=== PATIENT | male | born 1965 | race Caucasian/White ===

== ENCOUNTER 2016-05-06 00:28 | Emergency (ER) | payer MEDICARE, OTHER ==
[2016-05-06] MEDS ORDERED: KETOROLAC 60 MG/2 ML VIAL IVP STA (00:33)
[2016-05-06] MEDS ORDERED: LORazepam 2 MG/ML SYRINGE IV STA (00:34)
--- NOTE | 2016-05-06 00:37 | ED ---
Fever HPI - General Stated Complaint: anxiety Time Seen by Provider: 05/06/16 00:28 Source: RN notes reviewed - History of Present Illness Initial Comments: This is a 50-year-old male with a past medical history significant for chronic back pain and chronic anxiety. Patient states his been out of his pain medication as well as his anxiety medication. Patient states he has no ride to get to his primary medical care doctor's office so therefore he has not been getting his medications. Patient states she only takes 1 mg of Xanax 3 times a day. Patient states takes OxyContin for his back pain. Patient states he has no new symptoms today whatsoever he is just having his chronic symptoms of his back pain and his anxiety. Patient denies headache patient denies numbness weakness. Patient denies any chest pain palpitations difficulty breathing or shortness of breath. Patient denies abdominal pain patient denies nausea vomiting diarrhea. Patient denies any illegal drug use patient denies any alcohol use. Patient denies any recent injury or trauma. Patient states is chronic back pain that he has is in the lower back. Patient states sometimes it radiates down to the mid leg. - Related Data Home Medications Medication Instructions Recorded Confirmed Melatonin 3 mg PO HS 10/08/15 10/15/15 cloZAPine [Clozaril] 150 mg PO BID 10/08/15 10/15/15 Cefuroxime Axetil [Cefuroxime] 500 mg PO BID 10/15/15 10/15/15 Previous Rx's Medication Instructions Recorded Gabapentin [Neurontin] 400 mg PO TID #90 capsule 09/29/15 Mirtazapine [Remeron] 30 mg PO HS #30 tablet 09/29/15 OLANZapine [ZyPREXA] 20 mg PO HS #30 tablet 09/29/15 Omeprazole 20 mg PO DAILY #30 capsule. 09/29/15 Ranitidine HCl [Zantac] 150 mg PO BID #30 tablet 09/29/15 metroNIDAZOLE [Flagyl] 500 mg PO Q8HR #21 tab 10/12/15 ALPRAZolam [Xanax] 0.5 mg PO Q8HR #12 tab 05/06/16 Allergies Allergy/AdvReac Type Severity Reaction Status Date / Time levofloxacin [From Levaquin] Allergy Unknown Verified 09/28/15 21:12 linezolid [From Zyvox] Allergy Unknown Verified 09/28/15 21:12 nitrofurantoin Allergy Unknown Verified 09/28/15 21:12 [From Macrobid] nitrofurantoin Allergy Unknown Verified 09/28/15 21:12 macrocrystalline [From Macrobid] Penicillins Allergy Unknown Verified 09/28/15 21:12 sulfamethoxazole Allergy Unknown Verified 09/28/15 21:12 [From Bactrim] trimethoprim [From Bactrim] Allergy Unknown Verified 09/28/15 21:12 vancomycin Allergy Unknown Verified 09/28/15 21:12 Review of Systems ROS Statement: Those systems with pertinent positive or pertinent negative responses have been documented in the HPI. ROS Other: All systems not noted in ROS Statement are negative. Past Medical History Past Medical History: Liver Disease Additional Past Medical History / Comment(s): Pt stated that he has Hepatisis C History of Any Multi-Drug Resistant Organisms: None Reported Past Surgical History: No Surgical Hx Reported Additional Past Surgical History / Comment(s): pt denies Past Anesthesia/Blood Transfusion Reactions: No Reported Reaction Past Psychological History: Anxiety, Panic Disorder, Schizophrenia Smoking Status: Current every day smoker Past Alcohol Use History: Daily, Heavy Additional Past Alcohol Use History / Comment(s): 09/28/2015: pt states he is currently drinking a pint daily Past Drug Use History: None Reported General Exam - General Exam Comments Initial Comments: GENERAL: Patient is well-developed and well-nourished. Patient is nontoxic and well- hydrated and is in mild distress. ENT: Neck is soft and supple. No significant lymphadenopathy is noted. Oropharynx is clear. Moist mucous membranes. Neck has full range of motion without eliciting any pain. EYES: The sclera were anicteric and conjunctiva were pink and moist. Extraocular movements were intact and pupils were equal round and reactive to light. Eyelids were unremarkable. PULMONARY: Unlabored respirations. Good breath sounds bilaterally. No audible rales rhonchi or wheezing was noted. CARDIOVASCULAR: There is a regular rate and rhythm without any murmurs gallops or rubs. ABDOMEN: Soft and nontender with normal bowel sounds. No palpable organomegaly was noted. There is no palpable pulsatile mass. SKIN: Skin is clear with no lesions or rashes and otherwise unremarkable. NEUROLOGIC: Patient is alert and oriented x3. Cranial nerves II through XII are grossly intact. Motor and sensory are also intact. Normal speech, volume and content. Symmetrical smile. MUSCULOSKELETAL: Normal extremities with adequate strength and full range of motion. No lower extremity swelling or edema. No calf tenderness. LYMPHATICS: No significant lymphadenopathy is noted PSYCHIATRIC: Patient has moderate anxiety Course Vital Signs 05/06/16 00:36 Temperature 98.9 F Pulse Rate 85 Respiratory 16 Rate Blood Pressure 156/94 O2 Sat by Pulse 98 Oximetry Medical Decision Making - Medical Decision Making Back into the room to reevaluate the patient patient was sleeping when I woke him he stated he felt much better Disposition Clinical Impression: Chronic back pain, Anxiety Disposition: HOME SELF-CARE Condition: Good Instructions: Chronic Back Pain (ED), Anxiety (ED) Prescriptions: ALPRAZolam [Xanax] 0.5 mg PO Q8HR #12 tab Time of Disposition: 01:57
[2016-05-06 00:40] VITALS: RESP 16; TEMP 98.9
[2016-05-06 02:08] VITALS: BP 138/79; PULSE 74
== END 2016-05-06 02:07 | disposition home or self-care (01) ==
LOC: EC 00:28
DX: G89.29 Other chronic pain (principal); M54.5 Low back pain; F41.9 Anxiety disorder, unspecified; F17.200 Nicotine dependence, unspecified, uncomplicated; F20.9 Schizophrenia, unspecified; F41.0 Panic disorder [episodic paroxysmal anxiety]; Z79.899 Other long term (current) drug therapy; Z79.2 Long term (current) use of antibiotics; Z88.0 Allergy status to penicillin; Z88.1 Allergy status to other antibiotic agents; Z88.2 Allergy status to sulfonamides
CPT/HCPCS: 99283; 96374; 96375; J2060; J1885

== ENCOUNTER 2016-05-11 17:12 | Inpatient (IN) | payer MEDICARE, MEDICAID ==
--- NOTE | 2016-05-11 17:58 | ED ---
General Adult HPI - General Chief complaint: Back Pain/Injury Stated complaint: back pain Time Seen by Provider: 05/11/16 17:56 Source: patient, RN notes reviewed, old records reviewed Mode of arrival: EMS Limitations: no limitations - History of Present Illness Initial comments: This is a 50-year-old male here for suicidal evaluation. Patient has history of psychiatric disease drug dependent. Back pain back pain is chronic. No narcotics, patient also coming in with suicidal thoughts and his feet symmetrically. Denies IV or drug abuse - Related Data Home Medications Medication Instructions Recorded Confirmed cloZAPine [Clozaril] 225 mg PO BID 10/08/15 05/11/16 Aspirin [Adult Low Dose Aspirin EC] 81 mg PO DAILY 05/11/16 05/11/16 Cyanocobalamin (Vitamin B-12) 1,000 mcg SUBLINGUAL DAILY 05/11/16 05/11/16 [Vitamin B-12] Ergocalciferol [Vitamin D2] 50,000 unit PO Q7D 05/11/16 05/12/16 carBAMazepine [Carbatrol] 200 mg PO Q12H 05/11/16 05/11/16 Previous Rx's Medication Instructions Recorded Omeprazole 20 mg PO DAILY #30 capsule. 09/29/15 Allergies Allergy/AdvReac Type Severity Reaction Status Date / Time levofloxacin [From Levaquin] Allergy Unknown Verified 05/11/16 18:10 linezolid [From Zyvox] Allergy Unknown Verified 05/11/16 18:10 nitrofurantoin Allergy Unknown Verified 05/11/16 18:10 [From Macrobid] nitrofurantoin Allergy Unknown Verified 05/11/16 18:10 macrocrystalline [From Macrobid] Penicillins Allergy Unknown Verified 05/11/16 18:10 sulfamethoxazole Allergy Unknown Verified 05/11/16 18:10 [From Bactrim] trimethoprim [From Bactrim] Allergy Unknown Verified 05/11/16 18:10 vancomycin Allergy Unknown Verified 05/11/16 18:10 Review of Systems ROS Statement: Those systems with pertinent positive or pertinent negative responses have been documented in the HPI. ROS Other: All systems not noted in ROS Statement are negative. Past Medical History Past Medical History: Liver Disease Additional Past Medical History / Comment(s): Pt stated that he has Hepatitis C History of Any Multi-Drug Resistant Organisms: None Reported Past Surgical History: Appendectomy Additional Past Surgical History / Comment(s): pt denies Past Anesthesia/Blood Transfusion Reactions: No Reported Reaction Past Psychological History: Anxiety, Panic Disorder, Schizophrenia Smoking Status: Current every day smoker Past Alcohol Use History: Daily, Heavy Additional Past Alcohol Use History / Comment(s): 09/28/2015: pt states he is currently drinking a pint daily Past Drug Use History: None Reported General Exam Limitations: no limitations General appearance: alert, in no apparent distress Head exam: Present: atraumatic, normocephalic, normal inspection Eye exam: Present: normal appearance, PERRL, EOMI. Absent: scleral icterus, conjunctival injection, periorbital swelling ENT exam: Present: normal exam, mucous membranes moist Neck exam: Present: normal inspection. Absent: tenderness, meningismus, lymphadenopathy Respiratory exam: Present: normal lung sounds bilaterally. Absent: respiratory distress, wheezes, rales, rhonchi, stridor Cardiovascular Exam: Present: regular rate, normal rhythm, normal heart sounds. Absent: systolic murmur, diastolic murmur, rubs, gallop, clicks GI/Abdominal exam: Present: soft, normal bowel sounds. Absent: distended, tenderness, guarding, rebound, rigid Extremities exam: Present: normal inspection, full ROM, normal capillary refill. Absent: tenderness, pedal edema, joint swelling, calf tenderness Back exam: Present: normal inspection Neurological exam: Present: alert, oriented X3, CN II-XII intact Psychiatric exam: Present: normal affect, normal mood Skin exam: Present: warm, dry, intact, normal color. Absent: rash Course Vital Signs 05/11/16 05/11/16 17:38 21:57 Temperature 98.1 F Pulse Rate 87 87 Respiratory 18 18 Rate Blood Pressure 179/93 129/76 O2 Sat by Pulse 9 L 96 Oximetry - Reevaluation(s) Reevaluation #1: 05/11/16 17:58 Patient's medically clear for psychiatric evaluation Medical Decision Making - Medical Decision Making 50 male seen and evaluated by psychiatry, will be admitted for psychiatric evaluation and treatment - Lab Data Lab Results 05/11/16 Range/Units 18:00 Urine Color Colorless Urine Appearance Clear (Clear) Urine pH 7.0 (5.0-8.0) Ur Specific [place] 1.001 (1.001-1.035) Urine Protein Negative (Negative) Urine Glucose (UA) Negative (Negative) Urine Ketones 1+ H (Negative) Urine Blood Negative (Negative) Urine Nitrite Negative (Negative) Urine Bilirubin Negative (Negative) Urine Urobilinogen <2.0 (<2.0) mg/dL Ur Leukocyte Esterase Negative (Negative) Urine Opiates Screen Not Detected (NotDetected) Ur Oxycodone Screen Not Detected (NotDetected) Urine Methadone Screen Not Detected (NotDetected) Ur Propoxyphene Screen Not Detected (NotDetected) Ur Barbiturates Screen Not Detected (NotDetected) U Tricyclic Antidepress Not Detected (NotDetected) Ur Phencyclidine Scrn Not Detected (NotDetected) Ur Amphetamines Screen Not Detected (NotDetected) U Methamphetamines Scrn Not Detected (NotDetected) U Benzodiazepines Scrn Not Detected (NotDetected) Urine Cocaine Screen Not Detected (NotDetected) U Marijuana (THC) Screen Not Detected (NotDetected) Disposition Clinical Impression: Schizophrenia, Anxiety, Suicidal ideation Disposition: TRANSFER TO PSYCH HOSP/UNIT Condition: Good
[2016-05-11 18:24] LABS: Appearance,Urine Clear (Clear); Bilirubin,Urine Negative (Negative); Glucose,Urine (UA) Negative (Negative); Ketones,Urine 1+ (Negative); Leukocyte Esterase,Urine Negative (Negative); Nitrite,Urine Negative (Negative); Protein,Urine Negative (Negative); Specific Gravity,Urine 1.001 (1.001-1.035); UA Billing (MACRO vs. MICRO) CHEM; Urobilinogen,Urine <2.0 mg/dL (<2.0)
[2016-05-11] MEDS ORDERED: MAG HYDROX/AL HYDROX/SIMETH 30 ML CUP PO PRN (22:57)
[2016-05-11] MEDS ORDERED: MAGNESIUM HYDROXIDE 2,400 MG/10 ML CUP PO PRN (22:57)
[2016-05-11] MEDS ORDERED: ACETAMINOPHEN TAB 325 MG TAB PO PRN (22:57)
[2016-05-11] MEDS ORDERED: LORazepam 2 MG/ML SYRINGE IM PRN (23:01)
[2016-05-12] MEDS: cloZAPine 100 MG TAB PO SCH ×2 (08:09→21:30)
[2016-05-12] MEDS: CYANOCOBALAMIN 500 MCG TAB PO SCH (08:09)
[2016-05-12] MEDS: cloZAPine 25 MG TAB PO SCH ×2 (08:09→21:30)
[2016-05-12] MEDS: PANTOPRAZOLE 40 MG TABLET PO SCH (08:09)
[2016-05-12] MEDS: ASPIRIN 81 MG CHEW PO SCH (08:09)
[2016-05-12] MEDS ORDERED: NICOTINE 21MG/24HR PATCH TRANSDERM SCH (09:00)
[2016-05-12] MEDS: VENLAFAXINE HCL ER 37.5 MG CAP PO SCH (09:43)
[2016-05-12 09:56] LABS: Basophils % (A) 0 %; CH 32.9; CHCM 35.3; Eosinophils # (A) 0.1 k/uL (0-0.7); Eosinophils % (A) 1 %; HCT 52.7 % (39.0-53.0); HDW 2.58; HGB 17.8 gm/dL (13.0-17.5); Luc # (Auto) 0.08; Luc % (Auto) 1; Lymphocytes # (A) 0.8 k/uL (1.0-4.8); Lymphocytes % (A) 10 %; MCH 31.7 pg (25.0-35.0); MCHC 33.8 g/dL (31.0-37.0); MCV 93.8 fL (80.0-100.0); Mean Platelet Volume 7.9; Monocytes # (A) 0.4 k/uL (0-1.0); Monocytes % (A) 5 %; Neutrophils % (A) 84 %; RBC 5.62 m/uL (4.30-5.90); RDW 14.5 % (11.5-15.5); WBC 8.4 k/uL (3.8-10.6); WBC (Perox) 8.41
[2016-05-12 10:22] LABS: Anion Gap 11 mmol/L; Blood Urea Nitrogen 7 mg/dL (9-20); Calcium 9.3 mg/dL (8.4-10.2); Carbon Dioxide 26 mmol/L (22-30); Chloride 97 mmol/L (98-107); Glucose 135 mg/dL (74-99); Non-African American GFR(MDRD) >60 (>60 ml/min/1.73 sqM); Potassium 4.3 mmol/L (3.5-5.1); Sodium 134 mmol/L (137-145)
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
[2016-05-12] MEDS: ERGOCALCIFEROL 50,000 UNIT CAP PO SCH (16:52)
[2016-05-12] MEDS ORDERED: IBUPROFEN 200 MG TAB PO PRN (17:53)
[2016-05-12 19:04] LABS: ALT 39 U/L (21-72); AST 33 U/L (17-59); Alkaline Phosphatase 91 U/L (38-126); Anion Gap 13 mmol/L; Blood Urea Nitrogen 12 mg/dL (9-20); Calcium 9.3 mg/dL (8.4-10.2); Carbon Dioxide 26 mmol/L (22-30); Chloride 95 mmol/L (98-107); Glucose 113 mg/dL (74-99); Non-African American GFR(MDRD) >60 (>60 ml/min/1.73 sqM); Potassium 4.5 mmol/L (3.5-5.1); Sodium 134 mmol/L (137-145); Total Bilirubin 0.8 mg/dL (0.2-1.3); Total Protein 7.4 g/dL (6.3-8.2)
--- NOTE | 2016-05-12 20:55 | CONS ---
REASON FOR CONSULTATION: Alcohol and COPD and multiple other medical issues requested by Psychiatry. HISTORY OF PRESENT ILLNESS: This 50-year-old gentleman with a past medical history of liver disease, history of hepatitis C, apparently history of EtOH and nicotine dependence, anxiety and panic disorder, schizophrenia, being followed by Dr. Hernandez in the outpatient setting admitted for psychiatric evaluation. The patient complained of congestion and cough. Otherwise, there is no history of any fevers or rigors. No history of any headache, loss of consciousness, seizures. The patient also takes vitamin D daily. The patient also complaining of right lower leg pain and arterial Doppler is advised outpatient for evaluation of the vasculature. PAST MEDICAL HISTORY: History of anxiety, panic disorder, schizophrenia, liver disease. Medications prior to admission include home medications are: 1. Vitamin D2 50,000 units q. 7 days. 2. Cyanocobalamin vitamin B12 daily. 3. Aspirin 81 mg p.o. daily. 5. Carbatrol 200 mg p.o. q. 12 hours. 6. Clozaril 225 mg p.o. b.i.d. ALLERGIES: MULTIPLE. LEVAQUIN WELL NITROFURANTOIN, PENICILLIN, SULFA, TRIMETHOPRIM, VANCOMYCIN. FAMILY HISTORY: No history of heart disease or strokes in the family. SOCIAL HISTORY: Denies smoking or smoking and alcohol intake. REVIEW OF SYSTEMS: ENT: No diminishing hearing. No diminished vision. CARDIOVASCULAR: As mentioned earlier. RESPIRATORY: As mentioned earlier. GI: No nausea. : No dysuria. NERVOUS: No numbness or weakness. ALLERGY/IMMUNOLOGY: No asthma, hay fever. MUSCULOSKELETAL: As mentioned earlier. HEMATOLOGY/ONCOLOGY: No history of anemia. ENDOCRINE: No history of diabetes, hypothyroidism. CONSTITUTIONAL: As mentioned earlier. DERMATOLOGY: Negative. RHEUMATOLOGY: Negative. PSYCHIATRY: As mentioned earlier. PHYSICAL EXAM: Patient is alert and oriented x3. Pulse is 82, blood pressure 127/80, respirations 18, temperature 96.8, pulse ox 96% on room air. HEENT: Conjunctivae normal. Oral mucosa moist. NECK: No jugular venous distension. No carotid bruits. No lymph node enlargement. CARDIOVASCULAR SYSTEM: S1, S2 muffled. No S3. No S4. RESPIRATORY: Breath sounds diminished in the bases. A few scattered rhonchi and crackles. ABDOMEN: Soft, nontender. No mass palpable. LEGS: No edema. No swelling. NERVOUS SYSTEM: Higher functions as mentioned earlier. Moves all 4 limbs. No focal deficits. LYMPHATIC: No lymph nodes palpable in neck, axillae or groin. SKIN: No ulcer, rash, bleeding. Labs at this time show WBC 8.5, hemoglobin 17.2. Sodium 132, potassium 4.3, glucose 135. Marijuana is negative. ASSESSMENT: 1. Possible chronic obstructive pulmonary disease. 2. Hyponatremia. 3. chronic liver disease. 4. Increased random blood sugar. 5. Increased hemoglobin, possibly secondary from smoking. 6. History of nicotine dependence. 7. History of EtOH. 8. History of hepatitis C possibly. 9. Anxiety, panic disorder, schizophrenia. 10. FULL CODE. RECOMMENDATIONS AND DISCUSSION: In this 50-year-old gentleman who presented with multiple complex medical issues, I would recommend to continue the current medications, continue symptomatic treatment. Otherwise, I would recommend baseline LFTs and avoid hepatotoxic medications, including Tylenol if the LFTs are abnormal. Otherwise, I recommend bronchodilators and smoking cessation, EtOH cessation recommendation also given. Will follow the patient closely with you. The arterial Doppler which was ordered could be done as an outpatient and closely follow up with Dr. Hernandez. Symptomatic treatment will be provided at this time. Will follow the patient closely with you. See orders for further details. Guarded prognosis. Further recommendations to follow. MTDD
[2016-05-12] MEDS: OXcarbazepine 150 MG TAB PO SCH (21:30)
[2016-05-12] MEDS: ALBUTEROL INHALER 60 PUFF/8 GM INHALER INHALATION SCH (23:30)
[2016-05-13] MEDS: cloZAPine 25 MG TAB PO SCH ×2 (08:04→21:50)
[2016-05-13] MEDS: cloZAPine 100 MG TAB PO SCH ×2 (08:04→21:50)
[2016-05-13] MEDS: ASPIRIN 81 MG CHEW PO SCH (08:04)
[2016-05-13] MEDS: PANTOPRAZOLE 40 MG TABLET PO SCH (08:05)
[2016-05-13] MEDS: VENLAFAXINE HCL ER 37.5 MG CAP PO SCH (08:05)
[2016-05-13] MEDS: OXcarbazepine 150 MG TAB PO SCH ×2 (08:05→21:50)
[2016-05-13] MEDS: CYANOCOBALAMIN 500 MCG TAB PO SCH (08:05)
[2016-05-13] MEDS: ALBUTEROL INHALER 60 PUFF/8 GM INHALER INHALATION SCH ×3 (09:31→20:50)
[2016-05-13] MEDS: LORazepam 1 MG TAB PO PRN ×2 (13:02→21:54)
--- NOTE | 2016-05-13 14:18 | P.PN ---
Progress Note - Text Interval history: Patient is seen in cross coverage today for Dr. Armendariz. He reports that he was admitted with thoughts of suicide. He does relate having auditory hallucinations. He has been started on Effexor XR and Trileptal. He is maintained on Clozaril. He is cooperative with coming to the interview room. Mental status exam: He is alert and cooperative with the interview. His affect overall is restricted. His mood seems depressed. He reports that he was having significant suicidal ideations which prompted his admission, he reports that he feels safe here in the hospital. He reports that he has some ongoing auditory hallucinations saying "dangerous." He denies any thoughts of harm to others. He does not make any nahum delusional statements. He does not show any agitation. Plan: We'll maintain current psychotropic medications. We will monitor for any medication side effects and monitor his ongoing response. Continue to monitor his mood and monitor for any suicidal ideations. We will also continue to monitor in terms of psychosis symptoms. We'll continue to cover this patient for Dr. Armendariz through the weekend.
[2016-05-14] MEDS: cloZAPine 25 MG TAB PO SCH ×2 (08:27→20:17)
[2016-05-14] MEDS: cloZAPine 100 MG TAB PO SCH ×2 (08:27→20:17)
[2016-05-14] MEDS: OXcarbazepine 150 MG TAB PO SCH ×2 (08:28→20:16)
[2016-05-14] MEDS: CYANOCOBALAMIN 500 MCG TAB PO SCH (08:28)
[2016-05-14] MEDS: PANTOPRAZOLE 40 MG TABLET PO SCH (08:28)
[2016-05-14] MEDS: VENLAFAXINE HCL ER 37.5 MG CAP PO SCH (08:28)
[2016-05-14] MEDS: ASPIRIN 81 MG CHEW PO SCH (08:28)
[2016-05-14] MEDS: LORazepam 1 MG TAB PO PRN ×2 (08:30→16:57)
[2016-05-14] MEDS: ALBUTEROL INHALER 60 PUFF/8 GM INHALER INHALATION SCH ×4 (09:36→18:45)
--- NOTE | 2016-05-14 11:50 | P.PN ---
Progress Note - Text Interval history: Patient is seen in cross coverage today for Dr. Lucero. He is found in his room lying in bed. He does awaken with name-calling. He reports that he slept okay last night and he is eating okay. He does not seem to voice any adverse psychotropic medication side effects. Mental status exam: He is found in his room lying in bed. He does awaken with name-calling. His affect is restricted. His mood he describes as not too good. He admits to having some suicidal ideations but reports that he feels safe here in the hospital. He denies any thoughts of harm to others. He denies any current hallucinations. He does not show any agitation. Plan: We'll maintain current psychotropic medication regimen. We'll continue to monitor for any medication side effects. Continue to monitor regarding any suicidal ideations and for any psychosis symptoms. Dr. Lucero to resume care this patient starting tomorrow.
[2016-05-15] MEDS: LORazepam 1 MG TAB PO PRN ×3 (01:42→18:12)
[2016-05-15 06:47] LABS: Norclozapine 226 ng/mL (200-700)
[2016-05-15] MEDS: cloZAPine 25 MG TAB PO SCH ×2 (08:28→20:23)
[2016-05-15] MEDS: ASPIRIN 81 MG CHEW PO SCH (08:28)
[2016-05-15] MEDS: CYANOCOBALAMIN 500 MCG TAB PO SCH (08:28)
[2016-05-15] MEDS: cloZAPine 100 MG TAB PO SCH ×2 (08:28→20:23)
[2016-05-15] MEDS: PANTOPRAZOLE 40 MG TABLET PO SCH (08:29)
[2016-05-15] MEDS: OXcarbazepine 150 MG TAB PO SCH (08:29)
[2016-05-15] MEDS: VENLAFAXINE HCL ER 75 MG CAP PO SCH (09:09)
[2016-05-15] MEDS: ALBUTEROL INHALER 60 PUFF/8 GM INHALER INHALATION SCH ×3 (09:40→21:47)
--- NOTE | 2016-05-15 12:57 | P.PN ---
Progress Note - Text Interval history: The patient is found in the hallway he follows me to an interview room. Patient was dressed in hospital gown He reports he is less anxious with Ativan ,still having auditory hallucinations "Telling him to hurt himself" ,he rates his anxiety 9/10 "IF I DO NOT GET ATIVAN", reports feeling tired ,no energy ,isolating himself ,minimal participation in milieu Was seen by medical consult DR Miller :who recommended that arterial sonogram to be done as outpatient ,also as LF enzymes are high to avoid hepatotoxic meds including Tylenol and rec.sobriety and abstinence from alcohol I reviewed labs :Sodium is low ,LFT:high Mental status exam: The patient is alert he has a disheveled appearance eye contact is intermittent. He is dressed in hospital gown ,body odor He seated calmly. He continues to endorse auditory hallucinations telling him to hurt himself but able to contract for safety He is more reserved today and does not endorse any specific delusions. Focussing about getting Ativan Insight and judgment remains limited. He demonstrates no verbal or physical aggressiveness during our session. Affect remains constricted. He reports no suicidal ideation intent or plan or any homicidal ideation intent or plan. Plan: Discontinue Trileptal and will repeat Sodium level in couple of days, increase Effexor to 75 mg ,increase Clozaril to 550 mg instead of 450 mg ,check Clozapine level tomorrow ,set limit on his drug seeking for Ativan,encourage groups participation and ADLs
[2016-05-16] MEDS: cloZAPine 25 MG TAB PO SCH ×2 (08:04→21:13)
[2016-05-16] MEDS: cloZAPine 100 MG TAB PO SCH ×2 (08:04→21:13)
[2016-05-16] MEDS: VENLAFAXINE HCL ER 75 MG CAP PO SCH (08:04)
[2016-05-16] MEDS: PANTOPRAZOLE 40 MG TABLET PO SCH (08:04)
[2016-05-16] MEDS: ASPIRIN 81 MG CHEW PO SCH (08:04)
[2016-05-16] MEDS: CYANOCOBALAMIN 500 MCG TAB PO SCH (08:04)
[2016-05-16] MEDS: LORazepam 1 MG TAB PO PRN (08:05)
[2016-05-16] MEDS: hydrOXYzine PAMOATE 25 MG CAP PO PRN ×2 (09:49→15:29)
--- NOTE | 2016-05-16 10:00 | P.PN ---
Progress Note - Text Interval history: The patient was laying in his room but able to wake up he follows me to an interview room. Patient was dressed in hospital gown He reports feeling dizzy ,lightheaded and "I AM VERY ANXIOUS" ,still having auditory hallucinations "Telling him to hurt himself" ,he rates his anxiety 10/ 10 ,intensity of command hallucination 7/10 ,was 10/10 at admission,still endorsing depression and rates it 7/10 reports feeling tired ,no energy , isolating himself ,not taking care of his ADLs and no participation in milieu PER NURSING STAFF: patient is up for meal or medication then isolating himself, had PRN 1mg Ativan this morning On 05/12 :Clozapine level was 477 ,Norclozapine was 226 VITALS :Blood Pressure running low for last 2 days ,monitor closely Mental status exam: The patient is alert he has a disheveled appearance eye contact is intermittent. He is dressed in hospital gown ,body odor He seated calmly. He continues to endorse auditory hallucinations telling him to hurt himself but able to contract for safety He is more reserved today and does not endorse any specific delusions. Focussing about getting Ativan Insight and judgment remains limited. He demonstrates no verbal or physical aggressiveness during our session. Affect remains constricted. He reports no suicidal ideation intent or plan or any homicidal ideation intent or plan. Plan: Discontinue Ativan ,PRN Vistaril ,check clozaril level ,continue same dose for Effexor and Clozapine ,encourage groups participation and caring for his ADL
[2016-05-16] MEDS: ALBUTEROL INHALER 60 PUFF/8 GM INHALER INHALATION SCH ×2 (11:23→20:45)
[2016-05-17] MEDS: hydrOXYzine PAMOATE 25 MG CAP PO PRN (06:16)
[2016-05-17] MEDS: cloZAPine 25 MG TAB PO SCH (08:17)
[2016-05-17] MEDS: cloZAPine 100 MG TAB PO SCH ×2 (08:17→21:27)
[2016-05-17] MEDS: ASPIRIN 81 MG CHEW PO SCH (08:17)
[2016-05-17] MEDS: CYANOCOBALAMIN 500 MCG TAB PO SCH (08:18)
[2016-05-17] MEDS: VENLAFAXINE HCL ER 75 MG CAP PO SCH (08:18)
[2016-05-17] MEDS: PANTOPRAZOLE 40 MG TABLET PO SCH (08:18)
[2016-05-17 08:22] LABS: Norclozapine 233 ng/mL (200-700)
[2016-05-17 08:26] LABS: Basophils % (A) 0 %; CH 31.8; CHCM 33.6; Eosinophils # (A) 0.2 k/uL (0-0.7); Eosinophils % (A) 3 %; HCT 53.9 % (39.0-53.0); HDW 2.57; HGB 17.4 gm/dL (13.0-17.5); Luc # (Auto) 0.19; Luc % (Auto) 3; Lymphocytes # (A) 1.4 k/uL (1.0-4.8); Lymphocytes % (A) 20 %; MCH 30.8 pg (25.0-35.0); MCHC 32.3 g/dL (31.0-37.0); MCV 95.3 fL (80.0-100.0); Mean Platelet Volume 7.6; Monocytes # (A) 0.4 k/uL (0-1.0); Monocytes % (A) 5 %; Neutrophils # (A) 4.9 k/uL (1.3-7.7); Neutrophils % (A) 69 %; RBC 5.66 m/uL (4.30-5.90); RDW 14.4 % (11.5-15.5); WBC 7.1 k/uL (3.8-10.6); WBC (Perox) 7.23
[2016-05-17 12:01] LABS: Anion Gap 10 mmol/L; Blood Urea Nitrogen 18 mg/dL (9-20); Carbon Dioxide 27 mmol/L (22-30); Chloride 106 mmol/L (98-107); Non-African American GFR(MDRD) >60 (>60 ml/min/1.73 sqM); Potassium 4.6 mmol/L (3.5-5.1); Sodium 143 mmol/L (137-145)
[2016-05-17] MEDS: SODIUM CHLORIDE 0.9% 1,000 ML IV SCH ×2 (12:10→15:04)
--- NOTE | 2016-05-17 12:16 | P.PN ---
Progress Note - Text Interval history: Patient is seen in his room as he was dizzy with unsteady gait ,also discussed his case in treatment team ,[facility] liaison was present, patient endorses high anxiety and asked for "ATIVAN OR LIBRIUM",I told him that I am not RX any benzodiazepine with his extensive history of alcohol ,patient was receptive to try low dose of Buspar ,patient endorses lot of somatic complains. He does relate having auditory hallucinations "AT TIMES TELLING ME TO HURT MYSELF" VITALS :Pulse:97,BP:104/55 to 69/40 with change posture CLOZAPINE level:478 ,Norclozapine:233 ,slightly higher than 05/12 Mental status exam: He is alert and cooperative with the interview. Disheveled , unkept His affect overall is restricted. His mood "Very anxious" He reports that he was having significant suicidal ideation which prompted his admission, he reports that he feels safe here in the hospital. He reports that he has some ongoing auditory hallucinations saying "dangerous." He denies any thoughts of harm to others. He does not make any nahum delusional statements. He does not show any agitation. Plan: LABS :lytes ,BUN ,CREat ,reconsult DR Miller ,continue same dose of Clozaril for now ,add low dose of Buspar Continue to monitor his mood and monitor for any suicidal ideation
--- NOTE | 2016-05-17 12:52 | P.PN ---
Subjective Principal diagnosis: ADDENDUM TO MY PREVIOUS NOTE: Lytes ,BUN ,CREAT. :WNL Clozaril side-effects:Tachycardia and postural hypo tension ,drug interaction with Effexor PLAN: Decrease Effexor ,decrease Clozaril to 500 mg daily ,continue monitor vitals Objective - Vital Signs Vital signs: Vital Signs Temp 97.4 F L 05/17/16 08:19 Pulse 97 05/17/16 11:46 Resp 18 05/17/16 11:46 BP 104/55 05/17/16 11:46 Pulse Ox 96 05/17/16 06:29 - Labs CBC & Chem 7: 05/17/16 07:54 05/17/16 07:54 Labs: Abnormal Lab Results - Last 24 Hours (Table) 05/17/16 Range/Units 07:54 Hct 53.9 H (39.0-53.0) %
[2016-05-17] MEDS: ALBUTEROL INHALER 60 PUFF/8 GM INHALER INHALATION SCH ×2 (14:09)
[2016-05-17] MEDS ORDERED: cloZAPine 25 MG TAB PO SCH (21:00)
[2016-05-17] MEDS: busPIRone HCl 5 MG TAB PO SCH (21:28)
--- NOTE | 2016-05-18 07:34 | PN ---
DATE OF SERVICE: 05/17/2016 Mr. Chan is a 50-year-old male with current history of multiple medical problems including hepatitis C, alcoholic and nicotine addiction, panic disorder, schizophrenia, was admitted to the hospital for psychiatric evaluation. Patient today did complain of dizziness and patient was found to be hypotensive and orthostatic positive. Patient otherwise is getting IV fluids. Dizziness is improved at this time. No fever. No chills. No complaint of chest pain. No headache. Patient also having poor oral intake. REVIEW OF SYSTEMS: CONSTITUTIONAL: No fever. No chills. Patient does have weakness or malaise. RESPIRATORY: No cough or sputum production. CARDIOVASCULAR: No chest pain. Patient does have mild short of breath. No leg swelling. ABDOMEN: No nausea, vomiting, abdominal pain. GENITOURINARY: Negative. ENDOCRINE: Neg. PSYCHIATRIC: Flat affect. Cooperative. Current medications include Tylenol, Maalox, Ventolin, aspirin, BuSpar, clozapine, cyanocobalamin, vitamin D2, Vistaril, ibuprofen, milk of magnesia, Protonix, Effexor. PHYSICAL EXAMINATION: A 50-year-old male lying in the bed. Awake, alert, oriented x3. Appears to be in no acute distress and alert and oriented x2 to 3. VITALS: In the morning blood pressure was 103/71, pulse 81. Blood pressure while standing was 69/40 and pulse is 49. Saturating well on room air. HEENT: Atraumatic, normocephalic. Neck is supple. No JVD. CVS: S1, S2 heard. No murmurs, no gallop. LUNGS: Bilateral air entry is present, but diminished bilaterally. No wheezing. Nonlabored breathing. ABDOMEN: Soft, nontender. Bowel sounds present. MONUMENT SETTER: Awake, alert, oriented x2 to 3. No focal deficit. EXTREMITIES: No edema. Pulses are palpable bilaterally. No clubbing or cyanosis. PSYCHIATRIC: Cooperative. Denied any suicidal ideation. LABORATORY DATA: WBC 7.1, hemoglobin 17.4, platelets 228. Sodium 143, potassium 4.3, chloride 106, bicarb is 27, BUN 18, creatinine 0.87, clozapine level is 478 and ( ) is 233, which are in therapeutic range. IMPRESSION: 1. Dizziness secondary to orthostatic hypotension likely secondary hypotension and poor oral intake along with medication include Effexor and clozapine. Patient is to continue on IV fluids until symptomatic improvement and continue the orthostatic vitals q.6 hourly and will follow up closely. 2. Anxiety, depression and schizophrenia, panic disorder. 3. Hepatitis C. 4. Alcohol abuse. 5. Nicotine addiction. 6. Chronic obstructive pulmonary disease not in exacerbation. 7. FULL CODE. DISCUSSION AND PLAN: Patient will be continued on IV fluids and continue to monitor orthostatic vitals. Patient did improve symptomatically with IV hydration. Otherwise, we will continue the current management with additional dose of clozapine and Effexor and follow up closely. Further recommendations based on the clinical course.
[2016-05-18] MEDS: busPIRone HCl 5 MG TAB PO SCH (08:11)
[2016-05-18] MEDS: ASPIRIN 81 MG CHEW PO SCH (08:11)
[2016-05-18] MEDS: CYANOCOBALAMIN 500 MCG TAB PO SCH (08:11)
[2016-05-18] MEDS: cloZAPine 100 MG TAB PO SCH ×2 (08:12→20:42)
[2016-05-18] MEDS ORDERED: VENLAFAXINE HCL ER 37.5 MG CAP PO SCH (09:00)
[2016-05-18] MEDS: ALBUTEROL INHALER 60 PUFF/8 GM INHALER INHALATION SCH ×6 (09:05→20:52)
[2016-05-18] MEDS: PANTOPRAZOLE 40 MG TABLET PO SCH (09:12)
--- NOTE | 2016-05-18 09:47 | P.PN ---
Subjective Interval history: The patient was laying in his room but able to wake up and follows me to an interview room. Patient was dressed in his clothing He reports that he is feeling "SCARED TO BE DISCHARGED" ,still having auditory hallucinations telling him negative comments,he rates his anxiety 10/10 ,stated that he was less nervous on Ativan PRN ,reports paranoia and suspicious feeling , endorses feeling tired ,no energy ,isolating himself ,not taking care of his ADLs and no participation in milieu PER NURSING STAFF: patient is up for meal or medication then isolating himself, patient received IV hydration yesterday due to hypotension CONTINUE CLOSE MONITORING HIS VITAL Mental status exam: The patient is alert he has a disheveled appearance eye contact is intermittent.,body odor He seated calmly. He continues to endorse auditory hallucinations telling him to hurt himself but able to contract for safety He is more reserved today and does not endorse any specific delusions. Focussing about getting Ativan Insight and judgment remains limited. He demonstrates no verbal or physical aggressiveness during our session. Affect remains constricted. He reports no active suicidal ideation intent or plan or any homicidal ideation intent or plan. He reports high anxiety and lot of somatic complains Plan: Discontinue Effexor and Buspar to minimize risk of hypotension ,add low dose of Seroquel for anxiety and restart Tegretol on lower dose ,patient is still verbalizing command hallucination ,,continue inpatient hospitalization, encourage groups participation and caring for his ADL Objective - Vital Signs Vital signs: Vital Signs Temp 98.1 F 05/18/16 06:38 Pulse 75 05/18/16 06:38 Resp 18 05/18/16 06:38 BP 83/52 05/18/16 06:38 Pulse Ox 96 05/17/16 06:29 Intake & Output 05/17/16 05/18/16 05/18/16 18:59 06:59 18:59 Intake Total 1999 Balance 1999 Intake: IV 1999 Invasive Line 1 1999 - Labs CBC & Chem 7: 05/17/16 07:54 05/17/16 07:54
[2016-05-18] MEDS: QUEtiapine 25 MG TAB PO SCH ×2 (15:44→20:43)
--- NOTE | 2016-05-19 08:45 | P.PN ---
Progress Note - Text Interval history: Patient was in dining room ,was able to follow me to an interview room. Patient was dressed in his clothing He reports that he slept couple of hours last night ,discussed with him that he has to be out of his room during day instead of laying in bed all day ,patient was receptive ,still endorsing high anxiety,when asked about hallucination ,he replied "IT DOES COME AND GO " endorses feeling tired ,no energy ,isolating himself ,not taking care of his ADLs and no participation in milieu Patient stated that he does not want Tegretol as it is making him more sluggish "I DO NOT NEED MOOD STABILIZER ,I NEED ANXIETY PILLS" PER NURSING STAFF: patient is up for meal or medication then isolating himself Vitals :stable .Pulse:67 ,Blood Pressure:123/80 Mental status exam: The patient is alert he has a disheveled appearance eye contact is intermittent.,body odor He seated calmly. He reports that he has chronic hallucination but "SOMETIMES LOUD" ,is more reserved today and does not endorse any specific delusions. Focussing about anxiety and need for anti anxiety medication Insight and judgment remains limited. He demonstrates no verbal or physical aggressiveness during our session. Affect remains constricted. He reports no active suicidal ideation intent or plan or any homicidal ideation intent or plan. He reports high anxiety and lot of somatic complains Plan: Increase Clozaril and monitor Vitals ,Increase Seroquel for anxiety , discontinue Tegretol ,,continue inpatient hospitalization,encourage groups participation and caring for his ADL
[2016-05-19] MEDS: cloZAPine 100 MG TAB PO SCH (08:47)
[2016-05-19] MEDS: ASPIRIN 81 MG CHEW PO SCH (08:47)
[2016-05-19] MEDS: ALBUTEROL INHALER 60 PUFF/8 GM INHALER INHALATION SCH ×3 (08:48→21:37)
[2016-05-19] MEDS: CYANOCOBALAMIN 500 MCG TAB PO SCH (08:48)
[2016-05-19] MEDS: PANTOPRAZOLE 40 MG TABLET PO SCH (08:50)
[2016-05-19] MEDS: hydrOXYzine PAMOATE 25 MG CAP PO PRN ×2 (08:51→16:14)
[2016-05-19] MEDS: QUEtiapine 25 MG TAB PO SCH ×3 (08:51→20:33)
[2016-05-19] MEDS: ERGOCALCIFEROL 50,000 UNIT CAP PO SCH (12:52)
[2016-05-19] MEDS ORDERED: cloZAPine 100 MG TAB PO SCH (21:00)
--- NOTE | 2016-05-20 08:16 | P.PN ---
Progress Note - Text Interval history: Patient was in sitting in hallway,was able to follow me to an interview room. Patient was dressed in his clothing He reports that he slept couple of hours last night ,discussed with him that he has to be out of his room during day instead of laying in bed all day ,patient was receptive ,still endorsing high anxiety saying "SEROQUEL MAKING ME SHAKY ALL OVER AND RESTLESS", when asked about hallucination ,he said "MAN AND WOMAN TELLING ME TO HURT MYSELF ",patient denies any specific plan and able to contract for safety ,he rates his anxiety 9/10 ,depression 5/10 ,10 being the worse,not taking care of his ADLs and does not interact with other peers PER NURSING STAFF: patient is up for meal or medication then isolating himself , dis participate in 2 groups yesterday ,still not taking care of his ADL Vitals : .Pulse:75,Blood Pressure:90/55 Mental status exam: The patient is alert he has a disheveled appearance eye contact is intermittent.,body odor He seated calmly. Hands tremors and figiddy at times He reports that he has chronic hallucination i"But not command in nature "but stated that he has command hallucination since admission , does not endorse any specific delusions. Focussing about anxiety and need for anti anxiety medication Insight and judgment remains limited. He demonstrates no verbal or physical aggressiveness during our session. Affect remains constricted. He reports no active suicidal ideation intent or plan or any homicidal ideation intent or plan. He reports high anxiety and lot of somatic complains Plan: Increase Clozaril and monitor Vitals , discontinue Seroquel ,add low dose of Klonopin for anxiety ,low dose of Remeron for sleep,,continue inpatient hospitalization,encourage groups participation and caring for his ADL
[2016-05-20] MEDS: PANTOPRAZOLE 40 MG TABLET PO SCH (08:45)
[2016-05-20] MEDS: ASPIRIN 81 MG CHEW PO SCH (08:45)
[2016-05-20] MEDS: CYANOCOBALAMIN 500 MCG TAB PO SCH (08:45)
[2016-05-20] MEDS: cloZAPine 100 MG TAB PO SCH ×2 (08:45→20:22)
[2016-05-20] MEDS: clonazePAM 0.5 MG TAB PO SCH ×3 (08:47→20:24)
[2016-05-20] MEDS: ALBUTEROL INHALER 60 PUFF/8 GM INHALER INHALATION SCH ×3 (09:27→18:50)
[2016-05-20] MEDS: hydrOXYzine PAMOATE 25 MG CAP PO PRN (13:38)
[2016-05-20] MEDS ORDERED: MIRTAZAPINE 15 MG TAB PO SCH (21:00)
[2016-05-21] MEDS: CYANOCOBALAMIN 500 MCG TAB PO SCH (08:43)
[2016-05-21] MEDS: ASPIRIN 81 MG CHEW PO SCH (08:43)
[2016-05-21] MEDS: cloZAPine 100 MG TAB PO SCH ×2 (08:43→20:05)
[2016-05-21] MEDS: clonazePAM 0.5 MG TAB PO SCH ×3 (08:44→21:08)
[2016-05-21] MEDS: PANTOPRAZOLE 40 MG TABLET PO SCH (08:45)
[2016-05-21] MEDS: ALBUTEROL INHALER 60 PUFF/8 GM INHALER INHALATION SCH ×3 (11:19→21:39)
--- NOTE | 2016-05-21 12:33 | P.PN ---
Progress Note - Text Interval history: Patient was in sitting in hallway,was able to follow me to an interview room. Patient was dressed in his clothing ,poor grooming ,stated that his anxiety is less but asking to have higher dose of klonopin ,discussed with him cross addiction and he was receptive ,still having auditory hallucination but not command in nature He reports that he had initial insomnia due to racing thought PER NURSING STAFF: patient is up for meal or medication then isolating himself , more visible on unit ,attending couple of groups Mental status exam: The patient is alert he has a disheveled appearance eye contact is intermittent.,body odor He seated calmly. Hands tremors at times He reports that he has chronic hallucination i"But not command in nature ", does not endorse any specific delusions. Focussing about anxiety and need for anti anxiety medication Insight and judgment slowly improving He demonstrates no verbal or physical aggressiveness during our session. Affect remains constricted. He reports no active suicidal ideation intent or plan or any homicidal ideation intent or plan. He reports that his anxiety is 25% less Plan: Discontinue Remeron ,add trileptal HS ,continue Clozaril and Klonopin , same dose ,monitor Vitals,,continue inpatient hospitalization,encourage groups participation and caring for his ADL
[2016-05-21] MEDS ORDERED: OXcarbazepine 300 MG TAB PO SCH (21:00)
[2016-05-22 06:46] VITALS: BP 122/81; PULSE 78; RESP 18; TEMP 97.4
[2016-05-22] MEDS: CYANOCOBALAMIN 500 MCG TAB PO SCH (08:38)
[2016-05-22] MEDS: PANTOPRAZOLE 40 MG TABLET PO SCH (08:38)
[2016-05-22] MEDS: ASPIRIN 81 MG CHEW PO SCH (08:38)
[2016-05-22] MEDS: cloZAPine 100 MG TAB PO SCH (08:38)
[2016-05-22] MEDS ORDERED: clonazePAM 0.5 MG TAB PO PRN (08:44)
[2016-05-22] MEDS: ALBUTEROL INHALER 60 PUFF/8 GM INHALER INHALATION SCH (09:27)
--- NOTE | 2016-05-23 11:10 | DS ---
DATE OF ADMISSION: 05/11/2016 DATE OF DISCHARGE: 05/22/2016 CONSULT PHYSICIAN: Routine. CONSULTING PROVIDER: Dr. Miller CONSULT REASON: Medical management. Do you want consulting provider notified? Yes. DISCHARGE DIAGNOSES: 1. Schizophrenia, paranoid type, in partial remission. 2. Alcohol use disorder. 3. History of poor compliance with medication. BRIEF SUMMARY OF THE ADMISSION NOTES: Patient is 50, single male with extensive history of mental illness and alcohol abuse. Patient presented to the mental health unit on voluntary basis for suicidal ideation. At the time of the admission patient was complaining of feeling depressed, anxious, and he was going through withdrawal symptoms from alcohol. For full evaluation please refer to my history and present illness. SUMMARY OF HOSPITAL COURSE: Patient was admitted to the mental health unit on voluntary basis. He was started on CIWA protocol for alcohol withdrawal symptoms and I did restart him back on clozapine; however, I gradually titrate the dose up to 200 in the morning and 400 at bedtime as the patient was complaining of having auditory hallucination telling him to kill himself. Patient also was expressing paranoia, suspicious feeling. I did try to treat depression by adding Effexor; however, patient was started having severe hypotension to the point that he was high risk for falling, so I discontinued the Effexor and we reconsulted Dr. Miller, who did ask to give IV fluids to increase the blood pressure. Despite at that time the BUN and creatine were within normal limits. However, the blood pressure did drop to 80/40. After the IV hydration, patient's blood pressure was more stable and he was instructed to increase his fluid intake up to 5 glasses of water to prevent hypovolemia. At the time of the admission, patient had low sodium, so Tegretol was discontinued, and I did add Trileptal only at bedtime. During the first week, patient was not participating in any groups, did not care for his basic hygiene, just lying in bed, up for meal or for asking for something for anxiety, saying that he still is going through withdrawal symptoms of alcohol despite his CIWA was 0. I had discussion with him about when was his last drink and it seems that it was even a couple of days prior to his admission. I did try different medication to treat his anxiety including Vistaril, low dose of Seroquel, but patient reported that they were not effective and even it did make him more dizzy and tired, but his anxiety was still there. I did start him on low dose of Klonopin 0.25-3 times a day 3 to 4 days prior to his discharge, patient was able to tolerate this, and he was at least up and visible in the unit. He did attend 50% of the group. He still was not taking care of his basic hygiene and does need a lot of encouragement to do so, but he denied any active suicidal ideation or homicide ideation. He stated that he is still hearing voices, but it does not him to kill himself, it just, "It is negative thoughts and means that I will not get better". Patient stated that he has chronic hallucination and he does feel that this is his baseline. His last lab test on May 17 the sodium was 143, potassium and chloride normal, white blood cell 7.1. The clozapine level on May 16 was 478 and ( ) is 233. Vital signs at the time of the discharge, temperature 97.4, pulse 78, respiration 18. Blood pressure has been stable for the last 48 hours; it is running 122/86. Oxygen saturation on room air 97. MENTAL STATUS EXAMINATION: At the time of the discharge, patient is male who is dressed in the same clothes as the last couple of days. Poor hygiene and grooming, body odor. Speech is not spontaneous but coherent and goal directed. He denied any suicidal or homicide ideation. He stated that he is feeling better. He is still hearing voices but according to him, "I had been having voices or my life." He stated that the voices do not tell him to kill himself and they are not as frequent as before". He denied any current delusion. He is alert, oriented x4. His insight and judgment are fair. There is no verbal or physical aggression has been observed. PLAN: 1. Patient will be discharged from the mental health unit today and was referred back to ACT Team. 2. Patient was instructed to maintain his sobriety from alcohol. He is aware about the negative impact of alcohol on his physical and mental health. 3. Patient was given 4 weeks supply of Trileptal 300 mg at bedtime. 4. Clozaril 200 mg in the morning and 400 mg at bedtime. 5. Klonopin 0.25-3 times a day as needed for anxiety and I did give him 15 tablets. 6. Patient has to see his primary care physician, Dr. Hernandez, in one week. 7. The patient is able to be more visible on the unit. Still needs a lot of encouragement to take care of his basic hygiene. There is no eminent safety risk and he is appropriate for transition back to his outpatient care and he is instructed to return to the emergency room if any acute safety concern. Patient's condition at the time of the discharge is stable.
== END 2016-05-22 13:43 | disposition home or self-care (01) | DRG 885 ==
LOC: EC 17:12 → 3MHU 21:57
PROVIDERS: ADMIT Psychiatry & Neurology Psychiatry; ATTEND Psychiatry & Neurology Psychiatry
DX: F20.0 Paranoid schizophrenia (principal); R45.851 Suicidal ideations; E87.1 Hypo-osmolality and hyponatremia; F10.239 Alcohol dependence with withdrawal, unspecified; I95.1 Orthostatic hypotension; Z91.14 Patient's other noncompliance with medication regimen; J44.9 Chronic obstructive pulmonary disease, unspecified; B19.20 Unspecified viral hepatitis C without hepatic coma; F17.200 Nicotine dependence, unspecified, uncomplicated; F41.0 Panic disorder [episodic paroxysmal anxiety]; G89.29 Other chronic pain; M54.9 Dorsalgia, unspecified; F12.10 Cannabis abuse, uncomplicated; Z79.82 Long term (current) use of aspirin; Z79.899 Other long term (current) drug therapy
CPT/HCPCS: 80048; 80051; 80053; 80159; 80306; 81003; 82075; 82565; 84443; 84520; 85025; 94640; 99285

== ENCOUNTER 2016-05-29 18:56 | Inpatient (IN) | payer MEDICARE, MEDICAID ==
[2016-05-29] MEDS ORDERED: LORazepam 1 MG TAB PO STA (19:45)
--- NOTE | 2016-05-29 19:59 | ED ---
Psych HPI - General Chief Complaint: Psychiatric Symptoms Stated Complaint: SUICIDAL Time Seen by Provider: 05/29/16 19:26 Source: patient, EMS Mode of arrival: EMS - History of Present Illness Initial Comments: To 1 years old brought in by police, he admits to suicidal ideation he thought about jumping in front of a truck, he does have a history of positive HIV and history of hep C he has a neuropathy causing pains which are really unbearable according to him and a he is sick of being in pain he just wanted to finish he does have a history of psych disorders also has a history of for panic disorder centering he is in such a great deal of Fragmin that he wants to end his life, degree of system is negative otherwise - Related Data Home Medications Medication Instructions Recorded Confirmed Aspirin [Adult Low Dose Aspirin EC] 81 mg PO DAILY 05/11/16 05/12/16 Cyanocobalamin (Vitamin B-12) 1,000 mcg SUBLINGUAL DAILY 05/11/16 05/12/16 [Vitamin B-12] Ergocalciferol [Vitamin D2 50,000 unit PO Q7D 05/11/16 05/12/16 (JOE)] Previous Rx's Medication Instructions Recorded Omeprazole 20 mg PO DAILY #30 capsule. 09/29/15 Ibuprofen [Advil] 200 mg PO Q6HR PRN #0 tab 05/22/16 OXcarbazepine [Trileptal] 300 mg PO HS 30 Days 05/22/16 cloZAPine [Clozaril] 200 mg PO DAILY 30 Days 05/22/16 cloZAPine [Clozaril] 400 mg PO HS 30 Days 05/22/16 Allergies Allergy/AdvReac Type Severity Reaction Status Date / Time levofloxacin [From Levaquin] Allergy Unknown Verified 05/12/16 22:01 linezolid [From Zyvox] Allergy Unknown Verified 05/12/16 22:01 nitrofurantoin Allergy Unknown Verified 05/12/16 22:01 [From Macrobid] nitrofurantoin Allergy Unknown Verified 05/12/16 22:01 macrocrystalline [From Macrobid] Penicillins Allergy Unknown Verified 05/12/16 22:01 sulfamethoxazole Allergy Unknown Verified 05/12/16 22:01 [From Bactrim] trimethoprim [From Bactrim] Allergy Unknown Verified 03/17/17 22:01 vancomycin Allergy Unknown Verified 05/12/16 22:01 Review of Systems ROS Statement: Those systems with pertinent positive or pertinent negative responses have been documented in the HPI. ROS Other: All systems not noted in ROS Statement are negative. Past Medical History Past Medical History: Liver Disease Additional Past Medical History / Comment(s): Pt stated that he has Hepatitis C. Possible AIDs diagnosis History of Any Multi-Drug Resistant Organisms: None Reported Past Surgical History: Appendectomy Additional Past Surgical History / Comment(s): pt denies Past Anesthesia/Blood Transfusion Reactions: No Reported Reaction Past Psychological History: Anxiety, Panic Disorder, Schizophrenia Smoking Status: Current every day smoker Past Alcohol Use History: Daily, Heavy Additional Past Alcohol Use History / Comment(s): 09/28/2015: pt states he is currently drinking a pint daily Past Drug Use History: None Reported General Exam - General Exam Comments Initial Comments: General: The patient is awake and alert, in no distress, and does not appear acutely ill. Very anxious Skin: Skin is warm and dry and no rashes or lesions are noted. Eye: Pupils are equal, round and reactive to light, extra-ocular movements are intact; there is normal conjunctiva bilaterally. Ears, nose, mouth and throat: There are moist mucous membranes and no oral lesions. Neck: The neck is supple, there is no tenderness or JVD. Cardiovascular: There is a regular rate and rhythm. No murmur, rub or gallop is appreciated. Respiratory: To auscultation bilateral, no wheezing no rhonchi no distress respiratory ledesma noticed Gastrointestinal: Soft, non-distended, non-tender abdomen without masses or organomegaly noted. There is no rebound or guarding present. Bowel sounds are unremarkable. Back: There is no tenderness to palpation in the midline. There is no obvious deformity. Musculoskeletal: Normal ROM, no tenderness, There is no pedal edema. There is no calf tenderness or swelling. No cords were appreciated. Neurological: CN II-XII intact, Cranial nerves III through XII are intact. There are no obvious motor or sensory deficits. Coordination appears grossly intact. Speech is normal. Psychiatric: Cooperative, depressed positive suicidal ideation Limitations: altered mental status Course Vital Signs 05/29/16 19:00 Temperature 97.8 F Pulse Rate 112 H Respiratory 20 Rate Blood Pressure 116/63 O2 Sat by Pulse 98 Oximetry His alcohol level is 98, review be ready in 2 hours for the psych eval will consult department of psychiatry in the meantime we'll send urine for urine drug screen Medical Decision Making - Lab Data Lab Results 05/29/16 Range/Units 19:21 Urine Opiates Screen Not Detected (NotDetected) Ur Oxycodone Screen Not Detected (NotDetected) Urine Methadone Screen Not Detected (NotDetected) Ur Propoxyphene Screen Not Detected (NotDetected) Ur Barbiturates Screen Not Detected (NotDetected) U Tricyclic Antidepress Not Detected (NotDetected) Ur Phencyclidine Scrn Not Detected (NotDetected) Ur Amphetamines Screen Not Detected (NotDetected) U Methamphetamines Scrn Not Detected (NotDetected) U Benzodiazepines Scrn Not Detected (NotDetected) Urine Cocaine Screen Not Detected (NotDetected) U Marijuana (THC) Screen Not Detected (NotDetected) Disposition Clinical Impression: Suicidal ideation, Depression Disposition: ADMITTED IP TO THIS [facility] Referrals: None,Stated [Primary Care Provider] - 1-2 days
[2016-05-29] MEDS ORDERED: MAGNESIUM HYDROXIDE 2,400 MG/10 ML CUP PO PRN (23:10)
[2016-05-29] MEDS ORDERED: MAG HYDROX/AL HYDROX/SIMETH 30 ML CUP PO PRN (23:10)
[2016-05-29] MEDS ORDERED: ZIPRASIDONE 20 MG VIAL IM PRN ×2 (23:10→23:44)
[2016-05-29] MEDS ORDERED: IBUPROFEN 200 MG TAB PO PRN (23:12)
[2016-05-29] MEDS ORDERED: ERGOCALCIFEROL 50,000 UNIT CAP PO SCH (23:15)
[2016-05-29] MEDS ORDERED: LORazepam 1 MG TAB PO PRN (23:18)
[2016-05-30] MEDS ORDERED: cloZAPine 100 MG TAB PO SCH ×2 (09:00→21:00)
[2016-05-30] MEDS: NICOTINE 21MG/24HR PATCH TRANSDERM SCH (09:54)
[2016-05-30] MEDS: ASPIRIN 81 MG CHEW PO SCH (09:57)
[2016-05-30] MEDS: CYANOCOBALAMIN 500 MCG TAB PO SCH (09:57)
[2016-05-30] MEDS: PANTOPRAZOLE 40 MG TABLET PO SCH (09:57)
[2016-05-30 10:01] LABS: Basophils % (A) 0 %; CHCM 34.3; Eosinophils # (A) 0.1 k/uL (0-0.7); Eosinophils % (A) 2 %; HCT 47.7 % (39.0-53.0); HDW 2.48; HGB 15.7 gm/dL (13.0-17.5); Luc # (Auto) 0.07; Luc % (Auto) 1; Lymphocytes # (A) 1.2 k/uL (1.0-4.8); Lymphocytes % (A) 22 %; MCV 93.9 fL (80.0-100.0); Mean Platelet Volume 7.1; Monocytes # (A) 0.2 k/uL (0-1.0); Monocytes % (A) 4 %; Neutrophils # (A) 3.8 k/uL (1.3-7.7); Neutrophils % (A) 71 %; RBC 5.08 m/uL (4.30-5.90); RDW 14.1 % (11.5-15.5); WBC 5.4 k/uL (3.8-10.6); WBC (Perox) 5.74
[2016-05-30 10:50] LABS: ALT 108 U/L (21-72); AST 72 U/L (17-59); Alkaline Phosphatase 81 U/L (38-126); Anion Gap 13 mmol/L; Blood Urea Nitrogen 10 mg/dL (9-20); Calcium 9.2 mg/dL (8.4-10.2); Carbon Dioxide 29 mmol/L (22-30); Chloride 99 mmol/L (98-107); Glucose 191 mg/dL (74-99); Non-African American GFR(MDRD) >60 (>60 ml/min/1.73 sqM); Potassium 3.8 mmol/L (3.5-5.1); Sodium 141 mmol/L (137-145); Total Bilirubin 0.7 mg/dL (0.2-1.3); Total Protein 6.7 g/dL (6.3-8.2)
[2016-05-30] MEDS ORDERED: IBUPROFEN 800 MG TAB PO PRN (10:57)
[2016-05-30] MEDS ORDERED: LORazepam 0.5 MG TAB PO PRN (12:42)
--- NOTE | 2016-05-30 15:27 | XR ---
EXAMINATION TYPE: XR chest 2V DATE OF EXAM: 05/30/2016 2:59 PM COMPARISON: 07/15/2015 INDICATION: Pneumonia TECHNIQUE: Single frontal view of the chest is obtained. FINDINGS: The heart size is normal. The pulmonary vasculature is normal. There is streak opacity at the right costophrenic angle. Some atelectasis should be considered. Some minimal plate atelectasis may be at the left base. Lungs are otherwise clear. Suspicious focal consol idations are not identified. IMPRESSION: 1. Minimal basilar streak atelectasis
[2016-05-30] MEDS: GABAPENTIN 100 MG CAP PO SCH ×2 (15:52→20:48)
--- NOTE | 2016-05-30 16:11 | HP ---
DATE OF ADMISSION: 05/29/2016 IDENTIFYING DATA: Patient is 50-year-old single male who was recently discharged from mental health unit as he was under my care and he was referred to ACT team at [facility]. Patient was brought to the emergency room by the police for admission due to suicidal ideation. HISTORY OF PRESENT ILLNESS: Patient has extensive history of mental illness in addition to polysubstance addiction. He stated after he was released from the hospital last week, he started drinking at least every other day up to one fifth of alcohol. Patient stated that recently he saw neurology and diagnosed him with neuropathy, but he did not give him any medication. Patient stated "I am in severe pain and I am so overwhelmed with this and I need something for pain." Patient stated that he has been feeling hopeless, helpless, hearing voices telling him to hurt himself, having anxiety and he said, " I just need to take Ritalin in the morning and Xanax at bedtime." Patient minimizing his drinking and he stated that he has been staying in a motel. He does not like this, but he does not have any other option. Patient stated that he has a guardian, public guardian, and they do recommend placement to a half-way or more structured setting and patient was focusing about his anxiety and pain throughout the interview. His current psychotropic medications: Clozaril 200 in the morning and 300 at bedtime, Trileptal 100 at bedtime. PAST PSYCHIATRIC HISTORY: As I mentioned before, patient was recently here under my care from May 12 and he was discharged on May 22. During his stay, patient was focusing about going through withdrawal symptoms from alcohol and he was drug seeking for Ativan every couple of hours. Patient first psych hospitalization, it was in his early 20s. Since then he had at least 11 inpatient psych hospitalization. Patient was given diagnosis of schizophrenia, paranoid type; schizoaffective disorder, polysubstance abuse and dependence, including alcohol, Cannabis, benzodiazepine and cocaine. Patient tried in the past long acting antipsychotic Haldol deconoate, Prolixin decanoate, Invega Sustenna. He has been on Clozaril for almost one year. Substance abuse history: There is extensive history of substance abuse including alcohol and marijuana, benzodiazepine and IV heroin. There is history of at least 10 inpatient substance rehab in the past. FAMILY HISTORY OF PSYCHIATRIC ILLNESS: Patient is not aware of any mental illness in the family. There is no history of suicide in the family. MENTAL STATUS EXAMINATION: Patient is a male, disheveled, unkempt, very bad body odor, his speech is spontaneous, coherent, very somatic, preoccupied asking for pain medications, benzodiazepine and Ritalin. He does not look that he is responding to any internal cues. He was alert, oriented to person, place, and time. His affect is constricted. He stated that he has been having chronic auditory hallucination, but usually get worse when he does drink or going through withdrawal symptoms. He denied any active suicidal ideation or wish. He denied any homicidal ideation. He did express depressive symptoms related to his living situation and his addiction, feeling overwhelmed, helpless. His insight and judgment are very limited. DISCHARGE DIAGNOSES: 1. Schizophrenia, paranoid type, versus schizoaffective disorder. 2. Alcohol use disorder. 3. Opium, Cannabis and benzodiazepine use disorder. According to the patient information. PLAN: Continue inpatient psychiatric hospitalization for alcohol detox. I will continue him on the same dose of Clozaril 200 in the morning and 500 at bedtime. I would discontinue Trileptal and I will start him on Neurontin, it will help his alcohol withdrawal. Also it will help his anxiety. Will try to avoid Ativan or benzodiazepine in general. As his blood pressure is still high I started him on low dose of Catapres 0.1 twice a day. We will encourage the patient to take care of his basic hygiene and to participate in therapeutic group. Length of stay 2 to 3 days with the plan to discharge him to half-way, as he does need structure setting.
[2016-05-30] MEDS ORDERED: OXcarbazepine 300 MG TAB PO SCH (21:00)
--- NOTE | 2016-05-30 21:43 | CONS ---
REASON FOR CONSULTATION: Medical evaluation, admitted to the psych unit. HISTORY OF PRESENT ILLNESS: This is a 50-year-old gentleman with significant psychiatric history; however, medical history appears to be hypertension and peripheral neuropathy, was brought into the hospital by the police, as patient had suicidal ideation. Patient does have a history of polysubstance use, diagnosis of schizophrenia. Patient states that he has had increased auditory hallucinations telling him to kill himself. The patient thereafter was brought into the hospital for evaluation in the inpatient psych unit. At the time of my evaluation, the patient denies having any headaches, blurry vision, change in gait, chest pain, difficulty in breathing, cough, abdominal pain, nausea, vomiting, urinary urgency or frequency. Patient's main complaint appears to be pain in his back for which his only question was if he would receive opiates. Past medical history as described above. Remote diagnosis of hypertension, peripheral neuropathy as per the patient and schizophrenia, hepatitis C. PAST SURGICAL HISTORY: Chest tube placement in the past on the left side. Medications were reviewed on history and physical. ALLERGIES: LEVAQUIN, NITROFURANTOIN, PENICILLIN, SULFA, TRIMETHOPRIM, VANCOMYCIN. PAST FAMILY HISTORY: Not pertinent to the current admission. SOCIAL HISTORY: Smokes a pack of cigarettes daily, drinks alcohol and uses multiple substances, including marijuana, cocaine in the past. The patient also states that he used IV drugs in the past. REVIEW OF SYSTEMS: Fourteen-point review of system done. None pertinent other than what was mentioned above. PHYSICAL EXAM: VITALS: Temperature 98.2, heart rate is 107, respiratory rate is 20 and blood pressure is 82/60, saturating 94% on room air. GENERAL APPEARANCE: Appears to be slightly anxious; however, answers questions appropriately. Neck is supple. No JVD. LUNGS: Good air movement. Clear to auscultation. No rhonchi or wheezing or crackles appreciated. HEART: Slightly tachycardic. No murmurs appreciated. No other abnormal sounds detected. S1, S2 heard. ABDOMEN: Soft, nontender. No organomegaly. LOWER EXTREMITIES: No edema appreciated. NEURO: Cranial nerves 2-12 intact grossly intact. No focal motor or sensory deficits noted. Patient's gait was within normal limits. The patient was able to repeat 2 words after 10 minutes. PSYCHIATRIC: States to have auditory hallucinations. Affect appears to be anxious. Laboratory data include hemoglobin 15.7, hematocrit 47.7. White count 5.4, platelets are 201. Sodium 141, potassium 3.0, chloride 99, bicarb 29, BUN 10, creatinine 0.87, glucose is 191. TSH of 1.2. Drug screen was negative. ASSESSMENT AND PLAN: 1. Schizophrenia with auditory hallucinations. 2. Depressive disorder with suicidal ideation. 3. Polysubstance use. 4. Sinus tachycardia at this time. 5. Ongoing tobacco use. 6. History of hepatitis C. PLAN: Chest x-ray was reviewed. Some scarring was reported on x-ray; however, the patient is clinically and symptomatically stable. I did discuss deep breathing use of incentive spirometry with the patient. Treatment of pain will be deferred to Dr. Lucero. A hep panel and HIV were apparently sent. If patient continues to be hepatitis C positive, that needs to be referred for treatment on an outpatient basis. That would not be the underlying etiology for his current admission. Sinus tachycardia is currently being treated with clonidine 0.1 mg b.i.d. That does tend to have some central effects. If patient's blood pressure does drop, I would recommend to start the patient on metoprolol 12.5 b.i.d. and discontinue the clonidine thereafter. This could also be a sequelae of patient's use of multiple substances. There is some question of patient using Wellbutrin as well. That could manifest this way. Thank you for the consultation. Will follow the patient intermittently.
[2016-05-30] MEDS: cloNIDine HCL 0.1 MG TAB PO SCH (23:30)
[2016-05-31 03:59] VITALS: BP 92/61; PULSE 102; RESP 18; TEMP 97.5
[2016-05-31 08:17] LABS: HIV-1/HIV-2 Ab Screen NONREAC (NON REAC)
[2016-05-31] MEDS ORDERED: cloZAPine 100 MG TAB PO SCH (09:00)
[2016-05-31] MEDS ORDERED: PALIPERIDONE 3 MG TAB.ER.24 PO SCH (09:00)
[2016-05-31] MEDS: cloNIDine HCL 0.1 MG TAB PO SCH (09:41)
[2016-05-31] MEDS: ASPIRIN 81 MG CHEW PO SCH (09:41)
[2016-05-31] MEDS: PANTOPRAZOLE 40 MG TABLET PO SCH (09:41)
[2016-05-31] MEDS: NICOTINE 21MG/24HR PATCH TRANSDERM SCH (09:42)
[2016-05-31] MEDS: CYANOCOBALAMIN 500 MCG TAB PO SCH (09:42)
[2016-05-31] MEDS: hydrOXYzine PAMOATE 25 MG CAP PO PRN ×2 (09:43→18:05)
[2016-05-31] MEDS: GABAPENTIN 100 MG CAP PO SCH (10:49)
[2016-05-31 11:28] LABS: Norclozapine 282 ng/mL (200-700)
[2016-05-31] MEDS ORDERED: GABAPENTIN 300 MG CAP PO SCH (16:00)
--- NOTE | 2016-06-01 10:26 | DS ---
DATE OF ADMISSION: 05/29/2016 DATE OF DISCHARGE: 05/31/2016 CONSULT PHYSICIAN: Luther. CONSULTING PROVIDER: Dr. Quintana. CONSULT REASON: For medical management. Do you want consulting provider notified? Yes. DISCHARGE DIAGNOSES: 1. Alcohol use disorder, severe. 2. Anxiety disorder, unspecified. 3. Schizophrenia, paranoid type. BRIEF SUMMARY OF THE ADMISSION NOTES: Please refer to my history and physical examination. Patient was recently discharged from under my care and after discharge he was drinking on a daily basis, usually he was drinking up to 1/2 pint of vodka since he was discharged last week and his last drink was just a couple of shots of vodka before his arrival to the emergency room. His blood alcohol was 98 and he started complaining of hearing voices, telling him to hurt himself. SUMMARY OF THE HOSPITAL COURSE: The patient was admitted to the mental health unit on voluntary basis. I did restart him on his psychotropic medications including Clozaril 200 mg in the morning and 400 at bedtime. Patient was drug seeking for benzodiazepine, even he started asking me for pain medication. He stated that he had neuropathy and he has severe pain even the first day he said, "The right combination of medication if you give me ( ) in the morning and Valium at bedtime". I had a lengthy discussion with him about his extensive history of addiction and how alcohol is affecting his physical and mental health and he did verbalize understanding. We were able detox him from alcohol in 48 hours then I started him on Neurontin for neuropathy and gradually increased it since admission to 600 three times a day. Initially I did give the patient Catapres as his blood pressure was increased, but on May 31 his blood pressure was low so I discontinued Catapres. Since I saw the patient, he denied any command voices telling him to kill himself. He was very vague about what the voice was telling him. Patient had minimal participation in group therapy, but he was easily redirected during the stay than previous admission. I did discuss his condition with the [facility] and with our team and we decided that patient has to be in structured intermediate to assure his sobriety and abstinence from any alcohol or any illicit drug use. Patient did agree about this as he was staying in motels. Also, we did discuss this with the guardian who did agree. Patient was accepted to go [facility]. Vital signs at the time of the discharge: Temperature 97.5, pulse 102, respiration 18, blood pressure was 92/61. We did chest x-ray on May 30, it does show very minimal basilar atelectasis. There is no infiltrate. MENTAL STATUS EXAMINATION: Patient is alert. He is slightly anxious. Grooming and hygiene are poor. Speech is not spontaneous, but coherent. Thought process is linear. He is reporting no homicidal or suicidal ideation, intent or plan. He does not feel hopeless. There is no evidence of hypomania or carleen. He stated that he has been having auditory hallucination on and off, but it is not command in nature. His insight and judgment are fair. Cognitive ability grossly intact. There is no verbal or physical aggression has been observed. PLAN: 1. The patient will be discharged from the mental health unit today to go to [facility]. 2. Patient will follow up with ACT team at [facility]. 3. I will continue him on his Clozaril the same dose 200 in the morning and 400 at bedtime. I gave him Vistaril 25 mg every 8 hours p.r.n. for anxiety, I did give him10 day supply. 4. For his chronic pain, he will be on Motrin 800 every 4 hours p.r.n. and Neurontin 600 three times a day. 5. He was instructed to abstain completely from alcohol. 6. There is no eminent safety risk and he is appropriate for transition back to the outpatient care. Patient condition at the time of the discharge, stable.
[2016-06-02] MEDS ORDERED: ERGOCALCIFEROL 50,000 UNIT CAP PO SCH (09:00)
== END 2016-05-31 18:34 | disposition home or self-care (01) | DRG 885 ==
LOC: EC 18:56 → 3MHU 22:54
PROVIDERS: ADMIT Psychiatry & Neurology Psychiatry; ATTEND Psychiatry & Neurology Psychiatry
DX: F20.0 Paranoid schizophrenia (principal); R45.851 Suicidal ideations; F10.239 Alcohol dependence with withdrawal, unspecified; I10 Essential (primary) hypertension; G62.9 Polyneuropathy, unspecified; F32.9 Major depressive disorder, single episode, unspecified; F17.200 Nicotine dependence, unspecified, uncomplicated; F41.0 Panic disorder [episodic paroxysmal anxiety]; G89.29 Other chronic pain; B19.20 Unspecified viral hepatitis C without hepatic coma; F14.10 Cocaine abuse, uncomplicated; R00.0 Tachycardia, unspecified; F41.9 Anxiety disorder, unspecified; F11.10 Opioid abuse, uncomplicated; F12.10 Cannabis abuse, uncomplicated; Z79.82 Long term (current) use of aspirin; Z79.899 Other long term (current) drug therapy; Z88.1 Allergy status to other antibiotic agents; Z88.0 Allergy status to penicillin; Z88.2 Allergy status to sulfonamides
CPT/HCPCS: 71020; 80053; 80159; 80183; 80306; 82075; 84443; 85025; 87389; 99285

== ENCOUNTER 2016-06-29 21:45 | Emergency (ER) | payer MEDICARE, OTHER ==
[2016-06-29 22:15] VITALS: RESP 18
--- NOTE | 2016-06-29 23:01 | ED ---
Anxiety HPI - General Chief Complaint: Anxiety Stated Complaint: Psych Time Seen by Provider: 06/29/16 21:50 Source: EMS, RN notes reviewed, old records reviewed Mode of arrival: EMS - History of Present Illness Initial Comments: This is a 50-year-old male with chief complaint of anxiety and left hip pain. Patient reports that he fell on his hip yesterday. He states that he does have some suicidal thoughts but denies any plan. Patient reports that he wants something for anxiety. Legal guardian was contacted and stated they cannot have any opiates or benzos. Patient states he is full range of motion of the hip. Denies any other injuries. Patient is mainly concerned about his anxiety getting his anxiety meds. Denies any homicidal ideation.Patient denies any recent fever, chills, shortness of breath, chest pain, back pain, abdominal pain , nausea vomiting, numbness or tingling, dysuria or hematuria, constipation or diarrhea, headaches or visual changes, or any other current symptoms - Related Data Home Medications: Home Medications Medication Instructions Recorded Confirmed Aspirin [Adult Low Dose Aspirin EC] 81 mg PO DAILY 05/11/16 06/29/16 Cyanocobalamin (Vitamin B-12) 1,000 mcg SUBLINGUAL DAILY 05/11/16 06/29/16 [Vitamin B-12] Ergocalciferol [Vitamin D2 50,000 unit PO FR 05/11/16 06/29/16 (DRISDOL)] Cyanocobalamin [Vitamin B-12 1,000 mcg SQ Q7D 06/29/16 06/29/16 Injection] Naltrexone HCl [Revia] 50 mg PO DAILY 06/29/16 06/29/16 Previous Rx's Medication Instructions Recorded Gabapentin [Neurontin] 600 mg PO TID 30 Days 05/31/16 Ibuprofen [Motrin] 800 mg PO QID PRN 10 Days 05/31/16 Omeprazole 20 mg PO DAILY #30 capsule. 05/31/16 cloZAPine [Clozaril] 200 mg PO DAILY 30 Days 05/31/16 cloZAPine [Clozaril] 400 mg PO HS 30 Days 05/31/16 hydrOXYzine PAMOATE [Vistaril] 25 mg PO Q8HR PRN 10 Days 05/31/16 Ibuprofen [Motrin] 600 mg PO Q8HR PRN #20 tab 06/29/16 Allergies/Adverse Reactions: Allergies Allergy/AdvReac Type Severity Reaction Status Date / Time levofloxacin [From Levaquin] Allergy Unknown Verified 05/30/16 08:47 linezolid [From Zyvox] Allergy Unknown Verified 05/30/16 08:47 nitrofurantoin Allergy Unknown Verified 05/30/16 08:47 [From Macrobid] nitrofurantoin Allergy Unknown Verified 05/30/16 08:47 macrocrystalline [From Macrobid] Penicillins Allergy Unknown Verified 05/30/16 08:47 sulfamethoxazole Allergy Unknown Verified 05/30/16 08:47 [From Bactrim] trimethoprim [From Bactrim] Allergy Unknown Verified 05/30/16 08:47 vancomycin Allergy Unknown Verified 05/30/16 08:47 Review of Systems ROS Statement: Those systems with pertinent positive or pertinent negative responses have been documented in the HPI. ROS Other: All systems not noted in ROS Statement are negative. Past Medical History Past Medical History: Liver Disease Additional Past Medical History / Comment(s): Pt stated that he has Hepatitis C. Possible AIDs diagnosis History of Any Multi-Drug Resistant Organisms: None Reported Past Surgical History: Appendectomy Additional Past Surgical History / Comment(s): pt denies Past Anesthesia/Blood Transfusion Reactions: No Reported Reaction Past Psychological History: Anxiety, Panic Disorder, Schizophrenia Smoking Status: Current every day smoker Past Alcohol Use History: Daily, Heavy Additional Past Alcohol Use History / Comment(s): 09/28/2015: pt states he is currently drinking a pint daily Past Drug Use History: None Reported General Exam - General Exam Comments Initial Comments: 50-year-old male. Patient does not appear to be in any acute distress. Limitations: no limitations General appearance: alert, in no apparent distress Head exam: Present: atraumatic, normocephalic, normal inspection Eye exam: Present: normal appearance, PERRL, EOMI. Absent: scleral icterus, conjunctival injection, periorbital swelling ENT exam: Present: normal exam, mucous membranes moist Neck exam: Present: normal inspection. Absent: tenderness, meningismus, lymphadenopathy Respiratory exam: Present: normal lung sounds bilaterally. Absent: respiratory distress, wheezes, rales, rhonchi, stridor Cardiovascular Exam: Present: regular rate, normal rhythm, normal heart sounds. Absent: systolic murmur, diastolic murmur, rubs, gallop, clicks GI/Abdominal exam: Present: soft, normal bowel sounds. Absent: distended, tenderness, guarding, rebound, rigid Extremities exam: Present: normal inspection, full ROM, normal capillary refill. Absent: tenderness, pedal edema, joint swelling, calf tenderness Back exam: Present: normal inspection Neurological exam: Present: alert, oriented X3, CN II-XII intact Psychiatric exam: Present: normal affect, normal mood Skin exam: Present: warm, dry, intact, normal color. Absent: rash Course Vital Signs 06/29/16 22:09 Temperature 98.1 F Pulse Rate 100 Respiratory 18 Rate Blood Pressure 148/82 O2 Sat by Pulse 93 L Oximetry Medical Decision Making - Medical Decision Making his is a 50-year-old male with chief complaint of anxiety and left hip pain. Patient reports that he fell on his hip yesterday. He states that he does have some suicidal thoughts but denies any plan. Patient reports that he wants something for anxiety. Legal guardian was contacted and stated they cannot have any opiates or benzos. Patient states he is full range of motion of the hip. Denies any other injuries. Patient is mainly concerned about his anxiety getting his anxiety meds. She was medically cleared at this time for EPS evaluation. EPS states that he is only drug seeking, patient was transferred from [facility] for psychiatric evaluation. His pain medicine anxiety meds at that time.. Patient's legal guardian saline cannot receive any opiates or benzos. Patient's hip x-ray was negative for any acute process. Patient does not appear to be in any acute distress. Patient will be discharged at this time and instructed to follow-up with primary care provider. Return parameters were discussed. - Lab Data Lab Results 06/29/16 Range/Units 23:08 Urine Opiates Screen Not Detected (NotDetected) Ur Oxycodone Screen Not Detected (NotDetected) Urine Methadone Screen Not Detected (NotDetected) Ur Propoxyphene Screen Not Detected (NotDetected) Ur Barbiturates Screen Not Detected (NotDetected) U Tricyclic Antidepress Detected H (NotDetected) Ur Phencyclidine Scrn Not Detected (NotDetected) Ur Amphetamines Screen Not Detected (NotDetected) U Methamphetamines Scrn Not Detected (NotDetected) U Benzodiazepines Scrn Not Detected (NotDetected) Urine Cocaine Screen Not Detected (NotDetected) U Marijuana (THC) Screen Not Detected (NotDetected) - Radiology Data Radiology results: report reviewed Left hip x-ray is negative for any acute fracture. Disposition Clinical Impression: Anxiety, Hip pain Disposition: HOME SELF-CARE Instructions: Generalized Anxiety Disorder (ED) Additional Instructions: Patient advised to follow-up with her primary care provider. Return to the emergency department if any alarming signs or symptoms occur. Prescriptions: Ibuprofen [Motrin] 600 mg PO Q8HR PRN #20 tab PRN Reason: Pain Referrals: None,Stated [Primary Care Provider] - 1-2 days Rebeca Young MD [STAFF PHYSICIAN] - 1-2 days Time of Disposition: 23:53
--- NOTE | 2016-06-29 23:16 | XR ---
EXAM: XR Left Hip With Pelvis When Performed, 2 or 3 Views CLINICAL HISTORY: Reason: Pain TECHNIQUE: Two or three views of the left hip, with pelvis when performed. COMPARISON: CT abdomen and pelvis 10/10/15 FINDINGS: Bones/joints: Unremarkable. No acute fracture. No dislocation. Soft tissues: Moderate amount of retained stool in the cecum. IMPRESSION: No acute fracture or dislocation of the left hip.
[2016-06-30 00:21] VITALS: BP 134/64; PULSE 84; TEMP 98.7
== END 2016-06-30 00:21 | disposition home or self-care (01) ==
LOC: EC 21:45
DX: F41.9 Anxiety disorder, unspecified (principal); M25.552 Pain in left hip; F17.200 Nicotine dependence, unspecified, uncomplicated; Z88.1 Allergy status to other antibiotic agents; Z88.8 Allergy status to other drugs, medicaments and biological substances; Z88.0 Allergy status to penicillin; Z88.2 Allergy status to sulfonamides; Z79.82 Long term (current) use of aspirin; Z79.899 Other long term (current) drug therapy; W19.XXXA Unspecified fall, initial encounter
CPT/HCPCS: 73502; 80306; 82075; 99284

== ENCOUNTER 2016-07-04 21:24 | Emergency (ER) | payer MEDICARE, OTHER ==
[2016-07-04 21:37] VITALS: TEMP 98.2
[2016-07-04] MEDS ORDERED: HYDROcodone/APAP 5-325MG 1 EACH TAB PO STA (22:27)
[2016-07-04] MEDS ORDERED: LORazepam 1 MG TAB PO STA (22:27)
--- NOTE | 2016-07-04 22:29 | ED ---
General Adult HPI - General Chief complaint: Psychiatric Symptoms Stated complaint: ANXIETY,MENTAL HEALTH Time Seen by Provider: 07/04/16 21:28 Source: patient, EMS, RN notes reviewed, old records reviewed Mode of arrival: EMS Limitations: no limitations - History of Present Illness Initial comments: 50-year-old noted ER for evaluation. Patient is safe reevaluation chronic pain. Severe body pain, inability to sleep secondary to pain. Patient not taking anything currently for pain, denies any new injuries, denies any new symptoms - Related Data Home Medications Medication Instructions Recorded Confirmed Aspirin [Adult Low Dose Aspirin EC] 81 mg PO DAILY 05/11/16 07/04/16 Cyanocobalamin (Vitamin B-12) 1,000 mcg SUBLINGUAL DAILY 05/11/16 07/04/16 [Vitamin B-12] Ergocalciferol [Vitamin D2 50,000 unit PO FR 05/11/16 07/04/16 (DRISDOL)] Cyanocobalamin [Vitamin B-12 1,000 mcg SQ Q7D 06/29/16 07/04/16 Injection] Naltrexone HCl [Revia] 50 mg PO DAILY 06/29/16 07/04/16 Previous Rx's Medication Instructions Recorded Gabapentin [Neurontin] 600 mg PO TID 30 Days 05/31/16 Ibuprofen [Motrin] 800 mg PO QID PRN 10 Days 05/31/16 Omeprazole 20 mg PO DAILY #30 capsule. 05/31/16 cloZAPine [Clozaril] 200 mg PO DAILY 30 Days 05/31/16 cloZAPine [Clozaril] 400 mg PO HS 30 Days 05/31/16 hydrOXYzine PAMOATE [Vistaril] 25 mg PO Q8HR PRN 10 Days 05/31/16 Ibuprofen [Motrin] 600 mg PO Q8HR PRN #20 tab 06/29/16 Allergies Allergy/AdvReac Type Severity Reaction Status Date / Time levofloxacin [From Levaquin] Allergy Unknown Verified 07/04/16 21:49 linezolid [From Zyvox] Allergy Unknown Verified 07/04/16 21:49 nitrofurantoin Allergy Unknown Verified 07/04/16 21:49 [From Macrobid] nitrofurantoin Allergy Unknown Verified 07/04/16 21:49 macrocrystalline [From Macrobid] Penicillins Allergy Unknown Verified 07/04/16 21:49 sulfamethoxazole Allergy Unknown Verified 07/04/16 21:49 [From Bactrim] trimethoprim [From Bactrim] Allergy Unknown Verified 07/04/16 21:49 vancomycin Allergy Unknown Verified 07/04/16 21:49 Review of Systems ROS Statement: Those systems with pertinent positive or pertinent negative responses have been documented in the HPI. ROS Other: All systems not noted in ROS Statement are negative. Past Medical History Past Medical History: Liver Disease Additional Past Medical History / Comment(s): Pt stated that he has Hepatitis C. Possible AIDs diagnosis History of Any Multi-Drug Resistant Organisms: None Reported Past Surgical History: Appendectomy Additional Past Surgical History / Comment(s): pt denies Past Anesthesia/Blood Transfusion Reactions: No Reported Reaction Past Psychological History: Anxiety, Panic Disorder, Schizophrenia Smoking Status: Current every day smoker Past Alcohol Use History: Daily, Heavy Additional Past Alcohol Use History / Comment(s): 09/28/2015: pt states he is currently drinking a pint daily Past Drug Use History: None Reported General Exam Limitations: no limitations General appearance: alert, in no apparent distress Head exam: Present: atraumatic, normocephalic, normal inspection Eye exam: Present: normal appearance, PERRL, EOMI. Absent: scleral icterus, conjunctival injection, periorbital swelling ENT exam: Present: normal exam, mucous membranes moist Neck exam: Present: normal inspection. Absent: tenderness, meningismus, lymphadenopathy Respiratory exam: Present: normal lung sounds bilaterally. Absent: respiratory distress, wheezes, rales, rhonchi, stridor Cardiovascular Exam: Present: regular rate, normal rhythm, normal heart sounds. Absent: systolic murmur, diastolic murmur, rubs, gallop, clicks GI/Abdominal exam: Present: soft, normal bowel sounds. Absent: distended, tenderness, guarding, rebound, rigid Extremities exam: Present: normal inspection, full ROM, normal capillary refill. Absent: tenderness, pedal edema, joint swelling, calf tenderness Back exam: Present: normal inspection Neurological exam: Present: alert, oriented X3, CN II-XII intact Psychiatric exam: Present: normal affect, normal mood Skin exam: Present: warm, dry, intact, normal color. Absent: rash Course Vital Signs 07/04/16 21:26 Temperature 98.2 F Pulse Rate 89 Respiratory 18 Rate Blood Pressure 128/74 O2 Sat by Pulse 98 Oximetry - Reevaluation(s) Reevaluation #1: 07/04/16 22:28 ACT team is called and plan is put in place Medical Decision Making - Medical Decision Making 50-year-old ER for evaluation. He comes in today for evaluation of pain. Chronic pain. Pain is controlled prior to discharge and patient is able to be discharged home Disposition Clinical Impression: Schizophrenia, Anxiety, Chronic pain Disposition: HOME SELF-CARE Condition: Good Instructions: Chronic Pain (ED) Referrals: None,Stated [Primary Care Provider] - 1-2 days
[2016-07-04 22:39] VITALS: BP 163/75; PULSE 94; RESP 16
== END 2016-07-04 22:44 | disposition home or self-care (01) ==
LOC: EC 21:24 → EEVIPCON 21:24 → EC 22:44
DX: F20.9 Schizophrenia, unspecified (principal); F41.9 Anxiety disorder, unspecified; G89.29 Other chronic pain; F41.0 Panic disorder [episodic paroxysmal anxiety]; F17.200 Nicotine dependence, unspecified, uncomplicated; Z79.82 Long term (current) use of aspirin; Z79.899 Other long term (current) drug therapy; Z88.1 Allergy status to other antibiotic agents; Z88.0 Allergy status to penicillin; Z88.2 Allergy status to sulfonamides
CPT/HCPCS: 99284

== ENCOUNTER 2016-08-01 23:10 | Inpatient (IN) | payer MEDICARE, MEDICAID ==
[2016-08-02] MEDS ORDERED: LORazepam 1 MG TAB PO STA (00:15)
[2016-08-02 00:44] LABS: Basophils # (A) 0.1 k/uL (0-0.2); Basophils % (A) 1 %; CH 31.8; CHCM 33.9; Eosinophils # (A) 0.3 k/uL (0-0.7); Eosinophils % (A) 2 %; HCT 48.7 % (39.0-53.0); HGB 16.2 gm/dL (13.0-17.5); Luc # (Auto) 0.15; Luc % (Auto) 1; Lymphocytes # (A) 1.6 k/uL (1.0-4.8); Lymphocytes % (A) 13 %; MCH 31.4 pg (25.0-35.0); MCHC 33.3 g/dL (31.0-37.0); MCV 94.4 fL (80.0-100.0); Mean Platelet Volume 7.2; Monocytes # (A) 0.5 k/uL (0-1.0); Monocytes % (A) 4 %; Neutrophils # (A) 9.7 k/uL (1.3-7.7); Neutrophils % (A) 78 %; RBC 5.16 m/uL (4.30-5.90); RDW 14.2 % (11.5-15.5); WBC 12.4 k/uL (3.8-10.6); WBC (Perox) 11.84
[2016-08-02 00:52] LABS: INR 1.2 (<1.1); Partial Thromboplastin Time 27.6 sec (22.0-30.0); Prothrombin Time 11.6 sec (9.0-12.0)
[2016-08-02 00:53] LABS: ALT 70 U/L (21-72); AST 54 U/L (17-59); Alkaline Phosphatase 95 U/L (38-126); Anion Gap 11 mmol/L; Blood Urea Nitrogen 9 mg/dL (9-20); Calcium 8.9 mg/dL (8.4-10.2); Carbon Dioxide 25 mmol/L (22-30); Chloride 104 mmol/L (98-107); Glucose 71 mg/dL (74-99); Non-African American GFR(MDRD) >60 (>60 ml/min/1.73 sqM); Potassium 3.4 mmol/L (3.5-5.1); Sodium 140 mmol/L (137-145); Total Bilirubin 0.6 mg/dL (0.2-1.3); Total Protein 6.4 g/dL (6.3-8.2)
--- NOTE | 2016-08-02 00:55 | ED ---
Psych HPI - General Chief Complaint: Psychiatric Symptoms Stated Complaint: Mental Health Time Seen by Provider: 08/02/16 00:04 Source: patient, police Mode of arrival: ambulatory - History of Present Illness Initial Comments: 50 years old male stated as he has been now suicidal and homicidal, he has a history of for psych disorders he stated he lost his medication today and he is requesting some Xanax and she is very nervous. He stated he has ongoing issues with the suicidal ideation and there are times and he wants to kill somebody else he would answer specifically, he said anybody. And then he had it he had a chest pain for the last 2 days no shortness of breath no pleuritic chest pain no fever no chills no abdominal pain no frequency urgency dysuria - Related Data Home Medications Medication Instructions Recorded Confirmed Aspirin [Adult Low Dose Aspirin EC] 81 mg PO DAILY 05/11/16 07/04/16 Cyanocobalamin (Vitamin B-12) 1,000 mcg SUBLINGUAL DAILY 05/11/16 07/04/16 [Vitamin B-12] Ergocalciferol [Vitamin D2 50,000 unit PO FR 05/11/16 07/04/16 (DRISDOL)] Cyanocobalamin [Vitamin B-12 1,000 mcg SQ Q7D 06/29/16 07/04/16 Injection] Naltrexone HCl [Revia] 50 mg PO DAILY 06/29/16 07/04/16 Previous Rx's Medication Instructions Recorded Gabapentin [Neurontin] 600 mg PO TID 30 Days 05/31/16 Ibuprofen [Motrin] 800 mg PO QID PRN 10 Days 05/31/16 Omeprazole 20 mg PO DAILY #30 capsule. 05/31/16 cloZAPine [Clozaril] 200 mg PO DAILY 30 Days 05/31/16 cloZAPine [Clozaril] 400 mg PO HS 30 Days 05/31/16 hydrOXYzine PAMOATE [Vistaril] 25 mg PO Q8HR PRN 10 Days 05/31/16 Ibuprofen [Motrin] 600 mg PO Q8HR PRN #20 tab 06/29/16 Allergies Allergy/AdvReac Type Severity Reaction Status Date / Time levofloxacin [From Levaquin] Allergy Unknown Verified 08/01/16 23:47 linezolid [From Zyvox] Allergy Unknown Verified 08/01/16 23:47 nitrofurantoin Allergy Unknown Verified 08/01/16 23:47 [From Macrobid] nitrofurantoin Allergy Unknown Verified 08/01/16 23:47 macrocrystalline [From Macrobid] Penicillins Allergy Unknown Verified 08/01/16 23:47 sulfamethoxazole Allergy Unknown Verified 08/01/16 23:47 [From Bactrim] trimethoprim [From Bactrim] Allergy Unknown Verified 08/01/16 23:47 vancomycin Allergy Unknown Verified 08/01/16 23:47 Review of Systems ROS Statement: Those systems with pertinent positive or pertinent negative responses have been documented in the HPI. ROS Other: All systems not noted in ROS Statement are negative. Past Medical History Past Medical History: Liver Disease Additional Past Medical History / Comment(s): Pt stated that he has Hepatitis C. Possible AIDs diagnosis History of Any Multi-Drug Resistant Organisms: None Reported Past Surgical History: Appendectomy Additional Past Surgical History / Comment(s): pt denies Past Anesthesia/Blood Transfusion Reactions: No Reported Reaction Past Psychological History: Anxiety, Panic Disorder, Schizophrenia Smoking Status: Current every day smoker Past Alcohol Use History: Daily, Heavy Additional Past Alcohol Use History / Comment(s): 09/28/2015: pt states he is currently drinking a pint daily Past Drug Use History: None Reported General Exam - General Exam Comments Initial Comments: General: The patient is awake and alert, in no distress, he looks anxious Skin: Skin is warm and dry and no rashes or lesions are noted. Eye: Pupils are equal, round and reactive to light, extra-ocular movements are intact; there is normal conjunctiva bilaterally. Ears, nose, mouth and throat: There are moist mucous membranes and no oral lesions. Neck: The neck is supple, there is no tenderness or JVD. Cardiovascular: There is a regular rate and rhythm. No murmur, rub or gallop is appreciated. Respiratory: To auscultation bilateral, no wheezing no rhonchi no distress respiratory ledesma noticed Gastrointestinal: Soft, non-distended, non-tender abdomen without masses or organomegaly noted. There is no rebound or guarding present. Bowel sounds are unremarkable. Back: There is no tenderness to palpation in the midline. There is no obvious deformity. Musculoskeletal: Normal ROM, no tenderness, There is no pedal edema. There is no calf tenderness or swelling. No cords were appreciated. Neurological: CN II-XII intact, Cranial nerves III through XII are intact. There are no obvious motor or sensory deficits. Coordination appears grossly intact. Speech is normal. Psychiatric: Cooperative, stated he has ongoing suicidal ideation and some time ideas of harming others crosses his spine he was awake and he said he wanted to kill somebody Limitations: no limitations Course Vital Signs 08/01/16 08/02/16 08/02/16 23:44 02:09 07:12 Temperature 97.4 F L Pulse Rate 92 74 65 Respiratory 18 18 16 Rate Blood Pressure 130/67 121/70 113/63 O2 Sat by Pulse 96 98 97 Oximetry Severe fecal this EKG reveals normal sinus rhythm ventricular rate is 87 NV interval is 176 QRS duration is 108 QT/QTc is 398/478. This EKG does not reveal any ST elevation or ST depression - Reevaluation(s) Reevaluation #1: 08/02/16 00:54 And will consult department of psychiatry to evaluate his suicidal or homicidal ideation 08/02/16 07:16 He was evaluated by department of psychiatry, they wanted to admit him for further evaluation and management Medical Decision Making - Lab Data Result diagrams: 08/02/16 00:02 08/02/16 00:02 Lab Results 08/02/16 08/02/16 08/02/16 Range/Units 00:02 00:02 00:02 WBC 12.4 H (3.8-10.6) k/uL RBC 5.16 (4.30-5.90) m/uL Hgb 16.2 (13.0-17.5) gm/dL Hct 48.7 (39.0-53.0) % MCV 94.4 (80.0-100.0) fL MCH 31.4 (25.0-35.0) pg MCHC 33.3 (31.0-37.0) g/dL RDW 14.2 (11.5-15.5) % Plt Count 179 (150-450) k/uL Neutrophils % 78 % Lymphocytes % 13 % Monocytes % 4 % Eosinophils % 2 % Basophils % 1 % Neutrophils # 9.7 H (1.3-7.7) k/uL Lymphocytes # 1.6 (1.0-4.8) k/uL Monocytes # 0.5 (0-1.0) k/uL Eosinophils # 0.3 (0-0.7) k/uL Basophils # 0.1 (0-0.2) k/uL PT (9.0-12.0) sec INR (<1.1) APTT (22.0-30.0) sec Sodium (137-145) mmol/L Potassium (3.5-5.1) mmol/L Chloride (98-107) mmol/L Carbon Dioxide (22-30) mmol/L Anion Gap mmol/L BUN (9-20) mg/dL Creatinine (0.66-1.25) mg/dL Est GFR (MDRD) Af Amer (>60 ml/min/1.73 sqM) Est GFR (MDRD) Non-Af (>60 ml/min/1.73 sqM) Glucose (74-99) mg/dL Calcium (8.4-10.2) mg/dL Magnesium (1.6-2.3) mg/dL Total Bilirubin (0.2-1.3) mg/dL AST (17-59) U/L ALT (21-72) U/L Alkaline Phosphatase (38-126) U/L Total Creatine Kinase 71 (55-170) U/L CK-MB (CK-2) 1.7 (0.0-2.4) ng/mL CK-MB (CK-2) Rel Index 2.4 Troponin I <0.012 (0.000-0.034) ng/mL Total Protein (6.3-8.2) g/dL Albumin (3.5-5.0) g/dL Urine Opiates Screen Not Detected (NotDetected) Ur Oxycodone Screen Not Detected (NotDetected) Urine Methadone Screen Not Detected (NotDetected) Ur Propoxyphene Screen Not Detected (NotDetected) Ur Barbiturates Screen Not Detected (NotDetected) U Tricyclic Antidepress Not Detected (NotDetected) Ur Phencyclidine Scrn Not Detected (NotDetected) Ur Amphetamines Screen Not Detected (NotDetected) U Methamphetamines Scrn Not Detected (NotDetected) U Benzodiazepines Scrn Not Detected (NotDetected) Urine Cocaine Screen Not Detected (NotDetected) U Marijuana (THC) Screen Not Detected (NotDetected) 08/02/16 08/02/16 Range/Units 00:02 00:02 WBC (3.8-10.6) k/uL RBC (4.30-5.90) m/uL Hgb (13.0-17.5) gm/dL Hct (39.0-53.0) % MCV (80.0-100.0) fL MCH (25.0-35.0) pg MCHC (31.0-37.0) g/dL RDW (11.5-15.5) % Plt Count (150-450) k/uL Neutrophils % % Lymphocytes % % Monocytes % % Eosinophils % % Basophils % % Neutrophils # (1.3-7.7) k/uL Lymphocytes # (1.0-4.8) k/uL Monocytes # (0-1.0) k/uL Eosinophils # (0-0.7) k/uL Basophils # (0-0.2) k/uL PT 11.6 (9.0-12.0) sec INR 1.2 (<1.1) APTT 27.6 (22.0-30.0) sec Sodium 140 (137-145) mmol/L Potassium 3.4 L (3.5-5.1) mmol/L Chloride 104 (98-107) mmol/L Carbon Dioxide 25 (22-30) mmol/L Anion Gap 11 mmol/L BUN 9 (9-20) mg/dL Creatinine 0.80 (0.66-1.25) mg/dL Est GFR (MDRD) Af Amer >60 (>60 ml/min/1.73 sqM) Est GFR (MDRD) Non-Af >60 (>60 ml/min/1.73 sqM) Glucose 71 L (74-99) mg/dL Calcium 8.9 (8.4-10.2) mg/dL Magnesium 2.0 (1.6-2.3) mg/dL Total Bilirubin 0.6 (0.2-1.3) mg/dL AST 54 (17-59) U/L ALT 70 (21-72) U/L Alkaline Phosphatase 95 (38-126) U/L Total Creatine Kinase (55-170) U/L CK-MB (CK-2) (0.0-2.4) ng/mL CK-MB (CK-2) Rel Index Troponin I (0.000-0.034) ng/mL Total Protein 6.4 (6.3-8.2) g/dL Albumin 4.1 (3.5-5.0) g/dL Urine Opiates Screen (NotDetected) Ur Oxycodone Screen (NotDetected) Urine Methadone Screen (NotDetected) Ur Propoxyphene Screen (NotDetected) Ur Barbiturates Screen (NotDetected) U Tricyclic Antidepress (NotDetected) Ur Phencyclidine Scrn (NotDetected) Ur Amphetamines Screen (NotDetected) U Methamphetamines Scrn (NotDetected) U Benzodiazepines Scrn (NotDetected) Urine Cocaine Screen (NotDetected) U Marijuana (THC) Screen (NotDetected) Disposition Clinical Impression: Homicidal ideation, Suicidal ideation, Chest pain Disposition: ADMITTED IP TO THIS HOSP
[2016-08-02 01:10] LABS: Creatine Kinase 71 U/L (55-170)
--- NOTE | 2016-08-02 01:21 | XR ---
INDICATION: Chest pain COMPARISON: CXR 05/30/16 FINDINGS: PA and lateral views of the chest are obtained. The cardiomediastinal silhouette is within normal limits. Clear lungs, without pleural effusion or pneumothorax. Bony elements are within normal limits. IMPRESSION: No radiographic evidence of acute cardiopulmonary disease.
[2016-08-02 01:22] LABS: Creatine Kinase MB 1.7 ng/mL (0.0-2.4); Troponin I <0.012 ng/mL (0.000-0.034)
[2016-08-02] MEDS ORDERED: MAGNESIUM HYDROXIDE 2,400 MG/10 ML CUP PO PRN (07:19)
[2016-08-02] MEDS ORDERED: ACETAMINOPHEN TAB 325 MG TAB PO PRN (07:19)
[2016-08-02 08:20] VITALS: TEMP 97.9; BMI 21.8
[2016-08-02] MEDS ORDERED: cloZAPine 100 MG TAB PO SCH ×2 (09:00→21:00)
--- NOTE | 2016-08-02 09:29 | P.HP ---
Psychiatric H&P - . H&P Date: 08/02/16 History & Physical: DATE OF SERVICE: 08/02/2016 IDENTIFYING DATA: This patient is a -year-old single male who was admitted to the mental health unit through . HISTORY OF PRESENT ILLNESS: The patient presents with . Pateint reports he needs his right medicine, ativan, says he needs ativan treatment at ? says he is homicidal towards noone, says if he goes to half-way he could get all the drugs he needs, maybe says he'll the right drugs if he kills someon, says he really does not want kill. voices tell me to kill PAST PSYCHIATRIC HISTORY: about 10 admissions. Report he has taken 143 1mg xanax, says he laid on floor for eight day, then to [facility]. denies other suicide attempts. PAST MEDICAL HISTORY: Reports he has seizures and needs dilantin. ALLERGIES: No known drug allergies. CHEMICAL DEPENDENCY HISTORY: Reports he is drinking a half pint a day. Denies other drugs of abuse. FAMILY PSYCHIATRIC HISTORY: no. FAMILY CHEMICAL DEPENDENCY HISTORY:father had problems with etoh. LEGAL HISTORY: denies, half-way x1 for 5 months "i dont know why. SOCIAL HISTORY: Born in [place], raised by his parents, 2 sisters and one brother, he is the youngest of the four, no contact. Never , no children. Did not graduate. 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 Now on SSDI. Lives in a motel room. MENTAL STATUS EXAM: . Patient alert and oriented 3, good eye contact, poorly groomed, disheveled in hospital attire. Speech normal volume, monotone rate and production. Coherent, logical and on receiving Ativan or another benzodiazepine, circumstantial thought process. No ATA, no FOI. No TB/TW/TI Endorses auditory and command hallucinations. Denied paranoid ideation, delusions or IOR. Memory grossly intact Cognition below average Recalled 3/3 at 0 minutes, 0/3 at 5 minutes; spelled world forwards, unable to spell world backwards unable to do any calculations Mood blunted, affect flat, congruent with mood. +suicidal ideation, + homicidal ideation, in order to jailed, to get controlled substances. Insight none; Judgment impaired STRENGTHS: Verbal WEAKNESSES: . Chronic mental illness, lack of support system Addiction IMPRESSIONS: 50-year-old single male admitted through the emergency room brought by police with report of auditory and command hallucinations to kill others with intent to be jailed hoping to receive controlled substances such as Ativan. Patient does not have a particular person in mind to kill, and states he really doesn't want to kill anybody he just wants medications "the right medications" for his anxiety. Spent the whole evaluation asking for Ativan and when this was declined he immediately asked what was I going to give him for his anxiety. Poor historian, unreliable could not identify medications that he takes other than Ativan, which he does not, could not identify where he is receiving his treatment. Patient did not appear to be responding to internal stimuli there was no thought blocking, there was no evidence of paranoia or delusions. Appears that he came in under the police. Schizophrenia, undifferentiated Suicidal and homicidal Alcohol use, severe PLAN: . Continue inpatient psychiatric admission for safety purposes, reestablish treatment for psychosis. Suicide precautions 15 minute checks. Hospitalist to evaluate and treat medical conditions, patient Reporting that he has a seizure disorder but this appears to be with the intent to get a benzodiazepine. We'll ask hospitalist to review and if neurology consult is indicated to let me know Clozaril blood level. Trial of non-controlled substance for anxiety, such as gabapentin that may also help with alcohol abuse. Social work to gather treatment history, future treatment planning on discharge.
[2016-08-02] MEDS: PANTOPRAZOLE 40 MG TABLET PO SCH (09:37)
[2016-08-02] MEDS: NALTREXONE HCL 50 MG TAB PO SCH (09:38)
[2016-08-02] MEDS: ASPIRIN 81 MG CHEW PO SCH (09:38)
[2016-08-02] MEDS: GABAPENTIN 300 MG CAP PO SCH ×3 (09:41→21:31)
[2016-08-02] MEDS: NICOTINE 21MG/24HR PATCH TRANSDERM SCH (09:41)
[2016-08-02] MEDS: MAG HYDROX/AL HYDROX/SIMETH 30 ML CUP PO PRN ×2 (09:41→15:52)
[2016-08-02] MEDS: CYANOCOBALAMIN 500 MCG TAB PO SCH (11:48)
[2016-08-02] MEDS: hydrOXYzine PAMOATE 25 MG CAP PO PRN (11:48)
[2016-08-02] MEDS: IBUPROFEN 600 MG TAB PO PRN (11:48)
--- NOTE | 2016-08-02 19:46 | CONS ---
DATE OF CONSULTATION: Reason for consultation: Medical history and physical. HISTORY OF PRESENT ILLNESS: This is a 50-year-old gentleman was admitted to the hospital multiple times, comes the hospital with complaints of suicidal and homicidal ideation as his voices have been telling him to kill other people and kill himself at the same time. The patient states that he has had some upper abdominal pain, ongoing for quite a while. Denies having any headaches, blurry vision, diarrhea, urinary urgency or frequency or chest pain. Patient states that he has some neuropathy and is requesting medications for it. Home medications were reviewed. ALLERGIES: MULTIPLE INCLUDING LEVAQUIN, ZYVOX, NITROFURANTOIN, PENICILLIN, BACTRIM AND VANCOMYCIN. REVIEW OF SYSTEMS: Fourteen-point review of system was done; none pertinent other than what was mentioned above. Past medical history includes: Hepatitis C, question of previous HIV diagnosis. PAST SURGICAL HISTORY: Appendectomy. SOCIAL HISTORY: Daily smoker, heavy drinker. Denies any illicit drug use. FAMILY HISTORY: Not pertinent to current admission. PHYSICAL EXAM: VITALS: Temperature 97.4, heart rate is 92, respiratory rate 18, blood pressure 130/67, saturating 96% on room air. GENERALLY: Patient appears to be alert, oriented x3. HEENT: The pupils are equal and reactive to light and accommodation. HEART: S1, S2 present. No murmur appreciated. LUNGS: Good air entry. No wheezing or rhonchi noted. ABDOMINAL EXAM: Soft, nontender, no organomegaly appreciated. GENITOURINARY: No Mos[place] in place. EXTREMITIES: Pulses can be palpated distally. Denies any tenderness on gross palpation. SKIN: On a gross skin exam does not appear to have any purpura or any skin rashes that were noted. NEUROLOGICALLY: Cranial nerves II through XII grossly intact. No focal motor or sensory deficits noted. No dysdiadochokinesia noted. He is able to repeat 3 objects after 5 minutes. States he continues to keep hearing voices at this time and he appears to be anxious. Abdominal exam is within normal limits. No organomegaly. No organomegaly. No focal tenderness. Bowel sounds are intact. LABORATORY DATA: Hemoglobin 16.2, hematocrit 40.7 white count 12.4, platelets 179. Sodium 140, potassium is 3.1, chloride 104, bicarb 25, BUN 9, creatinine of 0.80. ASSESSMENT AND PLAN: 1. Schizophrenia with suicidal and homicidal ideation. 2. Abdominal pain could be gastritis. 3. Ongoing tobacco use. 4. Ongoing alcohol abuse. 5. Peripheral neuropathy. 6. Anxiety. 7. Depression. PLAN: Patient is already started on Protonix and Maalox p.r.n. No further her work up is necessary. Patient is neurologically stable with no additional recommendations for his abdominal pain at this time. Patient's symptoms also are hard to delineate as is slightly agitated and has multiple symptoms he delineates during the evaluation. Thank you for the consultation. If patient has any additional issues, please call with and concerns.
[2016-08-02] MEDS ORDERED: HALOPERIDOL 5 MG TAB PO SCH (21:00)
[2016-08-03 05:55] VITALS: BP 109/64; PULSE 80; RESP 16
[2016-08-03] MEDS: hydrOXYzine PAMOATE 25 MG CAP PO PRN (08:00)
[2016-08-03] MEDS: PANTOPRAZOLE 40 MG TABLET PO SCH (08:00)
[2016-08-03] MEDS: IBUPROFEN 600 MG TAB PO PRN (08:00)
[2016-08-03] MEDS: NALTREXONE HCL 50 MG TAB PO SCH (08:05)
[2016-08-03] MEDS: GABAPENTIN 300 MG CAP PO SCH (08:05)
[2016-08-03] MEDS: ASPIRIN 81 MG CHEW PO SCH (08:05)
[2016-08-03] MEDS: NICOTINE 21MG/24HR PATCH TRANSDERM SCH (08:05)
[2016-08-03] MEDS ORDERED: cloZAPine 100 MG TAB PO SCH (09:00)
[2016-08-03 09:24] LABS: Norclozapine 236 ng/mL (200-700)
[2016-08-03] MEDS: CYANOCOBALAMIN 500 MCG TAB PO SCH (12:31)
[2016-08-03] MEDS: MAG HYDROX/AL HYDROX/SIMETH 30 ML CUP PO PRN (12:32)
--- NOTE | 2016-08-03 13:59 | P.DS ---
Providers Date of admission: 08/02/16 07:14 Expected date of discharge: 08/03/16 Attending physician: Olga Christopher MD Consults: 08/02/16 07:19 Consult Physician Routine Consulting Provider: Kristopher Miller Consult Reason/Comments: h&p and medical follow up Do you want consulting provider notified?: Already Contacted Primary care physician: Stated None Hospital Course: HOSPITAL COURSE: Informed that patient has warrants out for him and that when he was picked up he then reported chest pain, was brought to the emergency room and then reported suicidal/homicidal ideation and auditory hallucinations. Patient was drug seeking on initial evaluation "I need the right medicines I need Ativan" the patient's thought process was organized and clearly his only intention in coming here was to either get benzodiazepines were to avoid his legal problems. He's been noted on the unit acting appropriately no evidence that he is responding to internal stimuli. Today on evaluation he was again demanding ativan or "something stronger for my anxiety" Asked about his legal status, says he has nothing pending, asked about warrants , "those are 2 years old, i told the police that". Patient asks me to call the [facility], says he wants to leave since we won' t give him the "right" medications He has a public guardian, they said he could be discharged. ACT team will be at his house later today. MENTAL STATUS EXAM: . Patient alert and oriented 3, good eye contact, poorly groomed, disheveled in hospital attire. Speech normal volume, monotone rate and production. Coherent, logical and perseverating on receiving Ativan or other benzodiazepine , circumstantial thought process. No ATA, no FOI. No TB/TW/TI Endorses auditory hallucinations. Denied paranoid ideation, delusions or IOR. Memory grossly intact Cognition below average Recalled 3/3 at 0 minutes, 0/3 at 5 minutes; spelled world forwards, unable to spell world martha unable to do any calculations Mood blunted, affect flat, congruent with mood. no suicidal ideation, no homicidal ideation, but denies intent Insight none; Judgment impaired IMPRESSIONS: 50-year-old single male admitted through the emergency room brought by police with report of auditory and command hallucinations to kill others, with intent to be jailed hoping to receive controlled substances such as Ativan. Patient does not have a particular person in mind to kill, and states he really doesn't want to kill anybody he just wants medications "the right medications" for his anxiety. Spent the whole evaluation asking for Ativan and when this was declined he immediately asked what was I going to give him for his anxiety. kelly Duggan could not identify medications that he takes other than Ativan, which he does not. Patient not responding to internal stimuli, no plan or intent to kill self or others, when informed no controlled substances, he said he wanted to leave today , asking me to call [facility]. Discussed in team and guardian not concerned of warrants, and said to discharge him, he has motel room. Patient did not appear to be responding to internal stimuli there was no thought blocking, there was no evidence of paranoia or delusions. Schizophrenia, undifferentiated Suicidal and homicidal Alcohol use, severe PLAN: . Patient at his baseline, discharge today Clozaril blood level WNL Social work to gather treatment history, future treatment planning on discharge. Laboratory Tests 08/02/16 08:31 Clozapine 564 Norclozapine 236 MENTAL STATUS EXAM: . Patient alert and oriented 3, good eye contact, poorly groomed, disheveled in hospital attire. Speech normal volume, monotone rate and production. Coherent, logical and perseverating on receiving Ativan or other benzodiazepine , circumstantial thought process. No ATA, no FOI. No TB/TW/TI Endorses auditory hallucinations. Denied paranoid ideation, delusions or IOR. Memory grossly intact Cognition below average Recalled 3/3 at 0 minutes, 0/3 at 5 minutes; spelled world forwards, unable to spell world martha unable to do any calculations Mood blunted, affect flat, congruent with mood. +suicidal ideation, + homicidal ideation, but denies intent Insight none; Judgment impaired IMPRESSIONS: 50-year-old single male admitted through the emergency room brought by police with report of auditory and command hallucinations to kill others, with intent to be jailed hoping to receive controlled substances such as Ativan. Patient does not have a particular person in mind to kill, and states he really doesn't want to kill anybody he just wants medications "the right medications" for his anxiety. Spent the whole evaluation asking for Ativan and when this was declined he immediately asked what was I going to give him for his anxiety. kelly Duggan could not identify medications that he takes other than Ativan, which he does not. Patient not responding to internal stimuli, no plan or intent to kill self or others, when informed no controlled substances, he said he wanted to leave today , asking me to call [facility]. Discussed in team and guardian not concerned of warrants, and said to discharge him, he has motel room. Patient did not appear to be responding to internal stimuli there was no thought blocking, there was no evidence of paranoia or delusions. Schizophrenia, undifferentiated Suicidal and homicidal Alcohol use, severe PLAN: . Patient at his baseline, discharge today Clozaril blood level. Trial of non-controlled substance for anxiety, such as gabapentin that may also help with alcohol abuse. Social work to gather treatment history, future treatment planning on discharge. Pertinent Studies: none Procedures: none Patient Condition at Discharge: Stable Plan - Discharge Summary New Discharge Prescriptions: Continue Omeprazole 20 mg PO DAILY #30 capsule. cloZAPine [Clozaril] 400 mg PO HS 30 Days Naltrexone HCl [Revia] 50 mg PO DAILY Cyanocobalamin [Vitamin B-12 Injection] 1,000 mcg SQ Q7D Cholecalciferol [Vitamin D3] 5,000 unit PO DAILY hydrOXYzine PAMOATE [Vistaril] 25 mg PO TID cloZAPine [Clozaril] 300 mg PO QAM Haloperidol [Haldol] 5 mg PO HS Discontinued Aspirin [Adult Low Dose Aspirin EC] 81 mg PO DAILY No Action Cyanocobalamin (Vitamin B-12) [Vitamin B-12] 1,000 mcg SUBLINGUAL DAILY Discharge Medication List Cyanocobalamin (Vitamin B-12) [Vitamin B-12] 1,000 mcg SUBLINGUAL DAILY [History] Omeprazole 20 mg PO DAILY #30 capsule. 05/31/16 [Rx] cloZAPine [Clozaril] 400 mg PO HS 30 Days 05/31/16 [Rx] Cyanocobalamin [Vitamin B-12 Injection] 1,000 mcg SQ Q7D 06/29/16 [History] Naltrexone HCl [Revia] 50 mg PO DAILY 06/29/16 [History] Cholecalciferol [Vitamin D3] 5,000 unit PO DAILY 08/02/16 [History] Haloperidol [Haldol] 5 mg PO HS 08/02/16 [History] cloZAPine [Clozaril] 300 mg PO QAM 08/02/16 [History] hydrOXYzine PAMOATE [Vistaril] 25 mg PO TID 08/02/16 [History] Follow up Appointment(s)/Referral(s): None,Stated [Primary Care Provider] - 1-2 days Discharge Disposition: HOME SELF-CARE
== END 2016-08-03 14:50 | disposition home or self-care (01) | DRG 885 ==
LOC: EC 23:10 → 3MHU 08-02 07:14
PROVIDERS: ADMIT Psychiatry & Neurology Addiction Medicine; ATTEND Psychiatry & Neurology Addiction Medicine
DX: F20.3 Undifferentiated schizophrenia (principal); R45.851 Suicidal ideations; G62.9 Polyneuropathy, unspecified; R45.850 Homicidal ideations; F10.10 Alcohol abuse, uncomplicated; F17.200 Nicotine dependence, unspecified, uncomplicated; F32.9 Major depressive disorder, single episode, unspecified; F41.0 Panic disorder [episodic paroxysmal anxiety]; K29.70 Gastritis, unspecified, without bleeding; Z79.82 Long term (current) use of aspirin; Z79.899 Other long term (current) drug therapy; Z88.1 Allergy status to other antibiotic agents; Z88.0 Allergy status to penicillin; Z88.2 Allergy status to sulfonamides
CPT/HCPCS: 36415; 71020; 80053; 80159; 80306; 82075; 82550; 82553; 83735; 84443; 84484; 85025; 85610; 85730; 93005

== ENCOUNTER 2016-08-06 08:55 | Inpatient (IN) | payer MEDICARE, MEDICAID ==
--- NOTE | 2016-08-06 11:23 | ED ---
General Adult HPI - General Chief complaint: Psychiatric Symptoms Stated complaint: med refill Time Seen by Provider: 08/06/16 09:22 Source: patient, EMS, RN notes reviewed, old records reviewed Mode of arrival: EMS Limitations: altered mental status - History of Present Illness Initial comments: Patient 50-year-old male who presents emergency room today by EMS, with a chief complaint of needing psychiatric eval. Patient does admit to feeling suicidal. Denies any specific plan. Does admit to visual and auditory hallucinations. He denies any homicidal thoughts or plans. Denies any other physical complaints. Patient denies any recent fever, chills, shortness of breath, chest pain, back pain, abdominal pain, nausea or vomiting, numbness or tingling, dysuria or hematuria, constipation or diarrhea, headaches or visual changes, or any other complaints. - Related Data Home Medications Medication Instructions Recorded Confirmed Cyanocobalamin (Vitamin B-12) 1,000 mcg SUBLINGUAL DAILY 05/11/16 08/06/16 [Vitamin B-12] Cyanocobalamin [Vitamin B-12 1,000 mcg SQ Q7D 06/29/16 08/06/16 Injection] Naltrexone HCl [Revia] 50 mg PO DAILY 06/29/16 08/06/16 Cholecalciferol [Vitamin D3] 5,000 unit PO DAILY 08/02/16 08/06/16 Haloperidol [Haldol] 5 mg PO HS 08/02/16 08/06/16 cloZAPine [Clozaril] 300 mg PO QAM 08/02/16 08/06/16 hydrOXYzine PAMOATE [Vistaril] 25 mg PO TID 08/02/16 08/06/16 Previous Rx's Medication Instructions Recorded Omeprazole 20 mg PO DAILY #30 capsule. 05/31/16 cloZAPine [Clozaril] 400 mg PO HS 30 Days 05/31/16 Allergies Allergy/AdvReac Type Severity Reaction Status Date / Time levofloxacin [From Levaquin] Allergy Unknown Verified 08/01/16 23:47 linezolid [From Zyvox] Allergy Unknown Verified 08/01/16 23:47 nitrofurantoin Allergy Unknown Verified 08/01/16 23:47 [From Macrobid] nitrofurantoin Allergy Unknown Verified 08/01/16 23:47 macrocrystalline [From Macrobid] Penicillins Allergy Unknown Verified 08/01/16 23:47 sulfamethoxazole Allergy Unknown Verified 08/01/16 23:47 [From Bactrim] trimethoprim [From Bactrim] Allergy Unknown Verified 08/01/16 23:47 vancomycin Allergy Unknown Verified 08/01/16 23:47 Review of Systems ROS Statement: Those systems with pertinent positive or pertinent negative responses have been documented in the HPI. ROS Other: All systems not noted in ROS Statement are negative. Past Medical History Past Medical History: Liver Disease Additional Past Medical History / Comment(s): Pt stated that he has Hepatitis C. Possible AIDs diagnosis History of Any Multi-Drug Resistant Organisms: None Reported Past Surgical History: Appendectomy Additional Past Surgical History / Comment(s): pt denies Past Anesthesia/Blood Transfusion Reactions: No Reported Reaction Past Psychological History: Anxiety, Panic Disorder, Schizophrenia Smoking Status: Current every day smoker Past Alcohol Use History: Daily Additional Past Alcohol Use History / Comment(s): Pt. reports drinking 1/2 pint daily Past Drug Use History: None Reported General Exam - General Exam Comments Initial Comments: General: The patient is awake and alert, in no distress, and does not appear acutely ill. Eye: Pupils are equal, round and reactive to light, extra-ocular movements are intact. No nystagmus. There is normal conjunctiva bilaterally. No signs of icterus. Ears, nose, mouth and throat: There are moist mucous membranes and no oral lesions. Neck: The neck is supple, there is no tenderness or JVD. Cardiovascular: There is a regular rate and rhythm. No murmur, rub or gallop is appreciated. Respiratory: Lungs are clear to auscultation, respirations are non-labored, breath sounds are equal. No wheezes, stridor, rales, or rhonchi. Musculoskeletal: Normal ROM, no tenderness. Strength 5/5. Sensation intact. Pulses equal bilaterally 2+. Neurological: A&O x 3. CN II-XII intact, There are no obvious motor or sensory deficits. Coordination appears grossly intact. Speech is normal. Skin: Skin is warm and dry and no rashes or lesions are noted. Psychiatric: Cooperative, appropriate mood & affect, normal judgment. Limitations: altered mental status Course Vital Signs 08/06/16 08/06/16 08:56 11:42 Temperature 97.4 F L 97.9 F Pulse Rate 90 91 Respiratory 18 18 Rate Blood Pressure 116/73 134/75 O2 Sat by Pulse 96 96 Oximetry Medical Decision Making - Medical Decision Making Patient seen here in the emergency room out of them they recommended admission to the hospital. - Lab Data Lab Results 08/06/16 Range/Units 09:05 Urine Opiates Screen Not Detected (NotDetected) Ur Oxycodone Screen Not Detected (NotDetected) Urine Methadone Screen Not Detected (NotDetected) Ur Propoxyphene Screen Not Detected (NotDetected) Ur Barbiturates Screen Not Detected (NotDetected) U Tricyclic Antidepress Not Detected (NotDetected) Ur Phencyclidine Scrn Not Detected (NotDetected) Ur Amphetamines Screen Not Detected (NotDetected) U Methamphetamines Scrn Not Detected (NotDetected) U Benzodiazepines Scrn Not Detected (NotDetected) Urine Cocaine Screen Not Detected (NotDetected) U Marijuana (THC) Screen Not Detected (NotDetected) Disposition Clinical Impression: Suicidal ideation Disposition: TRANSFER TO PSYCH HOSP/UNIT Condition: Stable
[2016-08-06] MEDS ORDERED: MAGNESIUM HYDROXIDE 2,400 MG/10 ML CUP PO PRN (12:28)
[2016-08-06] MEDS ORDERED: MAG HYDROX/AL HYDROX/SIMETH 30 ML CUP PO PRN (12:28)
[2016-08-06 12:50] VITALS: BMI 22.1
[2016-08-06] MEDS: NICOTINE 21MG/24HR PATCH TRANSDERM SCH ×2 (13:59→20:27)
--- NOTE | 2016-08-06 18:25 | P.HP ---
Psychiatric H&P - . H&P Date: 08/06/16 History & Physical: Allergies Allergy/AdvReac Type Severity Reaction Status Date / Time levofloxacin [From Levaquin] Allergy Unknown Verified 08/01/16 23:47 linezolid [From Zyvox] Allergy Unknown Verified 08/01/16 23:47 nitrofurantoin Allergy Unknown Verified 08/01/16 23:47 [From Macrobid] nitrofurantoin Allergy Unknown Verified 08/01/16 23:47 macrocrystalline [From Macrobid] Penicillins Allergy Unknown Verified 08/01/16 23:47 sulfamethoxazole Allergy Unknown Verified 08/01/16 23:47 [From Bactrim] trimethoprim [From Bactrim] Allergy Unknown Verified 08/01/16 23:47 vancomycin Allergy Unknown Verified 08/01/16 23:47 Vital Signs Temp 97.9 F 08/06/16 12:37 Pulse 92 08/06/16 12:37 Resp 18 08/06/16 12:37 BP 114/79 08/06/16 12:37 Pulse Ox 96 08/06/16 11:42 Intake & Output 08/05/16 08/06/16 08/06/16 18:59 06:59 18:59 Weight 76 kg Laboratory Last Values Urine Opiates Screen Not Detected (NotDetected) 08/06/16 09:05 Ur Oxycodone Screen Not Detected (NotDetected) 08/06/16 09:05 Urine Methadone Screen Not Detected (NotDetected) 08/06/16 09:05 Ur Propoxyphene Screen Not Detected (NotDetected) 08/06/16 09:05 Ur Barbiturates Screen Not Detected (NotDetected) 08/06/16 09:05 U Tricyclic Antidepress Not Detected (NotDetected) 08/06/16 09:05 Ur Phencyclidine Scrn Not Detected (NotDetected) 08/06/16 09:05 Ur Amphetamines Screen Not Detected (NotDetected) 08/06/16 09:05 U Methamphetamines Scrn Not Detected (NotDetected) 08/06/16 09:05 U Benzodiazepines Scrn Not Detected (NotDetected) 08/06/16 09:05 Urine Cocaine Screen Not Detected (NotDetected) 08/06/16 09:05 U Marijuana (THC) Screen Not Detected (NotDetected) 08/06/16 09:05 08/06/16 18:12 IDENTIFYING DATA: 50-year-old single male patient HPI: Patient admitted to the inpatient psychiatric unit at [facility] on a voluntary basis with concerns of suicidal ideations. Patient states that he has been seeing things that aren't there for up to a week now. He says he been seeing people and he knows that they are not real. He reports that they seem to talk to him and they say to 'kill myself and kill other people.' He states that he also has been having auditory hallucinations that are mean ones saying "you're going to ." He states that his mood lately has been kind of like "manic depressant." He admits to some irritability and agitation. He also admits to racing thoughts. PAST PSYCHIATRIC HISTORY: Patient per chart history has had about 10 inpatient psychiatric admissions. Per chart history he had 1 suicide attempt where he took an overdose of Xanax. Most recently has been on Clazuril for more grams at at bedtime, 300 mg in the a.m. Haldol 5 mg at at bedtime. He feels like the Clozaril doesn't work. He states that he has never tried a mood stabilizer. He currently is prescribed his medications through [place] [facility]. PMH: Reports history of hepatitis C. He says he would like to see if he has a. He said that he had unprotected sex and shared needle greater than 10 years ago and was never tested for HIV. Per chart history has reported that he has seizures ALLERGIES: Levaquin, Zyvox, Macrobid, penicillins, Bactrim, vancomycin MEDICATIONS: Maalox when necessary, milk of magnesia when necessary, Habitrol; home medications per chart history included Vistaril, Clozaril, omeprazole, Revia, Haldol, vitamin B12, vitamin D 3 CHEMICAL DEPENDENCY HISTORY: Patient reports he had a couple of drinks yesterday , says he has to quit. FAMILY PSYCHIATRIC HISTORY: Not known at this time FAMILY CHEMICAL DEPENDENCY HISTORY: Per chart history father had problems with alcohol. SOCIAL HISTORY: Per chart history never , no children. 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 Now on SSDI. MENTAL STATUS EXAM: He is alert and cooperative with the interview. He is dressed in a hospital attire. Affect overall is restricted. His mood is described as "depressed." He admits to thoughts of suicide but states he safe on the unit. He denies any current thoughts of harm to others. He states that he had thoughts of killing someone in general just to get to longterm to get his medications. He admits to recent auditory hallucinations telling him that he is going to . He also admits to recent visual hallucinations of seeing people that tell him to kill himself and kill other people. He does not show any current agitation. Cognitively appears very grossly intact. I do not note any significant memory disturbance or disorientation. Insight is adequate, judgment shows evidence of recent impairment. STRENGTHS/WEAKNESSES: Strengths-in outpatient treatment; weaknesses-coping skills, chronic mental illness INTELLECTUAL FUNCTIONING: Average IMPRESSIONS: Schizophrenia; rule out schizoaffective disorder; alcohol use disorder PLAN: Patient will be admitted to the inpatient psychiatric unit [facility] on a voluntary basis. He'll be placed on SP 15 minute precautions. Baseline laboratory workup will be done the patient medical consultation will be ordered. He'll participate in group and activity therapies. We'll maintain Clazuril as current 300 more into the a.m., 4 mg at at bedtime for psychosis symptoms as well as Haldol 5 [place] to at bedtime for psychosis symptoms. Consideration would be given to Abilify in place of Haldol as an option to help with symptoms of psychosis. Would continue to see how he responds to current regimen. Will initiate Lamictal 25 mg at bedtime for mood stabilization component. We will look into any support systems. Patient does request HIV testing for history of risk factors for HIV. He states that he has never been tested. We will look into consent being signed and then also a guardian's consent if he does have a legal guardian. Estimated length of stay is 3-5 days. Prognosis is guarded.
[2016-08-06] MEDS: lamoTRIgine 25 MG TAB PO SCH (20:25)
[2016-08-06] MEDS: HALOPERIDOL 5 MG TAB PO SCH (20:25)
[2016-08-06] MEDS: cloZAPine 100 MG TAB PO SCH (20:25)
[2016-08-07 07:48] LABS: Basophils % (A) 0 %; CH 31.9; CHCM 34.2; Eosinophils # (A) 0.6 k/uL (0-0.7); Eosinophils % (A) 5 %; HCT 50.2 % (39.0-53.0); HDW 2.82; Luc # (Auto) 0.18; Luc % (Auto) 2; Lymphocytes # (A) 2.2 k/uL (1.0-4.8); Lymphocytes % (A) 22 %; MCH 31.7 pg (25.0-35.0); MCHC 33.8 g/dL (31.0-37.0); MCV 93.8 fL (80.0-100.0); Mean Platelet Volume 7.3; Monocytes # (A) 0.5 k/uL (0-1.0); Monocytes % (A) 5 %; Neutrophils # (A) 6.7 k/uL (1.3-7.7); Neutrophils % (A) 66 %; RBC 5.35 m/uL (4.30-5.90); RDW 13.8 % (11.5-15.5); WBC 10.2 k/uL (3.8-10.6); WBC (Perox) 9.64
[2016-08-07] MEDS: NICOTINE 21MG/24HR PATCH TRANSDERM SCH (08:42)
[2016-08-07] MEDS: cloZAPine 100 MG TAB PO SCH ×2 (08:42→22:46)
[2016-08-07] MEDS ORDERED: HALOPERIDOL 2 MG TAB PO STA (10:00)
--- NOTE | 2016-08-07 10:11 | P.PN ---
Progress Note - Text INTERVERAL HISTORY: Patient discussed at treatment team meeting, review of record, met with patient. Patient states that he came back in because he needs an mood stabilizer, asking to have mood stabilizer that was started yesterday by Dr. Chauhan increased today. Informed patient that Lamictal which was started yesterday at 25 mg cannot be increased for 2 weeks. Patient reports that he came in because of anxiety and depression. Patient did not admit to having auditory or visual hallucinations until he was asked about it, states he has it all the time. Patient did not report suicidal ideation, although that's what he was admitted for. Patient states to Dr. Chauhan the Clozaril doesn't work, but may says that it does work but he just "needs a mood stabilizer. Patient was discharged last week and before he was seen by his psych provider, he came to the emergency room. Mobile crisis team was called with attempt to diaper this admission again. Patient states that he did drink while he was briefly out of the hospital. Patient with multiple complaints, changing depending upon the interviewer. Patient was discharged last week by ad copy writer, at that point he was not at risk for suicide or homicide even though he was reporting homicidal ideation with the intent of getting admitted to [facility] so that he could "get Ativan". Today patient is denying that he is asking for Ativan but appears he is still drug- seeking. MENTAL STATUS EXAM:Patient alert and oriented 3, good eye contact, fair groomed in street clothing. Speech normal volume, rate and production. Coherent, logical and perseverating on "mood stabilizer" "increase dose", circumstantial thought process. No ATA, no FOI. [No TB/TW/TI] Reports auditory and visual hallucinations. Reports Denied paranoid ideation, delusions or IOR. Memory [grossly intact] Cognition below average Mood blunted, affect flat, congruent with mood. Denies suicidal ideation, denies homicidal ideation. Insight none; Judgment grossly impaired by his chronic mental illness PLAN: Continue inpatient psychiatric admission for safety, and outpatient coordination of care. Suicide checks every 15 minutes Will add Haldol 5 mg every morning, one dose now, for patient's report of auditory and visual hallucinations. Normally it is preferable to only have one antipsychotic but since patient has been admitted more than 11 times recently he is going to need a second antipsychotic at a higher dose. Benzodiazepines need to be avoided. He is encouraged to avoid alcohol. Lamictal can help in bipolar depression, however in my assessment he does not appear to have schizoaffective disorder, bipolar type. I will defer this diagnostic question to his outpatient provider. licensing worker to contact act team, so that they can pick him up tomorrow, with appointment with his psychiatric provider this week, review his housing situation, and notify guardian. Milieu therapy
--- NOTE | 2016-08-07 19:58 | CONS ---
DATE OF CONSULTATION: 08/07/2016 REASON FOR CONSULTATION: Medical evaluation of a psychiatric patient. CHIEF COMPLAINT: Admitted to the psych unit on a voluntary basis with concerns about suicidal ideation. HISTORY OF PRESENT ILLNESS: Mr. Chan is a 50-year-old male with a past medical history of schizophrenia, hepatitis C, anxiety, panic disorder, who got himself admitted to the psychiatric unit at [facility] on a voluntary basis with concerns about suicidal ideation. Patient states that he has been feeling down and that he has pain in his lower back, his knees, and they he does not have any family members to share his concern. He thought about killing himself. Patient also states that he has been having some auditory hallucinations that are telling him that he is going to . Patient denies having any chronic medical conditions other than hepatitis C. He states that he has chronic low back pain and bilateral knee pain and takes some pain medications from a [employer]. Past medical history is significant for: 1. Schizophrenia. 2. Anxiety. 3. Depression. 4. Hepatitis C. ALLERGIES: 1. LEVAQUIN. 2. ZYVOX. 3. MACROBID. 4. PENICILLIN. 5. BACTRIM. 6. VANCOMYCIN. PATIENT'S HOME MEDICATIONS: 1. Vitamin B12 1000 mcg p.o. daily. 2. Omeprazole 20 mg p.o. daily. 3. Clozaril 400 mg p.o. at bedtime. 4. Naltrexone 50 mg p.o. daily. 5. Vitamin D3 ( ) units p.o. daily. 6. Hydoxyzine 25 mg p.o. 3 times a day. 7. Haloperidol 5 mg p.o. at bedtime. FAMILY HISTORY: Patient says that he does not know much of his family members and that he does not talk with his siblings. SOCIAL HISTORY: He does smoke. Occasional alcohol. No history of intravenous drug abuse. On examination, patient's vital signs are temperature 98.4, heart rate 80, respiratory rate 18, blood pressure 123/71. Saturating at 96% on room air. HEAD: Atraumatic, normocephalic. EYES: Pupils round and reactive to light. NECK: No JVD. No thyromegaly. CARDIOVASCULAR: S1, S2 heard. RESPIRATORY: Bilateral breath sounds are positive. ABDOMEN: Soft, nontender. Bowel sounds positive. EXTREMITIES: No edema. No cyanosis. SKIN: Patient has a big tattoo on the front of his chest. RESIDENCE MANAGER: No focal neurological deficits. PATIENT'S LABS: White count of 10.2, hemoglobin 17. Platelets of 214. UDS is negative for any illicit substances. ASSESSMENT AND PLAN: 1. Suicidal ideation. 2. History of schizophrenia. 3. Alcohol use disorder. 4. Hepatitis C history. 5. Gastroesophageal reflux disease. PLAN: Patient does not have any ongoing medical issues. To continue with his home medication regimen. Management of schizophrenia and suicidal ideation as per psychiatric recommendations. Will follow the patient on an as-needed basis. Thank you for the consult.
[2016-08-07] MEDS: lamoTRIgine 25 MG TAB PO SCH (22:47)
[2016-08-07] MEDS: HALOPERIDOL 5 MG TAB PO SCH (22:47)
[2016-08-08 06:19] LABS: Norclozapine 202 ng/mL (200-700)
[2016-08-08 07:00] VITALS: BP 128/76; PULSE 73; RESP 20; TEMP 97.6
[2016-08-08] MEDS: NICOTINE 21MG/24HR PATCH TRANSDERM SCH (08:00)
[2016-08-08] MEDS: cloZAPine 100 MG TAB PO SCH (08:00)
--- NOTE | 2016-08-08 08:57 | P.DS ---
Providers Date of admission: 08/06/16 11:37 Expected date of discharge: 08/08/16 Attending physician: Olga Christopher MD Consults: 08/06/16 12:28 Consult Physician Routine Consulting Provider: Kristopher Miller Consult Reason/Comments: history and physical Do you want consulting provider notified?: Yes Primary care physician: Stated None Hospital Course: Patient is a 50-year-old male, well known to the unit, with chronic schizophrenia, paranoid type. Patient had just been discharged from the unit, and presented back to the emergency room requesting to be admitted ostensibly to receive benzodiazepines. Patient was readmitted. There was no significant change since his previous stay and discharge. He continued to report thoughts of suicide homicide auditory and visual hallucinations all with the goal of being prescribed benzodiazepines. Patient had reported that he had no intention of killing anybody but he thought that if he could get into prison they might give him all of the controlled substances that he wanted. Patient was pleasant cooperative no evidence of patient responding to internal stimuli. On the weekend patient was prescribed Lamictal by covering psychiatrist, discussion with treatment team and patient's well-known behavior of overtaking medications it was not a good choice for him, due to the risk of Solorio Pierre syndrome. Instead a low dose of Haldol was prescribed for him in the morning. Patient has been requesting to have a medication that he can take 4 times a day and 4 pills each time. He is educated that there is no medication like that he is reminded that he will not be prescribed benzodiazepine class that is contraindicated in his alcohol use as well as his misuse of prescribed medicines. Schizophrenia, chronic Patient is stable and he can be discharged back team has agreed to pick him up at 1 PM Pertinent Studies: none Procedures: none Patient Condition at Discharge: Stable Plan - Discharge Summary New Discharge Prescriptions: No Action Cyanocobalamin (Vitamin B-12) [Vitamin B-12] 1,000 mcg SUBLINGUAL DAILY Omeprazole 20 mg PO DAILY #30 capsule. cloZAPine [Clozaril] 400 mg PO HS 30 Days Naltrexone HCl [Revia] 50 mg PO DAILY Cyanocobalamin [Vitamin B-12 Injection] 1,000 mcg SQ Q7D Cholecalciferol [Vitamin D3] 5,000 unit PO DAILY hydrOXYzine PAMOATE [Vistaril] 25 mg PO TID cloZAPine [Clozaril] 300 mg PO QAM Haloperidol [Haldol] 5 mg PO HS Discharge Medication List Cyanocobalamin (Vitamin B-12) [Vitamin B-12] 1,000 mcg SUBLINGUAL DAILY [History] Omeprazole 20 mg PO DAILY #30 capsule. 05/31/16 [Rx] cloZAPine [Clozaril] 400 mg PO HS 30 Days 05/31/16 [Rx] Cyanocobalamin [Vitamin B-12 Injection] 1,000 mcg SQ Q7D 06/29/16 [History] Naltrexone HCl [Revia] 50 mg PO DAILY 06/29/16 [History] Cholecalciferol [Vitamin D3] 5,000 unit PO DAILY 08/02/16 [History] Haloperidol [Haldol] 5 mg PO HS 08/02/16 [History] cloZAPine [Clozaril] 300 mg PO QAM 08/02/16 [History] hydrOXYzine PAMOATE [Vistaril] 25 mg PO TID 08/02/16 [History] Follow up Appointment(s)/Referral(s): [facility] [Outside] - 08/23/16 2:00 pm (Prabha Thomason) None,Stated [Primary Care Provider] - 1-2 days Discharge Disposition: HOME SELF-CARE
[2016-08-08] MEDS ORDERED: HALOPERIDOL 2 MG TAB PO SCH (09:00)
[2016-08-08] MEDS ORDERED: BENZTROPINE MESYLATE 1 MG TAB PO SCH (10:45)
== END 2016-08-08 12:45 | disposition home or self-care (01) | DRG 885 ==
LOC: EC 08:55 → 3MHU 11:37
PROVIDERS: ADMIT Psychiatry & Neurology Addiction Medicine; ATTEND Psychiatry & Neurology Addiction Medicine
DX: F20.0 Paranoid schizophrenia (principal); R45.851 Suicidal ideations; B19.20 Unspecified viral hepatitis C without hepatic coma; F17.200 Nicotine dependence, unspecified, uncomplicated; F41.0 Panic disorder [episodic paroxysmal anxiety]; G89.29 Other chronic pain; K21.9 Gastro-esophageal reflux disease without esophagitis; Z79.899 Other long term (current) drug therapy; Z88.1 Allergy status to other antibiotic agents; Z88.0 Allergy status to penicillin; Z88.2 Allergy status to sulfonamides; Z91.5 Personal history of self-harm
CPT/HCPCS: 80159; 80306; 82075; 85025; 99285

== ENCOUNTER 2016-08-14 16:58 | Emergency (ER) | payer MEDICARE, MEDICAID ==
[2016-08-14 17:10] VITALS: RESP 18
--- NOTE | 2016-08-14 17:23 | ED ---
Psych HPI - General Stated Complaint: Mental Health Time Seen by Provider: 08/14/16 17:00 Source: patient, EMS, RN notes reviewed Mode of arrival: EMS Limitations: no limitations - History of Present Illness Initial Comments: 50-year-old male presents emergency department via EMS for psychiatric evaluation. Patient states that he's been hearing voices states that he is suicidal at this time. Patient states it is a plan to hang himself. Patient states he has been taken his medications as directed. Patient denies any homicidal thoughts denies any alcohol use though he is positive breath alcohol Patient denies any drug abuse. Patient complains chronic back pain no changes in this. Denies abdominal pain no chest pain - Related Data Home Medications Medication Instructions Recorded Confirmed Cyanocobalamin (Vitamin B-12) 1,000 mcg PO DAILY 05/11/16 08/14/16 [Vitamin B-12] Cyanocobalamin [Vitamin B-12 1,000 mcg SQ Q7D 06/29/16 08/14/16 Injection] Naltrexone HCl [Revia] 50 mg PO DAILY 06/29/16 08/14/16 Cholecalciferol [Vitamin D3] 5,000 unit PO DAILY 08/02/16 08/14/16 Haloperidol [Haldol] 5 mg PO HS 08/02/16 08/14/16 cloZAPine [Clozaril] 300 mg PO QAM 08/02/16 08/14/16 hydrOXYzine PAMOATE [Vistaril] 25 mg PO TID 08/02/16 08/14/16 Previous Rx's Medication Instructions Recorded Omeprazole 20 mg PO DAILY #30 capsule. 05/31/16 cloZAPine [Clozaril] 400 mg PO HS 30 Days 05/31/16 Allergies Allergy/AdvReac Type Severity Reaction Status Date / Time levofloxacin [From Levaquin] Allergy Unknown Verified 08/01/16 23:47 linezolid [From Zyvox] Allergy Unknown Verified 08/01/16 23:47 nitrofurantoin Allergy Unknown Verified 08/01/16 23:47 [From Macrobid] nitrofurantoin Allergy Unknown Verified 08/01/16 23:47 macrocrystalline [From Macrobid] Penicillins Allergy Unknown Verified 08/01/16 23:47 sulfamethoxazole Allergy Unknown Verified 08/01/16 23:47 [From Bactrim] trimethoprim [From Bactrim] Allergy Unknown Verified 08/01/16 23:47 vancomycin Allergy Unknown Verified 08/01/16 23:47 Review of Systems ROS Statement: Those systems with pertinent positive or pertinent negative responses have been documented in the HPI. ROS Other: All systems not noted in ROS Statement are negative. Past Medical History Past Medical History: Liver Disease Additional Past Medical History / Comment(s): Pt stated that he has Hepatitis C. Possible AIDs diagnosis History of Any Multi-Drug Resistant Organisms: None Reported Past Surgical History: Appendectomy Additional Past Surgical History / Comment(s): pt denies Past Anesthesia/Blood Transfusion Reactions: No Reported Reaction Past Psychological History: Anxiety, Panic Disorder, Schizophrenia Smoking Status: Current every day smoker Past Alcohol Use History: Daily Past Drug Use History: None Reported General Exam Limitations: no limitations General appearance: alert, in no apparent distress Head exam: Present: atraumatic, normocephalic, normal inspection Eye exam: Present: normal appearance, PERRL, EOMI. Absent: scleral icterus, conjunctival injection, periorbital swelling ENT exam: Present: normal exam, mucous membranes moist Neck exam: Present: normal inspection, full ROM. Absent: tenderness, meningismus, lymphadenopathy Respiratory exam: Present: normal lung sounds bilaterally. Absent: respiratory distress, wheezes, rales, rhonchi, stridor Cardiovascular Exam: Present: regular rate, normal rhythm, normal heart sounds. Absent: systolic murmur, diastolic murmur, rubs, gallop, clicks GI/Abdominal exam: Present: soft, normal bowel sounds. Absent: distended, tenderness, guarding, rebound, rigid Neurological exam: Present: alert, oriented X3, CN II-XII intact, reflexes normal. Absent: motor sensory deficit Psychiatric exam: Present: flat affect Skin exam: Present: warm, dry, intact, normal color. Absent: rash Course Vital Signs 08/14/16 16:59 Temperature 96.8 F L Pulse Rate 64 Respiratory 18 Rate Blood Pressure 124/80 O2 Sat by Pulse 100 Oximetry Medical Decision Making - Medical Decision Making Patient was evaluated by EPS. Case was discussed with on-call psychiatrist and at team who all recommend the patient to be discharged that he's been admitted several times recently and that he has a safety plan. Patient is given his medications by [facility]. Patient be discharged as recommended - Lab Data Lab Results 08/14/16 Range/Units 18:50 Urine Opiates Screen Not Detected (NotDetected) Ur Oxycodone Screen Not Detected (NotDetected) Urine Methadone Screen Not Detected (NotDetected) Ur Propoxyphene Screen Not Detected (NotDetected) Ur Barbiturates Screen Not Detected (NotDetected) U Tricyclic Antidepress Not Detected (NotDetected) Ur Phencyclidine Scrn Not Detected (NotDetected) Ur Amphetamines Screen Not Detected (NotDetected) U Methamphetamines Scrn Not Detected (NotDetected) U Benzodiazepines Scrn Not Detected (NotDetected) Urine Cocaine Screen Not Detected (NotDetected) U Marijuana (THC) Screen Not Detected (NotDetected) Disposition Clinical Impression: Depression, Anxiety Disposition: HOME SELF-CARE Condition: Stable Instructions: Depression (ED) Additional Instructions: Please return to the Emergency Department if symptoms worsen or any other concerns. Referrals: Patricio Hernandez MD [Primary Care Provider] - 1-2 days Time of Disposition: 19:44
[2016-08-14 19:55] VITALS: BP 98/57; PULSE 101; TEMP 98.7
== END 2016-08-14 20:17 | disposition home or self-care (01) ==
LOC: EC 16:58
DX: F32.9 Major depressive disorder, single episode, unspecified (principal); F41.9 Anxiety disorder, unspecified; F20.9 Schizophrenia, unspecified; F17.200 Nicotine dependence, unspecified, uncomplicated; Z88.1 Allergy status to other antibiotic agents; Z88.0 Allergy status to penicillin; Z88.2 Allergy status to sulfonamides; Z88.8 Allergy status to other drugs, medicaments and biological substances; Z79.899 Other long term (current) drug therapy
CPT/HCPCS: 80306; 82075; 99284

== ENCOUNTER 2017-06-18 10:30 | Inpatient (IN) | payer MEDICARE, OTHER ==
[2017-06-18] MEDS ORDERED: SODIUM CHLORIDE 0.9% 1,000 ML IV STA (10:47)
--- NOTE | 2017-06-18 10:50 | ED ---
General Adult HPI - General Chief complaint: Recheck/Abnormal Lab/Rx Stated complaint: hypotension Time Seen by Provider: 06/18/17 10:41 Source: patient, RN notes reviewed Mode of arrival: ambulatory Limitations: no limitations - History of Present Illness Initial comments: Patient is a pleasant 51-year-old male presenting to the emergency department with concerns for low blood pressure. Patient states he had a routine appointment at [facility]. Patient states they sent him over here for low blood pressure. Patient states they do not see anything about his heart rate. Patient states he does feel somewhat lightheaded this morning and did have several near-syncopal episodes. No pain. No confusion. No weakness. No history of similar symptoms previously. Patient does not take any medication for blood pressure. - Related Data Home Medications Medication Instructions Recorded Confirmed Naltrexone HCl [Revia] 50 mg PO DAILY 06/29/16 06/18/17 Cholecalciferol [Vitamin D3] 5,000 unit PO DAILY 08/02/16 06/18/17 Aspirin EC [Ecotrin Low Dose] 81 mg PO DAILY 06/18/17 06/18/17 Benztropine Mesylate [Cogentin] 2 mg PO TID 06/18/17 06/18/17 Haloperidol [Haldol] 10 mg PO TID 06/18/17 06/18/17 Sertraline [Zoloft] 100 mg PO DAILY 06/18/17 06/18/17 cloNIDine HCL [Catapres] 0.2 mg PO HS 06/18/17 06/18/17 hydrOXYzine PAMOATE [Vistaril] 50 mg PO BID 06/18/17 06/18/17 traMADol HCL [Ultram] 50 mg PO HS 06/18/17 06/18/17 Previous Rx's Medication Instructions Recorded Omeprazole 20 mg PO DAILY #30 capsule. 05/31/16 Allergies Allergy/AdvReac Type Severity Reaction Status Date / Time levofloxacin [From Levaquin] Allergy Unknown Verified 06/18/17 11:22 linezolid [From Zyvox] Allergy Unknown Verified 06/18/17 11:22 nitrofurantoin Allergy Unknown Verified 06/18/17 11:22 [From Macrobid] nitrofurantoin Allergy Unknown Verified 06/18/17 11:22 macrocrystalline [From Macrobid] Penicillins Allergy Unknown Verified 06/18/17 11:22 sulfamethoxazole Allergy Unknown Verified 06/18/17 11:22 [From Bactrim] trimethoprim [From Bactrim] Allergy Unknown Verified 06/18/17 11:22 vancomycin Allergy Unknown Verified 06/18/17 11:22 Review of Systems ROS Statement: Those systems with pertinent positive or pertinent negative responses have been documented in the HPI. ROS Other: All systems not noted in ROS Statement are negative. Constitutional: Denies: fever Eyes: Denies: eye pain ENT: Denies: ear pain Respiratory: Denies: cough, dyspnea Cardiovascular: Denies: chest pain Endocrine: Denies: fatigue Gastrointestinal: Denies: abdominal pain Genitourinary: Denies: dysuria Musculoskeletal: Denies: back pain Skin: Denies: rash Neurological: Denies: headache, weakness, confusion Past Medical History Past Medical History: Liver Disease Additional Past Medical History / Comment(s): Pt stated that he has Hepatitis C. Possible AIDs diagnosis History of Any Multi-Drug Resistant Organisms: None Reported Past Surgical History: Appendectomy Additional Past Surgical History / Comment(s): pt denies Past Anesthesia/Blood Transfusion Reactions: No Reported Reaction Past Psychological History: Anxiety, Panic Disorder, Schizophrenia Smoking Status: Current every day smoker Past Alcohol Use History: Daily Past Drug Use History: None Reported General Exam Limitations: no limitations General appearance: alert, in no apparent distress Head exam: Present: atraumatic Eye exam: Present: normal appearance, PERRL, EOMI ENT exam: Present: normal oropharynx Neck exam: Present: normal inspection Respiratory exam: Present: normal lung sounds bilaterally Cardiovascular Exam: Present: bradycardia Expanded Peripheral pulses: 2+: Radial (R), Radial (L) GI/Abdominal exam: Present: soft. Absent: tenderness Extremities exam: Present: normal inspection. Absent: pedal edema, calf tenderness Neurological exam: Present: alert, CN II-XII intact. Absent: motor sensory deficit Expanded Speech: Present: fluid speech Cranial nerves: EOM's Intact: Normal Motor strength exam: RUE: 5, LUE: 5, RLE: 5, LLE: 5 Eye Response: (4) open spontaneously Motor Response: (6) obeys commands Verbal Response: (5) oriented Psychiatric exam: Present: normal affect, normal mood Skin exam: Present: normal color Course Vital Signs 06/18/17 06/18/1706/18/18 10:32 11:03 12:12 Temperature 96.7 F L Pulse Rate 54 L 53 L 50 L Respiratory 18 19 19 Rate Blood Pressure 82/52 88/62 97/63 O2 Sat by Pulse 97 98 Oximetry EKG Findings - EKG Comments: EKG Findings:: Size pericardial 45. NC 190. QRS 92. QT 476. QTc 411. Normal axis. Normal QRS. No acute ST change. Medical Decision Making - Medical Decision Making Patient reevaluated and updated. Heart rate has been in the low to mid 40s. Blood pressure has been upper 80s to 108. Case was discussed in detail with Dr. Miller, who will admit for Dr. Valdez. Patient was somewhat hesitant to stay however guardian was contacted by nursing staff and did agree patient should stay in the hospital. Cardiology will be consulted. - Lab Data Result diagrams: 06/18/17 10:51 06/18/17 10:51 Lab Results 06/18/17 06/18/17 06/18/17 Range/Units 10:51 10:51 10:51 WBC 8.8 (3.8-10.6) k/uL RBC 5.31 (4.30-5.90) m/uL Hgb 15.6 (13.0-17.5) gm/dL Hct 46.5 (39.0-53.0) % MCV 87.6 (80.0-100.0) fL MCH 29.4 (25.0-35.0) pg MCHC 33.6 (31.0-37.0) g/dL RDW 13.9 (11.5-15.5) % Plt Count 209 (150-450) k/uL Neutrophils % 63 % Lymphocytes % 26 % Monocytes % 5 % Eosinophils % 4 % Basophils % 0 % Neutrophils # 5.6 (1.3-7.7) k/uL Lymphocytes # 2.3 (1.0-4.8) k/uL Monocytes # 0.5 (0-1.0) k/uL Eosinophils # 0.4 (0-0.7) k/uL Basophils # 0.0 (0-0.2) k/uL PT (9.0-12.0) sec INR (<1.2) APTT (22.0-30.0) sec Sodium 139 (137-145) mmol/L Potassium 5.1 (3.5-5.1) mmol/L Chloride 102 (98-107) mmol/L Carbon Dioxide 25 (22-30) mmol/L Anion Gap 12 mmol/L BUN 8 L (9-20) mg/dL Creatinine 0.80 (0.66-1.25) mg/dL Est GFR (CKD-EPI)AfAm >90 (>60 ml/min/1.73 sqM) Est GFR (CKD-EPI)NonAf >90 (>60 ml/min/1.73 sqM) Glucose 92 (74-99) mg/dL Calcium 9.2 (8.4-10.2) mg/dL Magnesium 1.9 (1.6-2.3) mg/dL Total Bilirubin 0.5 (0.2-1.3) mg/dL AST 66 H (17-59) U/L ALT 95 H (21-72) U/L Alkaline Phosphatase 95 (38-126) U/L Total Creatine Kinase 86 (55-170) U/L CK-MB (CK-2) 0.5 (0.0-2.4) ng/mL CK-MB (CK-2) Rel Index 0.6 Troponin I <0.012 (0.000-0.034) ng/mL Total Protein 6.9 (6.3-8.2) g/dL Albumin 4.2 (3.5-5.0) g/dL TSH 2.630 (0.465-4.680) mIU/L Free T4 0.94 (0.78-2.19) ng/dL Free T3 pg/mL 3.6 (2.8-5.3) pg/ml 06/18/17 Range/Units 10:51 WBC (3.8-10.6) k/uL RBC (4.30-5.90) m/uL Hgb (13.0-17.5) gm/dL Hct (39.0-53.0) % MCV (80.0-100.0) fL MCH (25.0-35.0) pg MCHC (31.0-37.0) g/dL RDW (11.5-15.5) % Plt Count (150-450) k/uL Neutrophils % % Lymphocytes % % Monocytes % % Eosinophils % % Basophils % % Neutrophils # (1.3-7.7) k/uL Lymphocytes # (1.0-4.8) k/uL Monocytes # (0-1.0) k/uL Eosinophils # (0-0.7) k/uL Basophils # (0-0.2) k/uL PT 10.2 (9.0-12.0) sec INR 1.0 (<1.2) APTT 26.5 (22.0-30.0) sec Sodium (137-145) mmol/L Potassium (3.5-5.1) mmol/L Chloride (98-107) mmol/L Carbon Dioxide (22-30) mmol/L Anion Gap mmol/L BUN (9-20) mg/dL Creatinine (0.66-1.25) mg/dL Est GFR (CKD-EPI)AfAm (>60 ml/min/1.73 sqM) Est GFR (CKD-EPI)NonAf (>60 ml/min/1.73 sqM) Glucose (74-99) mg/dL Calcium (8.4-10.2) mg/dL Magnesium (1.6-2.3) mg/dL Total Bilirubin (0.2-1.3) mg/dL AST (17-59) U/L ALT (21-72) U/L Alkaline Phosphatase (38-126) U/L Total Creatine Kinase (55-170) U/L CK-MB (CK-2) (0.0-2.4) ng/mL CK-MB (CK-2) Rel Index Troponin I (0.000-0.034) ng/mL Total Protein (6.3-8.2) g/dL Albumin (3.5-5.0) g/dL TSH (0.465-4.680) mIU/L Free T4 (0.78-2.19) ng/dL Free T3 pg/mL (2.8-5.3) pg/ml - Radiology Data Radiology results: report reviewed (Computed tomography scan of the brain shows no acute process.), image reviewed (Chest x-ray shows no acute process.) Disposition Clinical Impression: Bradycardia Disposition: ADMITTED IP TO THIS HOSP Is patient prescribed a controlled substance at d/c from ED?: No Referrals: Patricio Hernandez MD [Primary Care Provider] - 1-2 days Decision Time: 12:59
[2017-06-18 11:31] LABS: Basophils % (A) 0 %; Eosinophils # (A) 0.4 k/uL (0-0.7); Eosinophils % (A) 4 %; HCT 46.5 % (39.0-53.0); HGB 15.6 gm/dL (13.0-17.5); Lymphocytes # (A) 2.3 k/uL (1.0-4.8); Lymphocytes % (A) 26 %; MCH 29.4 pg (25.0-35.0); MCHC 33.6 g/dL (31.0-37.0); MCV 87.6 fL (80.0-100.0); Mean Platelet Volume 7.5; Monocytes # (A) 0.5 k/uL (0-1.0); Monocytes % (A) 5 %; Neutrophils # (A) 5.6 k/uL (1.3-7.7); Neutrophils % (A) 63 %; Platelet Count 209 k/uL (150-450); RBC 5.31 m/uL (4.30-5.90); RDW 13.9 % (11.5-15.5); WBC 8.8 k/uL (3.8-10.6)
[2017-06-18 11:33] LABS: Partial Thromboplastin Time 26.5 sec (22.0-30.0); Prothrombin Time 10.2 sec (9.0-12.0)
--- NOTE | 2017-06-18 11:42 | CT ---
EXAMINATION TYPE: CT brain wo con DATE OF EXAM: 06/18/2017 COMPARISON: 07/25/2013 HISTORY: 51-year-old male syncope, Hypertension TECHNIQUE: Examination was done in axial plane without intravenous contrast. Coronal and sagittal r econstructions performed. CT DLP: 1064.30 mGycm Automated exposure control for dose reduction was used. FINDINGS: There is no evidence of acute intracranial hemorrhage, acute ischemic changes, mass, mass-effect, or extra-axial fluid collection. There is no effacement of cerebral sulci or basal subarachnoid cister ns. There is no hydrocephalus. There is no midline shift. Cummings-white matter distinction is preserv ed. Asymmetrically smaller right lateral ventricle is unchanged from 2014, most compatible with congenita l variation. Trace mucosal thickening ethmoid air cells. Left mastoid air cells are hypoplastic. Orbits and globes are intact. IMPRESSION: No acute intracranial abnormality seen.
--- NOTE | 2017-06-18 11:43 | XR ---
EXAMINATION TYPE: XR chest 2V DATE OF EXAM: 06/18/2017 COMPARISON: 08/02/2016 HISTORY: Shortness of breath TECHNIQUE: Frontal and lateral views of the chest are obtained. FINDINGS: There is no focal air space opacity, pleural effusion, or pneumothorax seen. Pulmonary hy perinflation relates underlying COPD. Plate like subsegmental atelectasis is seen at the left lung ba se. The cardiac silhouette size is within normal limits. The osseous structures are intact. IMPRESSION: 1. No focal consolidation to suggest pneumonia. 2. Left lower lung platelike subsegmental atelectasis. 3. Radiographic sequela of COPD.
[2017-06-18 11:47] LABS: Albumin 4.2 g/dL (3.5-5.0); Anion Gap 12 mmol/L; Calcium 9.2 mg/dL (8.4-10.2); Carbon Dioxide 25 mmol/L (22-30); Chloride 102 mmol/L (98-107); Glucose 92 mg/dL (74-99); Sodium 139 mmol/L (137-145); Total Bilirubin 0.5 mg/dL (0.2-1.3); Total Protein 6.9 g/dL (6.3-8.2)
[2017-06-18 12:00] LABS: Creatine Kinase 86 U/L (55-170)
[2017-06-18 12:02] LABS: T4, Free (Free Thyroxine) 0.94 ng/dL (0.78-2.19)
[2017-06-18 12:13] LABS: Creatine Kinase MB 0.5 ng/mL (0.0-2.4); Troponin I <0.012 ng/mL (0.000-0.034)
[2017-06-18 12:16] LABS: Potassium 5.1 mmol/L (3.5-5.1)
[2017-06-18 12:17] LABS: ALT 95 U/L (21-72); AST 66 U/L (17-59); Alkaline Phosphatase 95 U/L (38-126); Blood Urea Nitrogen 8 mg/dL (9-20); Magnesium 1.9 mg/dL (1.6-2.3)
[2017-06-18] MEDS ORDERED: NALOXONE 0.4 MG/ML 1 ML VIAL IV PRN (12:59)
[2017-06-18] MEDS: SODIUM CHLORIDE 0.9% 1,000 ML IV SCH (13:29)
[2017-06-18 14:31] LABS: Appearance,Urine Clear (Clear); Bilirubin,Urine Negative (Negative); Blood,Urine Negative (Negative); Color,Urine Light Yellow; Glucose,Urine (UA) Negative (Negative); Ketones,Urine Negative (Negative); Leukocyte Esterase,Urine Negative (Negative); Nitrite,Urine Negative (Negative); PH, Urine 7.5 (5.0-8.0); Protein,Urine Negative (Negative); Specific Gravity,Urine 1.004 (1.001-1.035); Urobilinogen,Urine <2.0 mg/dL (<2.0)
--- NOTE | 2017-06-18 17:20 | ECHOF ---
Referral Reason:Bradycardia MEASUREMENTS -------- HEIGHT: 180.3 cm WEIGHT: 77.1 kg BP: 97/63 IVSd: 0.8 cm (0.6 - 1.1) LVIDd: 4.3 cm (3.9 - 5.3) LVPWd: 0.8 cm (0.6 - 1.1) IVSs: 1.7 cm LVIDs: 2.4 cm LVPWs: 1.7 cm LAESV Index (A-L): 24.21 ml/m Ao Diam: 3.5 cm (2.0 - 3.7) AV Cusp: 2.0 cm (1.5 - 2.6) LA Diam: 3.2 cm (2.7 - 3.8) MV EXCURSION: 17.332 mm (> 18.000) MV EF SLOPE: 106 mm/s (70 - 150) EPSS: 2.0 cm MV E Thanh: 1.12 m/s MV DecT: 247 ms MV A Thanh: 0.48 m/s MV E/A Ratio: 2.32 RAP: 5.00 mmHg RVSP: 8.46 mmHg FINDINGS -------- Resting bradycardia (HR<60bpm). This was a technically good study. The left ventricular size is normal. Left ventricular wall thickness is normal. Overall left vent ricular systolic function is normal with, an EF between 55 - 60 %. The right ventricle is normal in size and function. The left atrium is normal in size. The right atrium is normal in size. The aortic valve is trileaflet, and appears structurally normal. No aortic stenosis or regurgitation. There is trace mitral regurgitation. Trace tricuspid regurgitation present. The right ventricular systolic pressure, as measured by Dopp ler, is 8.46mmHg. Pulmonic valve appears structurally normal. The pericardium is normal. CONCLUSIONS -------- 1. Resting bradycardia (HR<60bpm). 2. This was a technically good study. 3. The left ventricular size is normal. 4. Left ventricular wall thickness is normal. 5. Overall left ventricular systolic function is normal with, an EF between 55 - 60 %. 6. The right ventricle is normal in size and function. 7. The left atrium is normal in size. 8. The right atrium is normal in size. 9. The aortic valve is trileaflet, and appears structurally normal. No aortic stenosis or regurgitati on. 10. There is trace mitral regurgitation. 11. Trace tricuspid regurgitation present. 12. The right ventricular systolic pressure, as measured by Doppler, is 8.46mmHg. 13. Pulmonic valve appears structurally normal. 14. The pericardium is normal. MEDICAL OFFICE RECEPTIONIST ASSISTANT: Lena Jasmine RDCS
[2017-06-18] MEDS ORDERED: LORazepam 2 MG/ML INJ IV PRN ×2 (18:50)
--- NOTE | 2017-06-18 18:59 | HP ---
HISTORY AND PHYSICAL HISTORY OF PRESENT ILLNESS: This 51-year-old gentleman with a past medical history of COPD, history of chronic liver disease, history of nicotine dependence, history of hepatitis C, history of EtOH, history of anxiety and panic disorder has a long-standing psychiatric history. The patient was currently noted to have bradycardia and hypotension. Patient was feeling dizzy. Patient was sent to [facility] for further evaluation and treatment. There is no history of any fever, rigor or chills. No history of headache, loss of consciousness, seizures. The patient does have a legal guardian. PAST MEDICAL HISTORY: 1. History of hepatitis C. 2. Chronic liver disease. 3. History of ETOH. 4. History of anxiety, depression, panic disorder, schizophrenia. HOME MEDICATIONS: 1. Ultram 50 mg at bedtime. 2. Vistaril 50 mg p.o. b.i.d. 3. Catapres 0.2 at bedtime. 4. Zoloft 100 mg p.o. daily. 5. Omeprazole 20 mg daily. 6. Revia 50 mg p.o. daily. 7. Haldol 10 mg p.o. t.i.d. 8. Vitamin D3 5000 units daily. 9. Cogentin 2 mg p.o. t.i.d. 10.Ecotrin 81 mg daily. The patient is on clonidine 0.2 mg p.o. at bedtime. ALLERGIES: 1. LEVAQUIN. 2. ZYVOX. 3. MACROBID. 4. PENICILLIN. 5. BACTRIM. 6. VANCOMYCIN. FAMILY HISTORY: No history of heart disease or strokes in the family. SOCIAL HISTORY: History of smoking. No history of alcohol intake. REVIEW OF SYSTEMS: ENT: No diminished hearing. No diminished vision. CARDIOVASCULAR SYSTEM: No angina, palpitations. RESPIRATORY SYSTEM: As mentioned earlier. GI: No nausea, vomiting. : No dysuria or retention. NERVOUS SYSTEM: As mentioned earlier. ALLERGY/IMMUNOLOGY: No asthma, hayfever. MUSCULOSKELETAL: As mentioned earlier. HEMATOLOGY/ONCOLOGY: No history of anemia. ENDOCRINE: No history of diabetes, hypothyroidism. CONSTITUTIONAL: As mentioned earlier. DERMATOLOGY: Negative. RHEUMATOLOGY: Negative. PSYCHIATRY: As mentioned earlier. PHYSICAL EXAMINATION: Patient is alert, oriented x3. Pulse is 48, blood pressure 106/64, respiration 16, temperature 97.3, pulse ox 96% on room air. HEENT: Conjunctivae normal. NECK: No jugular venous distention. CARDIOVASCULAR SYSTEM: S1, S2 muffled. RESPIRATORY SYSTEM: Breath sounds diminished at the bases. A few scattered rhonchi. No crackles. ABDOMEN: Soft, nontender. No mass palpable. LEGS: No edema. No swelling. NERVOUS SYSTEM: Higher functions as mentioned earlier. Moves all 4 limbs. No focal motor or sensory deficit. LYMPHATICS: No lymph node palpable in neck, axillae or groin. SKIN: No ulcer, rash, bleeding. LABS: CBC within normal limits. BUN is 8. AST is 66 and ALT is 95. EKG shows sinus bradycardia. Two-D echo done by Cardiology today showed ejection fraction about 55% to 60% and only minimal valvular abnormalities. ASSESSMENT: 1. Hypotension with sinus bradycardia, improving. 2. History of chronic liver disease. 3. History of hepatitis C. 4. History of ethanol. 5. Anxiety, depression, panic disorder, schizophrenia. 6. History of chronic obstructive pulmonary disease. RECOMMENDATIONS AND DISCUSSION: I recommend to continue current medication, continue symptomatic treatment. Otherwise at this time I would recommend holding clonidine. IV fluids. Cardiology consultation. Resume the rest of the medications. Guarded prognosis because of the multiple complex medical issues. Further recommendations to follow. See orders for further details. MMODL / IJN: [id number] /
[2017-06-18] MEDS: LORazepam 2 MG/ML INJ IV PRN ×2 (19:01→21:07)
[2017-06-18] MEDS: traMADol 50 MG TAB PO SCH (20:08)
[2017-06-18] MEDS: THIAMINE 100 MG TAB PO SCH (20:08)
[2017-06-18] MEDS: hydrOXYzine PAMOATE 25 MG CAP PO SCH (20:11)
[2017-06-18] MEDS: BENZTROPINE MESYLATE 1 MG TAB PO SCH (21:00)
[2017-06-18] MEDS: HALOPERIDOL 5 MG TAB PO SCH (21:00)
[2017-06-19 06:04] LABS: Basophils % (A) 1 %; Eosinophils # (A) 0.5 k/uL (0-0.7); Eosinophils % (A) 5 %; HGB 15.3 gm/dL (13.0-17.5); Lymphocytes # (A) 2.6 k/uL (1.0-4.8); Lymphocytes % (A) 29 %; MCH 30.1 pg (25.0-35.0); MCV 88.5 fL (80.0-100.0); Mean Platelet Volume 7.3; Monocytes # (A) 0.6 k/uL (0-1.0); Monocytes % (A) 6 %; Neutrophils # (A) 5.1 k/uL (1.3-7.7); Neutrophils % (A) 57 %; Platelet Count 195 k/uL (150-450); RBC 5.09 m/uL (4.30-5.90); RDW 13.7 % (11.5-15.5)
[2017-06-19 06:14] LABS: Anion Gap 9 mmol/L; Blood Urea Nitrogen 12 mg/dL (9-20); Calcium 8.9 mg/dL (8.4-10.2); Carbon Dioxide 28 mmol/L (22-30); Chloride 105 mmol/L (98-107); Glucose 79 mg/dL (74-99); Potassium 4.5 mmol/L (3.5-5.1); Sodium 142 mmol/L (137-145)
[2017-06-19] MEDS: PANTOPRAZOLE 40 MG TABLET PO SCH (06:41)
[2017-06-19] MEDS: CHOLECALCIFEROL 1,000 UNIT TAB PO SCH (08:33)
[2017-06-19] MEDS: HALOPERIDOL 5 MG TAB PO SCH ×3 (08:33→22:19)
[2017-06-19] MEDS: ASPIRIN 81 MG PO SCH (08:33)
[2017-06-19] MEDS: NALTREXONE HCL 50 MG TAB PO SCH (08:34)
[2017-06-19] MEDS: THIAMINE 100 MG TAB PO SCH ×2 (08:34→17:26)
[2017-06-19] MEDS: BENZTROPINE MESYLATE 1 MG TAB PO SCH ×3 (08:34→22:19)
[2017-06-19] MEDS: SERTRALINE 100 MG TAB PO SCH (08:34)
[2017-06-19] MEDS: hydrOXYzine PAMOATE 25 MG CAP PO SCH ×2 (08:46→20:43)
--- NOTE | 2017-06-19 09:07 | P.CRDCN ---
History of Present Illness Consult date: 06/19/17 Requesting physician: Kristopher Miller Consult reason: hypotension Chief complaint: Mild dizziness History of present illness: This is a 51-year-old gentleman with history of schizophrenia, hepatitis C, anxiety, panic disorder, nicotine dependence, hypertension, prior excessive EtOH use, he states he has not drank alcohol for about 8 months. Apparently the patient had gone to the clinic because he is hoping to get some pain medication for chronic neuropathy pain that he states he has, while he was very was noted to be hypotensive and for this reason was advised to come to the hospital. He states that he does occasionally get dizzy, usually when he stands up, otherwise he does not complain of any symptoms at all. Patient denies having any chest discomfort, no breathing trouble, no syncope. EKG on arrival here showed a sinus bradycardia with nonspecific changes. CAT scan of the brain was performed which did not reveal any acute intracranial abnormality. Chest x-ray did not reveal any focal consolidation. An echocardiogram with Doppler study was performed on arrival here which showed an ejection fraction of 55-60%. Blood pressure on arrival here 82/52 with a heart rate of 50. CBC is normal. Sodium 142, potassium 4.5, BUN 12, creatinine 0.7. Magnesium 1.9. AST 66, ALT 95, troponin 0.012. TSH 2.6 and free T4 0.9. At the time of my examination this morning, patient is eating his breakfast, denies any dizziness or lightheadedness. Past Medical History Past Medical History: Liver Disease Additional Past Medical History / Comment(s): Pt stated that he has Hepatitis C. past etoh-pt stated none in 7 months-lives at [address] [place] [address]. History of Any Multi-Drug Resistant Organisms: None Reported Past Surgical History: Appendectomy Additional Past Surgical History / Comment(s): pt denies Past Anesthesia/Blood Transfusion Reactions: No Reported Reaction Smoking Status: Current every day smoker - Past Family History Father History Unknown: Yes Additional Family Medical History / Comment(s): pt stated unk Mother History Unknown: Yes Additional Family Medical History / Comment(s): pt stated unk Medications and Allergies Home Medications Medication Instructions Recorded Confirmed Type Omeprazole 20 mg PO DAILY #30 capsule. 05/31/16 06/18/17 Rx Naltrexone HCl [Revia] 50 mg PO DAILY 06/29/16 06/18/17 History Cholecalciferol [Vitamin D3] 5,000 unit PO DAILY 08/02/16 06/18/17 History Aspirin EC [Ecotrin Low Dose] 81 mg PO DAILY 06/18/17 06/18/17 History Benztropine Mesylate [Cogentin] 2 mg PO TID 06/18/17 06/18/17 History Haloperidol [Haldol] 10 mg PO TID 06/18/17 06/18/17 History Sertraline [Zoloft] 100 mg PO DAILY 06/18/17 06/18/17 History cloNIDine HCL [Catapres] 0.2 mg PO HS 06/18/17 06/18/17 History hydrOXYzine PAMOATE [Vistaril] 50 mg PO BID 06/18/17 06/18/17 History traMADol HCL [Ultram] 50 mg PO HS 06/18/17 06/18/17 History Allergies Allergy/AdvReac Type Severity Reaction Status Date / Time levofloxacin [From Levaquin] Allergy Unknown Verified 06/18/17 11:22 linezolid [From Zyvox] Allergy Unknown Verified 06/18/17 11:22 nitrofurantoin Allergy Unknown Verified 06/18/17 11:22 [From Macrobid] nitrofurantoin Allergy Unknown Verified 06/18/17 11:22 macrocrystalline [From Macrobid] Penicillins Allergy Unknown Verified 06/18/17 11:22 sulfamethoxazole Allergy Unknown Verified 06/18/17 11:22 [From Bactrim] trimethoprim [From Bactrim] Allergy Unknown Verified 06/18/17 11:22 vancomycin Allergy Unknown Verified 06/18/17 11:22 Physical Exam Vitals: Vital Signs Temp Pulse Pulse Pulse Resp BP BP 06/19/17 08:15 06/19/17 04:00 97.6 F 55 L 18 114/66 06/19/17 00:00 97.0 F L 51 L 18 116/56 06/18/17 20:00 97.5 F L 57 L 18 103/63 06/18/17 18:16 96.6 F L 48 L 48 L 112/69 06/18/17 17:20 97.8 F 52 L 16 105/70 06/18/17 16:42 48 L 16 106/64 06/18/17 15:30 54 L 16 108/78 06/18/17 14:30 45 L 16 115/62 06/18/17 13:34 45 L 16 102/65 06/18/17 13:02 45 L 19 99/57 06/18/17 12:30 97.2 F L 06/18/17 12:12 50 L 19 97/63 06/18/17 11:03 53 L 19 88/62 06/18/17 10:32 96.7 F L 54 L 18 82/52 Pulse Ox 06/19/17 08:15 96 06/19/17 04:00 96 06/19/17 00:00 97 06/18/17 20:00 98 06/18/17 18:16 97 06/18/17 17:20 96 06/18/17 16:42 96 06/18/17 15:30 96 06/18/17 14:30 98 06/18/17 13:34 97 06/18/17 13:02 97 06/18/17 12:30 06/18/17 12:12 06/18/17 11:03 98 06/18/17 10:32 97 Intake and Output 06/18/17 06/19/17 06/19/17 22:59 06:59 14:59 Intake Total 160 Balance 160 Intake: IV 160 0.9 160 Other: Voiding Method Urinal Urinal PHYSICAL EXAMINATION: HEENT: [Head is atraumatic, normocephalic. Pupils equal, round. Neck is supple. There is no elevated jugular venous pressure.] HEART EXAMINATION: [Heart S1, S2 normal. No murmur or gallop heard.] CHEST EXAMINATION:[ Lungs are clear to auscultation and precussion. No chest wall tenderness is noted on palpation or with deep breathing.] ABDOMEN: [ Soft, nontender. Bowel sounds are heard. No organomegaly noted]. EXTREMITIES:[ 2+ peripheral pulses with no evidence of peripheral edema and no calf tenderness noted]. NEUROLOGIC [patient is awake, alert and oriented -3.] . Results 06/19/17 05:44 06/19/17 05:44 Cardiac Enzymes 06/18/17 06/18/17 Range/Units 10:51 10:51 AST 66 H (17-59) U/L CK-MB (CK-2) 0.5 (0.0-2.4) ng/mL Troponin I <0.012 (0.000-0.034) ng/mL Coagulation 06/18/17 Range/Units 10:51 PT 10.2 (9.0-12.0) sec APTT 26.5 (22.0-30.0) sec CBC 06/18/17 06/19/17 Range/Units 10:51 05:44 WBC 8.8 9.0 (3.8-10.6) k/uL RBC 5.31 5.09 (4.30-5.90) m/uL Hgb 15.6 15.3 (13.0-17.5) gm/dL Hct 46.5 45.0 (39.0-53.0) % Plt Count 209 195 (150-450) k/uL Comprehensive Metabolic Panel 06/18/17 06/19/17 Range/Units 10:51 05:44 Sodium 139 142 (137-145) mmol/L Potassium 5.1 4.5 (3.5-5.1) mmol/L Chloride 102 105 (98-107) mmol/L Carbon Dioxide 25 28 (22-30) mmol/L BUN 8 L 12 (9-20) mg/dL Creatinine 0.80 0.77 (0.66-1.25) mg/dL Glucose 92 79 (74-99) mg/dL Calcium 9.2 8.9 (8.4-10.2) mg/dL AST 66 H (17-59) U/L ALT 95 H (21-72) U/L Alkaline Phosphatase 95 (38-126) U/L Total Protein 6.9 (6.3-8.2) g/dL Albumin 4.2 (3.5-5.0) g/dL Current Medications Generic Name Dose Route Start Last Admin Trade Name Freq PRN Reason Stop Dose Admin Aspirin 81 mg 06/19/17 09:00 06/19/17 08:33 Aspirin PO 81 mg DAILY TYLER Administration Benztropine Mesylate 2 mg 06/18/17 22:00 06/19/17 08:34 Cogentin PO 2 mg TID TYLER Administration Cholecalciferol 5,000 unit 06/19/17 12:00 06/19/17 08:33 Vitamin D3 PO 5,000 unit 1200 TYLER Administration Haloperidol 10 mg 06/18/17 22:00 06/19/17 08:33 Haldol PO 10 mg TID TYLER Administration Hydroxyzine Pamoate 50 mg 06/18/17 21:00 06/18/17 20:11 Vistaril PO 50 mg BID TYLER Administration Sodium Chloride 1,000 mls @ 20 mls/hr 06/18/17 13:00 06/18/17 13:29 Saline 0.9% IV 20 mls/hr .Q24H TYLER Administration Lorazepam 1 mg 06/18/17 18:50 06/18/17 21:07 Ativan IV 1 mg Q2HR PRN Administration CIWA 8 or 9 Lorazepam 1 mg 06/18/17 18:50 Ativan IV Q1HR PRN CIWA 10 to 15 Lorazepam 2 mg 06/18/17 18:50 Ativan IV 06/20/17 18:50 Q10M PRN CIWA 16 or higher Naloxone HCl 0.2 mg 06/18/17 12:59 Narcan IV Q2M PRN Opioid Reversal Naltrexone HCl 50 mg 06/19/17 09:00 06/19/17 08:34 Revia PO 50 mg DAILY TYLER Administration Pantoprazole Sodium 40 mg 06/19/17 07:30 06/19/17 06:41 Protonix PO 40 mg [id number] TYLER Administration Sertraline HCl 100 mg 06/19/17 09:00 06/19/17 08:34 Zoloft PO 100 mg DAILY TYLER Administration Thiamine HCl 100 mg 06/18/17 17:00 06/19/17 08:34 Vitamin B-1 PO 100 mg BID@1200,1700 TYLER Administration Tramadol HCl 50 mg 06/18/17 21:00 06/18/17 20:08 Ultram PO 50 mg HS TYLER Administration Intake and Output 06/18/17 06/19/17 06/19/17 22:59 06:59 14:59 Intake Total 160 Balance 160 Intake: IV 160 0.9 160 Other: Voiding Method Urinal Urinal 06/19/17 05:44 06/19/17 05:44 EKG Interpretations (text) EKG shows a sinus bradycardia with nonspecific ST-T wave changes Assessment and Plan Plan: Assessment and plan #1 hypotension, patient is on Catapres 0.2 mg at at bedtime. Echocardiogram with Doppler study revealed normal left ventricular systolic function. #2 bradycardia, could also be secondary to Catapres. TSH normal #3 schizophrenia #4 hypertension #5 nicotine dependence #6 hepatitis C #7 prior heavy EtOH use, patient states he has not drank alcohol for 8 months. #8 chronic back pain Plan Patient had been on Catapres 0.2 mg at at bedtime which was placed on hold on arrival here, we will put him on 0.1 mg instead of stopping the medication to quickly, to avoid a rebound effect. We will check orthostatic heart rate and blood pressure every shift. Continue to monitor for any significant tachycardia or bradycardia arrhythmias. Further recommendations to follow. DNP note has been reviewed, I agree with a documented findings and plan of care. Patient was seen and examined.
--- NOTE | 2017-06-19 11:28 | P.PN ---
Progress Note - Text this is an addendum to the dictated cardiology consultation. The patient was admitted bradycardia and hypotension. He has mild dizziness but no syncope. He denies any palpitations, chest discomfort or significant dyspnea. He is on clonidine but he is not quite sure why and he is not sure if he has a prior history of hypertension. He had an echocardiogram that showed a normal systolic function with no significant valvular disease. His physical examination showed clear lungs with no evidence of significant valvular disease. His hypotension and bradycardia could be related to the clonidine, the dose will be decreased to 0.1 mg daily and subsequently stop it. We will follow his blood pressure and depending on the trend further adjustment can be done as an outpatient thank you for this consult we will follow with you.
--- NOTE | 2017-06-19 16:28 | P.PN ---
Subjective Progress Note Date: 06/19/17 Progress note being dictated for Dr. Miller. Interval history: This is a 51-year-old gentleman admitted with hypotension, sinus bradycardia in a patient with history of EtOH abuse, hepatitis C, chronic liver disease and multiple other medical issues. Evaluated by cardiology, clonidine dose decreased with intentions up eventually tapering off. Maintained on CIWA scale. Consuming 75% of diet with no nausea vomiting or diarrhea. Denies chest pain, palpitations or increasing shortness of breath. Denies lightheadedness dizziness or focal deficits. Objective - Vital Signs Vital signs: Vital Signs Temp 97.6 F 06/19/17 04:00 Pulse 79 06/19/17 12:00 Resp 16 06/19/17 16:00 BP 125/73 06/19/17 12:00 Pulse Ox 97 06/19/17 12:00 Intake & Output 06/18/17 06/19/17 06/19/17 18:59 06:59 18:59 Intake Total 160 720 Output Total 300 Balance 160 420 Weight 77.111 kg Intake: IV 160 0.9 160 Oral 720 Output: Urine 300 Other: Voiding Method Urinal Urinal - Exam PHYSICAL EXAM: VITAL SIGNS: As above GENERAL: Sitting up in bed, no acute distress HEENT: Conjunctivae normal. eyes normal. NECK: No JVD. No thyroid enlargement. No LNs CARDIOVASCULAR: S1, S2 muffled. No murmur RESPIRATION: Breath sounds diminished in the bases. Occasional scattered rhonchi , nocrackles. ABDOMEN: Soft, nontender . No guarding. no masses palpable.Bowel sounds heard. LEGS: No edema. no swelling PSYCHIATRY: Alert and oriented -3, mood and affect normal. NERVOUS SYSTEM: Cranial N 2-12 grossly normal. Moves all 4 limbs. Diffuse weakness No focal deficits. Skin: no ulcer no rash - Labs CBC & Chem 7: 06/19/17 05:44 06/19/17 05:44 Assessment and Plan Assessment: 1. Hypotension with sinus bradycardia, improving 2. Chronic liver disease 3. History of hepatitis C 4. EtOH abuse. 5.Anxiety, depression, panic disorder, schizophrenia 6. COPD, history of Plan: Continue on current medication regime ,monitoring and symptomatic treatment. Maintain CIWA scale .Clonidine dose decreased, close monitoring of blood pressure. Discharge planning in progress for tomorrow. The impression and plan of care has been dictated as directed. DrBridgette: I performed a history and examination of this patient, discussed the same with the dictator. I agree with the dictator's note ,documented as a scribe. Any additional findings or plans will be noted.
[2017-06-19] MEDS: traMADol 50 MG TAB PO SCH (20:41)
[2017-06-19] MEDS: SODIUM CHLORIDE 0.9% 1,000 ML IV SCH (20:43)
[2017-06-19] MEDS ORDERED: cloNIDine HCL 0.1 MG TAB PO SCH (21:00)
[2017-06-20] MEDS: PANTOPRAZOLE 40 MG TABLET PO SCH (06:16)
[2017-06-20 07:00] LABS: Basophils # (A) 0.1 k/uL (0-0.2); Basophils % (A) 1 %; Eosinophils # (A) 0.4 k/uL (0-0.7); Eosinophils % (A) 6 %; HCT 42.8 % (39.0-53.0); HGB 14.6 gm/dL (13.0-17.5); Lymphocytes # (A) 2.2 k/uL (1.0-4.8); Lymphocytes % (A) 30 %; MCHC 34.1 g/dL (31.0-37.0); Mean Platelet Volume 7.1; Monocytes # (A) 0.5 k/uL (0-1.0); Monocytes % (A) 6 %; Neutrophils # (A) 4.2 k/uL (1.3-7.7); Neutrophils % (A) 56 %; Platelet Count 178 k/uL (150-450); RBC 4.87 m/uL (4.30-5.90); RDW 13.7 % (11.5-15.5); WBC 7.4 k/uL (3.8-10.6)
[2017-06-20 07:15] LABS: Anion Gap 9 mmol/L; Blood Urea Nitrogen 11 mg/dL (9-20); Calcium 8.8 mg/dL (8.4-10.2); Carbon Dioxide 28 mmol/L (22-30); Chloride 102 mmol/L (98-107); Glucose 78 mg/dL (74-99); Potassium 4.3 mmol/L (3.5-5.1); Sodium 139 mmol/L (137-145)
[2017-06-20] MEDS: NALTREXONE HCL 50 MG TAB PO SCH (08:39)
[2017-06-20] MEDS: HALOPERIDOL 5 MG TAB PO SCH ×2 (08:39→16:48)
[2017-06-20] MEDS: ASPIRIN 81 MG PO SCH (08:39)
[2017-06-20] MEDS: SERTRALINE 100 MG TAB PO SCH (08:40)
[2017-06-20] MEDS: BENZTROPINE MESYLATE 1 MG TAB PO SCH ×2 (08:40→16:47)
[2017-06-20] MEDS: hydrOXYzine PAMOATE 25 MG CAP PO SCH (08:45)
[2017-06-20 11:37] VITALS: BP 109/60; PULSE 58; RESP 16; TEMP 97.9
[2017-06-20] MEDS: THIAMINE 100 MG TAB PO SCH (12:33)
[2017-06-20] MEDS: CHOLECALCIFEROL 1,000 UNIT TAB PO SCH (12:33)
--- NOTE | 2017-06-20 15:27 | P.PN ---
Subjective Progress Note Date: 06/20/17 This is a 51-year-old gentleman with history of schizophrenia, hepatitis C, anxiety, panic disorder, nicotine dependence, hypertension, prior excessive EtOH use, he states he has not drank alcohol for about 8 months. Apparently the patient had gone to the clinic because he is hoping to get some pain medication for chronic neuropathy pain that he states he has, while he was very was noted to be hypotensive and for this reason was advised to come to the hospital. He states that he does occasionally get dizzy, usually when he stands up, otherwise he does not complain of any symptoms at all. Patient denies having any chest discomfort, no breathing trouble, no syncope. EKG on arrival here showed a sinus bradycardia with nonspecific changes. CAT scan of the brain was performed which did not reveal any acute intracranial abnormality. Chest x-ray did not reveal any focal consolidation. An echocardiogram with Doppler study was performed on arrival here which showed an ejection fraction of 55-60%. Blood pressure on arrival here 82/52 with a heart rate of 50. CBC is normal. Sodium 142, potassium 4.5, BUN 12, creatinine 0.7. Magnesium 1.9. AST 66, ALT 95, troponin 0.012. TSH 2.6 and free T4 0.9. At the time of my examination this morning, patient is eating his breakfast, denies any dizziness or lightheadedness. 06/20/2017 Patient was seen and examined this morning, hemodynamically stable, blood pressure 110/60 with a heart rate in the mid 50s to low 60s. Echocardiogram with Doppler study revealed a normal left ventricular systolic function. Objective - Vital Signs Vital signs: Vital Signs Temp 97.9 F 06/20/17 08:00 Pulse 58 L 06/20/17 11:37 Resp 16 06/20/17 14:35 BP 109/60 06/20/17 11:37 Pulse Ox 97 06/20/17 11:37 Intake & Output 06/19/17 06/20/17 06/20/17 18:59 06:59 18:59 Intake Total 1200 160 360 Output Total 300 200 Balance 900 160 160 Weight 77 kg Intake: IV 160 0.9 160 Oral 1200 360 Output: Urine 300 200 Stool 0 0 Other: Voiding Method Urinal Urinal Urinal # Voids 0 1 # Bowel Movements 0 0 - Exam PHYSICAL EXAMINATION: HEENT: [Head is atraumatic, normocephalic. Pupils equal, round. Neck is supple. There is no elevated jugular venous pressure.] HEART EXAMINATION: [Heart S1, S2 normal. No murmur or gallop heard.] CHEST EXAMINATION:[ Lungs are clear to auscultation and precussion. No chest wall tenderness is noted on palpation or with deep breathing.] ABDOMEN: [ Soft, nontender. Bowel sounds are heard. No organomegaly noted]. EXTREMITIES:[ 2+ peripheral pulses with no evidence of peripheral edema and no calf tenderness noted]. NEUROLOGIC [patient is awake, alert and oriented -3.] . - Labs CBC & Chem 7: 06/20/17 06:15 06/20/17 06:15 Labs: Abnormal Lab Results - Last 24 Hours (Table) 06/20/17 Range/Units 06:15 Creatinine 0.65 L (0.66-1.25) mg/dL Assessment and Plan Plan: Assessment and plan #1 hypotension, patient is on Catapres 0.2 mg at at bedtime. Echocardiogram with Doppler study revealed normal left ventricular systolic function. #2 bradycardia, could also be secondary to Catapres. TSH normal #3 schizophrenia #4 hypertension #5 nicotine dependence #6 hepatitis C #7 prior heavy EtOH use, patient states he has not drank alcohol for 8 months. #8 chronic back pain Plan Echocardiogram with Doppler study revealed a normal left ventricular systolic function. Blood pressure and heart rate remained stable. We'll discontinue the Catapres. From cardiology's perspective, he may be able to be discharged home today. We will make him a follow-up appointment to see Dr. Armendariz in the office post discharge. DNP note has been reviewed, I agree with a documented findings and plan of care. Patient was seen and examined.
--- NOTE | 2017-06-20 22:27 | DS ---
DISCHARGE SUMMARY FINAL DIAGNOSES: 1. Hypotension with sinus bradycardia, possibly medication induced. 2. Chronic liver disease, hepatitis C. 3. History EtOH abuse. 4. Anxiety, depression, panic disorder, schizophrenia. 5. History of chronic obstructive pulmonary disease. DISCHARGE DISPOSITION: The patient is being discharged in stable condition with guarded prognosis. HISTORY OF PRESENT ILLNESS: This 51-year-old gentleman being followed by Dr. Hernandez in the outpatient setting was admitted with hypotension and bradycardia. The patient was on Catapres, which was stopped. The patient improved significantly. Cardiology saw the patient. The patient is being discharged in stable condition with guarded prognosis at this time. On exam, vitals are stable. CARDIOVASCULAR SYSTEM: S1, S2 muffled. ABDOMEN: Soft. NERVOUS SYSTEM: No focal deficit. Follow up with Dr. Hernandez in 2-3 days. Follow up with Dr. Banks and MEDICATIONS: 1. Ecotrin 81 mg p.o. daily. 2. Cogentin 2 mg p.o. t.i.d. 3. Vitamin D3 5000 units. 4. Haldol 10 mg p.o. t.i.d. 6. Revia 50 mg p.o. daily. 7. Omeprazole 20 mg daily. 8. Zoloft 100 mg p.o. daily. 9. Thiamine 100 mg daily. 10.Ultram 50 mg p.o. at bedtime. MIL / BRIDGETN: [id number] / MTDD
== END 2017-06-20 17:14 | disposition home or self-care (01) | DRG 312 ==
LOC: EC 10:30 → 6SEL 13:00
PROVIDERS: ADMIT Hospitalist; ATTEND Hospitalist
DX: I95.2 Hypotension due to drugs (principal); F20.9 Schizophrenia, unspecified; G62.9 Polyneuropathy, unspecified; B18.2 Chronic viral hepatitis C; R00.1 Bradycardia, unspecified; J44.9 Chronic obstructive pulmonary disease, unspecified; I10 Essential (primary) hypertension; G89.29 Other chronic pain; M54.9 Dorsalgia, unspecified; F32.9 Major depressive disorder, single episode, unspecified; F10.11 Alcohol abuse, in remission; F41.0 Panic disorder [episodic paroxysmal anxiety]; F17.200 Nicotine dependence, unspecified, uncomplicated; Z71.6 Tobacco abuse counseling; T46.5X5A Adverse effect of other antihypertensive drugs, initial encounter; Z79.82 Long term (current) use of aspirin; Z79.891 Long term (current) use of opiate analgesic; Z79.899 Other long term (current) drug therapy; Z90.49 Acquired absence of other specified parts of digestive tract; Z88.1 Allergy status to other antibiotic agents; Z88.0 Allergy status to penicillin; Z88.2 Allergy status to sulfonamides; Z88.8 Allergy status to other drugs, medicaments and biological substances
CPT/HCPCS: 36415; 70450; 71046; 80048; 80053; 81003; 82550; 82553; 83735; 84439; 84443; 84481; 84484; 85025; 85610; 85730; 93005; 93306; 94760; 96360; 96361; 99285

== ENCOUNTER 2018-08-16 17:57 | Inpatient (IN) | payer MEDICARE, MEDICAID ==
--- NOTE | 2018-08-16 18:51 | ED ---
Psych HPI - General Chief Complaint: Psychiatric Symptoms Stated Complaint: EPS eval Time Seen by Provider: 08/16/18 18:15 Source: patient, police Mode of arrival: ambulatory - History of Present Illness Initial Comments: 52-year-old male patient with extensive psychiatric history presents to the emergency department today for evaluation of suicidal ideation and auditory hallucinations. Patient states he has been hearing voices for years however recently the voices have increased in intensity. States they are telling him to kill himself. Patient denies any current plan to take his life however states he does feel suicidal. States he does take Zoloft and Haldol and has been taking these appropriately but feels that he needs injection medication rather than pills. Patient is a member of the ACT team, lives in adult foster residential, they did attempt to get him in for treatment today however were unable to do sosent him here for further evaluation. Patient denies any current physical symptoms or concerns. States he feels well otherwise. Denies any alcohol or drug use. Patient denies any recent rash, fever, chills, shortness breath, chest pain, abdominal pain, nausea, vomiting, diarrhea, constipation, back pain, numbness, tingling, dizziness, weakness, hematuria, dysuria, urinary urgency, urinary frequency, headache, visual changes, or any other complaints. - Related Data Home Medications Medication Instructions Recorded Confirmed Cholecalciferol [Vitamin D3 (25 5,000 unit PO DAILY 08/02/16 08/16/18 Mcg = 1000 Iu)] Aspirin EC [Ecotrin Low Dose] 81 mg PO DAILY 06/18/17 08/16/18 Cyanocobalamin (Vitamin B-12) 1,000 mcg PO DAILY 08/16/18 08/16/18 [Vitamin B-12] Haloperidol [Haldol] 20 mg PO PC-SUPPER 08/16/18 08/16/18 Meclizine [Antivert] 25 mg PO BID PRN 08/16/18 08/16/18 Multivitamins, Thera [Multivitamin 1 tab PO DAILY 08/16/18 08/16/18 (formulary)] Rosuvastatin [Crestor] 10 mg PO DAILY 08/16/18 08/16/18 Sertraline [Zoloft] 200 mg PO PC-SUPPER 08/16/18 08/16/18 hydrOXYzine PAMOATE [Vistaril] 25 mg PO BID 08/16/18 08/16/18 Previous Rx's Medication Instructions Recorded Omeprazole 20 mg PO DAILY #30 capsule. 05/31/16 Allergies Allergy/AdvReac Type Severity Reaction Status Date / Time levofloxacin [From Levaquin] Allergy Unknown Verified 08/16/18 18:33 linezolid [From Zyvox] Allergy Unknown Verified 08/16/18 18:33 nitrofurantoin Allergy Unknown Verified 08/16/18 18:33 [From Macrobid] nitrofurantoin Allergy Unknown Verified 08/16/18 18:33 macrocrystalline [From Macrobid] Penicillins Allergy Unknown Verified 08/16/18 18:33 sulfamethoxazole Allergy Unknown Verified 08/16/18 18:33 [From Bactrim] trimethoprim [From Bactrim] Allergy Unknown Verified 08/16/18 18:33 vancomycin Allergy Unknown Verified 08/16/18 18:33 Review of Systems ROS Statement: Those systems with pertinent positive or pertinent negative responses have been documented in the HPI. ROS Other: All systems not noted in ROS Statement are negative. Past Medical History Past Medical History: Liver Disease Additional Past Medical History / Comment(s): Pt stated that he has Hepatitis C. past etoh-pt stated none in 7 months-lives at [address] [place] [address]. History of Any Multi-Drug Resistant Organisms: None Reported Past Surgical History: Appendectomy Additional Past Surgical History / Comment(s): pt denies Past Anesthesia/Blood Transfusion Reactions: No Reported Reaction Past Psychological History: Anxiety, Depression, Panic Disorder, Schizophrenia Smoking Status: Current every day smoker Past Alcohol Use History: None Reported Past Drug Use History: None Reported - Past Family History Father History Unknown: Yes Additional Family Medical History / Comment(s): pt stated unk Mother History Unknown: Yes Additional Family Medical History / Comment(s): pt stated unk General Exam Limitations: no limitations General appearance: alert, in no apparent distress, other (Physical well- developed, well-nourished adult male patient in no acute distress. Vital signs upon presentation are temperature 98.4F, pulse 63, respirations 20, blood pressure 108/71, pulse ox 99% on room air.) Eye exam: Present: normal appearance, PERRL, EOMI. Absent: scleral icterus, conjunctival injection, periorbital swelling ENT exam: Present: normal exam, normal oropharynx, mucous membranes moist Respiratory exam: Present: normal lung sounds bilaterally. Absent: respiratory distress, wheezes, rales, rhonchi, stridor Cardiovascular Exam: Present: regular rate, normal rhythm, normal heart sounds. Absent: systolic murmur, diastolic murmur, rubs, gallop, clicks GI/Abdominal exam: Present: soft, normal bowel sounds. Absent: distended, tenderness, guarding, rebound, rigid Neurological exam: Present: alert, oriented X3, CN II-XII intact Psychiatric exam: Present: flat affect, suicidal ideation. Absent: normal affect, normal mood, homicidal ideation Skin exam: Present: warm, dry, intact, normal color. Absent: rash Course Vital Signs 08/16/18 18:04 Temperature 98.4 F Pulse Rate 63 Respiratory 20 Rate Blood Pressure 108/71 O2 Sat by Pulse 99 Oximetry Medical Decision Making - Medical Decision Making 52-year-old male patient presented to the emergency department today for evaluation of increased auditory hallucinations and suicidal ideation. Patient was seen and evaluated by emergency psychiatric services. It is felt he would benefit from inpatient admission at this time will be transferred to the mental health unit. - Lab Data Lab Results 08/16/18 Range/Units 19:17 Urine Opiates Screen Not Detected (NotDetected) Ur Oxycodone Screen Not Detected (NotDetected) Urine Methadone Screen Not Detected (NotDetected) Ur Propoxyphene Screen Not Detected (NotDetected) Ur Barbiturates Screen Not Detected (NotDetected) U Tricyclic Antidepress Not Detected (NotDetected) Ur Phencyclidine Scrn Not Detected (NotDetected) Ur Amphetamines Screen Not Detected (NotDetected) U Methamphetamines Scrn Not Detected (NotDetected) U Benzodiazepines Scrn Not Detected (NotDetected) Urine Cocaine Screen Not Detected (NotDetected) U Marijuana (THC) Screen Not Detected (NotDetected) Disposition Clinical Impression: Auditory hallucinations, Suicidal ideation Disposition: TRANSFER TO PSYCH HOSP/UNIT Condition: Serious - Out of Hospital Transfer - Req. Specs Out of Hospital Transfer - Requested Specifics[facility]
[2018-08-16 19:34] LABS: Amphetamine Screen,Urine Not Detected (NotDetected); Barbiturate Screen,Urine Not Detected (NotDetected); Benzodiazepines Screen,Urine Not Detected (NotDetected); Cocaine Screen,Urine Not Detected (NotDetected); Methadone Screen, Urine Not Detected (NotDetected); Opiate Screen,Urine Not Detected (NotDetected); Oxycodone Screen, Urine Not Detected (NotDetected); Phencyclidine Screen,Urine Not Detected (NotDetected); Tricyclic Antidepressant,Urine Not Detected (NotDetected); Urn Cannabinoid Scrn Not Detected (NotDetected)
[2018-08-16] MEDS ORDERED: MAG HYDROX/AL HYDROX/SIMETH 30 ML CUP PO PRN (20:00)
[2018-08-16] MEDS ORDERED: MAGNESIUM HYDROXIDE 2,400 MG/10 ML CUP PO PRN (20:00)
[2018-08-16] MEDS ORDERED: ACETAMINOPHEN TAB 325 MG TAB PO PRN (20:00)
--- NOTE | 2018-08-16 21:43 | P.MDCNMH ---
History of Present Illness H&P Date: 08/16/18 Chief Complaint: medical evaluation 52-year-old male with history of hyperlipidemia and schizophrenia Patient presented to the hospital for mental health evaluation due to acute psychosis in hearing auditory hallucinations telling him to hurt himself no actual plan but patient does report overdosing in the past. He denies any homicidal ideation. He otherwise denies any medical concerns or problems. He denies any chest pain trouble breathing fevers chills coughing denies any diarrhea or bloody bowel movement denies any abdominal pain nausea or vomiting He adds that he's been compliant with his medications but he doesn't believe that they're helping him with symptoms auditory hallucinations are just worsening over time Review of Systems Pertinent positives as noted in HPI. All other systems were reviewed and are negative Past Medical History Past Medical History: Liver Disease Additional Past Medical History / Comment(s): Pt stated that he has Hepatitis C. past etoh-pt stated none in 7 months-lives at [address] [facility]. History of Any Multi-Drug Resistant Organisms: None Reported Past Surgical History: Appendectomy Additional Past Surgical History / Comment(s): pt denies Past Anesthesia/Blood Transfusion Reactions: No Reported Reaction Past Psychological History: Anxiety, Depression, Panic Disorder, Schizophrenia Smoking Status: Current every day smoker Past Alcohol Use History: None Reported Past Drug Use History: None Reported - Past Family History Father History Unknown: Yes Additional Family Medical History / Comment(s): pt stated unk Mother History Unknown: Yes Additional Family Medical History / Comment(s): Pancreatic cancer in his mother Medications and Allergies Home Medications Medication Instructions Recorded Confirmed Type Omeprazole 20 mg PO DAILY #30 capsule. 05/31/16 08/16/18 Rx Cholecalciferol [Vitamin D3 (25 5,000 unit PO DAILY 08/02/16 08/16/18 History Mcg = 1000 Iu)] Aspirin EC [Ecotrin Low Dose] 81 mg PO DAILY 06/18/17 08/16/18 History Cyanocobalamin (Vitamin B-12) 1,000 mcg PO DAILY 08/16/18 08/16/18 History [Vitamin B-12] Haloperidol [Haldol] 20 mg PO PC-SUPPER 08/16/18 08/16/18 History Meclizine [Antivert] 25 mg PO BID PRN 08/16/18 08/16/18 History Multivitamins, Thera [Multivitamin 1 tab PO DAILY 08/16/18 08/16/18 History (formulary)] Rosuvastatin [Crestor] 10 mg PO DAILY 08/16/18 08/16/18 History Sertraline [Zoloft] 200 mg PO PC-SUPPER 08/16/18 08/16/18 History hydrOXYzine PAMOATE [Vistaril] 25 mg PO BID 08/16/18 08/16/18 History Allergies Allergy/AdvReac Type Severity Reaction Status Date / Time levofloxacin [From Levaquin] Allergy Unknown Verified 08/16/18 18:33 linezolid [From Zyvox] Allergy Unknown Verified 08/16/18 18:33 nitrofurantoin Allergy Unknown Verified 08/16/18 18:33 [From Macrobid] nitrofurantoin Allergy Unknown Verified 08/16/18 18:33 macrocrystalline [From Macrobid] Penicillins Allergy Unknown Verified 08/16/18 18:33 sulfamethoxazole Allergy Unknown Verified 08/16/18 18:33 [From Bactrim] trimethoprim [From Bactrim] Allergy Unknown Verified 08/16/18 18:33 vancomycin Allergy Unknown Verified 08/16/18 18:33 Physical Exam Vitals: Vital Signs Temp Pulse Pulse Resp BP BP Pulse Ox 08/16/18 21:06 97.4 F L 62 18 130/74 96 08/16/18 18:04 98.4 F 63 20 108/71 99 Intake and Output 08/16/18 08/16/18 08/16/18 06:59 14:59 22:59 Other: Weight 79.379 kg Constitutional: No acute distress, conversant, pleasant Eyes: Anicteric sclerae, moist conjunctiva, no lid-lag Pupils equal round reactive to light ENMT: NC/AT Oropharynx clear, no erythema, exudates Neck: Supple, FROM, no masses, or JVD No carotid bruits No thyromegaly Lungs: Clear to auscultation Clear to percussion Normal respiratory effort, no accessory muscle use Cardiovascular: Heart regular in rate and rhythm, No murmurs, gallops, or rubs No peripheral edema Abdominal: Soft Nontender, no guarding, rebound or rigidity Abdomen moving with respiration Normoactive bowel sounds No hepatomegaly, No splenomegaly No palpable mass No abdominal wall hernia noted Skin: Normal temperature, tone, texture, turgor No induration No subcutaneous nodules No rash, lesions No ulcers Extremities: No digital cyanosis No clubbing Pedal pulses intact and symmetrical Radial pulses intact and symmetrical No calf tenderness Psychiatric: Alert and oriented to person, place and time Anxious fair judgment Neuro Muscles Strength 5/5 in all 4 extremities Sensation to light touch grossly present throughout Cranial nerves II-XII grossly intact No focal sensory deficits Lymphatics: no palpable cervical or supraclavicular , or inguinal lymph nodes Cranial Nerve Examination - Cranial Nerves Cranial Nerve II- Optic: Intact Cranial Nerve III- Oculomotor: Intact Cranial Nerve IV- Trochlear: Intact Cranial Nerve V- Trigeminal: Intact Cranial Nerve - Abducens: Intact Cranial Nerve VII- Facial: Intact Cranial Nerve VIII- Auditory: Intact Cranial Nerve IX- Glossopharyngeal: Intact Cranial Nerve X- Vagus: Intact Cranial Nerve XI- Accessory: Intact Cranial Nerve XII- Hypoglossal: Intact Assessment and Plan Assessment: 52-year-old male with history of schizophrenia admitted to mental health unit due to suicidal ideation and auditory hallucinations currently denies any medical complaints or concerns at this point Plan: Suicidal ideation Auditory hallucinations Schizophrenia Management per psych Suicide precautions History of hepatitis C Check liver enzymes Check AFP Smoking Counseled to quit smoking Nicotine replacement therapy offered DVT prophylaxis patient is ambulatory low risk Thank you for allowing us to participate in the care of this patient. We will follow peripherally. Do not hesitate to contact us with questions. Someone can be reached from the [facility] hospitalist group at all hours of the day at [phone].
[2018-08-16] MEDS: hydrOXYzine PAMOATE 25 MG CAP PO SCH (22:06)
[2018-08-17] MEDS: CHOLECALCIFEROL 1,000 UNIT TAB PO SCH (08:20)
[2018-08-17] MEDS: CYANOCOBALAMIN 500 MCG TAB PO SCH (08:20)
[2018-08-17] MEDS: ATORVASTATIN 20 MG TAB PO SCH (08:20)
[2018-08-17] MEDS: hydrOXYzine PAMOATE 25 MG CAP PO SCH ×2 (08:20→21:20)
[2018-08-17] MEDS: ASPIRIN 81 MG PO SCH (08:20)
[2018-08-17] MEDS: MULTIVITAMINS, THERA 1 EACH TAB PO SCH (08:20)
[2018-08-17] MEDS: PANTOPRAZOLE 40 MG TABLET PO SCH (08:20)
[2018-08-17] MEDS ORDERED: NICOTINE 21MG/24HR PATCH TRANSDERM SCH (09:00)
[2018-08-17 09:49] LABS: Basophils % (A) 0 %; Eosinophils # (A) 0.4 k/uL (0-0.7); Eosinophils % (A) 4 %; HCT 45.1 % (39.0-53.0); HGB 15.1 gm/dL (13.0-17.5); Lymphocytes # (A) 1.7 k/uL (1.0-4.8); Lymphocytes % (A) 19 %; MCH 29.5 pg (25.0-35.0); MCHC 33.6 g/dL (31.0-37.0); MCV 87.7 fL (80.0-100.0); Monocytes # (A) 0.4 k/uL (0-1.0); Monocytes % (A) 5 %; Neutrophils # (A) 6.3 k/uL (1.3-7.7); Neutrophils % (A) 71 %; Platelet Count 188 k/uL (150-450); RBC 5.14 m/uL (4.30-5.90); RDW 14.4 % (11.5-15.5); WBC 8.9 k/uL (3.8-10.6)
[2018-08-17 09:58] LABS: ALT 10 U/L (21-72); AST 17 U/L (17-59); African American GFR (CKD) >90 (>60 ml/min/1.73 sqM); Alkaline Phosphatase 80 U/L (38-126); Anion Gap 6 mmol/L; Blood Urea Nitrogen 9 mg/dL (9-20); Carbon Dioxide 29 mmol/L (22-30); Chloride 105 mmol/L (98-107); Cholesterol 141 mg/dL (<200); Glucose 152 mg/dL (74-99); HDL Cholesterol 27 mg/dL (40-60); LDL Cholesterol,Calculated 75 mg/dL (0-99); Potassium 4.2 mmol/L (3.5-5.1); Sodium 140 mmol/L (137-145); Total Bilirubin 0.4 mg/dL (0.2-1.3); Total Protein 6.5 g/dL (6.3-8.2); Triglycerides 193 mg/dL (<150)
--- NOTE | 2018-08-17 11:36 | P.HP ---
Psychiatric H&P - . History & Physical: Allergies Allergy/AdvReac Type Severity Reaction Status Date / Time levofloxacin [From Levaquin] Allergy Unknown Verified 08/16/18 18:33 linezolid [From Zyvox] Allergy Unknown Verified 08/16/18 18:33 nitrofurantoin Allergy Unknown Verified 08/16/18 18:33 [From Macrobid] nitrofurantoin Allergy Unknown Verified 08/16/18 18:33 macrocrystalline [From Macrobid] Penicillins Allergy Unknown Verified 08/16/18 18:33 sulfamethoxazole Allergy Unknown Verified 08/16/18 18:33 [From Bactrim] trimethoprim [From Bactrim] Allergy Unknown Verified 08/16/18 18:33 vancomycin Allergy Unknown Verified 08/16/18 18:33 Vital Signs Temp 97.4 F L 08/16/18 21:06 Pulse 62 08/16/18 21:06 Resp 18 08/16/18 21:06 BP 130/74 08/16/18 21:06 Pulse Ox 96 08/16/18 21:06 Intake & Output 08/16/18 08/17/18 08/17/18 18:59 06:59 18:59 Weight 79.379 kg Laboratory Last Values WBC 8.9 k/uL (3.8-10.6) 08/17/18 09:34 RBC 5.14 m/uL (4.30-5.90) 08/17/18 09:34 Hgb 15.1 gm/dL (13.0-17.5) 08/17/18 09:34 Hct 45.1 % (39.0-53.0) 08/17/18 09:34 MCV 87.7 fL (80.0-100.0) 08/17/18 09:34 MCH 29.5 pg (25.0-35.0) 08/17/18 09:34 MCHC 33.6 g/dL (31.0-37.0) 08/17/18 09:34 RDW 14.4 % (11.5-15.5) 08/17/18 09:34 Plt Count 188 k/uL (150-450) 08/17/18 09:34 Neutrophils % 71 % 08/17/18 09:34 Lymphocytes % 19 % 08/17/18 09:34 Monocytes % 5 % 08/17/18 09:34 Eosinophils % 4 % 08/17/18 09:34 Basophils % 0 % 08/17/18 09:34 Neutrophils # 6.3 k/uL (1.3-7.7) 08/17/18 09:34 Lymphocytes # 1.7 k/uL (1.0-4.8) 08/17/18 09:34 Monocytes # 0.4 k/uL (0-1.0) 08/17/18 09:34 Eosinophils # 0.4 k/uL (0-0.7) 08/17/18 09:34 Basophils # 0.0 k/uL (0-0.2) 08/17/18 09:34 Sodium 140 mmol/L (137-145) 08/17/18 09:34 Potassium 4.2 mmol/L (3.5-5.1) 08/17/18 09:34 Chloride 105 mmol/L (98-107) 08/17/18 09:34 Carbon Dioxide 29 mmol/L (22-30) 08/17/18 09:34 Anion Gap 6 mmol/L 08/17/18 09:34 BUN 9 mg/dL (9-20) 08/17/18 09:34 Creatinine 0.86 mg/dL (0.66-1.25) 08/17/18 09:34 Est GFR (CKD-EPI)AfAm >90 (>60 ml/min/1.73 sqM) 08/17/18 09:34 Est GFR (CKD-EPI)NonAf >90 (>60 ml/min/1.73 sqM) 08/17/18 09:34 Glucose 152 mg/dL (74-99) H 08/17/18 09:34 Calcium 9.0 mg/dL (8.4-10.2) 08/17/18 09:34 Total Bilirubin 0.4 mg/dL (0.2-1.3) 08/17/18 09:34 AST 17 U/L (17-59) 08/17/18 09:34 ALT 10 U/L (21-72) L 08/17/18 09:34 Alkaline Phosphatase 80 U/L (38-126) 08/17/18 09:34 Total Protein 6.5 g/dL (6.3-8.2) 08/17/18 09:34 Albumin 4.0 g/dL (3.5-5.0) 08/17/18 09:34 Triglycerides 193 mg/dL (<150) H 08/17/18 09:34 Cholesterol 141 mg/dL (<200) 08/17/18 09:34 LDL Cholesterol, Calc 75 mg/dL (0-99) 08/17/18 09:34 HDL Cholesterol 27 mg/dL (40-60) L 08/17/18 09:34 TSH 1.090 mIU/L (0.465-4.680) 08/17/18 09:34 Urine Opiates Screen Not Detected (NotDetected) 08/16/18 19:17 Ur Oxycodone Screen Not Detected (NotDetected) 08/16/18 19:17 Urine Methadone Screen Not Detected (NotDetected) 08/16/18 19:17 Ur Propoxyphene Screen Not Detected (NotDetected) 08/16/18 19:17 Ur Barbiturates Screen Not Detected (NotDetected) 08/16/18 19:17 U Tricyclic Antidepress Not Detected (NotDetected) 08/16/18 19:17 Ur Phencyclidine Scrn Not Detected (NotDetected) 08/16/18 19:17 Ur Amphetamines Screen Not Detected (NotDetected) 08/16/18 19:17 U Methamphetamines Scrn Not Detected (NotDetected) 08/16/18 19:17 U Benzodiazepines Scrn Not Detected (NotDetected) 08/16/18 19:17 Urine Cocaine Screen Not Detected (NotDetected) 08/16/18 19:17 U Marijuana (THC) Screen Not Detected (NotDetected) 08/16/18 19:17 08/17/18 11:27 IDENTIFYING DATA: This patient is a 52-year-old single male who was admitted to the mental health unit from his [facility] home for worsening symptoms of psychosis eliciting suicidal ideation. HPI: Patient is well known to the psychiatric inpatient service. He has a history of schizophrenia alcohol use disorder. He is managed by [facility]. He presents stating that the auditory hallucinations are unbearable. He states they're present throughout the day. He states that they can read his mind they tell him that they will kill him and in general he feels unsafe. Because of the symptoms he has had suicidal ideation. He finds himself more agitated. Energy is been low. Appetite and sleep have been stable. He is requesting the Haldol Decanoate injection. He states that he has not done as well ever since the injection has been stopped. He has been on oral medication for quite some time in reviewing the [facility] medication log. He is reporting no thoughts of harming others. He is endorsing no visual hallucinations. He is endorsing no significant anxiety symptoms. No clear history of hypomanic or manic episodes. PAST PSYCHIATRIC HISTORY: The patient has had numerous inpatient admissions this is his eighth admission since September 2013. His last admission was in July 2016 under the care of Dr. Christopher. He does work with Dr. Gomez on an outpatient basis. He is prescribed Haldol 20 mg daily Zoloft 200 mg daily Vistaril 25 mg twice daily. In the past he has been on Clozaril and found it to be ineffective he has been on Zyprexa. I believe he is been tried on numerous other antipsychotics. He has been tried on mood stabilizers including Tegretol Depakote and Remeron as an antidepressant. He does have a history of 1 suicide attempt numerous years ago via overdose. PMH: History of hepatitis C which she states was cured with medication therapy, hypercholesterolemia, GERD ALLERGIES: Levaquin, linezolid, nitrofurantoin MEDICATIONS: Refer to [facility] CHEMICAL DEPENDENCY HISTORY: He has a history of alcohol use disorder he states he has been sober now for 2 years FAMILY PSYCHIATRIC HISTORY: Unknown FAMILY CHEMICAL DEPENDENCY HISTORY: Father known to have issues with alcohol SOCIAL HISTORY: The patient is 52 years old she single never been he has no children he is unemployed and receives a disability income. He currently has a guardian. He has been residing in an adult foster [facility]. He has 1 brother 2 sisters. He has a 10th grade education no history of service. No recent legal history reported. No abuse history reported. MENTAL STATUS EXAM: The patient is a male appearing older than his stated age, he has a disheveled appearance his hair is not brushed he has a long unkempt palomares, he is dressed in hospital gowns. He describes his mood as depressed affect is flat. He has no spontaneous speech she provides brief answers to questions. He reports recent suicidal ideation but no homicidal ideation. He describes auditory hallucinations that are derogatory and overwhelming. He reports no visual hallucinations. He endorses feelings of being unsafe. He demonstrates no verbal or physical aggressiveness he demonstrates no involuntary repetitive movements. Insight and judgment are impaired. He is oriented to person place month and year. He is able to name the days of the week backwards. STRENGTHS/WEAKNESSES: Strengths: Housing, income, guardianship weaknesses: Ongoing psychiatric symptoms INTELLECTUAL FUNCTIONING: Average IMPRESSIONS: [] 1. Schizophrenia, alcohol use disorder in reported remission PLAN: The patient has been admitted to the mental health unit voluntarily. We reviewed his presenting symptoms and treatment options. He is asking for Haldol decanoate injections to resume which he has not been on for quite some time. We discussed titrating the oral Haldol dose further and he is agreeable. Conversely we discussed the option of adding a second generation antipsychotic to the Haldol. He will be seen by internal medicine for routine history and physical exam. We will monitor him for safety and encourage participation in the milieu. His guardian will be involved in treatment and discharge planning. Vital signs reviewed.
[2018-08-17] MEDS: HALOPERIDOL 5 MG TAB PO SCH ×2 (12:15→17:32)
[2018-08-17] MEDS: SERTRALINE 100 MG TAB PO SCH (17:32)
[2018-08-17 19:12] LABS: Hemoglobin A1C 5.3 % (4.0-6.0)
[2018-08-18] MEDS: PANTOPRAZOLE 40 MG TABLET PO SCH (08:37)
[2018-08-18] MEDS: CHOLECALCIFEROL 1,000 UNIT TAB PO SCH (08:37)
[2018-08-18] MEDS: MULTIVITAMINS, THERA 1 EACH TAB PO SCH (08:38)
[2018-08-18] MEDS: ATORVASTATIN 20 MG TAB PO SCH (08:38)
[2018-08-18] MEDS: CYANOCOBALAMIN 500 MCG TAB PO SCH (08:38)
[2018-08-18] MEDS: hydrOXYzine PAMOATE 25 MG CAP PO SCH ×2 (08:38→21:00)
[2018-08-18] MEDS: ASPIRIN 81 MG PO SCH (08:38)
[2018-08-18] MEDS: HALOPERIDOL 5 MG TAB PO SCH ×2 (08:38→17:29)
--- NOTE | 2018-08-18 11:19 | P.PN ---
Progress Note - Text Interval history: The patient is found in his room. He reports that things of the same. He continues to experience auditory hallucinations echoing what he is saying or thinking. He endorses no command auditory hallucinations. He has been isolating in his room. He indicates he got up and ate breakfast. There is been no report of any behavioral disturbance on his part. Mental status exam: The patient is alert eye contact is appropriate. He maintains a blunted to flat affect. He indicates ongoing auditory hallucinations that are disturbing. His mood is subsequently impacted and he reports having suicidal thoughts as a result. He reports no homicidal ideation intent or plan. He endorses no visual hallucinations. He reports feeling safe in the hospital. He demonstrates no verbal or physical aggressiveness. He demonstrates no involuntary repetitive movements. He initiates no conversation and provides brief answers to questions. Plan: The patient will continue on his current psychotropic medications. We have titrated the oral Haldol we may titrate this further. He keeps requesting a Haldol decanoate injection. We will give that consideration. Vital signs reviewed. He is encouraged to get up and ambulate throughout the day he is encouraged to participate in the milieu. He requires continued psychiatric hospitalization.
[2018-08-18] MEDS: SERTRALINE 100 MG TAB PO SCH (17:29)
[2018-08-18] MEDS: ZIPRASIDONE 20 MG VIAL IM PRN (21:29)
[2018-08-19] MEDS: PANTOPRAZOLE 40 MG TABLET PO SCH (09:09)
[2018-08-19] MEDS: hydrOXYzine PAMOATE 25 MG CAP PO SCH ×2 (09:09→19:46)
[2018-08-19] MEDS: CHOLECALCIFEROL 1,000 UNIT TAB PO SCH (09:09)
[2018-08-19] MEDS: ASPIRIN 81 MG PO SCH (09:09)
[2018-08-19] MEDS: HALOPERIDOL 5 MG TAB PO SCH ×2 (09:09→17:17)
[2018-08-19] MEDS: MULTIVITAMINS, THERA 1 EACH TAB PO SCH (09:09)
[2018-08-19] MEDS: ATORVASTATIN 20 MG TAB PO SCH (09:10)
[2018-08-19] MEDS: CYANOCOBALAMIN 500 MCG TAB PO SCH (09:10)
[2018-08-19 10:29] VITALS: BMI 23.1
--- NOTE | 2018-08-19 12:56 | P.PN ---
Progress Note - Text Progress Note Date: 08/19/18 Interval History: Patient is a 52-year-old male who was seen today and he reports that the auditory hallucinations continue they're derogatory in nature and at times command him to hurt himself. He states that he did better on long- acting injectable Haldol but asked to have it discontinued because of the sexual side effects. He states that he had been on it over 3 years ago. Patient states he was receiving on or 50 mg every month. He states that he continues to feel depressed and but is sleeping and eating but has not been attending groups or activities due to the auditory hallucinations. Mental Status:Appearance/Attitude: Patient is appropriately dressed, appears disheveled makes eye contact and is cooperative Behavior: Patient does not exhibit any psychomotor agitation or retardation. Speech/Language: Patient's speech is spontaneous of normal volume and rhythm and he is coherent Thought Process: Patient is goal-directed there is no evidence of loose association or flight of ideas Thought Content: Patient reports the auditory hallucinations continue and they are derogatory in nature and at times command him to hurt himself. He states that they are almost constant and have gotten worse with the decrease in his Haldol dose. He states that he is feeling depressed because of the voices. He states that he has been sleeping and eating but has not been attending groups or activities due to the auditory hallucinations. Patient denied any paranoid or delusional ideation. Suicidal/Homicidal Ideation: Patient states that he is not feeling suicidal but at times hears voices telling him to act to hurt himself but he tries to ignore them. Patient denies any current homicidal ideation Sensorium/Cognition: Patient is alert and oriented to person, place, and time Mood/Affect: Patient's mood is depressed and his affect is blunted Insight/Judgment: Patient's insight and judgment are fair Assessment: Patient requests returning to Haldol long-acting injectable as he states he has to have it discontinued in the past due to sexual side effects but states that since he has been on oral Haldol and most recently since the dose is been decreased the auditory hallucinations have returned and are constant and very bothersome. Patient states at times they are command to hurt himself otherwise they are derogatory in nature and make him feel increasingly depressed. Patient states that he is on Zoloft but doesn't think it's been helping his depression. Patient's records from [facility] were reviewed in his Haldol dose was decreased from 30 mg a day to 20 mg a day after his appointment on July 03. Patient had been living at a fpc and per the guardian's report he was doing fine on the 30 mg of Haldol daily. He is now requesting to return to long-acting injectable and states he was receiving 150 mg on a monthly basis in the past and did better on that but she complained of side effects of the sexual nature and requested to be returned to medication Plan: Patient will continue on 5 mg of Haldol in the morning and 20 mg at night, he is requested to restart Haldol long-acting injectable 150 mg on a monthly basis and will check with his guardian to see if this is approved or not. Patient will continue on Zoloft 200 mg daily and Vistaril 25 mg twice a day. Patient continues to require hospitalization to stabilize his psychotic symptoms and mood.
[2018-08-19] MEDS: SERTRALINE 100 MG TAB PO SCH (17:17)
[2018-08-19] MEDS: ZIPRASIDONE 20 MG VIAL IM PRN (19:46)
[2018-08-20] MEDS: ATORVASTATIN 20 MG TAB PO SCH (08:36)
[2018-08-20] MEDS: PANTOPRAZOLE 40 MG TABLET PO SCH (08:36)
[2018-08-20] MEDS: CHOLECALCIFEROL 1,000 UNIT TAB PO SCH (08:36)
[2018-08-20] MEDS: ASPIRIN 81 MG PO SCH (08:36)
[2018-08-20] MEDS: CYANOCOBALAMIN 500 MCG TAB PO SCH (08:37)
[2018-08-20] MEDS: HALOPERIDOL 5 MG TAB PO SCH ×2 (08:37→18:26)
[2018-08-20] MEDS: hydrOXYzine PAMOATE 25 MG CAP PO SCH ×2 (08:37→20:36)
[2018-08-20] MEDS: MULTIVITAMINS, THERA 1 EACH TAB PO SCH (08:38)
[2018-08-20] MEDS ORDERED: HALOPERIDOL DECANOATE 100 MG/ML 1 ML VIAL IM STA (10:08)
--- NOTE | 2018-08-20 12:03 | P.PN ---
Progress Note - Text Progress Note Date: 08/20/18 Interval History: Joseph is a 52-year-old male who was seen today and he reports he still hearing voices, they can read his mind and are making derogatory comments. Patient states that he still having some suicidal thoughts but they are slightly less. He reports that he is eating well and not attending groups. He states that he is feeling depressed and sad. He again reported that he didn't much better on long-acting injectable Haldol and wishes to return to that. Mental Status: Appearance/Attitude: Patient is casually dressed, slightly disheveled looking makes eye contact and is cooperative Behavior: Patient does not display any psychomotor agitation or retardation Speech/Language: Patient's speech is spontaneous of normal volume and rhythm and he is coherent Thought Process: Patient is goal-directed there is no evidence of loose association or flight of ideas Thought Content: Patient reports auditory hallucinations that can read his mind and making derogatory comments, he denies any visual hallucinations and denies any thought broadcasting or insertion. No delusions or paranoid ideation were elicited. Patient states that he is up not able to ignore the voices and that they are extremely intrusive and bothersome. He reports that his appetite is good. Suicidal/Homicidal Ideation: Patient states he continues to have suicidal thoughts but no plans or intent to act and no current homicidal ideation Sensorium/Cognition: Patient is alert and oriented to person, place, and time Mood/Affect: Patient's mood is depressed and sad and his affect is slightly blunted Insight/Judgment: Patient's insight and judgment are fair Assessment: Patient and I discussed restarting the long-acting Haldol and his guardian has okayed this as well. Patient feels that he did his best on the injectable long-acting Haldol and that the voices were tolerable and the only reason he stopped the medication was because of sexual side effects. Patient is not attending groups or activities. Plan: Patient will continue on Zoloft 200 mg a day, we'll continue on Haldol 5 in the morning 20 at night and will start Haldol decanoate 100 mg today. Patient was agreeable with this plan, continues to require hospitalization to further stabilize his psychotic symptoms and mood.
[2018-08-20] MEDS: SERTRALINE 100 MG TAB PO SCH (18:26)
[2018-08-20] MEDS: ZIPRASIDONE 20 MG VIAL IM PRN (22:11)
[2018-08-21 06:55] VITALS: RESP 16
[2018-08-21] MEDS: ASPIRIN 81 MG PO SCH (08:55)
[2018-08-21] MEDS: HALOPERIDOL 5 MG TAB PO SCH ×2 (08:55→18:30)
[2018-08-21] MEDS: CYANOCOBALAMIN 500 MCG TAB PO SCH (08:55)
[2018-08-21] MEDS: hydrOXYzine PAMOATE 25 MG CAP PO SCH ×2 (08:55→21:18)
[2018-08-21] MEDS: CHOLECALCIFEROL 1,000 UNIT TAB PO SCH (08:55)
[2018-08-21] MEDS: PANTOPRAZOLE 40 MG TABLET PO SCH (08:55)
[2018-08-21] MEDS: ATORVASTATIN 20 MG TAB PO SCH (08:57)
[2018-08-21] MEDS: MULTIVITAMINS, THERA 1 EACH TAB PO SCH (08:58)
--- NOTE | 2018-08-21 13:12 | P.PN ---
Progress Note - Text Progress Note Date: 08/21/18 Interval History: Patient is a 52-year-old male who was seen today and he reports that he is feeling a little better, states that the voices are quieter today and he is able to ignore them a little bit. Patient states that he still having some suicidal thoughts but those have decreased as well. He states the voices do tell him to hurt himself but he doesn't want to act on them. He states that he is sleeping and eating well and states that he has been attempting to attend some groups. Mental Status: Appearance/Attitude: Patient is neatly dressed, appears slightly disheveled makes eye contact and was cooperative Behavior: Patient does not display any psychomotor agitation or retardation. Speech/Language: Patient's speech was spontaneous of normal volume and rhythm and he is coherent Thought Process: Patient was goal-directed he did not exhibit any loose association or flight of ideas Thought Content: Patient reported that the voices are slightly quieter today they remain derogatory and at times tell him to hurt himself, he denies any visual hallucinations and denied any paranoid or delusional ideation. Patient states that the voices have quieted down he is able to ignore them a little bit today and states that he is going to attend groups and activities today. He states that he is sleeping and eating well. Suicidal/Homicidal Ideation: Patient denies any current homicidal ideation, states that the suicidal thoughts are a little bit decreased as the auditory hallucinations telling him to hurt himself have decreased and he denies any intent to act and states that he doesn't want to . Sensorium/Cognition: Patient is alert and oriented to person, place, and time an d his recent and remote memory are grossly intact Mood/Affect: Patient's mood is pleasant and his affect is slightly blunted Insight/Judgment: Patient's insight and judgment are fair Assessment: Patient reports some improvement after having received a long-acting Haldol injectable yesterday, stating that the voices are a little quieter and that the suicidal thoughts of decreased because the voices have. He states that he is not wanting to act on the voices telling him to hurt himself. He is sleeping and eating well. He reports no side effects from the medication. Patient states that he will try to attend groups and activities today. Plan: Patient continues on Haldol 5 mg in the morning and 20 mg at night as well as Zoloft 200 mg in received long-acting injectable Haldol 100 mg yesterday and feels that he has noticed some improvement. Patient and I discussed that he continued to improve considering discharge later in the week and he was agreeable with this plan. Patient was encouraged to attend groups and activities. Patient continues to require hospitalization to further stabilize his mood and psychotic symptoms.
[2018-08-21] MEDS: SERTRALINE 100 MG TAB PO SCH (18:30)
[2018-08-22] MEDS: ZIPRASIDONE 20 MG VIAL IM PRN
[2018-08-22 06:37] VITALS: BP 103/57; PULSE 53; TEMP 98.7
[2018-08-22] MEDS: PANTOPRAZOLE 40 MG TABLET PO SCH (07:57)
[2018-08-22] MEDS: CHOLECALCIFEROL 1,000 UNIT TAB PO SCH (08:43)
[2018-08-22] MEDS: HALOPERIDOL 5 MG TAB PO SCH (08:43)
[2018-08-22] MEDS: CYANOCOBALAMIN 500 MCG TAB PO SCH (08:43)
[2018-08-22] MEDS: ATORVASTATIN 20 MG TAB PO SCH (08:43)
[2018-08-22] MEDS: hydrOXYzine PAMOATE 25 MG CAP PO SCH (08:43)
[2018-08-22] MEDS: ASPIRIN 81 MG PO SCH (08:43)
[2018-08-22] MEDS: MULTIVITAMINS, THERA 1 EACH TAB PO SCH (08:47)
--- NOTE | 2018-08-22 11:43 | P.DS ---
Providers Date of admission: 08/16/18 19:55 Expected date of discharge: 08/22/18 Attending physician: Tasha Herndon MD Consults: 08/16/18 20:00 Consult Physician Routine Consulting Provider: Malina Melton Consult Reason/Comments: medical management Do you want consulting provider notified?: Yes Primary care physician: Adilene Gomez Hospital Course: Discharge Diagnosis: Schizophrenia, alcohol use disorder in remission Reason for Admission: This patient is a 52-year-old single male who was admitted to the mental health unit from his [facility] home for worsening symptoms of psychosis eliciting suicidal ideation. Patient is well known to the psychiatric inpatient service. He has a history of schizophrenia, alcohol use disorder. He is managed by [facility]. He presents stating that the auditory hallucinations are unbearable. He states they're present throughout the day. He states that they can read his mind they tell him that they will kill him and in general he feels unsafe. Because of the symptoms he has had suicidal ideation. He finds himself more agitated. Energy is been low. Appetite and sleep have been stable. He is requesting the Haldol Decanoate injection. He states that he has not done as well ever since the injection has been stopped. He has been on oral medication for quite some time in reviewing the [facility] medication log. He is reporting no thoughts of harming others. He is endorsing no visual hallucinations. He is endorsing no significant anxiety symptoms. No clear history of hypomanic or manic episodes. MENTAL STATUS EXAM ON ADMISSION: The patient is a male appearing older than his stated age, he has a disheveled appearance his hair is not brushed he has a long unkempt palomares, he is dressed in hospital gowns. He describes his mood as depressed affect is flat. He has no spontaneous speech she provides brief answers to questions. He reports recent suicidal ideation but no homicidal ideation. He describes auditory hallucinations that are derogatory and overwhelming. He reports no visual hallucinations. He endorses feelings of being unsafe. He demonstrates no verbal or physical aggressiveness he demonstrates no involuntary repetitive movements. Insight and judgment are impaired. He is oriented to person place month and year. He is able to name the days of the week backwards. Hospital Course: Patient was admitted on a voluntary basis, he does have a legal guardian who approved the voluntary admission as well. Patient was placed on routine observation, group and activity therapy were ordered as well as routine laboratory studies and a medical consultation was requested. Patient was continued on his medications for his medical problems and his Haldol dose was increased to 5 mg in the morning and 20 mg at bedtime and the patient was continued on Zoloft 200 mg at suppertime as well as Vistaril 25 mg twice a day. Patient continued to report auditory hallucinations and suicidal thoughts due to the auditory hallucinations reading his mind. Patient requested restarting long-acting Haldol injectable as he felt this had been beneficial in the past and he had asked that it be discontinued due to sexual side effects. His guardian approved the medication change and the patient was started on Haldol decanoate 100 mg IM on August 20. He was continued on his oral Haldol dose and the patient reported improvement. He stated that the voices were quieter that the suicidal thoughts were much less and that he was able to ignore the voices and no longer felt that he would act on the suicidal thoughts. Patient stated that he was not having any side effects from the medication and that he was sleeping and eating well. He had not attended groups while he was on the unit. Patient stated that he felt he was [facility] Allergies levofloxacin [From Levaquin] Allergy (Verified 08/16/18 18:33) Unknown linezolid [From Zyvox] Allergy (Verified 08/16/18 18:33) Unknown nitrofurantoin [From Macrobid] Allergy (Verified 08/16/18 18:33) Unknown nitrofurantoin macrocrystalline [From Macrobid] Allergy (Verified 08/16/18 18:33) Unknown Penicillins Allergy (Verified 08/16/18 18:33) Unknown sulfamethoxazole [From Bactrim] Allergy (Verified 08/16/18 18:33) Unknown trimethoprim [From Bactrim] Allergy (Verified 08/16/18 18:33) Unknown vancomycin Allergy (Verified 08/16/18 18:33) Unknown Laboratory Last Values WBC 8.9 k/uL (3.8-10.6) 08/17/18 09:34 RBC 5.14 m/uL (4.30-5.90) 08/17/18 09:34 Hgb 15.1 gm/dL (13.0-17.5) 08/17/18 09:34 Hct 45.1 % (39.0-53.0) 08/17/18 09:34 MCV 87.7 fL (80.0-100.0) 08/17/18 09:34 MCH 29.5 pg (25.0-35.0) 08/17/18 09:34 MCHC 33.6 g/dL (31.0-37.0) 08/17/18 09:34 RDW 14.4 % (11.5-15.5) 08/17/18 09:34 Plt Count 188 k/uL (150-450) 08/17/18 09:34 Neutrophils % 71 % 08/17/18 09:34 Lymphocytes % 19 % 08/17/18 09:34 Monocytes % 5 % 08/17/18 09:34 Eosinophils % 4 % 08/17/18 09:34 Basophils % 0 % 08/17/18 09:34 Neutrophils # 6.3 k/uL (1.3-7.7) 08/17/18 09:34 Lymphocytes # 1.7 k/uL (1.0-4.8) 08/17/18 09:34 Monocytes # 0.4 k/uL (0-1.0) 08/17/18 09:34 Eosinophils # 0.4 k/uL (0-0.7) 08/17/18 09:34 Basophils # 0.0 k/uL (0-0.2) 08/17/18 09:34 Sodium 140 mmol/L (137-145) 08/17/18 09:34 Potassium 4.2 mmol/L (3.5-5.1) 08/17/18 09:34 Chloride 105 mmol/L (98-107) 08/17/18 09:34 Carbon Dioxide 29 mmol/L (22-30) 08/17/18 09:34 Anion Gap 6 mmol/L 08/17/18 09:34 BUN 9 mg/dL (9-20) 08/17/18 09:34 Creatinine 0.86 mg/dL (0.66-1.25) 08/17/18 09:34 Est GFR (CKD-EPI)AfAm >90 (>60 ml/min/1.73 sqM) 08/17/18 09:34 Est GFR (CKD-EPI)NonAf >90 (>60 ml/min/1.73 sqM) 08/17/18 09:34 Glucose 152 mg/dL (74-99) H 08/17/18 09:[address] Glu mg/dL 105 08/17/18 09:34 Hemoglobin A1c 5.3 % (4.0-6.0) 08/17/18 09:34 Calcium 9.0 mg/dL (8.4-10.2) 08/17/18 09:34 Total Bilirubin 0.4 mg/dL (0.2-1.3) 08/17/18 09:34 AST 17 U/L (17-59) 08/17/18 09:34 ALT 10 U/L (21-72) L 08/17/18 09:34 Alkaline Phosphatase 80 U/L (38-126) 08/17/18 09:34 Total Protein 6.5 g/dL (6.3-8.2) 08/17/18 09:34 Albumin 4.0 g/dL (3.5-5.0) 08/17/18 09:34 Triglycerides 193 mg/dL (<150) H 08/17/18 09:34 Cholesterol 141 mg/dL (<200) 08/17/18 09:34 LDL Cholesterol, Calc 75 mg/dL (0-99) 08/17/18 09:34 HDL Cholesterol 27 mg/dL (40-60) L 08/17/18 09:34 Tumor Marker AFP <2.5 ng/mL (0.0-7.9) 08/17/18 09:34 TSH 1.090 mIU/L (0.465-4.680) 08/17/18 09:34 Urine Opiates Screen Not Detected (NotDetected) 08/16/18 19:17 Ur Oxycodone Screen Not Detected (NotDetected) 08/16/18 19:17 Urine Methadone Screen Not Detected (NotDetected) 08/16/18 19:17 Ur Propoxyphene Screen Not Detected (NotDetected) 08/16/18 19:17 Ur Barbiturates Screen Not Detected (NotDetected) 08/16/18 19:17 U Tricyclic Antidepress Not Detected (NotDetected) 08/16/18 19:17 Ur Phencyclidine Scrn Not Detected (NotDetected) 08/16/18 19:17 Ur Amphetamines Screen Not Detected (NotDetected) 08/16/18 19:17 U Methamphetamines Scrn Not Detected (NotDetected) 08/16/18 19:17 U Benzodiazepines Scrn Not Detected (NotDetected) 08/16/18 19:17 Urine Cocaine Screen Not Detected (NotDetected) 08/16/18 19:17 U Marijuana (THC) Screen Not Detected (NotDetected) 08/16/18 19:17 Discharge Mental Status: Appearance/Attitude: Patient is casually dressed, appears slightly disheveled makes eye contact and was cooperative Behavior: Patient does not exhibit any psychomotor agitation or retardation. Speech/Language: Patient's speech is slightly stilted, he speaks in a normal volume and rhythm and he is coherent Thought Process: Patient was goal-directed there is no evidence of loose association or flight of ideas Thought Content: Patient reports that the auditory hallucinations that he describes as being able to read his mind are much less intense and less frequent, he denies visual hallucinations and denied any paranoid ideation. He states that he is able to ignore the voices now and as they're less intense and less frequent he is no longer feeling suicidal. Patient states that he has been sleeping and eating well and states that [facility]. He reported no side effects from his medication and none were noted on exam Suicidal/Homicidal Ideation: Patient denied any current suicidal or homicidal ideation, stating that the voices have decreased and so he is no longer having suicidal thoughts. Sensorium/Cognition: Patient is alert and oriented to person, place, and time and his recent and remote memory are grossly intact Mood/Affect: Patient's mood is stable and his affect is blunted Insight/Judgment: Patient's insight and judgment are fair Risk Assessment: Patient's risk for readmission is low should he continue on his medications, avoid all alcohol and drugs Discharge Plan: [facility], he will continue to follow[facility]up at [facility], patient will continue on his home medications of vitamin D, vitamin B12, low dose aspirin, Crestor, omeprazole, multivitamin and the patient will continue on Haldol 5 in the morning and 20 mg at night until September 03 when he will receive his second injection of Haldol decanoate 100 mg IM. Patient should then have a maintenance dose of Haldol decanoate given in 4 weeks, dose to be decided by [facility]. Patient will receive prescriptions for the above medications and he was advised to be compliant with his medications as well as avoid all alcohol and drugs. Patient Condition at Discharge: Stable Plan - Discharge Summary Discharge Rx Participant: No New Discharge Prescriptions: New Haloperidol [Haldol] 5 mg PO DAILY #13 tab Omeprazole 20 mg PO DAILY #28 tablet. Haloperidol Decanoate [Haldol D] 100 mg IM ONCE #1 vial Continue Omeprazole 20 mg PO DAILY #30 capsule. Aspirin EC [Ecotrin Low Dose] 81 mg PO DAILY Meclizine [Antivert] 25 mg PO BID PRN PRN Reason: dizziness Rosuvastatin [Crestor] 10 mg PO DAILY #28 tablet Haloperidol [Haldol] 20 mg PO PC-SUPPER #26 tablet Multivitamins, Thera [Multivitamin (formulary)] 1 tab PO DAILY #28 tab hydrOXYzine PAMOATE [Vistaril] 25 mg PO BID #56 capsule Cyanocobalamin (Vitamin B-12) [Vitamin B-12] 1,000 mcg PO DAILY #28 tablet Cholecalciferol [Vitamin D3 (25 Mcg = 1000 Iu)] 5,000 unit PO DAILY #140 tab Sertraline [Zoloft] 200 mg PO PC-SUPPER #56 tab Discharge Medication List Omeprazole 20 mg PO DAILY #30 capsule. 05/31/16 [Rx] Aspirin EC [Ecotrin Low Dose] 81 mg PO DAILY 06/18/17 [History] Meclizine [Antivert] 25 mg PO BID PRN 08/16/18 [History] Cholecalciferol [Vitamin D3 (25 Mcg = 1000 Iu)] 5,000 unit PO DAILY #140 tab 08/22/18 [Rx] Cyanocobalamin (Vitamin B-12) [Vitamin B-12] 1,000 mcg PO DAILY #28 tablet 08/22/18 [Rx] Haloperidol Decanoate [Haldol D] 100 mg IM ONCE #1 vial 08/22/18 [Rx] Haloperidol [Haldol] 5 mg PO DAILY #13 tab 08/22/18 [Rx] Haloperidol [Haldol] 20 mg PO PC-SUPPER #26 tablet 08/22/18 [Rx] Multivitamins, Thera [Multivitamin (formulary)] 1 tab PO DAILY #28 tab 08/22/18 [Rx] Omeprazole 20 mg PO DAILY #28 tablet. 08/22/18 [Rx] Rosuvastatin [Crestor] 10 mg PO DAILY #28 tablet 08/22/18 [Rx] Sertraline [Zoloft] 200 mg PO PC-SUPPER #56 tab 08/22/18 [Rx] hydrOXYzine PAMOATE [Vistaril] 25 mg PO BID #56 capsule 08/22/18 [Rx] Follow up Appointment(s)/Referral(s): [facility] [Outside] - 08/28/18 9:00 am (08-28-18 @ 9:00 with Marta France 09-09-18 @ 11:[address] Gomez) Adilene Gomez MD [Primary Care Provider] - 1-2 days Patient Instructions/Handouts: How to Stop Smoking (ED), Depression (DC), Schizophrenia (DC), Anxiety (GEN), Suicide Prevention (DC) Activity/Diet/Wound Care/Special Instructions: Activity and diet as tolerated. No guns or weapons in the home. No drugs or alcohol not prescribed by your primary care physician, or your out patient psychiatric provider. Attend follow up appointments, and take medications as prescribed. If in need of medication refills, please go to primary care physician, or your out patient psychiatric provider. If in crisis, please call , or go the nearest ER, for an evaluation. Discharge Disposition: OTHER INSTITUTION NOT DEFINED
== END 2018-08-22 15:40 | disposition home or self-care (01) | DRG 880 ==
LOC: EC 17:57 → 3MHU 19:55
PROVIDERS: ADMIT Psychiatry & Neurology Psychiatry; ATTEND Psychiatry & Neurology Psychiatry
DX: R45.851 Suicidal ideations (principal); F20.9 Schizophrenia, unspecified; E78.00 Pure hypercholesterolemia, unspecified; F32.9 Major depressive disorder, single episode, unspecified; F17.200 Nicotine dependence, unspecified, uncomplicated; F41.0 Panic disorder [episodic paroxysmal anxiety]; K21.9 Gastro-esophageal reflux disease without esophagitis; Z71.6 Tobacco abuse counseling; Z79.82 Long term (current) use of aspirin; Z79.899 Other long term (current) drug therapy; Z91.5 Personal history of self-harm; Z86.19 Personal history of other infectious and parasitic diseases; Z88.1 Allergy status to other antibiotic agents; Z88.8 Allergy status to other drugs, medicaments and biological substances
CPT/HCPCS: 80053; 80061; 80306; 82075; 82105; 83036; 84443; 85025; 99285

== ENCOUNTER 2019-10-13 15:45 | Inpatient (IN) | payer MEDICARE, MEDICAID ==
--- NOTE | 2019-10-13 16:18 | ED ---
General Adult HPI - General Chief complaint: Psychiatric Symptoms Stated complaint: property and supply officer order Time Seen by Provider: 10/13/19 15:51 Source: patient, police, RN notes reviewed, old records reviewed Mode of arrival: ambulatory Limitations: no limitations - History of Present Illness Initial comments: 53-year-old male brought in on "ordered pickup for psychiatric evaluation. Patient has no complaints. Apparently he has been off his medication. He denies suicidal or homicidal ideation. History of psychiatric illness. He is uncertain what medications he is prescribed but states he is not taking them. No physical complaints. - Related Data Home Medications Medication Instructions Recorded Confirmed Aspirin EC [Ecotrin Low Dose] 81 mg PO DAILY 06/18/17 02/25/19 Previous Rx's Medication Instructions Recorded Omeprazole 20 mg PO DAILY #30 capsule. 05/31/16 Cholecalciferol [Vitamin D3 (25 5,000 unit PO DAILY #140 tab 08/22/18 Mcg = 1000 Iu)] Multivitamins, Thera [Multivitamin 1 tab PO DAILY #28 tab 08/22/18 (formulary)] Albuterol Inhaler (Mhu) [Ventolin 2 puff INHALATION RT-TID PRN puff 03/10/19 Hfa Inhaler (Mhu)] Atorvastatin [Lipitor] 40 mg PO HS tab 03/10/19 [place] Carbonate 300 mg PO DAILY #30 cap 03/10/19 [place] Carbonate 600 mg PO HS #60 cap 03/10/19 Melatonin 10 mg PO HS #60 tablet 03/10/19 Nicotine 14Mg/24Hr Patch [Habitrol] 1 patch TRANSDERM DAILY #14 patch 03/10/19 QUEtiapine [SEROquel] 150 mg PO HS #90 tab 03/10/19 Sertraline [Zoloft] 200 mg PO 1900 #60 tab 03/10/19 fluPHENAZine [Prolixin] 3 mg PO BID #21 tab 03/10/19 fluPHENAZine [Prolixin] 3 mg PO BID #21 tablet 03/10/19 fluPHENAZine decanoate [Prolixin 50 mg IM [id number] #1 vial 03/10/19 Decanoate] hydrOXYzine pamoate [Vistaril] 25 mg PO BID #60 capsule 03/10/19 Allergies Allergy/AdvReac Type Severity Reaction Status Date / Time levofloxacin [From Levaquin] Allergy Unknown Verified 02/25/19 18:26 linezolid [From Zyvox] Allergy Unknown Verified 02/25/19 18:26 nitrofurantoin Allergy Unknown Verified 02/25/19 18:26 [From Macrobid] nitrofurantoin Allergy Unknown Verified 02/25/19 18:26 macrocrystalline [From Macrobid] Penicillins Allergy Unknown Verified 02/25/19 18:26 sulfamethoxazole Allergy Unknown Verified 02/25/19 18:26 [From Bactrim] trimethoprim [From Bactrim] Allergy Unknown Verified 02/25/19 18:26 vancomycin Allergy Unknown Verified 02/25/19 18:26 Review of Systems ROS Statement: Those systems with pertinent positive or pertinent negative responses have been documented in the HPI. ROS Other: All systems not noted in ROS Statement are negative. Past Medical History Past Medical History: Liver Disease Additional Past Medical History / Comment(s): Pt stated that he has Hepatitis C. History of Any Multi-Drug Resistant Organisms: None Reported Past Surgical History: Appendectomy Additional Past Surgical History / Comment(s): pt denies Past Anesthesia/Blood Transfusion Reactions: No Reported Reaction Past Psychological History: Anxiety, Depression, Panic Disorder, Schizophrenia Past Alcohol Use History: None Reported Past Drug Use History: None Reported - Past Family History Father History Unknown: Yes Additional Family Medical History / Comment(s): pt stated unk Mother History Unknown: Yes Additional Family Medical History / Comment(s): Pancreatic cancer in his mother General Exam Limitations: no limitations General appearance: alert, in no apparent distress Head exam: Present: atraumatic, normocephalic Eye exam: Present: normal appearance, PERRL ENT exam: Present: normal exam Neck exam: Present: normal inspection. Absent: tenderness, meningismus Respiratory exam: Present: normal lung sounds bilaterally. Absent: respiratory distress Cardiovascular Exam: Present: regular rate, normal rhythm GI/Abdominal exam: Present: soft. Absent: distended, tenderness, guarding Extremities exam: Present: normal inspection, normal capillary refill. Absent: pedal edema Neurological exam: Present: alert, oriented X3, CN II-XII intact. Absent: motor sensory deficit Psychiatric exam: Present: normal affect, normal mood Skin exam: Present: warm, dry, intact. Absent: cyanosis, diaphoretic Course Vital Signs 10/13/19 10/13/19 15:45 16:36 Temperature 98.2 F Pulse Rate 85 Respiratory 18 16 Rate Blood Pressure 129/86 O2 Sat by Pulse 98 Oximetry - Reevaluation(s) Reevaluation #1: 10/13/19 16:18 Patient medically cleared for psychiatric evaluation. Medical Decision Making - Medical Decision Making Patient will require inpatient psychiatric evaluation treatment. I did complete a clinical certification on this patient. He will be admitted to this institution. Disposition Clinical Impression: Acute psychosis, Schizophrenia Disposition: ADMITTED IP TO THIS HOSP Condition: Stable Is patient prescribed a controlled substance at d/c from ED?: No Referrals: None,Stated [Primary Care Provider] - 1-2 days Decision to Admit Reason: Admit from EC Decision Date: 10/13/19 Decision Time: 16:57
[2019-10-13] MEDS ORDERED: ZIPRASIDONE 20 MG VIAL IM PRN (17:46)
[2019-10-13] MEDS ORDERED: MAG HYDROX/AL HYDROX/SIMETH 30 ML CUP PO PRN (17:46)
[2019-10-13] MEDS ORDERED: MAGNESIUM HYDROXIDE 2,400 MG/10 ML CUP PO PRN (17:46)
[2019-10-13] MEDS ORDERED: LORazepam 2 MG/ML INJ IM PRN (17:50)
[2019-10-13] MEDS: NICOTINE 14MG/24HR PATCH TRANSDERM SCH (20:37)
--- NOTE | 2019-10-14 03:12 | P.CONS ---
History of Present Illness - Reason for Consult Consult date: 10/14/19 - History of Present Illness Patient is a 53-year-old male with a PMH of schizophrenia who was brought into the emergency room after a [facility] pickup order. The patient had reportedly been off his medications. He had reported that he is not sure what he is prescribed and he isn't taking anything. The patient was admitted to the mental health unit where he was seen and evaluated earlier today. He denied any active compla ints. Denied chest pain, shortness of fever, chills, cough, nausea, vomiting, or abdominal pain. Reported having the room and board which she appreciates. Review of Systems Pertinent positives and negatives as discussed in HPI, a complete review of systems was performed and all other systems are negative. Past Medical History Past Medical History: Liver Disease Additional Past Medical History / Comment(s): Pt stated that he has Hepatitis C. History of Any Multi-Drug Resistant Organisms: None Reported Past Surgical History: Appendectomy Additional Past Surgical History / Comment(s): pt denies. Pt is denying any medical issues at time of admission. Past Anesthesia/Blood Transfusion Reactions: No Reported Reaction Past Psychological History: Anxiety, Depression, Panic Disorder, Schizophrenia Smoking Status: Current every day smoker Past Alcohol Use History: None Reported Additional Past Alcohol Use History / Comment(s): pt stated quit drinking 7 monhts ago approx oct or nov 2016 Past Drug Use History: None Reported - Past Family History Father History Unknown: Yes Additional Family Medical History / Comment(s): pt stated unk Mother History Unknown: Yes Additional Family Medical History / Comment(s): Pancreatic cancer in his mother Medications and Allergies Home Medications Medication Instructions Recorded Confirmed Type Omeprazole 20 mg PO DAILY #30 capsule. 05/31/16 10/13/19 Rx Aspirin EC [Ecotrin Low Dose] 81 mg PO DAILY 06/18/17 10/13/19 History Atorvastatin [Lipitor] 40 mg PO HS tab 03/10/19 10/13/19 Rx Sertraline [Zoloft] 200 mg PO 1900 #60 tab 03/10/19 10/13/19 Rx [place] Carbonate 900 mg PO DAILY 10/13/19 10/13/19 History Multivitamins, Thera [Multivitamin 1 tab PO DAILY 10/13/19 10/13/19 History (formulary)] QUEtiapine [SEROquel] 200 mg PO HS 10/13/19 10/13/19 History fluPHENAZine [Prolixin] 5 mg PO DAILY 10/13/19 10/13/19 History Allergies Allergy/AdvReac Type Severity Reaction Status Date / Time levofloxacin [From Levaquin] Allergy Unknown Verified 10/13/19 18:30 linezolid [From Zyvox] Allergy Unknown Verified 10/13/19 18:30 nitrofurantoin Allergy Unknown Verified 10/13/19 18:30 [From Macrobid] nitrofurantoin Allergy Unknown Verified 10/13/19 18:30 macrocrystalline [From Macrobid] Penicillins Allergy Unknown Verified 10/13/19 18:30 sulfamethoxazole Allergy Unknown Verified 10/13/19 18:30 [From Bactrim] trimethoprim [From Bactrim] Allergy Unknown Verified 10/13/19 18:30 vancomycin Allergy Unknown Verified 10/13/19 18:30 Physical Exam Vitals: Vital Signs Temp Pulse Pulse Resp BP BP Pulse Ox 10/13/19 18:13 98.0 F 67 16 138/85 10/13/19 16:36 16 10/13/19 15:45 98.2 F 85 18 129/86 98 Intake and Output 10/13/19 10/13/19 10/14/19 14:59 22:59 06:59 Other: Weight 72.575 kg General: Disheveled male, non toxic, no distress, appears at stated age, normal weight Derm: no unusual rashes/lesions no unusual ecchymoses, warm, dry Head: atraumatic, normocephalic, symmetric Eyes: EOMI, no lid lag, anicteric sclera, pupils equal round reactive to light ENT: Nose and ears atraumatic, no thrush, no pharyngeal erythema Neck: No thyromegaly, no cervical lymphadenopathy, trachea midline, supple Mouth: no lip lesion, mucus membranes moist Cardiovascular: S1S2 reg, no murmur, positive posterior tibial pulse bilateral, no edema, capillary refill less than 2 seconds Lungs: CTA bilateral, no rhonchi, no rales , no accessory muscle use Abdominal: soft, nontender to palpation, no guarding, no appreciable organomegaly, normal bowel sounds Ext: no gross muscle atrophy, muscle strength 5 out of 5 in all 4 extremities grossly, no contractures, Neuro: CN II-XI grossly intact, light touch intact all 4 extremities, finger to nose within normal limits, Psych: Alert, oriented, guarded affect Assessment and Plan Plan: Schizophrenia, poor medication compliance -As per psychiatry Chronic hepatitis C -Patient will need outpatient evaluation with GI Thank you for allowing us to participate in the care of this patient. We will follow peripherally. Do not hesitate to contact us with questions. Someone can be reached from the [facility] hospitalist group at all hours of the day at [phone].
[2019-10-14 08:47] LABS: Basophils % (A) 0 %; Eosinophils # (A) 0.3 k/uL (0-0.7); Eosinophils % (A) 4 %; HCT 51.7 % (39.0-53.0); HGB 16.7 gm/dL (13.0-17.5); Lymphocytes # (A) 2.3 k/uL (1.0-4.8); Lymphocytes % (A) 31 %; MCH 29.8 pg (25.0-35.0); MCHC 32.3 g/dL (31.0-37.0); MCV 92.2 fL (80.0-100.0); Mean Platelet Volume 7.5; Monocytes # (A) 0.6 k/uL (0-1.0); Monocytes % (A) 8 %; Neutrophils % (A) 54 %; Platelet Count 243 k/uL (150-450); RDW 13.2 % (11.5-15.5); WBC 7.3 k/uL (3.8-10.6)
[2019-10-14 08:59] LABS: ALT 15 U/L (4-49); AST 26 U/L (17-59); African American GFR (CKD) >90 (>60 ml/min/1.73 sqM); Albumin 4.6 g/dL (3.5-5.0); Alkaline Phosphatase 95 U/L (38-126); Anion Gap 10 mmol/L; Blood Urea Nitrogen 6 mg/dL (9-20); Calcium 9.5 mg/dL (8.4-10.2); Carbon Dioxide 26 mmol/L (22-30); Chloride 104 mmol/L (98-107); Cholesterol 198 mg/dL (<200); Glucose 120 mg/dL (74-99); HDL Cholesterol 37 mg/dL (40-60); LDL Cholesterol,Calculated 135 mg/dL (0-99); Non-African American GFR(CKD) >90 (>60 ml/min/1.73 sqM); Potassium 4.4 mmol/L (3.5-5.1); Sodium 140 mmol/L (137-145); Total Bilirubin 0.6 mg/dL (0.2-1.3); Total Protein 7.2 g/dL (6.3-8.2); Triglycerides 131 mg/dL (<150)
[2019-10-14] MEDS: NICOTINE 14MG/24HR PATCH TRANSDERM SCH (09:56)
--- NOTE | 2019-10-14 12:22 | HP ---
DATE OF SERVICE: 10/14/2019 HISTORY AND PHYSICAL IDENTIFICATION: The patient is a 53-year-old male, he resides in a boarding house and has his own room. He came to the emergency department for evaluation. CHIEF COMPLAINT: The patient came on petition for agitation. He stopped his injectable medications. He was petitioned for involuntary hospitalization. HISTORY OF PRESENTING ILLNESS: The only information available is what is documented in medical record, which is very limited. The patient provided no information and abruptly left the interview early in the course of the interview. The patient was petitioned for involuntary hospitalization. He has been followed by [facility]. He apparently has been on Haldol Decanoate, though he stopped his monthly injections around April. According to the petition, "El has stated that he no longer wants any mental health treatment and he is not willing to see any psychiatrist or take any medication. He is becoming more agitated since stopping his injection in April. He thinks he owns [employer]. When last seen by [facility], he stated "I relay this message, Do not come to see me, I will kenneth you. This was said to [facility] staff at an attempted home visit on 10/07/2019." When he presented to the ED, the only information that was documented is that he denied suicidal or homicidal ideation. The patient has a long-term history of psychiatric issues. He has been diagnosed with schizophrenia. His last admission to this facility was 02/25/2019. I refer the reader to Dr. Covarrubias's admission note of 02/26/2019 for details. At that time he was admitted for auditory hallucinations where he stated "they are overwhelming and directing me to kill myself." He is followed by Dr. Gomez at [facility]. He denied use of drug use. He was receiving Haldol Decanoate injections every 2 weeks. He had not been caring for himself. The patient has had a number of previous psychiatric admissions to this facility as well. His Haldol dose as of February was Haldol Decanoate 200 mg every 2 weeks along with Zoloft 100 mg daily, Vistaril 25 mg twice a day and lithium carbonate 600 mg at bedtime. He was discharged March 10, 2019. Discharge medications included lithium carbonate 300 mg in the morning, 600 mg at bedtime, Seroquel 150 mg at bedtime. Zoloft 200 mg daily, Prolixin Decanoate 25 mg IM Q 14 days oral Prolixin 3 mg twice a day and Vistaril 25 mg twice a day. When I interviewed the patient, he said he did not need to be in the hospital and believed he was arrested by police. When I read the petition stating that he had agitation, I asked him what was meant by that and he stood up and said he was not giving any more information and walked out of the interview. SUBSTANCE USE HISTORY: Uncertain. PAST MEDICAL HISTORY: The only information available is that he takes Lipitor in addition to psychotropic medications, his current home psychotropic medications are listed as Seroquel 200 mg at bedtime, Prolixin 5 mg daily, Zoloft 200 mg daily, lithium carbonate 900 mg daily in addition to Lipitor. FAMILY AND SOCIAL HISTORY: No information available. Please refer to previous admission notes. MENTAL STATUS EXAM: Patient was quite disheveled. He gave fair eye contact. He was restless. He responded to 2 or 3 questions with vague answers. He then abruptly stood up and walked out stating he was not going to provide any more information. He walked with a fairly steady gait. It was difficult to assess for any question of movement disorder. His affect was intense. His mood dysphoric. He was significantly distressed. He presumably has thought disorder symptoms that are persistent. When I asked him about hallucinations, he did not make any response to that. I was not able to assess for risk of harm to self or others. I was not able to assess for cognition. PHYSICAL EXAM: As per medical consultation of Dr. Pierce assessment: ASSESSMENT: This 53-year-old male is diagnosed with schizophrenia. The circumstances of his admission are uncertain, though he came on petition for presumably agitation along with refusing to take medications. There was no other information available. DIAGNOSES: 1. Schizophrenia with acute exacerbation. 2. Medication noncompliance. 3. Hyperlipidemia. RECOMMENDATIONS: Patient will be admitted for comprehensive medical psychiatric and psychosocial evaluation. We will engage the patient in individual and group therapeutic activities. At this point, no psychotropic medications will be started, though he does have availability of p.r.n. medications if he runs into difficulties. He has on petition. I will complete a 2nd certification. We will coordinate with [facility] for treatment and followup planning. MMODL / IJN: [id number] / MTDEla
[2019-10-14 17:19] LABS: Hemoglobin A1C 5.3 % (4.0-6.0)
[2019-10-14] MEDS: ACETAMINOPHEN TAB 325 MG TAB PO PRN (21:21)
[2019-10-14] MEDS: LORazepam 1 MG TAB PO PRN (22:28)
[2019-10-15] MEDS: ACETAMINOPHEN TAB 325 MG TAB PO PRN ×2 (03:10→21:08)
[2019-10-15] MEDS: LORazepam 1 MG TAB PO PRN ×2 (10:38→17:40)
[2019-10-15] MEDS: NICOTINE 14MG/24HR PATCH TRANSDERM SCH (10:38)
--- NOTE | 2019-10-15 14:02 | P.PN ---
Progress Note - Text Progress Note Date: 10/15/19 Interval History: Patient was seen laying down in his bed today after lunch and was initially re sistant to speak with writer producer. Patient refused to leave his bed today to speak with writer producer in the office and states that "lets his speech here". He appears to have poor hygiene and grooming and disheveled hair/appearance. He was concrete and had a poor insight into his condition and states that "all I know is a not a schizophrenic". He claims that he'll be refusing medications and states that he wants to take his treatment court. He states that "I don't know why they picked me up and brought me here I don't need to be here". He claims to have slept well and denies any paranoia today. He admitted to fair appetite. At this time patient denies any suicidal or homical ideations, intent or plan. Patient denies any auditory, visual hallucinations. Mental Status Exam: General Appearance: Patient appears to be older than stated age is alert, difficult to redirect and uncooperative. Disheveled appearance poor hygiene. Behavior: Patient is calmly seated without any agitated behavior. Uncooperative. Speech: Patient's speech is fluent and nonpressured. Mood/Affect: Mood is "okay", affect is congruent and constricted. Suicidality/Homicidality: Patient denies having any suicidal or homicidal ideation intent or plan. Perceptions: Patient denies any visual hallucinations and denies any auditory hallucinations Though content/process: [place], poverty of content. Poor insight. Memory and concentration: AOX3, grossly intact for the purposes of this session Judgment and insight: Poor Assessment Schizophrenia History of alcohol use disorder Nicotine dependence Plan: -Patient continues to meet criteria for inpatient psychiatric admission for symptom stabilization and safety. Patient refused to sign for his medications. Patient has a deferral date set for 10/16/[address] hearing on 10/29/2019. -Medications: Will start patient on Prolixin 3 mg twice a day for psychosis, lithium 300 mg daily for mood stabilization, Zoloft 50 mg daily for mood/anxiety. Melatonin 10 mg daily at bedtime for insomnia. The plan will be to transition patient on to Prolixin-D DICKENS prior to discharge to ensure compliance. Patient was previously on 50 mg Prolixin D every 2 weeks over has not received this medication in months.. -When necessary Atanish and [place] for agitation/aggression. -NRT - nicotine patch -SW on board for discharge planning. Encouraged the patient to participate in milieu. We'll await deferral and court hearing date.
[2019-10-15] MEDS: SERTRALINE 50 MG TAB PO SCH (14:36)
[2019-10-15] MEDS: LITHIUM CARBONATE 300 MG CAP PO SCH (14:36)
[2019-10-15 16:33] LABS: Appearance,Urine Clear (Clear); Bilirubin,Urine Negative (Negative); Blood,Urine Negative (Negative); Color,Urine Light Yellow; Glucose,Urine (UA) Negative (Negative); Ketones,Urine Negative (Negative); Leukocyte Esterase,Urine Negative (Negative); Nitrite,Urine Negative (Negative); Protein,Urine Negative (Negative); Specific Gravity,Urine 1.003 (1.001-1.035); Urobilinogen,Urine <2.0 mg/dL (<2.0)
[2019-10-15] MEDS: MELATONIN 5 MG TABLET PO SCH (21:08)
[2019-10-16 01:44] LABS: Urine Alcohol Negative (Negative); Urine Barbiturate Negative (Negative); Urine Cocaine Negative (Negative); Urine Methadone Negative (Negative); Urine Opiates Negative (Negative); Urine Phencyclidine Negative (Negative)
[2019-10-16] MEDS: LORazepam 1 MG TAB PO PRN ×3 (03:08→21:14)
[2019-10-16] MEDS: LITHIUM CARBONATE 300 MG CAP PO SCH (09:12)
[2019-10-16] MEDS: NICOTINE 14MG/24HR PATCH TRANSDERM SCH (09:12)
[2019-10-16] MEDS: SERTRALINE 50 MG TAB PO SCH (09:12)
[2019-10-16] MEDS: ACETAMINOPHEN TAB 325 MG TAB PO PRN ×2 (09:13→21:14)
--- NOTE | 2019-10-16 09:22 | P.PN ---
Progress Note - Text Progress Note Date: 10/16/19 Interval History: Patient was seen wandering the hallways after taking his medications this morn ing and was directable and agreeable to speak to automotive service writer in the office today. Patient continues to appear to have poor hygiene/grooming and disheveled appearance. Patient continues to be concrete and a poverty of content. He offered no overnight complaints however when asked more but his night he states that he did not sleep well and states that "I'm just getting on my meds now". He states that he feels his mind is "clearer" today and states that he will try to go to more groups this afternoon. His insight and judgment have been improving mildly. He claims to have slept well and denies any paranoia today. He admitted to fair appetite. At this time patient denies any suicidal or homical ideations, intent or plan. Patient denies any auditory, visual hallucinations. Mental Status Exam: General Appearance: Patient appears to be older than stated age is alert, more directable today and more cooperative. Disheveled appearance poor hygiene. Behavior: Patient is calmly seated without any agitated behavior. More cooperative today Speech: Patient's speech is fluent and nonpressured. Mood/Affect: Mood is "ok" mildly improving, affect is congruent and constricted. Suicidality/Homicidality: Patient denies having any suicidal or homicidal ideation intent or plan. Perceptions: Patient denies any visual hallucinations and denies any auditory hallucinations Though content/process: [place], poverty of content. Poor insight, improving mildly Memory and concentration: AOX3, grossly intact for the purposes of this session Judgment and insight: Poor, improving mildly Assessment Schizophrenia History of alcohol use disorder Nicotine dependence Plan: -Patient continues to meet criteria for inpatient psychiatric admission for symptom stabilization and safety. Patient has a deferral date set for 10/16/[address] hearing on 10/29/2019. -Medications: Will continue with Prolixin 3 mg twice a day for psychosis, lithium 300 mg daily for mood stabilization, Zoloft 50 mg daily for mood/anxiety. Melatonin 10 mg daily at bedtime for insomnia. The plan will be to transition patient on to Prolixin-D DICKENS prior to discharge to ensure compliance. Patient was previously on 50 mg Prolixin D every 2 weeks over has not received this medication in months. -When necessary Ativan and Geodon for agitation/aggression. -NRT - nicotine patch -SW on board for discharge planning. Encouraged the patient to participate in milieu. We'll await deferral and court hearing date. Patient will likely be discharged back to detention once he is transition onto long-acting injection.
[2019-10-16] MEDS: MELATONIN 5 MG TABLET PO SCH (21:14)
[2019-10-17] MEDS: LORazepam 1 MG TAB PO PRN ×2 (05:05→21:29)
[2019-10-17] MEDS: LITHIUM CARBONATE 300 MG CAP PO SCH (09:04)
[2019-10-17] MEDS: SERTRALINE 50 MG TAB PO SCH (09:04)
[2019-10-17] MEDS: NICOTINE 14MG/24HR PATCH TRANSDERM SCH (09:04)
--- NOTE | 2019-10-17 10:42 | P.PN ---
Progress Note - Text Progress Note Date: 10/17/19 Interval History: Patient was seen laying down in his bed this morning and was directable and ag reeable to speak to senior grant writer in his room and refused to leave the bed today. Patient continues to appear to have poor hygiene/grooming and disheveled appearance and had a foul body odor. Patient stated that he has not showered in the past few days however states that he would be willing to shower later on today. Patient continues to be concrete and a poverty of content and did not report any overnight complaints. He states that he was able to sleep fairly well last night. He claims that he has been interacting with others on the unit and has been going to some groups. He claimed that he has been taking his medications however continues to claim that he wants to go to court. His insight and judgment have been improving mildly. He claims to have slept well and denies any paranoia today. He admitted to fair appetite. At this time patient denies any suicidal or homical ideations, intent or plan. Patient denies any auditory, visual hallucinations. Mental Status Exam: General Appearance: Patient appears to be older than stated age is alert, more directable today and more cooperative. Disheveled appearance poor hygiene. Behavior: Patient is calmly seated without any agitated behavior. cooperative today Speech: Patient's speech is fluent and nonpressured. Mood/Affect: Mood is "fine" mildly improving, affect is congruent and constricted. Suicidality/Homicidality: Patient denies having any suicidal or homicidal ideation intent or plan. Perceptions: Patient denies any visual hallucinations and denies any auditory hallucinations Though content/process: [place], poverty of content. Poor insight, improving mildly Memory and concentration: AOX3, grossly intact for the purposes of this session Judgment and insight: Chronically Poor, improving mildly Assessment Schizophrenia History of alcohol use disorder Nicotine dependence Plan: -Patient continues to meet criteria for inpatient psychiatric admission for symptom stabilization and safety. Patient has a deferral date set for 10/16/[address] hearing on 10/29/2019. -Medications: Will increase Prolixin 4 mg twice a day for psychosis, lithium 300 mg daily for mood stabilization, increased Zoloft 100 mg daily for mood/anxiety. Melatonin 10 mg daily at bedtime for insomnia. The plan will be to transition patient on to Prolixin-D DICKENS prior to discharge to ensure compliance. Patient was previously on 50 mg Prolixin D every 2 weeks over has not received this medication in months. -When necessary aDriusz and Kamran for agitation/aggression. -NRT - nicotine patch -JEFRY on board for discharge planning. Encouraged the patient to participate in milieu. We'll await court hearing date for treatment order. Patient will likely be discharged back to [facility] once he is transition onto long-acting injection.
[2019-10-17] MEDS: MELATONIN 5 MG TABLET PO SCH (21:27)
[2019-10-18] MEDS: LORazepam 1 MG TAB PO PRN ×2 (06:40→16:41)
[2019-10-18] MEDS: SERTRALINE 100 MG TAB PO SCH (09:02)
[2019-10-18] MEDS: LITHIUM CARBONATE 300 MG CAP PO SCH (09:02)
[2019-10-18] MEDS: NICOTINE 14MG/24HR PATCH TRANSDERM SCH (09:02)
--- NOTE | 2019-10-18 09:08 | P.PN ---
Subjective Progress Note Date: 10/18/19 Principal diagnosis: Schizophrenia History of alcohol use disorder Nicotine dependence Subjective I'm fine I don't need any medicines may be some Ritalin. They gamy Ritalin when as a boy and it helped me calm down. I was just sitting in my room smoking a cigarette and walk down stairs and everybody blew up and ship me over here I wasn't doing anything. Objective: Vital signs temperature unknown heart rate 77 respirations 16 blood pressure 110/68 Labs: None recent Groups the patient went to a teen group yesterday and left early he seemed to focus okay namely left her minimal interaction with peers. Reasonable attention Did not go to any other groups Staff assessment: Patient is oriented 4 disheveled poor hygiene has to be encouraged take care of ADLs no insight into his problems is alert denies any suicidal or homicidal ideas denies any hallucinations or delusions and only talks to staff when approached Mental status exam: Gen. appearance patient as striking hairdo sticking out in all directions and full somewhat unkempt palomares Behavior he is calm and cooperative Speech is response times are normal and what he says fits with the questions Mood he denies any depression affect is normal Suicidality and homicidality are denied Perception denies any hallucinations no delusions evidenced Thought processes: He is fairly logical but doesn't use enough words to communicate and I have to check to see what he means and then he gets a little defensive Assessment the patient is relatively calm but as a no insight he says, "I will just wait until court but I will not take any shots or medication." No change in medication at this time Objective - Vital Signs Vital signs: Vital Signs Temp 98.0 F 10/17/19 05:04 Pulse 77 10/18/19 06:59 Resp 16 10/18/19 01:41 BP 110/68 10/18/19 06:59 Pulse Ox 98 10/17/19 05:04 - Labs CBC & Chem 7: 10/14/19 08:18 10/14/19 08:18
[2019-10-18] MEDS: MELATONIN 5 MG TABLET PO SCH (22:26)
[2019-10-19] MEDS: ACETAMINOPHEN TAB 325 MG TAB PO PRN ×3 (08:32→21:24)
[2019-10-19] MEDS: SERTRALINE 100 MG TAB PO SCH (08:32)
[2019-10-19] MEDS: NICOTINE 14MG/24HR PATCH TRANSDERM SCH (08:32)
[2019-10-19] MEDS: LITHIUM CARBONATE 300 MG CAP PO SCH (08:32)
[2019-10-19] MEDS: LORazepam 1 MG TAB PO PRN ×2 (08:32→16:40)
--- NOTE | 2019-10-19 17:20 | P.PN ---
Subjective Progress Note Date: 10/19/19 Principal diagnosis: Schizophrenia History of alcohol use disorder Nicotine dependence Subjective: I'm fine I just don't feel like going to groups and not helpful nothing needs to change Objective: Groups: Patient has not been attending he did show up for a couple minutes left and did not participate Vital signs were not run today Labs nothing new Staff assessment patient is calm withdrawn with a blunted affect disheveled soft spoken compliant but guarded and vague seems to be oriented to person place time and circumstances and denies everything including hallucinations delusions or suicidal homicidal thoughts tends to isolate so far to assess how he is actually doing Mental status exam flat affect he came readily gait and station are normal he is wearing hospital gown rather than his street clothes and I think is part of his personality to have a wild hair but it's clean seem to be taking care of ADLs no evidence of responding to voices eye contact is adequate actually no insight desire to change or get any help Assessment patient is stable although dysfunction Plan no change Objective - Vital Signs Vital signs: Vital Signs Temp 98.0 F 10/17/19 05:04 Pulse 77 10/18/19 06:59 Resp 16 10/18/19 01:41 BP 110/68 10/18/19 06:59 Pulse Ox 98 10/17/19 05:04 Intake & Output 10/18/19 10/19/19 10/19/19 18:59 06:59 18:59 Weight 78.2 kg - Labs CBC & Chem 7: 10/14/19 08:18 10/14/19 08:18
[2019-10-19] MEDS: MELATONIN 5 MG TABLET PO SCH (21:22)
[2019-10-20] MEDS: LORazepam 1 MG TAB PO PRN ×3 (01:03→17:12)
[2019-10-20] MEDS: NICOTINE 14MG/24HR PATCH TRANSDERM SCH (09:20)
[2019-10-20] MEDS: LITHIUM CARBONATE 300 MG CAP PO SCH (09:20)
[2019-10-20] MEDS: SERTRALINE 100 MG TAB PO SCH (09:21)
--- NOTE | 2019-10-20 11:45 | P.PN ---
Progress Note - Text Progress Note Date: 10/20/19 Interval History: Patient was seen laying down in his bed this morning and was directable and ag reeable to speak to senior underwriter in the office today. Patient continues to appear to have poor hygiene/grooming and disheveled appearancehowever did state that he showered over the weekend. he states that he has "popped into groups" now and again over the weekend however does not like to stay too long. He continues to state that he is waiting to go to court which will be held next week. He states that he has been taking his medications regularly and denies any problems. He denied any overnight complaints and states that he slept well. Patient continues to be concrete and a poverty of content and did not report any complaints. His insight and judgment have been improving mildly. He claims to have slept well and denies any paranoia today. He admitted to fair appetite. At this time patient denies any suicidal or homical ideations, intent or plan. Patient denies any auditory, visual hallucinations. Mental Status Exam: General Appearance: Patient appears to be older than stated age is alert, more directable today and more cooperative. Disheveled appearance poor hygiene. Behavior: Patient is calmly seated without any agitated behavior. more cooperative today Speech: Patient's speech is fluent and nonpressured. Mood/Affect: Mood is "ok" mildly improving, affect is congruent and constricted. Suicidality/Homicidality: Patient denies having any suicidal or homicidal ideation intent or plan. Perceptions: Patient denies any visual hallucinations and denies any auditory hallucinations Though content/process: [place], poverty of content. Poor insight, improving mildly Memory and concentration: AOX3, grossly intact for the purposes of this session Judgment and insight: Chronically Poor, improving mildly Assessment Schizophrenia History of alcohol use disorder Nicotine dependence Plan: -Patient continues to meet criteria for inpatient psychiatric admission for symptom stabilization and safety. Patient has a deferral date set for 10/16/[address] hearing on 10/29/2019. -Medications: Will increase Prolixin 5 mg twice a day for psychosis, lithium 300 mg daily for mood stabilization, continue with Zoloft 100 mg daily for mood/anxiety. Melatonin 10 mg daily at bedtime for insomnia. The plan will be to transition patient on to Prolixin-D DICKENS prior to discharge to ensure compliance. Patient was previously on 50 mg Prolixin D every 2 weeks over has not received this medication in months. -When necessary Dariusz and Kamran for agitation/aggression. -NRT - nicotine patch -SW on board for discharge planning. Encouraged the patient to participate in milieu. We'll await court hearing date for treatment order. Patient will likely be discharged back to retirement once he is transition onto long-acting injection.
[2019-10-20] MEDS: MELATONIN 5 MG TABLET PO SCH (20:15)
[2019-10-21] MEDS: LORazepam 1 MG TAB PO PRN ×3 (00:51→17:14)
--- NOTE | 2019-10-21 09:26 | P.PN ---
Progress Note - Text Progress Note Date: 10/21/19 Interval History: Patient was seen laying down in his bed this morning and was directable and ag reeable to speak to chief writer however did not want to leave his room. He states that he has been waiting for his medications this morning "for the line to go down". He states that he has been taking his medications and denies any side effects or any issues with them. Patient continues to appear to have poor hygiene/grooming and disheveled appearance. He continues to have a foul odor. He denied any overnight complaints and states that he slept well. Patient is concrete with poverty of content/speech.. He continues to state that he is waiting to go to court which will be held next week. His insight and judgment have been improving mildly. Patient did not endorse any delusions or any paranoia today. He admitted to fair appetite. At this time patient denies any suicidal or homical ideations, intent or plan. Patient denies any auditory, visual hallucinations. Mental Status Exam: General Appearance: Patient appears to be older than stated age is alert, more directable today and more cooperative. Disheveled appearance poor hygiene. Behavior: Patient is calmly seated without any agitated behavior. more cooperative today Speech: Patient's speech is fluent and nonpressured. Mood/Affect: Mood is "fine" mildly improving, affect is congruent and constricted. Suicidality/Homicidality: Patient denies having any suicidal or homicidal ideation intent or plan. Perceptions: Patient denies any visual hallucinations and denies any auditory hallucinations Though content/process: [place], poverty of content. Poor insight, improving mildly Memory and concentration: AOX3, grossly intact for the purposes of this session Judgment and insight: Chronically Poor, improving mildly Assessment Schizophrenia History of alcohol use disorder Nicotine dependence Plan: -Patient continues to meet criteria for inpatient psychiatric admission for symptom stabilization and safety. Patient has a deferral date set for 10/16/[address] hearing on 10/29/2019. -Medications: Will continue with Prolixin 5 mg twice a day for psychosis, lithium 300 mg daily for mood stabilization, continue with Zoloft 100 mg daily for mood/anxiety. Melatonin 10 mg daily at bedtime for insomnia. The plan will be to transition patient on to Prolixin-D DICKENS prior to discharge to ensure compliance. Patient was previously on 50 mg Prolixin D every 2 weeks over has not received this medication in months. -When necessary Atanish and Kamran for agitation/aggression. -NRT - nicotine patch -SW on board for discharge planning. Encouraged the patient to participate in milieu. We'll await court hearing date for treatment order. [facility] once he is transition onto long-acting injection.
[2019-10-21] MEDS: NICOTINE 14MG/24HR PATCH TRANSDERM SCH (10:23)
[2019-10-21] MEDS: LITHIUM CARBONATE 300 MG CAP PO SCH (10:23)
[2019-10-21] MEDS: SERTRALINE 100 MG TAB PO SCH (10:23)
[2019-10-21] MEDS: MELATONIN 5 MG TABLET PO SCH (23:00)
[2019-10-21] MEDS: ACETAMINOPHEN TAB 325 MG TAB PO PRN (23:00)
[2019-10-22] MEDS: NICOTINE 14MG/24HR PATCH TRANSDERM SCH (08:28)
[2019-10-22] MEDS: LITHIUM CARBONATE 300 MG CAP PO SCH (08:28)
[2019-10-22] MEDS: SERTRALINE 100 MG TAB PO SCH (08:28)
[2019-10-22] MEDS: LORazepam 1 MG TAB PO PRN ×2 (08:28→20:35)
--- NOTE | 2019-10-22 11:26 | P.PN ---
Progress Note - Text Progress Note Date: 10/22/19 Interval History: Patient was seen in his room this morning and was directable and agreeable to speak to development writer in the office today. Patient appeared to be appropriate however continues to have poor hygiene and grooming. He continues to be concrete. He did not offer any overnight complaints and states that he has been sleeping well. He states that he has been going to some groups however was not able to elaborate much on what he is learning from the groups. He continues to state that he is looking forward to court. He has been taking his medications every day. Patient is concrete with poverty of content/speech. His insight and judgment have been improving mildly. Patient did not endorse any delusions or any paranoia today. He admitted to fair appetite. At this time patient denies any suicidal or homical ideations, intent or plan. Patient denies any auditory, visual hallucinations. Mental Status Exam: General Appearance: Patient appears to be older than stated age is alert, more directable today and more cooperative. Disheveled appearance poor hygiene. Behavior: Patient is calmly seated without any agitated behavior. more cooperative today Speech: Patient's speech is fluent and nonpressured. Mood/Affect: Mood is "ok" mildly improving, affect is congruent and constricted. Suicidality/Homicidality: Patient denies having any suicidal or homicidal ideation intent or plan. Perceptions: Patient denies any visual hallucinations and denies any auditory hallucinations Though content/process: [place], poverty of content. Poor insight, improving mildly Memory and concentration: AOX3, grossly intact for the purposes of this session Judgment and insight: Chronically Poor, improving mildly Assessment Schizophrenia History of alcohol use disorder Nicotine dependence Plan: -Patient continues to meet criteria for inpatient psychiatric admission for symptom stabilization and safety. Patient has a deferral date set for 10/16/[address] hearing on 10/29/2019. -Medications: Will continue with Prolixin 5 mg twice a day for psychosis, lithium 300 mg daily for mood stabilization, continue with Zoloft 100 mg daily for mood/anxiety. Melatonin 10 mg daily at bedtime for insomnia. The plan will be to transition patient on to Prolixin-D DICKENS prior to discharge to ensure compliance. Patient was previously on 50 mg Prolixin D every 2 weeks over has not received this medication in months. -When necessary Ativan and Geodon for agitation/aggression. -NRT - nicotine patch -SW on board for discharge planning. Encouraged the patient to participate in milieu. We'll await court hearing date for treatment order. Patient will likely be discharged back to long term once he is transition onto long-acting injection.
[2019-10-22] MEDS: ACETAMINOPHEN TAB 325 MG TAB PO PRN (14:47)
[2019-10-22] MEDS: MELATONIN 5 MG TABLET PO SCH (20:35)
[2019-10-23] MEDS: ACETAMINOPHEN TAB 325 MG TAB PO PRN ×2 (02:08→09:21)
--- NOTE | 2019-10-23 09:20 | P.PN ---
Progress Note - Text Progress Note Date: 10/23/19 Interval History: Patient was seen waiting in line waiting for his medications morning and was d irectable and agreeable to speak to medical underwriter in the office today. Patient appeared to be appropriate however continues to have poor hygiene and grooming. He continues to be concrete with his speech and denied any overnight complaints. He states that he was "tossing and turning" last night and did not explain why he did not get good sleep. He states that he has went to one group yesterday. He continues to state that he is looking forward to court and spoke briefly about his medications. He continues to take his medications every day. Patient is concrete with poverty of content/speech. His insight and judgment have been improving mildly. Patient did not endorse any delusions or any paranoia today. He admitted to fair appetite. At this time patient denies any suicidal or homical ideations, intent or plan. Patient denies any auditory, visual hallucinations. Mental Status Exam: General Appearance: Patient appears to be older than stated age is alert, more directable today and more cooperative. Disheveled appearance poor hygiene. Behavior: Patient is calmly seated without any agitated behavior. more cooperative today Speech: Patient's speech is fluent and nonpressured. Mood/Affect: Mood is "ok" mildly improving, affect is congruent and constricted. Suicidality/Homicidality: Patient denies having any suicidal or homicidal ideation intent or plan. Perceptions: Patient denies any visual hallucinations and denies any auditory hallucinations Though content/process: [place], poverty of content. Poor insight, improving mildly Memory and concentration: AOX3, grossly intact for the purposes of this session Judgment and insight: Chronically Poor, improving mildly Assessment Schizophrenia History of alcohol use disorder Nicotine dependence Plan: -Patient continues to meet criteria for inpatient psychiatric admission for symptom stabilization and safety. Patient has a deferral date set for 10/16/[address] hearing on 10/29/2019. -Medications: Will continue with Prolixin 5 mg twice a day for psychosis, lithium 300 mg daily for mood stabilization, continue with Zoloft 100 mg daily for mood/anxiety. Melatonin 10 mg daily at bedtime for insomnia. The plan will be to transition patient on to Prolixin-D DICKENS prior to discharge to ensure compliance. Patient was previously on 50 mg Prolixin D every 2 weeks over has not received this medication in months. -When necessary [place] and [place] for agitation/aggression. -NRT - nicotine patch -SW on board for discharge planning. Encouraged the patient to participate in milieu. We'll await court hearing date for treatment order. Patient will likely be discharged back to [facility] once he is transition onto long-acting injection.
[2019-10-23] MEDS: LITHIUM CARBONATE 300 MG CAP PO SCH (09:21)
[2019-10-23] MEDS: NICOTINE 14MG/24HR PATCH TRANSDERM SCH (09:21)
[2019-10-23] MEDS: SERTRALINE 100 MG TAB PO SCH (09:21)
[2019-10-23] MEDS: LORazepam 1 MG TAB PO PRN ×2 (09:22→18:15)
[2019-10-23] MEDS: MELATONIN 5 MG TABLET PO SCH (20:18)
[2019-10-24] MEDS: LORazepam 1 MG TAB PO PRN ×2 (09:54→16:49)
[2019-10-24] MEDS: NICOTINE 14MG/24HR PATCH TRANSDERM SCH (09:54)
[2019-10-24] MEDS: SERTRALINE 100 MG TAB PO SCH (09:54)
[2019-10-24] MEDS: ACETAMINOPHEN TAB 325 MG TAB PO PRN (09:55)
[2019-10-24] MEDS: LITHIUM CARBONATE 300 MG CAP PO SCH (09:55)
--- NOTE | 2019-10-24 11:12 | P.PN ---
Progress Note - Text Progress Note Date: 10/24/19 Interval History: Patient was seen coming out of group this morning and was directable and agree able to speak to designer writer in the office today. Patient has claimed that he feels happy today as it is birthday. He claims that he is feeling better with regards to his mood and denies any overnight complaints. He appears to have mild improvement in his hygiene and grooming and states that he was able to shower yesterday. He continues to be concrete with his speech and denied any overnight complaints. He claims that he was able to sleep well last night. He states that he has been doing laps in the unit and has been going to some groups however was not able to elaborate on what they are doing. He continues to state that he is looking forward to court and spoke briefly about his medications. Patient is concrete with poverty of content/speech. His insight and judgment have been improving mildly. Patient did not endorse any delusions or any paranoia today. He admitted to fair appetite. At this time patient denies any suicidal or homical ideations, intent or plan. Patient denies any auditory, visual hallucinations. Mental Status Exam: General Appearance: Patient appears to be older than stated age is alert, more directable today and more cooperative. Disheveled appearance, mildly improving hygiene. Behavior: Patient is calmly seated without any agitated behavior. more cooperative today Speech: Patient's speech is fluent and nonpressured. Mood/Affect: Mood is "good" mildly improving, affect is congruent and constricted, improving mildly. Suicidality/Homicidality: Patient denies having any suicidal or homicidal ideation intent or plan. Perceptions: Patient denies any visual hallucinations and denies any auditory hallucinations Though content/process: [place], poverty of content. Poor insight, improving mildly Memory and concentration: AOX3, grossly intact for the purposes of this session Judgment and insight: Chronically Poor, improving mildly Assessment Schizophrenia History of alcohol use disorder Nicotine dependence Plan: -Patient continues to meet criteria for inpatient psychiatric admission for symptom stabilization and safety. Patient has a deferral date set for 10/16/[address] hearing on 10/29/2019. -Medications: Will continue with Prolixin 5 mg twice a day for psychosis, lithium 300 mg daily for mood stabilization, continue with Zoloft 100 mg daily for mood/anxiety. Melatonin 10 mg daily at bedtime for insomnia. The plan will be to transition patient on to Prolixin-D DICKENS prior to discharge to ensure compliance. Patient was previously on 50 mg Prolixin D every 2 weeks over has not received this medication in months. -When necessary Ativan and Kamran for agitation/aggression. -NRT - nicotine patch -SW on board for discharge planning. Encouraged the patient to participate in milieu. We'll await court hearing date for treatment order. Patient will likely be discharged back to [facility] once he is transition onto long-acting injection.
[2019-10-24] MEDS: MELATONIN 5 MG TABLET PO SCH (21:32)
[2019-10-25] MEDS: LITHIUM CARBONATE 300 MG CAP PO SCH (08:31)
[2019-10-25] MEDS: NICOTINE 14MG/24HR PATCH TRANSDERM SCH (08:31)
[2019-10-25] MEDS: LORazepam 1 MG TAB PO PRN ×2 (08:32→20:31)
[2019-10-25] MEDS: SERTRALINE 100 MG TAB PO SCH (08:32)
[2019-10-25] MEDS: ACETAMINOPHEN TAB 325 MG TAB PO PRN (20:32)
[2019-10-25] MEDS: BENZTROPINE MESYLATE 0.5 MG TAB PO SCH (20:32)
[2019-10-25] MEDS: MELATONIN 5 MG TABLET PO SCH (20:32)
--- NOTE | 2019-10-25 23:45 | P.PN ---
Progress Note - Text Progress Note Date: 10/25/19 Subjective: Patient was seen today as a cross coverage for Dr. Arita. The patient was evaluated, chart reviewed, case discussed with the treatment team. Patient reports good sleep last night, and appetite was reported as "better". Patient has not been going to groups and other unit activities. The patient is compliant with his medications and denies any adverse reactions. Pt was isolating himself in his room, but he came out for meals and has minimal interaction with others. He denies feeling depressed, hopeless, or suicidal. Denies any hallucinations but seems internally preoccupied. Denies any manic or severe mood swings and no PI reported. Reports shakiness all the time and agreed to try Cogentin for that. Denies physical symptoms Objective: Vitals has been reviewed. Mental status examination; Appearance: The patient appears stated age, disheveled, no specific features. Gait/posture: Normal gait, Normal arm swinging: No abnormal movements. Attitude and behavior: not fully engaged, partially cooperative, intermittent eye contact. Motor activity: Normal psychomotor activity Speech: Normal rate, tone. Mood: Anxious Affect: Constricted Thought form: Restricted, but goal-directed, coherent. Thought content: Internally preoccupied, denies delusions. Denies suicidal thoughts, denies homicidal thoughts, denies intentions or plans. Perception: Denies any auditory or visual hallucinations Attention: No impairment. Orientation: Patient patient was fully oriented to time place person and situation. Insight: Patient has fair insight about fair psychiatric disorder. Judgment: Patient has fair judgment about fair psychiatric treatment. Assessment: Schizophrenia Rule out schizoaffective disorder, depressive type. History of alcohol use disorder Nicotine dependence Plan: Continue inpatient level of care due to need for further stabilization Precautions: Continue 15 minutes check for safety. Consider medical consultation if any acute medical issues arise. Provide the patient individual, group therapy, substance use disorder counseling to give better insight and learn coping skills. Medications: Prolixin for psychotic symptoms [place] for mood stabilization Zoloft for depression and anxiety Start Cogenin 0.5 mg BID for EPS Continue PRN psych medications Continue non-psychiatric medications for management of co-morbid medical problems. Discharge patient to OUTPATIENT services upon a stabilization
[2019-10-26] MEDS: LORazepam 1 MG TAB PO PRN ×2 (09:34→20:32)
[2019-10-26] MEDS: SERTRALINE 100 MG TAB PO SCH (09:34)
[2019-10-26] MEDS: BENZTROPINE MESYLATE 0.5 MG TAB PO SCH ×2 (09:34→20:33)
[2019-10-26] MEDS: LITHIUM CARBONATE 300 MG CAP PO SCH (09:34)
[2019-10-26] MEDS: NICOTINE 14MG/24HR PATCH TRANSDERM SCH (09:34)
[2019-10-26] MEDS: ACETAMINOPHEN TAB 325 MG TAB PO PRN ×2 (09:35→20:33)
--- NOTE | 2019-10-26 13:41 | P.PN ---
Progress Note - Text Progress Note Date: 10/26/19 Subjective: Patient was seen today as a cross coverage for Dr. Arita. The patient was evaluated, chart reviewed, case discussed with the treatment team. Patient continued to present to the same that he isolates himself for most of the time in his room and he reports he likes to stay alone. He denies feeling depressed, hopeless, or suicidal. Denies any mood swings, manic or psychotic symptoms. He denies any hallucinations, suicidal or homicidal ideation, or paranoia. Reports continued to have tremors in his legs and he is hoping Cogentin would help with that which he started yesterday. Patient takes his psychiatric medications and no other side effects reported besides tremors. He reports fair sleep and appetite. He is not attending groups or other unit activities Objective: Vitals has been reviewed. Mental status examination; Appearance: The patient appears stated age, disheveled, no specific features. Gait/posture: Normal gait, Normal arm swinging: No abnormal movements. Attitude and behavior: not fully engaged, partially cooperative, intermittent eye contact. Motor activity: Normal psychomotor activity Speech: Normal rate, tone. Mood: Anxious Affect: Constricted Thought form: Restricted, but goal-directed, coherent. Thought content: Internally preoccupied, denies delusions. Denies suicidal thoughts, denies homicidal thoughts, denies intentions or plans. Perception: Denies any auditory or visual hallucinations Attention: No impairment. Orientation: Patient patient was fully oriented to time place person and situation. Insight: Patient has fair insight about fair psychiatric disorder. Judgment: Patient has fair judgment about fair psychiatric treatment. Assessment: Schizophrenia Rule out schizoaffective disorder, depressive type. History of alcohol use disorder Nicotine dependence Plan: Continue inpatient level of care due to need for further stabilization Precautions: Continue 15 minutes check for safety. Consider medical consultation if any acute medical issues arise. Provide the patient individual, group therapy, substance use disorder counseling to give better insight and learn coping skills. Medications: Prolixin for psychotic symptoms [place] for mood stabilization Zoloft for depression and anxiety Continue Cogenin 0.5 mg BID for EPS Continue PRN psych medications Continue non-psychiatric medications for management of co-morbid medical problems. Discharge patient to OUTPATIENT services upon a stabilization
[2019-10-26] MEDS: MELATONIN 5 MG TABLET PO SCH (20:33)
[2019-10-27] MEDS: BENZTROPINE MESYLATE 0.5 MG TAB PO SCH ×2 (07:59→20:30)
[2019-10-27] MEDS: ACETAMINOPHEN TAB 325 MG TAB PO PRN (07:59)
[2019-10-27] MEDS: LORazepam 1 MG TAB PO PRN ×2 (07:59→16:45)
[2019-10-27] MEDS: LITHIUM CARBONATE 300 MG CAP PO SCH (07:59)
[2019-10-27] MEDS: SERTRALINE 100 MG TAB PO SCH (07:59)
[2019-10-27] MEDS: NICOTINE 14MG/24HR PATCH TRANSDERM SCH (07:59)
--- NOTE | 2019-10-27 10:07 | P.PN ---
Progress Note - Text Progress Note Date: 10/27/19 Interval History: Patient was seen lying in his bed this morning and was directable and agreeable to speak to telegraphic typewriter operator chief in the office today. Patient appeared to be in no acute distress however did complain of feeling tired today. He states that he did not want to leave his bed and go to group because of his lack of energy. He states that over the weekend his medications were changed. He claims that he is feeling better with regards to his mood and denies any overnight complaints. He claims that he was able to shower over the weekend. He continues to be concrete with his speech. He claims that he was able to sleep well last night and stated that he slept "too many hours". He continues to acknowledge that he has court on Sunday for his treatment order. Patient is concrete with poverty of content/speech. His insight and judgment have been improving mildly. Patient did not endorse any delusions or any paranoia today. He admitted to fair appetite. At this time patient denies any suicidal or homical ideations, intent or plan. Patient denies any auditory, visual hallucinations. Mental Status Exam: General Appearance: Patient appears to be older than stated age is alert, more directable today and more cooperative. Disheveled appearance, mildly improving hygiene. Behavior: Patient is calmly seated without any agitated behavior. Attempts to cooperate. Speech: Patient's speech is fluent and nonpressured. Mood/Affect: Mood is "ok" mildly improving, affect is congruent and constricted, improving mildly. Suicidality/Homicidality: Patient denies having any suicidal or homicidal ideation intent or plan. Perceptions: Patient denies any visual hallucinations and denies any auditory hallucinations Though content/process: [place], poverty of content. Poor insight, improving mildly. Complained of tiredness. Memory and concentration: AOX3, grossly intact for the purposes of this session Judgment and insight: Chronically Poor, improving mildly Assessment Schizophrenia History of alcohol use disorder Nicotine dependence Plan: -Patient continues to meet criteria for inpatient psychiatric admission for symptom stabilization and safety. Patient has a deferral date set for 10/16/[address] hearing on 10/29/2019. -Medications: Will continue with Prolixin 5 mg twice a day for psychosis, lithium 300 mg daily for mood stabilization, continue with Zoloft 100 mg daily for mood/anxiety. Melatonin 10 mg daily at bedtime for insomnia. Decrease Cogentin to 0.5 mg daily at bedtime for EPS symptoms. The plan will be to transition patient on to Prolixin-D DICKENS prior to discharge to ensure compliance. Patient was previously on 50 mg Prolixin D every 2 weeks over has not received this medication in months. -When necessary Ativan and Geodon for agitation/aggression. -NRT - nicotine patch -SW on board for discharge planning. Encouraged the patient to participate in milieu. We'll await court hearing date for treatment order. Patient will likely be discharged back to [facility]ial once he is transition onto long-acting injection.
[2019-10-27] MEDS: MELATONIN 5 MG TABLET PO SCH (20:30)
[2019-10-28] MEDS: LITHIUM CARBONATE 300 MG CAP PO SCH (08:15)
[2019-10-28] MEDS: NICOTINE 14MG/24HR PATCH TRANSDERM SCH (08:15)
[2019-10-28] MEDS: SERTRALINE 100 MG TAB PO SCH (08:16)
[2019-10-28] MEDS: LORazepam 1 MG TAB PO PRN ×2 (08:16→20:21)
[2019-10-28] MEDS: ACETAMINOPHEN TAB 325 MG TAB PO PRN ×2 (08:16→20:21)
--- NOTE | 2019-10-28 08:42 | P.PN ---
Progress Note - Text Progress Note Date: 10/28/19 (\\) Interval History: Patient was seen sitting at the side of his bed this morning and was directable and agreeable to speak to business writer today. Patient appeared to be in no acute distress and appeared to be more cooperative and appropriate with business writer. He states that he is feeling more awake today and less tired. He thanked business writer for changing his medications for him. He states that he is able to sleep better last night and denies any overnight complaints. He claims that he is feeling better with regards to his mood and anxiety. He spoke about looking forward to court and asked why he is going to court and business writer discussed the treatment planning and court order with him. Patient is concrete with poverty of content/speech. His insight and judgment have been improving mildly. Patient did not endorse any delusions or any paranoia today. He admitted to fair appetite. At this time patient denies any suicidal or homical ideations, intent or plan. Patient denies any auditory, visual hallucinations. Mental Status Exam: General Appearance: Patient appears to be older than stated age is alert, more directable today and more cooperative. Disheveled appearance, mildly improving hygiene. Behavior: Patient is calmly seated without any agitated behavior. Attempts to cooperate. Speech: Patient's speech is fluent and nonpressured. Mood/Affect: Mood is "fine" mildly improving, affect is congruent and constricted, improving mildly. Suicidality/Homicidality: Patient denies having any suicidal or homicidal ideation intent or plan. Perceptions: Patient denies any visual hallucinations and denies any auditory hallucinations Though content/process: [place], poverty of content. Poor insight, improving mildly. Memory and concentration: AOX3, grossly intact for the purposes of this session Judgment and insight: Chronically Poor, improving mildly Assessment Schizophrenia History of alcohol use disorder Nicotine dependence Plan: -Patient continues to meet criteria for inpatient psychiatric admission for symptom stabilization and safety. Patient has a deferral date set for 10/16/[address] hearing on 10/29/2019. -Medications: Will continue with Prolixin 5 mg twice a day for psychosis, lithium 300 mg daily for mood stabilization, continue with Zoloft 100 mg daily for mood/anxiety. Melatonin 10 mg daily at bedtime for insomnia. Continue with Cogentin to 0.5 mg daily at bedtime for EPS symptoms. The plan will be to transition patient on to Prolixin-D DICKENS prior to discharge to ensure compliance. Patient was previously on 50 mg Prolixin D every 2 weeks over has not received this medication in months. -When necessary [place] and Kamran for agitation/aggression. -NRT - nicotine patch -SW on board for discharge planning. Encouraged the patient to participate in milieu. We'll await court hearing date for treatment order. [facility] once he is transition onto long-acting injection.
[2019-10-28] MEDS: MELATONIN 5 MG TABLET PO SCH (20:20)
[2019-10-28] MEDS: BENZTROPINE MESYLATE 0.5 MG TAB PO SCH (20:20)
[2019-10-29] MEDS: NICOTINE 14MG/24HR PATCH TRANSDERM SCH (09:58)
[2019-10-29] MEDS: SERTRALINE 100 MG TAB PO SCH (09:59)
[2019-10-29] MEDS: LITHIUM CARBONATE 300 MG CAP PO SCH (09:59)
[2019-10-29] MEDS: LORazepam 1 MG TAB PO PRN ×2 (09:59→18:23)
[2019-10-29] MEDS: ACETAMINOPHEN TAB 325 MG TAB PO PRN (09:59)
--- NOTE | 2019-10-29 10:43 | P.PN ---
Progress Note - Text Progress Note Date: 10/29/19 Interval History: Patient was seen laying in his bed this morning and was directable and agreeable to speak to health underwriter today in his room. Patient had just finished his court hearing and claims that he spoke with the sheeter machine operator. When asked to describe what happened he states that "the sheeter machine operator wants me on medication". She continues to state that he does not need his medication and wants to be discharged back home. Patient appeared to be in no acute distress and appeared to be superficially cooperative and continues to have poverty of content and speech. He states that he is feeling more awake today and less tired. He states that he is able to sleep better last night and denies any overnight complaints. He claims that he is feeling better with regards to his mood and anxiety and denied any other complaints. Front Edger spoke with patient about transitioning him back onto long- acting injection and patient made no comment about it. Patient did not endorse any delusions or any paranoia today. He admitted to fair appetite. At this time patient denies any suicidal or homical ideations, intent or plan. Patient denies any auditory, visual hallucinations. Mental Status Exam: General Appearance: Patient appears to be older than stated age is alert, more directable today and more cooperative. Disheveled appearance, mildly improving hygiene. Behavior: Patient is calmly seated without any agitated behavior. Speech: Patient's speech is fluent and nonpressured. Mood/Affect: Mood is "ok" mildly improving, affect is congruent and constricted Suicidality/Homicidality: Patient denies having any suicidal or homicidal ideation intent or plan. Perceptions: Patient denies any visual hallucinations and denies any auditory hallucinations Though content/process: [place], poverty of content. Chronically Poor insight, improving mildly. Spoke about his medications today. Memory and concentration: AOX3, grossly intact for the purposes of this session Judgment and insight: Chronically Poor, improving mildly Assessment Schizophrenia History of alcohol use disorder Nicotine dependence Plan: -Patient continues to meet criteria for inpatient psychiatric admission for symptom stabilization and safety. Patient has received court order for treatment on 10/29/2019. -Medications: Will decrease Prolixin 4 mg twice a day for psychosis, lithium 300 mg daily for mood stabilization, continue with Zoloft 100 mg daily for mood/anxiety. Melatonin 10 mg daily at bedtime for insomnia. Continue with Cogentin to 0.5 mg daily at bedtime for EPS symptoms. Will give Prolixin D 50 mg IM dose today and will attempt to decrease patient's by mouth Prolixin gradually prior to discharge. -When necessary Ativan and Geodon for agitation/aggression. -NRT - nicotine patch -SW on board for discharge planning. Encouraged the patient to participate in milieu. Patient is currently on court ordered treatment. Patient will likely be discharged back to intermediate once he is transition onto long-acting injection.
[2019-10-29] MEDS ORDERED: fluPHENAZine DECANOATE 25 MG/ML 5ML MDV IM ONE ×2 (11:00→16:00)
[2019-10-29] MEDS: MELATONIN 5 MG TABLET PO SCH (21:24)
[2019-10-29] MEDS: BENZTROPINE MESYLATE 0.5 MG TAB PO SCH (21:24)
[2019-10-30] MEDS: LORazepam 1 MG TAB PO PRN ×2 (09:42→17:02)
[2019-10-30] MEDS: NICOTINE 14MG/24HR PATCH TRANSDERM SCH (09:42)
[2019-10-30] MEDS: SERTRALINE 100 MG TAB PO SCH (09:42)
[2019-10-30] MEDS: LITHIUM CARBONATE 300 MG CAP PO SCH (09:42)
[2019-10-30] MEDS: ACETAMINOPHEN TAB 325 MG TAB PO PRN (09:43)
--- NOTE | 2019-10-30 10:04 | P.PN ---
Progress Note - Text Progress Note Date: 10/30/19 Interval History: Patient was seen laying in his bed this morning and was directable and agreeable to speak to jingle writer today in the office. Patient claims that he is doing well today however states that he is feeling tired as he was not able to sleep last night. Patient claims that for the past 2 nights he has not had good rest and when asked if he wanted to take Benadryl patient agreed. He claims that his mood has been gradually improving and denied any issues. Patient was asking about possible discharge and where he will be going next. He states that he took the long-acting injection yesterday and tolerated it well. Patient appeared to be in no acute distress and appeared to be superficially cooperative and continues to have poverty of content and speech. He claims that he has a fair appetite. Patient did not endorse any delusions or any paranoia today. At this time patient denies any suicidal or homical ideations, intent or plan. Patient denies any auditory, visual hallucinations. Mental Status Exam: General Appearance: Patient appears to be older than stated age is alert, more directable today and more cooperative. Disheveled appearance, mildly improving hygiene. Behavior: Patient is calmly seated without any agitated behavior. Speech: Patient's speech is fluent and nonpressured. Mood/Affect: Mood is "fine" mildly improving, affect is congruent and constricted Suicidality/Homicidality: Patient denies having any suicidal or homicidal ideation intent or plan. Perceptions: Patient denies any visual hallucinations and denies any auditory hallucinations Though content/process: [place], poverty of content. Chronically Poor insight, improving mildly. Memory and concentration: AOX3, grossly intact for the purposes of this session Judgment and insight: Chronically Poor, improving mildly Assessment Schizophrenia History of alcohol use disorder Nicotine dependence Plan: -Patient continues to meet criteria for inpatient psychiatric admission for symptom stabilization and safety. Patient has received court order for treatment on 10/29/2019. -Medications: Will decrease Prolixin 3 mg twice a day for psychosis with plan to titrate off. Patient was given Prolixin D 50 mg IM injection on 10/29/2019 and will be due for his next dose on 11/12/2019. [place] 300 mg daily for mood stabilization, continue with Zoloft 100 mg daily for mood/anxiety. Melatonin 10 mg daily at bedtime for insomnia. Discontinued Cogentin and replaced with Benadryl 50 mg daily at bedtime for EPS prophylaxis/insomnia. -When necessary Ativan and Geodon for agitation/aggression. -NRT - nicotine patch -SW on board for discharge planning. Encouraged the patient to participate in milieu. Patient is currently on court ordered treatment. Currently awaiting for placement at assisted.
[2019-10-30] MEDS: diphenhydrAMINE 50 MG CAP PO SCH (20:55)
[2019-10-30] MEDS: MELATONIN 5 MG TABLET PO SCH (20:55)
[2019-10-31] MEDS: SERTRALINE 100 MG TAB PO SCH (08:34)
[2019-10-31] MEDS: LITHIUM CARBONATE 300 MG CAP PO SCH (08:34)
[2019-10-31] MEDS: NICOTINE 14MG/24HR PATCH TRANSDERM SCH (08:34)
[2019-10-31] MEDS: LORazepam 1 MG TAB PO PRN ×2 (10:20→20:43)
--- NOTE | 2019-10-31 10:27 | P.PN ---
Progress Note - Text Progress Note Date: 10/31/19 Interval History: Patient was seen up at the desk this morning after receiving his medications and was directable and agreeable to speak to typewriter assembly and parts inspector today in the office. Patient claims that he is doing "a bit better today" as compared to yesterday. He appears to be more engaged with typewriter assembly and parts inspector during conversation. He states that he was able to sleep better last night on the Benadryl and wants to remain on the same dose. He offered no overnight complaints. He states that he is concerned about where he will be going when he is discharged and asked if "I can smoke there?". He claims that his mood has been gradually improving and denied any issues. Patient appeared to be in no acute distress and appeared to be superficially cooperative and continues to have poverty of content and speech. He claims that he has a fair appetite. Patient did not endorse any delusions or any paranoia today. At this time patient denies any suicidal or homical ideations, intent or plan. Patient denies any auditory, visual hallucinations. Mental Status Exam: General Appearance: Patient appears to be older than stated age is alert, more directable today and more cooperative. Disheveled appearance, mildly improving hygiene. Behavior: Patient is calmly seated without any agitated behavior. Speech: Patient's speech is fluent and nonpressured. Mood/Affect: Mood is "a bit better" mildly improving, affect is congruent and constricted Suicidality/Homicidality: Patient denies having any suicidal or homicidal ideation intent or plan. Perceptions: Patient denies any visual hallucinations and denies any auditory hallucinations Though content/process: [place], poverty of content. Chronically Poor insight, improving mildly. Memory and concentration: AOX3, grossly intact for the purposes of this session Judgment and insight: Chronically Poor, improving mildly Assessment Schizophrenia History of alcohol use disorder Nicotine dependence Plan: -Patient continues to meet criteria for inpatient psychiatric admission for symptom stabilization and safety. Patient has received court order for treatment on 10/29/2019. -Medications: Will decrease Prolixin 2.5 mg twice a day for psychosis with plan to titrate off. Patient was given Prolixin D 50 mg IM injection on 10/29/2019 and will be due for his next dose on 11/12/2019. [place] 300 mg daily for mood stabilization, continue with Zoloft 100 mg daily for mood/anxiety. Melatonin 10 mg daily at bedtime for insomnia. Continue with Benadryl 50 mg daily at bedtime for EPS prophylaxis/insomnia. -When necessary Ativan and Geodon for agitation/aggression. -NRT - nicotine patch -SW on board for discharge planning. Encouraged the patient to participate in milieu. Patient is currently on court ordered treatment. Currently awaiting for placement at residential.
[2019-10-31] MEDS: diphenhydrAMINE 50 MG CAP PO SCH (20:43)
[2019-10-31] MEDS: ACETAMINOPHEN TAB 325 MG TAB PO PRN (20:43)
[2019-10-31] MEDS: MELATONIN 5 MG TABLET PO SCH (20:43)
[2019-11-01] MEDS: SERTRALINE 100 MG TAB PO SCH (08:15)
[2019-11-01] MEDS: LORazepam 1 MG TAB PO PRN ×3 (08:15→20:38)
[2019-11-01] MEDS: LITHIUM CARBONATE 300 MG CAP PO SCH (08:15)
[2019-11-01] MEDS: NICOTINE 14MG/24HR PATCH TRANSDERM SCH (08:15)
--- NOTE | 2019-11-01 10:21 | P.PN ---
Progress Note - Text Progress Note Date: 11/01/19 Interval History: Patient was seen in his room and was agreeable to speak to va underwriter. Patient cla ims that he is doing "ok" today and denied any complaints. He states that she did not sleep well last night after taking the Benadryl however did not give a reason why and states that he is feeling somewhat tired today. He claims that he wants to remain in bed for a few more hours. He was asking about discharge and when he can be "go from the hospital. Patient appeared to be in no acute distress and appeared to be superficially cooperative and continues to have poverty of content and speech. He claims that he has a fair appetite. He states that he did shower yesterday. Patient did not endorse any delusions or any paranoia today. At this time patient denies any suicidal or homical ideations, intent or plan. Patient denies any auditory, visual hallucinations. Mental Status Exam: General Appearance: Patient appears to be older than stated age is alert, more directable today and more cooperative. Disheveled appearance, mildly improving hygiene. Behavior: Patient is calmly seated without any agitated behavior. Speech: Patient's speech is fluent and nonpressured. Mood/Affect: Mood is "ok" mildly improving, affect is congruent and constricted Suicidality/Homicidality: Patient denies having any suicidal or homicidal ideation intent or plan. Perceptions: Patient denies any visual hallucinations and denies any auditory hallucinations Though content/process: [place], poverty of content. Chronically Poor insight, improving mildly. Memory and concentration: AOX3, grossly intact for the purposes of this session Judgment and insight: Chronically Poor, improving mildly Assessment Schizophrenia History of alcohol use disorder Nicotine dependence Plan: -Patient continues to meet criteria for inpatient psychiatric admission for symptom stabilization and safety. Patient has received court order for treatment on 10/29/2019. -Medications: Will continue with Prolixin 2.5 mg twice a day for psychosis with plan to titrate off. Patient was given Prolixin D 50 mg IM injection on 10/29/2019 and will be due for his next dose on 11/12/2019. [place] 300 mg daily for mood stabilization, continue with Zoloft 100 mg daily for mood/anxiety. Melatonin 10 mg daily at bedtime for insomnia. Continue with Benadryl 50 mg daily at bedtime for EPS prophylaxis/insomnia. -When necessary Ativan and Geodon for agitation/aggression. -NRT - nicotine patch -SW on board for discharge planning. Encouraged the patient to participate in milieu. Patient is currently on court ordered treatment. Currently awaiting for placement at prison.
[2019-11-01] MEDS: MELATONIN 5 MG TABLET PO SCH (20:38)
[2019-11-01] MEDS: diphenhydrAMINE 50 MG CAP PO SCH (20:38)
[2019-11-01] MEDS: ACETAMINOPHEN TAB 325 MG TAB PO PRN (20:39)
[2019-11-02] MEDS: NICOTINE 14MG/24HR PATCH TRANSDERM SCH (09:34)
[2019-11-02] MEDS: LITHIUM CARBONATE 300 MG CAP PO SCH (09:34)
[2019-11-02] MEDS: SERTRALINE 100 MG TAB PO SCH (09:34)
[2019-11-02] MEDS: LORazepam 1 MG TAB PO PRN ×2 (09:35→16:48)
--- NOTE | 2019-11-02 10:31 | P.PN ---
Progress Note - Text Progress Note Date: 11/02/19 Interval History: Patient was seen in his room and was agreeable to speak to scientific technical writer today. Patient claims that he is doing well and states that he is feeling somewhat tired today. He states that he was able to sleep fairly throughout the night with the Benadryl. He claims that he'll be leaving his room and a little bit to go to groups. He was asking about discharge and when he can be "go from the hospital and scientific technical writer explained the process of discharge and that he will need placement, patient agreed. Patient appeared to be in no acute distress and appeared to be superficially cooperative and continues to have poverty of content and speech. He claims that he has a fair appetite. Patient did not endorse any delusions or any paranoia today. At this time patient denies any suicidal or homical ideations, intent or plan. Patient denies any auditory, visual hallucinations. Mental Status Exam: General Appearance: Patient appears to be older than stated age is alert, more directable today and more cooperative. Disheveled appearance, mildly improving hygiene. Behavior: Patient is calmly seated without any agitated behavior. Speech: Patient's speech is fluent and nonpressured. Mood/Affect: Mood is "good" mildly improving, affect is congruent and constricted Suicidality/Homicidality: Patient denies having any suicidal or homicidal ideation intent or plan. Perceptions: Patient denies any visual hallucinations and denies any auditory hallucinations Though content/process: [place], poverty of content. Chronically Poor insight, improving mildly. Memory and concentration: AOX3, grossly intact for the purposes of this session Judgment and insight: Chronically Poor, improving mildly Assessment Schizophrenia History of alcohol use disorder Nicotine dependence Plan: -Patient continues to meet criteria for inpatient psychiatric admission for symptom stabilization and safety. Patient has received court order for treatment on 10/29/2019. -Medications: Will decrease Prolixin 2 mg twice a day for psychosis with plan to titrate off. Patient was given Prolixin D 50 mg IM injection on 10/29/2019 and will be due for his next dose on 11/12/2019. [place] 300 mg daily for mood stabilization, continue with Zoloft 100 mg daily for mood/anxiety. Melatonin 10 mg daily at bedtime for insomnia. Decreased Benadryl 25 mg daily at bedtime for EPS prophylaxis/insomnia. I added trazodone 50 mg daily at bedtime for insomnia. -When necessary Ativan and Geodon for agitation/aggression. -NRT - nicotine patch -SW on board for discharge planning. Encouraged the patient to participate in milieu. Patient is currently on court ordered treatment. Currently awaiting for placement at long-term.
[2019-11-02] MEDS ORDERED: diphenhydrAMINE 25 MG CAP PO SCH (21:00)
[2019-11-02] MEDS: traZODone HCL 50 MG TAB PO SCH (21:55)
[2019-11-02] MEDS: MELATONIN 5 MG TABLET PO SCH (21:55)
--- NOTE | 2019-11-03 10:11 | P.PN ---
Progress Note - Text Progress Note Date: 11/03/19 Interval History: Patient was seen in his room and was agreeable to speak to senior copywriter today in the office. Patient states that she was able to eat breakfast this morning well however claims that he feels somewhat tired today. He claims that he did not sleep well last night and request of his medication increased. Patient denied any other complaints today and states that he is feeling well. He continues to ask about discharge. He claims that he'll be leaving his room and a little bit to go to groups. Patient appeared to be in no acute distress and appeared to be cooperative, concrete and continues to have poverty of content and speech. He claims that he has a fair appetite. Patient did not endorse any delusions or any paranoia today. At this time patient denies any suicidal or homical ideations, intent or plan. Patient denies any auditory, visual hallucinations. Mental Status Exam: General Appearance: Patient appears to be older than stated age is alert, more directable today and more cooperative. Disheveled appearance, mildly improving hygiene. Behavior: Patient is calmly seated without any agitated behavior. Speech: Patient's speech is fluent and nonpressured. Mood/Affect: Mood is "fine" mildly improving, affect is congruent and constricted Suicidality/Homicidality: Patient denies having any suicidal or homicidal ideation intent or plan. Perceptions: Patient denies any visual hallucinations and denies any auditory hallucinations Though content/process: [place], poverty of content. Chronically Poor insight, improving mildly. Memory and concentration: AOX3, grossly intact for the purposes of this session Judgment and insight: Chronically Poor, improving mildly Assessment Schizophrenia History of alcohol use disorder Nicotine dependence Plan: -Patient continues to meet criteria for inpatient psychiatric admission for symptom stabilization and safety. Patient has received court order for treatment on 10/29/2019. -Medications: Will decrease Prolixin 1 mg twice a day for psychosis with plan to titrate off. Patient was given Prolixin D 50 mg IM injection on 10/29/2019 and will be due for his next dose on 11/12/2019. [place] 300 mg daily for mood stabilization, continue with Zoloft 100 mg daily for mood/anxiety. Melatonin 10 mg daily at bedtime for insomnia. Increased Benadryl 50 mg daily at bedtime for EPS prophylaxis/insomnia. Continue with trazodone 50 mg daily at bedtime for insomnia. -When necessary Ativan and Geodon for agitation/aggression. -NRT - nicotine patch -SW on board for discharge planning. Encouraged the patient to participate in milieu. Patient is currently on court ordered treatment. Currently awaiting for placement at intermediate.
[2019-11-03] MEDS: LITHIUM CARBONATE 300 MG CAP PO SCH (10:14)
[2019-11-03] MEDS: NICOTINE 14MG/24HR PATCH TRANSDERM SCH (10:14)
[2019-11-03] MEDS: SERTRALINE 100 MG TAB PO SCH (10:15)
[2019-11-03] MEDS: ACETAMINOPHEN TAB 325 MG TAB PO PRN (10:15)
[2019-11-03] MEDS: LORazepam 1 MG TAB PO PRN ×2 (10:15→17:56)
[2019-11-03] MEDS: MELATONIN 5 MG TABLET PO SCH (20:30)
[2019-11-03] MEDS: traZODone HCL 50 MG TAB PO SCH (20:31)
[2019-11-03] MEDS: diphenhydrAMINE 50 MG CAP PO SCH (20:31)
[2019-11-04] MEDS: LITHIUM CARBONATE 300 MG CAP PO SCH (10:20)
[2019-11-04] MEDS: LORazepam 1 MG TAB PO PRN ×2 (10:20→18:12)
[2019-11-04] MEDS: FLUoxetine HCL 20 MG CAP PO SCH (10:20)
[2019-11-04] MEDS: NICOTINE 14MG/24HR PATCH TRANSDERM SCH (10:20)
--- NOTE | 2019-11-04 10:41 | P.PN ---
Progress Note - Text Progress Note Date: 11/04/19 Interval History: Patient was seen in his room and was agreeable to speak to ticket writer today in the office. Patient states that he is feeling better today and offers no overnight complaints. He states that he has been taking his medications and remains optimistic about possible discharge. He continues to ask when he will be released and if he is found a prison yet. Patient was appropriate with ticket writer today and continues to be constricted and concrete. He thanked ticket writer for increasing his medications for last night and claims that he was able to sleep better. Patient denied any other complaints today and states that he is feeling well. He claims that he'll be leaving his room and a little bit to go to groups. Patient appeared to be in no acute distress. He claims that he has a fair appetite. Patient did not endorse any delusions or any paranoia today. At this time patient denies any suicidal or homical ideations, intent or plan. Patient denies any auditory, visual hallucinations. Mental Status Exam: General Appearance: Patient appears to be older than stated age is alert, more directable today and more cooperative. Disheveled appearance, mildly improving hygiene. Behavior: Patient is calmly seated without any agitated behavior. Speech: Patient's speech is fluent and nonpressured. Mood/Affect: Mood is "ok" mildly improving, affect is congruent and constricted Suicidality/Homicidality: Patient denies having any suicidal or homicidal ideation intent or plan. Perceptions: Patient denies any visual hallucinations and denies any auditory hallucinations Though content/process: [place], poverty of content. Chronically Poor insight, improving mildly. Memory and concentration: AOX3, grossly intact for the purposes of this session Judgment and insight: Chronically Poor, improving mildly Assessment Schizophrenia History of alcohol use disorder Nicotine dependence Plan: -Patient continues to meet criteria for inpatient psychiatric admission for symptom stabilization and safety. Patient has received court order for treatment on 10/29/2019. -Medications: Will discontinue Prolixin by mouth. Patient was given Prolixin D 50 mg IM injection on 10/29/2019 and will be due for his next dose of 50 mg IM on 11/12/2019. [place] 300 mg daily for mood stabilization, continue with Zoloft 100 mg daily for mood/anxiety. Melatonin 10 mg daily at bedtime for insomnia. Continue with Benadryl 50 mg daily at bedtime for EPS prophylaxis/insomnia. Continue with trazodone 50 mg daily at bedtime for insomnia. -When necessary Ativan and Geodon for agitation/aggression. -NRT - nicotine patch -SW on board for discharge planning. Encouraged the patient to participate in milieu. Patient is currently on court ordered treatment. Currently awaiting for placement at prison. Patient can be discharged when he is found a place to go.
[2019-11-04] MEDS: diphenhydrAMINE 50 MG CAP PO SCH (20:49)
[2019-11-04] MEDS: traZODone HCL 50 MG TAB PO SCH (20:49)
[2019-11-04] MEDS: MELATONIN 5 MG TABLET PO SCH (20:49)
[2019-11-05] MEDS: LITHIUM CARBONATE 300 MG CAP PO SCH (08:25)
[2019-11-05] MEDS: FLUoxetine HCL 20 MG CAP PO SCH (08:25)
[2019-11-05] MEDS: LORazepam 1 MG TAB PO PRN ×2 (08:25→16:38)
[2019-11-05] MEDS: ACETAMINOPHEN TAB 325 MG TAB PO PRN ×2 (08:26→22:42)
[2019-11-05] MEDS: NICOTINE 14MG/24HR PATCH TRANSDERM SCH (08:26)
--- NOTE | 2019-11-05 11:17 | PN ---
PROGRESS NOTE SUBJECTIVE: Patient was seen at the bedside and was lying down in his bed with a sheet covering his whole body. The patient was agreeable to speak with the service writer today and appeared to be calm and directable. Patient continues to have marginal hygiene and grooming, appears to be disheveled. He denied any overnight complaints and states that he is doing okay today. He continues to have poverty of content and speech. He continues to be preoccupied with discharge and where he will be going. Class 1 Owner Operator spoke with patient about being on the wait list for a custodial. The patient agreed. He claims that he was able to sleep well throughout the night. He wants to remain on the same medications. The patient was agreeable to continue with current plan. He did not endorse any paranoia or delusions today. He denied any auditory or visual hallucinations. He denied any suicide or homicide ideations, intent, or plan. MENTAL STATUS EXAM: The patient appears to be disheveled in appearance, has ungroomed hair and palomares. He was wearing hospital gown, lying in his bed. Patient appeared to be in no acute distress. He appears to have concrete and poverty of content in his speech. His speech was fluent. He claims that his mood is "okay" and his affect was congruent and constricted. He did not endorse any auditory or visual hallucinations. He was logical, concrete and had poverty of content in his thought process. He was alert and oriented x3. Patient has chronically poor/limited insight and judgment. ASSESSMENT AND PLAN: Continue with current assessment. Patient continues to meet inpatient criteria on the psychiatric inpatient unit. He is currently on the wait list for a custodial. Will continue with the same medications as prescribed. The patient's next Prolixin D 50 mg IM injection will be due on 11/12/2019, and q. 2 weeks afterwards. Continue with the titration off Prolixin p.o. Will continue the same medications at nighttime for sleep. The patient was continued to be encouraged to shower and groom himself and also participate in groups, patient verbally understood and agreed. stock worker will continue to look for placement in custodial, and patient can be discharged once this is found. MMODL / IJN: [id number] /
[2019-11-05] MEDS: diphenhydrAMINE 50 MG CAP PO SCH (20:45)
[2019-11-05] MEDS: traZODone HCL 50 MG TAB PO SCH (20:45)
[2019-11-05] MEDS: MELATONIN 5 MG TABLET PO SCH (20:45)
[2019-11-06] MEDS: NICOTINE 14MG/24HR PATCH TRANSDERM SCH (08:18)
[2019-11-06] MEDS: FLUoxetine HCL 20 MG CAP PO SCH (08:18)
[2019-11-06] MEDS: LITHIUM CARBONATE 300 MG CAP PO SCH (08:18)
[2019-11-06] MEDS: LORazepam 1 MG TAB PO PRN ×2 (08:19→19:26)
[2019-11-06] MEDS: ACETAMINOPHEN TAB 325 MG TAB PO PRN (08:19)
--- NOTE | 2019-11-06 09:48 | P.PN ---
Progress Note - Text Progress Note Date: 11/06/19 Interval History: Patient was seen in his room and was agreeable to speak to program writer today in the office. Patient states that he is feeling much better today than in previous days. He offered no overnight complaints however states that he is still not sleeping "not much". He requested to have an increase in his trazodone today and would be willing to take 100 mg daily at bedtime. He states that he does have significant pain at times due to a neck injury and requested to have Tylenol and Motrin when necessary for the pain. He states that he has been taking his medications and remains optimistic about possible discharge and continues to ask when he will be released and if he is found a longterm yet. Patient was appropriate with program writer today and continues to be constricted and concrete. He claims that he'll be leaving his room and a little bit to go to groups at times. Patient appeared to be in no acute distress. He claims that he has a fair appetite. Patient did not endorse any delusions or any paranoia today. At this time patient denies any suicidal or homical ideations, intent or plan. Patient denies any auditory, visual hallucinations. Mental Status Exam: General Appearance: Patient appears to be older than stated age is alert, more directable today and more cooperative. Disheveled appearance, mildly improving hygiene. Behavior: Patient is calmly seated without any agitated behavior. Speech: Patient's speech is fluent and nonpressured. More talkative today. Mood/Affect: Mood is "much better" mildly improving, affect is congruent and constricted Suicidality/Homicidality: Patient denies having any suicidal or homicidal ideation intent or plan. Perceptions: Patient denies any visual hallucinations and denies any auditory hallucinations Though content/process: [place], poverty of content. Chronically Poor insight, improving mildly. Memory and concentration: AOX3, grossly intact for the purposes of this session Judgment and insight: Chronically Poor, improving mildly Assessment Schizophrenia History of alcohol use disorder Nicotine dependence Plan: -Patient continues to meet criteria for inpatient psychiatric admission for symptom stabilization and safety. Patient has received court order for treatment on 10/29/2019. -Medications: Will discontinue Prolixin by mouth. Patient was given Prolixin D 50 mg IM injection on 10/29/2019 and will be due for his next dose of 50 mg IM on 11/12/2019. [place] 300 mg daily for mood stabilization, continue with Prozac 40 mg daily for mood/anxiety. Melatonin 10 mg daily at bedtime for insomnia. Continue with Benadryl 50 mg daily at bedtime for EPS prophylaxis/insomnia. Increased trazodone 100 mg daily at bedtime for insomnia. -Tylenol and ibuprofen when necessary for pain. -When necessary Ativan and Geodon for agitation/aggression. -NRT - nicotine patch -SW on board for discharge planning. Encouraged the patient to participate in milieu. Patient is currently on court ordered treatment. Currently awaiting for placement at longterm. Patient can be discharged when he is found a place to go.
[2019-11-06] MEDS: IBUPROFEN 600 MG TAB PO PRN ×2 (11:09→21:38)
[2019-11-06] MEDS: MELATONIN 5 MG TABLET PO SCH (21:38)
[2019-11-06] MEDS: diphenhydrAMINE 50 MG CAP PO SCH (21:38)
[2019-11-06] MEDS: traZODone HCL 100 MG TAB PO SCH (21:38)
[2019-11-07] MEDS: IBUPROFEN 600 MG TAB PO PRN ×2 (08:32→22:26)
[2019-11-07] MEDS: FLUoxetine HCL 20 MG CAP PO SCH (08:32)
[2019-11-07] MEDS: LITHIUM CARBONATE 300 MG CAP PO SCH (08:32)
[2019-11-07] MEDS: NICOTINE 14MG/24HR PATCH TRANSDERM SCH (08:32)
[2019-11-07] MEDS: LORazepam 1 MG TAB PO PRN ×2 (08:32→17:08)
[2019-11-07] MEDS: diphenhydrAMINE 50 MG CAP PO SCH (21:59)
[2019-11-07] MEDS: traZODone HCL 100 MG TAB PO SCH (21:59)
[2019-11-07] MEDS: MELATONIN 5 MG TABLET PO SCH (21:59)
--- NOTE | 2019-11-07 22:17 | PN ---
PROGRESS NOTE DATE OF SERVICE: 11/07/2019 CHIEF COMPLAINT: The patient came on a petition for agitation. He stopped his injectable medications. He was petitioned for involuntary hospitalization. INTERVAL HISTORY: Patient has been doing fairly well. He had a quiet evening yesterday. Mostly he keeps to himself. He spent quite a bit of time in his room. He does not attend groups. He will come out occasionally. He does not really interact much with others. He is cooperative with care. His main focus has been aiming towards a correction and wondering when a home will be available. He slept well last night. Today he has been up. He continues to keep mostly to himself. He has not attended groups today. He is appropriate in interactions with staff, though he does not really initiate much for interaction. He tolerates his psychotropic medication. MENTAL STATUS: Patient was in his room. He came down to the office. He walks slowly. He gave fairly good eye contact. He does not show much extraneous movement or gestures. He answered questions with one- or two-word responses. He did not say much, though responded appropriately to questions. His affect was flat, his mood reserved. He did not appear to be significantly distressed. He did smile just a little a few different times during the interview. There was no outward evidence of thought disorder. He denied any thoughts of harm toward self or others. Cognition was clear. ASSESSMENT: I will continue the current diagnosis and treatment plan. I will continue psychotropic medications the same. I strongly urged the patient to attend groups. We discussed that he will be going into a correction, which is his preference. He will need to be able to interact appropriately with others and he could use the group for making some adjustment towards what the situation may be like once he is in a group setting. We will continue to focus on stabilization and discharge planning. I anticipate his discharge as soon as a correction is available. MMODL / IJN: [id number] /
[2019-11-08] MEDS: LORazepam 1 MG TAB PO PRN ×3 (01:54→21:54)
[2019-11-08] MEDS: NICOTINE 14MG/24HR PATCH TRANSDERM SCH (08:19)
[2019-11-08] MEDS: IBUPROFEN 600 MG TAB PO PRN ×2 (08:19→21:55)
[2019-11-08] MEDS: FLUoxetine HCL 20 MG CAP PO SCH (08:19)
[2019-11-08] MEDS: LITHIUM CARBONATE 300 MG CAP PO SCH (08:19)
--- NOTE | 2019-11-08 13:25 | PN ---
PROGRESS NOTE DATE OF SERVICE: 11/08/2019 CHIEF COMPLAINT: The patient came on a petition for agitation. He stopped his injectable medications. He was petition for involuntary hospitalization. INTERVAL HISTORY: The patient has been doing fair. Overall he seems to be making some progress. He had a quiet day yesterday. Mostly he keeps to himself. I had encouraged the patient to attend groups, though he did not attend any groups yesterday. He spends most of the time in his room. He slept well last night. Today he has been up. I saw him in the morning and encouraged him to go to group. He walked to the group with me and seemed to be reasonably motivated to engage in the group. He reports that his mood is improved. He has a better outlook. He continues to focus on anticipating discharge and moving into a [facility]. He has been cooperative with care. He takes his medications appropriately. He tolerates his psychotropic medications. MENTAL STATUS: Patient gave fair eye contact. Psychomotor activity was a little slowed. The patient answered questions appropriately. It was noteworthy that he had a bit more of a conversational tone than he did yesterday. He smiled some. He actually seemed to have a little energy in his voice. His affect was a little constricted though overall he had a broader affect than yesterday. His mood was quiet, though not down or depressed. He did not appear to be distressed. There was no indication of thought disorder. He voiced no thoughts of harm. Cognition was clear. ASSESSMENT: I will continue the current diagnosis and treatment plan. The patient seems to be making progress. I continue to encourage him to attend groups and in fact he actually attended groups with some apparent motivation. We discussed the importance of his coming to groups to help adjust to a group setting that will presumably be his home situation soon. I will get a lithium level for Sunday. We will focus on stabilization and discharge planning. MMODL / IJN: [id number] /
[2019-11-08] MEDS: diphenhydrAMINE 50 MG CAP PO SCH (21:54)
[2019-11-08] MEDS: MELATONIN 5 MG TABLET PO SCH (21:54)
[2019-11-08] MEDS: traZODone HCL 100 MG TAB PO SCH (21:55)
[2019-11-09] MEDS: LITHIUM CARBONATE 300 MG CAP PO SCH (08:24)
[2019-11-09] MEDS: FLUoxetine HCL 20 MG CAP PO SCH (08:24)
[2019-11-09] MEDS: NICOTINE 14MG/24HR PATCH TRANSDERM SCH (08:24)
[2019-11-09] MEDS: IBUPROFEN 600 MG TAB PO PRN ×2 (10:55→21:31)
[2019-11-09] MEDS: LORazepam 1 MG TAB PO PRN ×2 (10:55→21:31)
[2019-11-09] MEDS: MELATONIN 5 MG TABLET PO SCH (21:31)
[2019-11-09] MEDS: traZODone HCL 100 MG TAB PO SCH (21:32)
[2019-11-09] MEDS: diphenhydrAMINE 50 MG CAP PO SCH (21:32)
[2019-11-10] MEDS: LORazepam 1 MG TAB PO PRN ×2 (08:39→21:32)
[2019-11-10] MEDS: NICOTINE 14MG/24HR PATCH TRANSDERM SCH (08:39)
[2019-11-10] MEDS: FLUoxetine HCL 20 MG CAP PO SCH (08:39)
[2019-11-10] MEDS: IBUPROFEN 600 MG TAB PO PRN ×2 (08:39→21:32)
[2019-11-10] MEDS: LITHIUM CARBONATE 300 MG CAP PO SCH (09:48)
--- NOTE | 2019-11-10 10:26 | PN ---
PROGRESS NOTE DATE OF SERVICE: 11/09/2019 CHIEF COMPLAINT: The patient came on petition for agitation. He stopped his injectable medications. He was petitioned for involuntary hospitalization. INTERVAL HISTORY: Patient has been doing fair. overall he continues the same. He had a quiet day yesterday. Mostly he stayed in his room. He does not interact too much with others. He attended one group yesterday. He will interact appropriately with staff, though he maintains a fairly reserved manner. He slept fairly well last night, today he has been mostly in his room. He said he might think about attending a group after lunch. He has a good appetite. When I talked to him, he had no complaints or concerns. He accepts that the overall plan is waiting on his court hearing on 11/19/2019. He smiled a little and had a calm manner when we talked. He did not seem to be concerned about any particular issues on the unit. He tolerates his psychotropic medications. MENTAL STATUS: Patient sat without restlessness. Psychomotor activity was slowed. Speech was monotone. He answered questions with brief responses. He did not say much. His affect was blunted. His mood quiet. He did not appear to be distressed. He did not show outward evidence of thought disorder. He voiced no thoughts of harm to self or others. Cognition was clear. ASSESSMENT: I will continue the current diagnosis and treatment plan. I will continue psychotropic medications the same. I briefly reviewed medication issues with the patient, though it is not clear he paid much attention to the conversation. We will focus on stabilization and discharge planning. MMHOSEA / BRIDGETN: [id number] /
--- NOTE | 2019-11-10 11:00 | P.PN ---
Progress Note - Text Progress Note Date: 11/10/19 Interval History: Patient was seen in his room and was agreeable to speak to technical writer and editor today in his room. Patient was laying down and claimed that his neck was hurting however token ibuprofen recently and states that that has been helping him. Patient states that he is feeling much better today. He offered no overnight complaints. He states that his sleep was interrupted at times due to the pain. Patient is agreeable to continue on the same medications at this time. Patient was appropriate with technical writer and editor today and continues to be constricted and concrete. He claims that he'll be leaving his room and a little bit to go to groups at times. Patient appeared to be in no acute distress. He claims that he has a fair appetite. Patient did not endorse any delusions or any paranoia today. At this time patient denies any suicidal or homical ideations, intent or plan. Patient denies any auditory, visual hallucinations. Mental Status Exam: General Appearance: Patient appears to be older than stated age is alert, more directable today and more cooperative. Disheveled appearance, mildly improving hygiene. Behavior: Patient is calmly seated without any agitated behavior. Polite and cooperative. Speech: Patient's speech is fluent and nonpressured. Mood/Affect: Mood is "good" mildly improving, affect is congruent and constricted Suicidality/Homicidality: Patient denies having any suicidal or homicidal ideation intent or plan. Perceptions: Patient denies any visual hallucinations and denies any auditory hallucinations Though content/process: [place], poverty of content. Chronically Poor insight, improving mildly. Memory and concentration: AOX3, grossly intact for the purposes of this session Judgment and insight: Chronically Poor, improving mildly Assessment Schizophrenia History of alcohol use disorder Nicotine dependence Plan: -Patient continues to meet criteria for inpatient psychiatric admission for symptom stabilization and safety. Patient has received court order for treatment on 10/29/2019. -Medications: Patient was given Prolixin D 50 mg IM injection on 10/29/2019 and will be due for his next dose of 50 mg IM on 11/12/2019. [place] 300 mg daily for mood stabilization, continue with Prozac 40 mg daily for mood/anxiety. Melatonin 10 mg daily at bedtime for insomnia. Continue with Benadryl 50 mg daily at bedtime for EPS prophylaxis/insomnia. Continue with trazodone 100 mg daily at bedtime for insomnia. -Tylenol and ibuprofen when necessary for pain. -When necessary Ativan and Geodon for agitation/aggression. -NRT - nicotine patch -SW on board for discharge planning. Encouraged the patient to participate in milieu. Patient is currently on court ordered treatment. [facility] at [facility]. Patient can be discharged when he is found a place to go.
[2019-11-10] MEDS: traZODone HCL 100 MG TAB PO SCH (21:30)
[2019-11-10] MEDS: MELATONIN 5 MG TABLET PO SCH (21:30)
[2019-11-10] MEDS: diphenhydrAMINE 50 MG CAP PO SCH (21:30)
[2019-11-11] MEDS: ACETAMINOPHEN TAB 325 MG TAB PO PRN (01:12)
[2019-11-11] MEDS: IBUPROFEN 600 MG TAB PO PRN ×2 (08:33→20:33)
[2019-11-11] MEDS: LORazepam 1 MG TAB PO PRN ×2 (08:33→20:33)
[2019-11-11] MEDS: FLUoxetine HCL 20 MG CAP PO SCH (08:33)
[2019-11-11] MEDS: NICOTINE 14MG/24HR PATCH TRANSDERM SCH (08:33)
[2019-11-11] MEDS: LITHIUM CARBONATE 300 MG CAP PO SCH (08:33)
--- NOTE | 2019-11-11 09:20 | P.PN ---
Progress Note - Text Progress Note Date: 11/11/19 Interval History: Patient was seen in his room and was agreeable to speak to auto service writer today in his room. Patient was laying down this morning looking at the ceiling. He states that he just took his medications and token ibuprofen for his neck. He states that he feels his medications or been helping him and claims that he feels better today. Patient was asking if he could have his Prozac increased to help with his mood. He offered no overnight complaints and claims that he was able to sleep throughout the night. Patient was appropriate with auto service writer today and continues to be constricted and concrete. He claims that he'll be leaving his room and a little bit to go to groups at times. Patient appeared to be in no acute distress. He claims that he has a fair appetite. Patient did not endorse any delusions or any paranoia today. At this time patient denies any suicidal or homical ideations, intent or plan. Patient denies any auditory, visual hallucinations. Mental Status Exam: General Appearance: Patient appears to be older than stated age is alert, more directable today and more cooperative. Disheveled appearance, mildly improving hygiene. Behavior: Patient is calmly seated without any agitated behavior. Polite and cooperative. Speech: Patient's speech is fluent and nonpressured. Mood/Affect: Mood is "ok" mildly improving, affect is congruent and constricted Suicidality/Homicidality: Patient denies having any suicidal or homicidal ideation intent or plan. Perceptions: Patient denies any visual hallucinations and denies any auditory hallucinations Though content/process: [place], poverty of content. Chronically Poor insight, improving mildly. Memory and concentration: AOX3, grossly intact for the purposes of this session Judgment and insight: Chronically Poor, improving mildly Assessment Schizophrenia History of alcohol use disorder Nicotine dependence Plan: -Patient continues to meet criteria for inpatient psychiatric admission for symptom stabilization and safety. Patient has received court order for treatment on 10/29/2019. -Medications: Patient was given Prolixin D 50 mg IM injection on 10/29/2019 and will be due for his next dose of 50 mg IM on 11/12/2019. [place] 300 mg daily for mood stabilization, increased Prozac 60 mg daily for mood/anxiety. Melatonin 10 mg daily at bedtime for insomnia. Continue with Benadryl 50 mg daily at bedtime for EPS prophylaxis/insomnia. Continue with trazodone 100 mg daily at bedtime for insomnia. -Tylenol and ibuprofen when necessary for pain. -When necessary Ativan and Geodon for agitation/aggression. -NRT - nicotine patch -SW on board for discharge planning. Encouraged the patient to participate in milieu. Patient is currently on court ordered treatment. [facility]. Patient can be discharged when he is found a place to go.
[2019-11-11] MEDS: diphenhydrAMINE 50 MG CAP PO SCH (20:33)
[2019-11-11] MEDS: MELATONIN 5 MG TABLET PO SCH (20:33)
[2019-11-11] MEDS: traZODone HCL 100 MG TAB PO SCH (20:34)
[2019-11-12] MEDS: IBUPROFEN 600 MG TAB PO PRN ×2 (06:56→21:38)
[2019-11-12] MEDS: LORazepam 1 MG TAB PO PRN ×2 (06:57→21:37)
[2019-11-12] MEDS: NICOTINE 14MG/24HR PATCH TRANSDERM SCH (09:39)
--- NOTE | 2019-11-12 09:39 | P.PN ---
Progress Note - Text Progress Note Date: 11/12/19 Interval History: Patient was seen in his room and was agreeable to speak to sba underwriter today in the office. Patient continues to have a disheveled appearance. Patient was cooperative with sba underwriter and was for the most part appropriate. He continues to claim that he has pain in his neck and was encouraged to take both of his ibuprofen and Tylenol and patient agreed. He denied any disturbances in his mood denies any depression today. He denied anxiety. Patient was asking if he could have his Prozac increased to help with his mood and his Prozac was increased to 60 mg today.. He claims that he was having a difficult time sleeping last night and slept approximately 3-4 hours. He was agreeable out of his trazodone increased today. Patient was appropriate with sba underwriter today and continues to be constricted and concrete. He claims that he'll be leaving his room and a little bit to go to groups at times. Patient appeared to be in no acute distress. He claims that he has a fair appetite. Patient did not endorse any delusions or any paranoia today. At this time patient denies any suicidal or homical ideations, intent or plan. Patient denies any auditory, visual hallucinations. Mental Status Exam: General Appearance: Patient appears to be older than stated age is alert, more directable today and more cooperative. Disheveled appearance, mildly improving hygiene. Behavior: Patient is calmly seated without any agitated behavior. Polite and cooperative. Speech: Patient's speech is fluent and nonpressured. Mood/Affect: Mood is "fine" mildly improving, affect is congruent and constricted Suicidality/Homicidality: Patient denies having any suicidal or homicidal ideation intent or plan. Perceptions: Patient denies any visual hallucinations and denies any auditory hallucinations Though content/process: [place], poverty of content. Chronically Poor insight, improving mildly. Memory and concentration: AOX3, grossly intact for the purposes of this session Judgment and insight: Chronically Poor, improving mildly Assessment Schizophrenia History of alcohol use disorder Nicotine dependence Plan: -Patient continues to meet criteria for inpatient psychiatric admission for symptom stabilization and safety. Patient has received court order for treatment on 10/29/2019. -Medications: Patient was given Prolixin D 50 mg IM injection on 10/29/2019 and will be due for his next dose of 50 mg IM on 11/12/2019. [place] 300 mg daily for mood stabilization, continue with Prozac 60 mg daily for mood/anxiety. Melatonin 10 mg daily at bedtime for insomnia. Continue with Benadryl 50 mg daily at bedtime for EPS prophylaxis/insomnia. Increased trazodone 150 mg daily at bedtime for insomnia. -Tylenol and ibuprofen when necessary for pain. -When necessary Ativan and Geodon for agitation/aggression. -NRT - nicotine patch -SW on board for discharge planning. Encouraged the patient to participate in milieu. Patient is currently on court ordered treatment. Currently awaiting for placement at nursing home. Patient can be discharged when he is found a place to go.
[2019-11-12] MEDS: ACETAMINOPHEN TAB 325 MG TAB PO PRN (09:40)
[2019-11-12] MEDS: FLUoxetine HCL 20 MG CAP PO SCH (09:40)
[2019-11-12] MEDS: LITHIUM CARBONATE 300 MG CAP PO SCH (09:40)
[2019-11-12] MEDS: fluPHENAZine DECANOATE 25 MG/ML 5ML MDV IM SCH ×2 (11:43→12:01)
[2019-11-12] MEDS: MELATONIN 5 MG TABLET PO SCH (21:37)
[2019-11-12] MEDS: diphenhydrAMINE 50 MG CAP PO SCH (21:38)
[2019-11-12] MEDS: traZODone HCL 50 MG TAB PO SCH (21:38)
[2019-11-13] MEDS: ACETAMINOPHEN TAB 325 MG TAB PO PRN ×2 (00:33→08:14)
[2019-11-13] MEDS: FLUoxetine HCL 20 MG CAP PO SCH (08:13)
[2019-11-13] MEDS: LITHIUM CARBONATE 300 MG CAP PO SCH (08:13)
[2019-11-13] MEDS: NICOTINE 14MG/24HR PATCH TRANSDERM SCH (08:13)
[2019-11-13] MEDS: LORazepam 1 MG TAB PO PRN (08:14)
--- NOTE | 2019-11-13 11:06 | P.PN ---
Progress Note - Text Progress Note Date: 11/13/19 Interval History: Patient was seen in his room and was agreeable to speak to jingle writer today in the office. Patient continues to have a disheveled appearance. Patient was cooperative with jingle writer and was for the most part appropriate during the interview. He continues to claim that he has pain in his neck. He mentioned that he has been dealing with this chronic pain for years and claims that he has a "slipped disc". He denied any disturbances in his mood denies any depression today. He denied anxiety. He states that he was able to sleep better last night on the increase in the trazodone. Patient continues to have a poverty of content and was concrete. Patient appeared to be in no acute distress. He claims that he has a fair appetite. Patient did not endorse any delusions or any paranoia today. At this time patient denies any suicidal or homical ideations, intent or plan. Patient denies any auditory, visual hallucinations. Mental Status Exam: General Appearance: Patient appears to be older than stated age is alert, more directable today and more cooperative. Disheveled appearance, mildly improving hygiene. Behavior: Patient is calmly seated without any agitated behavior. Polite and cooperative. Speech: Patient's speech is fluent and nonpressured. Mood/Affect: Mood is "good" mildly improving, affect is congruent and constricted Suicidality/Homicidality: Patient denies having any suicidal or homicidal ideation intent or plan. Perceptions: Patient denies any visual hallucinations and denies any auditory hallucinations Though content/process: [place], poverty of content. Chronically Poor insight, improving mildly. Memory and concentration: AOX3, grossly intact for the purposes of this session Judgment and insight: Chronically Poor, improving mildly Assessment Schizophrenia History of alcohol use disorder Nicotine dependence Plan: -Patient continues to meet criteria for inpatient psychiatric admission for symptom stabilization and safety. Patient has received court order for treatment on 10/29/2019. -Medications: Patient was given Prolixin D 50 mg IM injection on 10/29/2019, and received his second dose of Prolixin 50 mg IM on 11/12/2019. [place] 300 mg daily for mood stabilization, continue with Prozac 60 mg daily for mood/anxiety. Melatonin 10 mg daily at bedtime for insomnia. Continue with Benadryl 50 mg daily at bedtime for EPS prophylaxis/insomnia. Continue with trazodone 150 mg daily at bedtime for insomnia. -Tylenol and ibuprofen when necessary for pain. -When necessary Ativan and Geodon for agitation/aggression. -NRT - nicotine patch -SW on board for discharge planning. Encouraged the patient to participate in milieu. Patient is currently on court ordered treatment. [facility]. Patient can be discharged when he is found a place to go.
[2019-11-13] MEDS: diphenhydrAMINE 50 MG CAP PO SCH (20:35)
[2019-11-13] MEDS: MELATONIN 5 MG TABLET PO SCH (20:35)
[2019-11-13] MEDS: traZODone HCL 50 MG TAB PO SCH (20:35)
[2019-11-14] MEDS: NICOTINE 14MG/24HR PATCH TRANSDERM SCH (08:17)
[2019-11-14] MEDS: FLUoxetine HCL 20 MG CAP PO SCH (08:18)
[2019-11-14] MEDS: LORazepam 1 MG TAB PO PRN ×2 (08:18→20:17)
[2019-11-14] MEDS: IBUPROFEN 600 MG TAB PO PRN ×2 (08:18→20:17)
[2019-11-14] MEDS: LITHIUM CARBONATE 300 MG CAP PO SCH (08:18)
--- NOTE | 2019-11-14 11:47 | P.PN ---
Progress Note - Text Progress Note Date: 11/14/19 Interval History: Patient was seen in his room and was agreeable to speak to insurance underwriter today at the bedside. Patient continues to have a disheveled appearance however was more pleasant with insurance underwriter today. He continues to speak about the pain in his neck however did state that he has been taking ibuprofen as needed for it and has been helping. He claims that he was able to sleep much better last night. He continues to ask about increasing his Prozac to help with his mood. He denied any significant depression today her anxiety. Patient was cooperative with insurance underwriter and was for the most part appropriate during the interview. Patient continues to have a poverty of content and was concrete. Patient appeared to be in no acute distress. He claims that he has a fair appetite. Patient did not endorse any delusions or any paranoia today. At this time patient denies any suicidal or homical ideations, intent or plan. Patient denies any auditory, visual hallucinations. Mental Status Exam: General Appearance: Patient appears to be older than stated age is alert, more directable today and more cooperative. Disheveled appearance, mildly improving hygiene. Behavior: Patient is calmly seated without any agitated behavior. Polite and cooperative. Speech: Patient's speech is fluent and nonpressured. Mood/Affect: Mood is "ok" mildly improving, affect is congruent and constricted Suicidality/Homicidality: Patient denies having any suicidal or homicidal ideation intent or plan. Perceptions: Patient denies any visual hallucinations and denies any auditory hallucinations Though content/process: [place], poverty of content. Chronically Poor insight, improving mildly. Memory and concentration: AOX3, grossly intact for the purposes of this session Judgment and insight: Chronically Poor, improving mildly Assessment Schizophrenia History of alcohol use disorder Nicotine dependence Plan: -Patient continues to meet criteria for inpatient psychiatric admission for symptom stabilization and safety. Patient has received court order for treatment on 10/29/2019. -Medications: Patient was given Prolixin D 50 mg IM injection on 10/29/2019, and received his second dose of Prolixin 50 mg IM on 11/12/2019. [place] 300 mg daily for mood stabilization, we'll increase Prozac 80 mg daily for mood/anxiety. Melatonin 10 mg daily at bedtime for insomnia. Continue with Benadryl 50 mg daily at bedtime for EPS prophylaxis/insomnia. Continue with trazodone 150 mg daily at bedtime for insomnia. -Tylenol and ibuprofen when necessary for pain. -When necessary Ativan and Geodon for agitation/aggression. -NRT - nicotine patch -SW on board for discharge planning. Encouraged the patient to participate in milieu. Patient is currently on court ordered treatment. Currently awaiting for placement at care home. Patient can be discharged when he is found a place to go. Due to the current wait list for group homes, social services assistant will be touching base with patient's guardian to see if it is a appropriate if patient can go to a room and board. Patient will need ACT team follow up upon d/c.
[2019-11-14] MEDS: diphenhydrAMINE 50 MG CAP PO SCH (20:16)
[2019-11-14] MEDS: MELATONIN 5 MG TABLET PO SCH (20:16)
[2019-11-14] MEDS: traZODone HCL 50 MG TAB PO SCH (20:16)
[2019-11-15] MEDS: LORazepam 1 MG TAB PO PRN ×2 (09:39→20:20)
[2019-11-15] MEDS: NICOTINE 14MG/24HR PATCH TRANSDERM SCH (09:39)
[2019-11-15] MEDS: LITHIUM CARBONATE 300 MG CAP PO SCH (09:40)
[2019-11-15] MEDS: IBUPROFEN 600 MG TAB PO PRN ×2 (09:40→20:20)
[2019-11-15] MEDS: FLUoxetine HCL 20 MG CAP PO SCH (09:40)
--- NOTE | 2019-11-15 17:41 | P.PN ---
Progress Note - Text Progress Note Date: 11/15/19 Subjective: Patient was seen today as a cross coverage for Dr. Arita. The patient was evaluated, chart reviewed, case discussed with the treatment team. Patient continues to isolate himself for most of the time in his room. He denies depression, anxiety, feeling hopeless, or suicidal. Denies any mood swings, manic or psychotic symptoms. He denies any hallucinations, irritability, paranoid thoughts, or homicidal ideation. Denies any tremors and continues to take his psychiatric medications with no SEs reported. He reports fair sleep and appetite. He is not attending groups or other unit activities. Pt reports he is waiting placement for discharge. Objective: Vitals has been reviewed. Mental status examination; Appearance: The patient appears stated age, disheveled, no specific features. Gait/posture: Normal gait, Normal arm swinging: No abnormal movements. Attitude and behavior: not fully engaged, partially cooperative, intermittent eye contact. Motor activity: Normal psychomotor activity Speech: Normal rate, tone. Mood: Anxious Affect: Constricted Thought form: Restricted, but goal-directed, coherent. Thought content: Internally preoccupied, denies delusions. Denies suicidal thoughts, denies homicidal thoughts, denies intentions or plans. Perception: Denies any auditory or visual hallucinations Attention: No impairment. Orientation: Patient patient was fully oriented to time place person and situation. Insight: Patient has fair insight about fair psychiatric disorder. Judgment: Patient has fair judgment about fair psychiatric treatment. Assessment: Schizophrenia Rule out schizoaffective disorder, depressive type. History of alcohol use disorder Nicotine dependence Plan: Continue inpatient level of care due to need for further stabilization Precautions: Continue 15 minutes check for safety. Consider medical consultation if any acute medical issues arise. Provide the patient individual, group therapy, substance use disorder counseling to give better insight and learn coping skills. Medications: Prolixin for psychotic symptoms- received IM decanoate 50mg on 11/11. [place] for mood stabilization Prozac for depression and anxiety Benadryl for EPS Melatonin for insomnia. Trazodone for insomnia and depression. Continue PRN psych medications Continue non-psychiatric medications for management of co-morbid medical problems. Discharge patient to OUTPATIENT services upon a stabilization
[2019-11-15] MEDS: traZODone HCL 50 MG TAB PO SCH (20:21)
[2019-11-15] MEDS: MELATONIN 5 MG TABLET PO SCH (20:21)
[2019-11-15] MEDS: diphenhydrAMINE 50 MG CAP PO SCH (20:21)
[2019-11-16] MEDS: IBUPROFEN 600 MG TAB PO PRN ×2 (08:48→20:29)
[2019-11-16] MEDS: FLUoxetine HCL 20 MG CAP PO SCH (08:48)
[2019-11-16] MEDS: LITHIUM CARBONATE 300 MG CAP PO SCH (08:48)
[2019-11-16] MEDS: NICOTINE 14MG/24HR PATCH TRANSDERM SCH (08:48)
[2019-11-16] MEDS: LORazepam 1 MG TAB PO PRN ×2 (08:48→20:29)
--- NOTE | 2019-11-16 14:40 | P.PN ---
Progress Note - Text Progress Note Date: 11/16/19 Subjective: Patient was seen today as a cross coverage for Dr. Arita. The patient was evaluated, chart reviewed, case discussed with the treatment team. Patient continues to present to the same as yesterday isolating himself in his room with minimal interaction with others, but patient comes outside his room for meals as per nursing report. He continues to take his psychiatric medications and denies any side effects, and reports fair sleep and appetite. Patient does not attend groups. He denies any depression, anxiety, or mood swings. Denies any suicidal or homicidal ideation. No report of manic or psychotic symptoms including hallucinations, paranoid ideation, or delusions. Patient is awaiting placement as per his report. Objective: Vitals has been reviewed. Mental status examination; Appearance: The patient appears stated age, disheveled, no specific features. Gait/posture: Normal gait, Normal arm swinging: No abnormal movements. Attitude and behavior: Some degree guarded, cooperative, intermittent eye contact. Motor activity: Normal psychomotor activity Speech: Normal rate, tone. Mood: Anxious Affect: Constricted Thought form: Restricted, but goal-directed, coherent. Thought content: denies delusions. Denies suicidal thoughts, denies homicidal thoughts, denies intentions or plans. Perception: Denies any auditory or visual hallucinations Attention: No impairment. Orientation: Patient was fully oriented to time place person and situation. Insight: Patient has fair insight about fair psychiatric disorder. Judgment: Patient has fair judgment about fair psychiatric treatment. Assessment: Schizophrenia Rule out schizoaffective disorder, depressive type. History of alcohol use disorder Nicotine dependence Plan: Continue inpatient level of care due to need for further stabilization Precautions: Continue 15 minutes check for safety. Consider medical consultation if any acute medical issues arise. Provide the patient individual, group therapy, substance use disorder counseling to give better insight and learn coping skills. Medications: Prolixin for psychotic symptoms- received IM decanoate 50mg on 11/11. [place] for mood stabilization Prozac for depression and anxiety Benadryl for EPS Melatonin for insomnia. Trazodone for insomnia and depression. Continue PRN psych medications Continue non-psychiatric medications for management of co-morbid medical problems. Discharge patient to OUTPATIENT services upon a stabilization
[2019-11-16] MEDS: diphenhydrAMINE 50 MG CAP PO SCH (20:29)
[2019-11-16] MEDS: traZODone HCL 50 MG TAB PO SCH (20:29)
[2019-11-16] MEDS: MELATONIN 5 MG TABLET PO SCH (20:29)
[2019-11-17] MEDS: FLUoxetine HCL 20 MG CAP PO SCH (09:38)
[2019-11-17] MEDS: NICOTINE 14MG/24HR PATCH TRANSDERM SCH (09:38)
[2019-11-17] MEDS: LITHIUM CARBONATE 300 MG CAP PO SCH (09:38)
[2019-11-17] MEDS: LORazepam 1 MG TAB PO PRN ×2 (09:39→20:19)
[2019-11-17] MEDS: IBUPROFEN 600 MG TAB PO PRN ×2 (09:39→20:19)
--- NOTE | 2019-11-17 10:03 | P.PN ---
Progress Note - Text Progress Note Date: 11/17/19 Interval History: Patient was seen in his room and was agreeable to speak to copywriter today at the bedside. Patient was sitting up in his bed today and when asked how he was feeling, patient states that he is continuing to have some back pain from laying down in his bed however has been taking ibuprofen for it which has been helping. Patient continues to have a disheveled appearance. He claims that he has been showering regularly and states that his last shower yesterday and has marginally improved hygiene. He claims that he was able to sleep fairly last night. He continues to ask about increasing his Prozac to help with his mood to 80 mg a day. He denied any significant depression today her anxiety. Patient was cooperative with copywriter and was for the most part appropriate during the interview. Patient continues to have a poverty of content and was concrete. Patient appeared to be in no acute distress. He claims that he has a fair appetite. Patient did not endorse any delusions or any paranoia today. At this time patient denies any suicidal or homical ideations, intent or plan. Patient denies any auditory, visual hallucinations. Mental Status Exam: General Appearance: Patient appears to be older than stated age is alert, more directable today and more cooperative. Disheveled appearance, improving hygiene. Behavior: Patient is calmly seated without any agitated behavior. Polite and cooperative. Speech: Patient's speech is fluent and nonpressured. Mood/Affect: Mood is "good" mildly improving, affect is congruent and constricted Suicidality/Homicidality: Patient denies having any suicidal or homicidal ideation intent or plan. Perceptions: Patient denies any visual hallucinations and denies any auditory hallucinations Though content/process: [place], poverty of content. Chronically Poor insight, improving mildly. Memory and concentration: AOX3, grossly intact for the purposes of this session Judgment and insight: Chronically Poor, improving mildly Assessment Schizophrenia History of alcohol use disorder Nicotine dependence Plan: -Patient continues to meet criteria for inpatient psychiatric admission for symptom stabilization and safety. Patient has received court order for treatment on 10/29/2019. -Medications: Patient was given Prolixin D 50 mg IM injection on 10/29/2019, and received his second dose of Prolixin 50 mg IM on 11/12/2019. [place] 300 mg daily for mood stabilization, increased Prozac 80 mg daily for mood/anxiety. Melatonin 10 mg daily at bedtime for insomnia. Continue with Benadryl 50 mg daily at bedtime for EPS prophylaxis/insomnia. Continue with trazodone 150 mg daily at bedtime for insomnia. -Tylenol and ibuprofen when necessary for pain. -When necessary Ativan and Geodon for agitation/aggression. -NRT - nicotine patch -SW on board for discharge planning. Encouraged the patient to participate in milieu. Patient is currently on court ordered treatment. Patient can be discharged when he is found a place to go. Due to the current wait list for group homes, health and social care teacher will be working with patient's guardian to see if it is a appropriate if patient can go to a room and board. Patient will need ACT team follow up upon d/c.
[2019-11-17 15:38] VITALS: BMI 22.8
[2019-11-17] MEDS: diphenhydrAMINE 50 MG CAP PO SCH (20:19)
[2019-11-17] MEDS: MELATONIN 5 MG TABLET PO SCH (20:19)
[2019-11-17] MEDS: traZODone HCL 50 MG TAB PO SCH (20:19)
[2019-11-18] MEDS: LORazepam 1 MG TAB PO PRN ×2 (08:14→20:20)
[2019-11-18] MEDS: IBUPROFEN 600 MG TAB PO PRN ×2 (08:14→20:20)
[2019-11-18] MEDS: FLUoxetine HCL 20 MG CAP PO SCH (08:14)
[2019-11-18] MEDS: LITHIUM CARBONATE 300 MG CAP PO SCH (08:14)
[2019-11-18] MEDS: NICOTINE 14MG/24HR PATCH TRANSDERM SCH (08:14)
--- NOTE | 2019-11-18 11:59 | P.PN ---
Progress Note - Text Progress Note Date: 11/18/19 Interval History: Patient was seen in his room and was agreeable to speak to software writer today at the bedside. Patient was laying down today and states that he is feeling "okay today". He continues to have a constricted affect and poverty of content. Patient was polite and appropriate with software writer. He states that he was having some neck pain earlier however now he is doing better. He states that he feels his mood has been improving since the increase in his Prozac. He claims that he is able to sleep better last night. He claims that he has been showering regularly and states that his last shower yesterday and has marginally improved hygiene. He denied any significant depression today her anxiety. Patient appeared to be in no acute distress. He claims that he has a fair appetite. Patient did not endorse any delusions or any paranoia today. At this time patient denies any suicidal or homical ideations, intent or plan. Patient denies any auditory, visual hallucinations. Mental Status Exam: General Appearance: Patient appears to be older than stated age is alert, more directable today and more cooperative. Disheveled appearance, improving hygiene. Behavior: Patient is calmly seated without any agitated behavior. Polite and cooperative. Speech: Patient's speech is fluent and nonpressured. Mood/Affect: Mood is "ok" mildly improving, affect is congruent and constricted Suicidality/Homicidality: Patient denies having any suicidal or homicidal ideation intent or plan. Perceptions: Patient denies any visual hallucinations and denies any auditory hallucinations Though content/process: [place], poverty of content. Chronically Poor insight, improving mildly. Memory and concentration: AOX3, grossly intact for the purposes of this session Judgment and insight: Chronically Poor, improving mildly Assessment Schizophrenia History of alcohol use disorder Nicotine dependence Plan: -Patient continues to meet criteria for inpatient psychiatric admission for symptom stabilization and safety. Patient has received court order for treatment on 10/29/2019. -Medications: Patient was given Prolixin D 50 mg IM injection on 10/29/2019, and received his second dose of Prolixin 50 mg IM on 11/12/2019. [place] 300 mg daily for mood stabilization, continue with Prozac 80 mg daily for mood/anxiety. Melatonin 10 mg daily at bedtime for insomnia. Continue with Benadryl 50 mg daily at bedtime for EPS prophylaxis/insomnia. Continue with trazodone 150 mg daily at bedtime for insomnia. -Tylenol and ibuprofen when necessary for pain. -When necessary Ativan and Geodon for agitation/aggression. -NRT - nicotine patch -SW on board for discharge planning. Encouraged the patient to participate in milieu. Patient is currently on court ordered treatment. Patient can be discharged when he is found a place to go. Due to the current wait list for group homes, social worker health services will be working with patient's guardian to see if it is a appropriate if patient can go to a room and board. Patient will need ACT team follow up upon d/c.
[2019-11-18] MEDS: MELATONIN 5 MG TABLET PO SCH (20:20)
[2019-11-18] MEDS: diphenhydrAMINE 50 MG CAP PO SCH (20:20)
[2019-11-18] MEDS: traZODone HCL 50 MG TAB PO SCH (20:21)
[2019-11-19] MEDS: FLUoxetine HCL 20 MG CAP PO SCH (08:23)
[2019-11-19] MEDS: IBUPROFEN 600 MG TAB PO PRN ×2 (08:23→20:26)
[2019-11-19] MEDS: LITHIUM CARBONATE 300 MG CAP PO SCH (08:23)
[2019-11-19] MEDS: NICOTINE 14MG/24HR PATCH TRANSDERM SCH (08:23)
[2019-11-19] MEDS: LORazepam 1 MG TAB PO PRN ×2 (08:23→20:27)
--- NOTE | 2019-11-19 11:07 | P.PN ---
Progress Note - Text Progress Note Date: 11/19/19 Interval History: Patient was seen in his room this morning and was agreeable to speak to functional tester typewriters today at the bedside. Patient was laying down today. Patient offered no overnight complaints and states that he slept well. He continues to have a constricted affect and poverty of content. Patient was polite and appropriate with functional tester typewriters. He was asking about potential discharge and where he'll be going. He states that he was having some neck pain earlier however now he is doing better with the ibuprofen and Tylenol. He states that he feels his mood has been improving. He claims that he has been showering regularly and has a fair appetite. He denied any significant depression today her anxiety. Patient appeared to be in no acute distress. Patient did not endorse any delusions or any paranoia today. At this time patient denies any suicidal or homical ideations, intent or plan. Patient denies any auditory, visual hallucinations. Mental Status Exam: General Appearance: Patient appears to be older than stated age is alert, more directable today and more cooperative. Disheveled appearance, improving hygiene. Behavior: Patient is calmly seated without any agitated behavior. Polite and cooperative. Speech: Patient's speech is fluent and nonpressured. Mood/Affect: Mood is "good" mildly improving, affect is congruent and constricted Suicidality/Homicidality: Patient denies having any suicidal or homicidal ideation intent or plan. Perceptions: Patient denies any visual hallucinations and denies any auditory hallucinations Though content/process: [place], poverty of content. Chronically Poor insight, improving mildly. Memory and concentration: AOX3, grossly intact for the purposes of this session Judgment and insight: Chronically Poor, improving mildly Assessment Schizophrenia History of alcohol use disorder Nicotine dependence Plan: -Patient continues to meet criteria for inpatient psychiatric admission for symptom stabilization and safety. Patient has received court order for treatment on 10/29/2019. -Medications: Patient was given Prolixin D 50 mg IM injection on 10/29/2019, and received his second dose of Prolixin 50 mg IM on 11/12/2019, will be due for his next dose on 11/26/2019. [place] 300 mg daily for mood stabilization, continue with Prozac 80 mg daily for mood/anxiety. Melatonin 10 mg daily at bedtime for insomnia. Continue with Benadryl 50 mg daily at bedtime for EPS prophylaxis/insomnia. Continue with trazodone 150 mg daily at bedtime for in somnia. -Tylenol and ibuprofen when necessary for pain. -When necessary Ativan and Geodon for agitation/aggression. -NRT - nicotine patch -SW on board for discharge planning. Encouraged the patient to participate in milieu. Patient is currently on court ordered treatment. Patient can be discharged when he is found a place to go. Due to the current wait list for group homes, child protective services social worker will be working with patient's guardian to see if it is a appropriate if patient can go to a room and board. Patient will need ACT team follow up upon d/c.
[2019-11-19] MEDS: diphenhydrAMINE 50 MG CAP PO SCH (20:24)
[2019-11-19] MEDS: MELATONIN 5 MG TABLET PO SCH (20:24)
[2019-11-19] MEDS: traZODone HCL 50 MG TAB PO SCH (20:24)
[2019-11-20] MEDS: NICOTINE 14MG/24HR PATCH TRANSDERM SCH (08:13)
[2019-11-20] MEDS: IBUPROFEN 600 MG TAB PO PRN ×2 (08:13→20:35)
[2019-11-20] MEDS: FLUoxetine HCL 20 MG CAP PO SCH (08:13)
[2019-11-20] MEDS: LITHIUM CARBONATE 300 MG CAP PO SCH (08:13)
[2019-11-20] MEDS: LORazepam 1 MG TAB PO PRN ×2 (08:13→20:35)
--- NOTE | 2019-11-20 09:24 | P.PN ---
Progress Note - Text Progress Note Date: 11/20/19 Interval History: Patient was seen in his room this morning and was agreeable to speak to literary writer today at the bedside. Patient was laying down today and denied any current complaints. He continues to have a constricted affect and poverty of content. Patient continues to ask about discharge and where he'll be going. Patient was polite and appropriate with literary writer. He continues to endorse mild neck pain. He states that he feels his mood has been improving mildly. He claims that he has been showering regularly and has a fair appetite. He denied any significant depression today her anxiety. Patient appeared to be in no acute distress. Patient did not endorse any delusions or any paranoia today. At this time patient denies any suicidal or homical ideations, intent or plan. Patient denies any auditory, visual hallucinations. Mental Status Exam: General Appearance: Patient appears to be older than stated age is alert, more directable today and more cooperative. Disheveled appearance, improving hygiene. Behavior: Patient is calmly seated without any agitated behavior. Polite and c ooperative. Speech: Patient's speech is fluent and nonpressured. Mood/Affect: Mood is "ok" mildly improving, affect is congruent and constricted Suicidality/Homicidality: Patient denies having any suicidal or homicidal ideation intent or plan. Perceptions: Patient denies any visual hallucinations and denies any auditory hallucinations Though content/process: [place], poverty of content. Chronically Poor insight, improving mildly. Memory and concentration: AOX3, grossly intact for the purposes of this session Judgment and insight: Chronically Poor, improving mildly Assessment Schizophrenia History of alcohol use disorder Nicotine dependence Plan: -Patient continues to meet criteria for inpatient psychiatric admission for symptom stabilization and safety. Patient has received court order for treatment on 10/29/2019. -Medications: Patient was given Prolixin D 50 mg IM injection on 10/29/2019, and received his second dose of Prolixin 50 mg IM on 11/12/2019, will be due for his next dose on 11/26/2019. [place] 300 mg daily for mood stabilization, continue with Prozac 80 mg daily for mood/anxiety. Melatonin 10 mg daily at bedtime for insomnia. Continue with Benadryl 50 mg daily at bedtime for EPS prophylaxis/insomnia. Continue with trazodone 150 mg daily at bedtime for insomnia. -Tylenol and ibuprofen when necessary for pain. -When necessary Ativan and Geodon for agitation/aggression. -NRT - nicotine patch -SW on board for discharge planning. Encouraged the patient to participate in milieu. Patient is currently on court ordered treatment. Patient can be discharged when he is found a place to go. Due to the current wait list for group homes, social media marketing manager will be working with patient's guardian to see if it is a appropriate if patient can go to a room and board. Patient will need ACT team follow up upon d/c.
[2019-11-20] MEDS: traZODone HCL 50 MG TAB PO SCH (20:36)
[2019-11-20] MEDS: MELATONIN 5 MG TABLET PO SCH (20:36)
[2019-11-20] MEDS: diphenhydrAMINE 50 MG CAP PO SCH (20:36)
[2019-11-21 07:03] VITALS: TEMP 97.8
[2019-11-21] MEDS: NICOTINE 14MG/24HR PATCH TRANSDERM SCH (08:23)
[2019-11-21] MEDS: FLUoxetine HCL 20 MG CAP PO SCH (08:23)
[2019-11-21] MEDS: LORazepam 1 MG TAB PO PRN (08:24)
[2019-11-21] MEDS: IBUPROFEN 600 MG TAB PO PRN (08:24)
[2019-11-21] MEDS: LITHIUM CARBONATE 300 MG CAP PO SCH (08:24)
--- NOTE | 2019-11-21 09:42 | P.PN ---
Progress Note - Text Progress Note Date: 11/21/19 Interval History: Patient was seen in his room this morning, was laying down in his bed and was agreeable to speak to report writer today at the bedside. Patient denied any overnight or current complaints. He continues to speak about his neck pain. He continues to have a constricted affect and poverty of content. Patient asked about his Prozac if he can have a small nighttime dose. Patient continues to ask about discharge and where he'll be going, report writer informed him of the wait list and involvement of [facility] [address]. Patient was polite and appropriate with report writer. He states that he feels his mood has been improving mildly. He claims that he has been showering regularly and has a fair appetite. He denied any significant depression today her anxiety. Patient appeared to be in no acute distress. Patient did not endorse any delusions or any paranoia today. At this time patient denies any suicidal or homical ideations, intent or plan. Patient denies any auditory, visual hallucinations. Mental Status Exam: General Appearance: Patient appears to be older than stated age is alert, more directable today and more cooperative. Disheveled appearance, improving hygiene. Behavior: Patient is calmly seated without any agitated behavior. Polite and cooperative. Speech: Patient's speech is fluent and nonpressured. Mood/Affect: Mood is "good" mildly improving, affect is congruent and constricted Suicidality/Homicidality: Patient denies having any suicidal or homicidal ideation intent or plan. Perceptions: Patient denies any visual hallucinations and denies any auditory hallucinations Though content/process: [place], poverty of content. Chronically Poor insight, improving mildly. Memory and concentration: AOX3, grossly intact for the purposes of this session Judgment and insight: Chronically Poor, improving mildly Assessment Schizophrenia History of alcohol use disorder Nicotine dependence Plan: -Patient continues to meet criteria for inpatient psychiatric admission for symptom stabilization and safety. Patient has received court order for treatment on 10/29/2019. -Medications: Patient was given Prolixin D 50 mg IM injection on 10/29/2019, and received his second dose of Prolixin 50 mg IM on 11/12/2019, will be due for his next dose on 11/26/2019. [place] 300 mg daily for mood stabilization, changed Prozac 60 mg daily + 20mg qhs for mood/anxiety. Melatonin 10 mg daily at bedtime for insomnia. Continue with Benadryl 50 mg daily at bedtime for EPS prophylaxis/insomnia. Continue with trazodone 150 mg daily at bedtime for insomnia. -Tylenol and ibuprofen when necessary for pain. -When necessary Ativan and Geodon for agitation/aggression. -NRT - nicotine patch -SW on board for discharge planning. Encouraged the patient to participate in milieu. Patient is currently on court ordered treatment. Patient can be discharged when he is found a place to go. Due to the current wait list for group homes, social insurance administrator will be working with patient's guardian to see if it is a appropriate if patient can go to a room and board. Patient will need ACT team follow up upon d/c.
[2019-11-21 10:50] VITALS: BP 101/67; PULSE 75; RESP 20
--- NOTE | 2019-11-21 11:43 | P.DS ---
Providers Date of admission: 10/13/19 17:31 Expected date of discharge: 11/21/19 Attending physician: Mike Arita MD Consults: 10/13/19 17:46 Consult Physician Routine Consulting Provider: Malina Physician Consult Reason/Comments: H&P and medical and history of HTN and hasn't been taking medications Do you want consulting provider notified?: Yes Primary care physician: Stated None - Discharge Diagnosis(es) (1) Schizophrenia Current Visit: Yes Status: Acute Priority: High (2) History of alcohol use Current Visit: Yes Status: Acute Priority: Medium (3) Nicotine dependence Current Visit: Yes Status: Acute Priority: Low Hospital Course: Admission HPI: Admission was completed by Dr. Doyle "the patient is a 53-year-old male, he resides in a boarding house and has his own room. He came to the emergency department for evaluation. The patient came on petition for agitation. He stopped his injectable medications. He was petitioned for involuntary hospitalization. The only information available is what is documented in the medical record, which is very limited. The patient provided no information abruptly left the interview early in the course of the interview. The patient was petitioned for involuntary hospitalization. He has been followed by [facility]. He apparently has been on Haldol Decanoate though he stopped his monthly injections are on April. According to the petition, "El has s tated that he no longer wants any mental health treatment and he is not willing to see any psychiatrists or take any medication. He is becoming more agitated since stopping his medication in April. He thinks he owns [employer]. When last seen by [facility], he stated "I relayed this message, do not come to see me, I will kenneth you. This was said to [facility] staff at an attempted home visit on 10/07/2019." When he presented to the ED, the only information that was documented is that he denied suicidal or homicidal ideations. 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 He has been diagnosed as schizophrenia. His last admission was this facility on 02/25/2019. I refer the reader to Dr. Covarrubias's admission note of 02/26/2019 for details. It that time he was admitted for auditory hallucinations where he stated "they're overwhelming and directing me to kill myself." He is followed by Dr. Gomez at [facility]. He denied use of drug use. He is receiving Haldol Decanoate injection every 2 weeks. He had not been caring for himself. Patient has had a number of previous psychiatric admissions to the facility as well. His Haldol dose as of February was 200 mg every 2 weeks along with Zoloft 100 mg daily, Vistaril 25 mg twice a day and lithium carbonate 600 mg at bedtime. He was discharged 03/10/2019. Discharge medication included lithium carbonate 20 mg in the morning, 600 mg at night, Seroquel 150 mg at bedtime. Zoloft 200 mg daily, Prolixin Decanoate 25 mg IM every 14 days oral Prolixin 3 mg twice a day and Vistaril 25 mg twice a day. When I interviewed the patient he said he didn't not need to be in the hospital and believed he was arrested by police. When I read the petition stating that he had agitation, I asked what was meant by that and he stood up and said he was not giving any information and walked out of the room." Hospital course: Upon admission to the unit patient was initially bizarre, agitated and psychotic. Patient was petitioned and a second certificate was filed with the courts, patient's court hearing was held on 10/29/2019 and patient received a treatment order on that day. PAtient became more compliant with medications and gradually progress during his hospitalization. Patient got along well with other patients on the unit and followed unit protocol. Patient was compliant with the medications and denied any side effects throughout hospital course. Patient was started on Prolixin by mouth and then transitioned onto Prolixin D IM 50 mg, first dose was given on 10/29/2019, received a second dose on 11/12/2019 and will be due for his next dose of 50 mg IM on and every 2 weeks thereafter. Patient was also restarted on lithium and titrated up to dose of 300 mg daily for mood stabilization, Prozac was also started titrated up to dose of 80 mg daily for mood/anxiety, melatonin 10 mg nightly for insomnia, Benadryl 50 mg daily at bedtime for EPS/insomnia, trazodone titrated to a dose of 150 mg nightly for insomnia. Patient spoke of his stressors and engaged in therapy both group and individual at times however mainly isolated in his room. Patient was also seen by medical team for history and physical exam. PAtient does have chronic neck pain and was on Tylenol and ibuprofen prn for pain. Throughout the course of the hospitalization patient gradually improved with regards to mood, psychosis, agitation, sleep and became future oriented with improved insight and judgment. On the day of discharge patient denied any suicidal or homicidal ideations intent or plan denied any auditory or visual hallucinations. Patient endorsed wanting to live for his future and his health. The patient denied any access to guns or weapons. Patient denied any paranoia and did not endorse any delusions. Patient does not have a significant history of substance abuse however was counseled on abstaining from all substances including alcohol and marijuana. Patient was also counseled on the medications and need for regular compliance and was encouraged to follow-up with their outpatient appointment for mental health and also for primary care. Mental status exam: See mental status exam on progress note for this day. Impression: Schizophrenia History of alcohol use disorder Nicotine dependence Plan: -Continue with discharge today as patient has improved and stabilized psychiatrically and is not currently an imminent threat to himself and/or others. -Continue medications: Patient was transitioned onto Prolixin D IM 50 mg, first dose was given on 10/29/2019, received a second dose on 11/12/2019 and will be due for his next dose of 50 mg IM on and every 2 weeks thereafter. Continue with trazodone 150 mg daily at bedtime for insomnia/mood, Prozac 80 mg daily for anxiety/mood, Benadryl 50 mg daily at bedtime for EPS p rophylaxis/insomnia, melatonin 10 mg nightly for insomnia, lithium 300 mg daily for mood stabilization. -Patient was counseled on the need for medication compliance and appropriate follow-up at mental health and also primary care for medical issues. Patient verbalized understanding and agreed. -squadron worker, [facility] liaison and guardian coordinated to get patient placed at [facility]. Patient will be also followed by [facility] team. Social work also to arrange for patients follow up appointments with [facility] for psychiatric care along with follow up with primary care provider. Patient is c urrently on an active treatment order. -Patient counseled on abstaining from recreational drugs and marijuana and alcohol. Was informed/educated on the adverse effects on their physical and mental health. Patient verbally agreed and understood. -Patient was instructed to return to the hospital or seek immediate medical care if their psychiatric or medical symptoms do worsen or reoccur. Allergies Allergy/AdvReac Type Severity Reaction Status Date / Time levofloxacin [From Levaquin] Allergy Unknown Verified 10/13/19 18:30 linezolid [From Zyvox] Allergy Unknown Verified 10/13/19 18:30 nitrofurantoin Allergy Unknown Verified 10/13/19 18:30 [From Macrobid] nitrofurantoin Allergy Unknown Verified 10/13/19 18:30 macrocrystalline [From Macrobid] Penicillins Allergy Unknown Verified 10/13/19 18:30 sulfamethoxazole Allergy Unknown Verified 10/13/19 18:30 [From Bactrim] trimethoprim [From Bactrim] Allergy Unknown Verified 10/13/19 18:30 vancomycin Allergy Unknown Verified 10/13/19 18:30 Laboratory Results WBC 7.3 k/uL (3.8-10.6) 10/14/19 08:18 RBC 5.60 m/uL (4.30-5.90) 10/14/19 08:18 Hgb 16.7 gm/dL (13.0-17.5) 10/14/19 08:18 Hct 51.7 % (39.0-53.0) 10/14/19 08:18 MCV 92.2 fL (80.0-100.0) 10/14/19 08:18 MCH 29.8 pg (25.0-35.0) 10/14/19 08:18 MCHC 32.3 g/dL (31.0-37.0) 10/14/19 08:18 RDW 13.2 % (11.5-15.5) 10/14/19 08:18 Plt Count 243 k/uL (150-450) 10/14/19 08:18 Neutrophils % 54 % 10/14/19 08:18 Lymphocytes % 31 % 10/14/19 08:18 Monocytes % 8 % 10/14/19 08:18 Eosinophils % 4 % 10/14/19 08:18 Basophils % 0 % 10/14/19 08:18 Neutrophils # 4.0 k/uL (1.3-7.7) 10/14/19 08:18 Lymphocytes # 2.3 k/uL (1.0-4.8) 10/14/19 08:18 Monocytes # 0.6 k/uL (0-1.0) 10/14/19 08:18 Eosinophils # 0.3 k/uL (0-0.7) 10/14/19 08:18 Basophils # 0.0 k/uL (0-0.2) 10/14/19 08:18 Sodium 140 mmol/L (137-145) 10/14/19 08:18 Potassium 4.4 mmol/L (3.5-5.1) 10/14/19 08:18 Chloride 104 mmol/L (98-107) 10/14/19 08:18 Carbon Dioxide 26 mmol/L (22-30) 10/14/19 08:18 Anion Gap 10 mmol/L 10/14/19 08:18 BUN 6 mg/dL (9-20) L 10/14/19 08:18 Creatinine 0.71 mg/dL (0.66-1.25) 10/14/19 08:18 Est GFR (CKD-EPI)AfAm >90 (>60 ml/min/1.73 sqM) 10/14/19 08:18 Est GFR (CKD-EPI)NonAf >90 (>60 ml/min/1.73 sqM) 10/14/19 08:18 Glucose 120 mg/dL (74-99) H 10/14/19 08:[address] Glu mg/dL 105 10/14/19 08:18 Hemoglobin A1c 5.3 % (4.0-6.0) 10/14/19 08:18 Calcium 9.5 mg/dL (8.4-10.2) 10/14/19 08:18 Total Bilirubin 0.6 mg/dL (0.2-1.3) 10/14/19 08:18 AST 26 U/L (17-59) 10/14/19 08:18 ALT 15 U/L (4-49) 10/14/19 08:18 Alkaline Phosphatase 95 U/L (38-126) 10/14/19 08:18 Total Protein 7.2 g/dL (6.3-8.2) 10/14/19 08:18 Albumin 4.6 g/dL (3.5-5.0) 10/14/19 08:18 Triglycerides 131 mg/dL (<150) 10/14/19 08:18 Cholesterol 198 mg/dL (<200) 10/14/19 08:18 LDL Cholesterol, Calc 135 mg/dL (0-99) H 10/14/19 08:18 HDL Cholesterol 37 mg/dL (40-60) L 10/14/19 08:18 TSH 1.760 mIU/L (0.465-4.680) 10/14/19 08:18 Urine Color Light Yellow 10/15/19 16:21 Urine Appearance Clear (Clear) 10/15/19 16:21 Urine pH 7.0 (5.0-8.0) 10/15/19 16:21 Ur Specific [place] 1.003 (1.001-1.035) 10/15/19 16:21 Urine Protein Negative (Negative) 10/15/19 16:21 Urine Glucose (UA) Negative (Negative) 10/15/19 16:21 Urine Ketones Negative (Negative) 10/15/19 16:21 Urine Blood Negative (Negative) 10/15/19 16:21 Urine Nitrite Negative (Negative) 10/15/19 16:21 Urine Bilirubin Negative (Negative) 10/15/19 16:21 Urine Urobilinogen <2.0 mg/dL (<2.0) 10/15/19 16:21 Ur Leukocyte Esterase Negative (Negative) 10/15/19 16:21 Urine Opiates Screen Negative ng/mL (Negative) 10/15/19 16:21 Urine Methadone Screen Negative ng/mL (Negative) 10/15/19 16:21 Ur Propoxyphene Screen Negative ng/mL (Negative) 10/15/19 16:21 Urine Barbiturates Negative ng/mL (Negative) 10/15/19 16:21 Ur Phencyclidine Scrn Negative ng/mL (Negative) 10/15/19 16:21 Ur Amphetamine Screen Negative ng/mL (Negative) 10/15/19 16:21 U Benzodiazepines Scrn Negative ng/mL (Negative) 10/15/19 16:21 [place] <0.2 mmol/L 11/10/19 08:45 Urine Cocaine Screen Negative ng/mL (Negative) 10/15/19 16:21 U Cannabinoids Screen Negative ng/mL (Negative) 10/15/19 16:21 Urine Alcohol Negative mg/dL (Negative) 10/15/19 16:21 Vital Signs Temp 97.8 F 11/21/19 07:03 Pulse 75 11/21/19 08:25 Resp 20 11/21/19 08:25 BP 101/67 11/21/19 08:25 Pulse Ox 97 11/21/19 07:03 Patient Condition at Discharge: Stable Plan - Discharge Summary Discharge Rx Participant: No New Discharge Prescriptions: New diphenhydrAMINE [Benadryl] 50 mg PO HS 30 Days cap traZODone HCL [Desyrel] 150 mg PO HS 30 Days tab Nicotine 14Mg/24Hr Patch [Habitrol] 1 patch TRANSDERM DAILY #14 patch [place] Carbonate 300 mg PO DAILY 30 Days cap Melatonin 10 mg PO HS 30 Days tablet Ibuprofen [Motrin] 600 mg PO Q8H PRN 30 Days tab PRN Reason: Moderate To Severe Pain fluPHENAZine decanoate [Prolixin Decanoate] 50 mg IM [id number] #1 ml FLUoxetine HCL [PROzac] 80 mg PO DAILY 30 Days cap Acetaminophen Tab [Tylenol] 650 mg PO Q4HR PRN 30 Days tab PRN Reason: Pain/Discomfort Continue Omeprazole 20 mg PO DAILY #30 capsule. Aspirin EC [Ecotrin Low Dose] 81 mg PO DAILY 30 Days tab Atorvastatin [Lipitor] 40 mg PO HS 30 Days tab Multivitamins, Thera [Multivitamin (formulary)] 1 tab PO DAILY 30 Days tab Discontinued Sertraline [Zoloft] 200 mg PO 1900 #60 tab [place] Carbonate 900 mg PO DAILY fluPHENAZine [Prolixin] 5 mg PO DAILY QUEtiapine [SEROquel] 200 mg PO HS Discharge Medication List Omeprazole 20 mg PO DAILY #30 capsule. 05/31/16 [Rx] Acetaminophen Tab [Tylenol] 650 mg PO Q4HR PRN 30 Days tab 11/21/19 [Rx] Aspirin EC [Ecotrin Low Dose] 81 mg PO DAILY 30 Days tab 11/21/19 [Rx] Atorvastatin [Lipitor] 40 mg PO HS 30 Days tab 11/21/19 [Rx] FLUoxetine HCL [PROzac] 80 mg PO DAILY 30 Days cap 11/21/19 [Rx] Ibuprofen [Motrin] 600 mg PO Q8H PRN 30 Days tab 09/25/20 [Rx] [place] Carbonate 300 mg PO DAILY 30 Days cap 11/21/19 [Rx] Melatonin 10 mg PO HS 30 Days tablet 11/21/19 [Rx] Multivitamins, Thera [Multivitamin (formulary)] 1 tab PO DAILY 30 Days tab 11/21/19 [Rx] Nicotine 14Mg/24Hr Patch [Habitrol] 1 patch TRANSDERM DAILY #14 patch 11/21/19 [Rx] diphenhydrAMINE [Benadryl] 50 mg PO HS 30 Days cap 11/21/19 [Rx] fluPHENAZine decanoate [Prolixin Decanoate] 50 mg IM [id number] #1 ml 11/21/19 [Rx] traZODone HCL [Desyrel] 150 mg PO HS 30 Days tab 11/21/19 [Rx] Follow up Appointment(s)/Referral(s): None,Stated [Primary Care Provider] - 1-2 days Activity/Diet/Wound Care/Special Instructions: Activity and diet as tolerated. Avoid the use of street drugs and alcohol. Take all medications as prescribed. When you are in need of refills on your medications please contact your medical provider and/or outpatient psychiatrist to have this done. Please go to scheduled outpatient appointment for aftercare treatment. If symptoms return or become worse, call the crisis line at and/or go to the nearest emergency room for evaluation. Discharge Disposition: OTHER INSTITUTION NOT DEFINED
== END 2019-11-21 13:24 | disposition home or self-care (01) | DRG 885 ==
LOC: EC 15:45 → 3MHU 17:31
PROVIDERS: ADMIT Psychiatry & Neurology Psychiatry; ATTEND Psychiatry & Neurology Psychiatry
DX: F20.9 Schizophrenia, unspecified (principal); E78.5 Hyperlipidemia, unspecified; F17.210 Nicotine dependence, cigarettes, uncomplicated; F41.0 Panic disorder [episodic paroxysmal anxiety]; G47.00 Insomnia, unspecified; G89.29 Other chronic pain; I10 Essential (primary) hypertension; B19.20 Unspecified viral hepatitis C without hepatic coma; F32.9 Major depressive disorder, single episode, unspecified; M54.2 Cervicalgia; M54.9 Dorsalgia, unspecified; R25.1 Tremor, unspecified; T50.905A Adverse effect of unspecified drugs, medicaments and biological substances, initial encounter; T50.906A Underdosing of unspecified drugs, medicaments and biological substances, initial encounter; Z91.128 Patient's intentional underdosing of medication regimen for other reason; Z79.82 Long term (current) use of aspirin; Z79.899 Other long term (current) drug therapy; Z88.1 Allergy status to other antibiotic agents; Z88.2 Allergy status to sulfonamides; Z90.49 Acquired absence of other specified parts of digestive tract; Z87.19 Personal history of other diseases of the digestive system; Z80.0 Family history of malignant neoplasm of digestive organs
CPT/HCPCS: 80053; 80061; 80178; 80306; 81003; 82075; 83036; 84443; 85025; 99285

== ENCOUNTER 2021-04-04 19:28 | Inpatient (IN) | payer MEDICARE, MEDICAID ==
--- NOTE | 2021-04-04 22:47 | ED ---
General Adult HPI - General Chief complaint: Psychiatric Symptoms Stated complaint: Mental Health Time Seen by Provider: 04/04/21 19:35 Source: patient, RN notes reviewed, old records reviewed Mode of arrival: ambulatory Limitations: no limitations - History of Present Illness Initial comments: This is a 55-year-old male who presents emergency Department who is brought in by police because of a pickup order. Patient has been petitioned by his geriatric case manager. Patient is brought in because he is not taking care of himself he doesn't wash himself and he states he hasn't taken his heart since August. Patient has been refusing any medical treatment and does not want to follow-up with his geriatric case manager and patient is not taking his mental health medications. Patient does admit that he is a schizophrenic he states he is taking whatever medicine she supposed be taking but does not know what those are. Patient has no physical complaints today. Patient does not want to be here. Patient is cooperative. - Related Data Home Medications Medication Instructions Recorded Confirmed Aspirin EC [Ecotrin Low Dose] 81 mg PO DAILY@00 04/04/21 04/04/21 FLUoxetine HCL [PROzac] 80 mg PO DAILY@79904/04/21 04/04/21 Ibuprofen [Motrin] 600 mg PO BID PRN 04/04/21 04/04/21 [place] Carbonate 900 mg PO DAILY@79904/04/21 04/04/21 Multivitamins, Thera [Multivitamin 1 tab PO DAILY@0800 04/04/21 04/04/21 (formulary)] Omeprazole 20 mg PO DAILY@00 04/04/21 04/04/21 fluPHENAZine decanoate [Prolixin 50 mg IM Q7D 04/04/21 04/04/21 Decanoate] Previous Rx's Medication Instructions Recorded Acetaminophen Tab [Tylenol] 650 mg PO Q4HR PRN 30 Days tab 11/21/19 Atorvastatin [Lipitor] 40 mg PO HS 30 Days tab 11/21/19 traZODone HCL [Desyrel] 150 mg PO HS 30 Days tab 11/21/19 Allergies Allergy/AdvReac Type Severity Reaction Status Date / Time levofloxacin [From Levaquin] Allergy Unknown Verified 04/04/21 21:52 linezolid [From Zyvox] Allergy Unknown Verified 04/04/21 21:52 nitrofurantoin Allergy Unknown Verified 04/04/21 21:52 [From Macrobid] nitrofurantoin Allergy Unknown Verified 04/04/21 21:52 macrocrystalline [From Macrobid] Penicillins Allergy Unknown Verified 04/04/21 21:52 sulfamethoxazole Allergy Unknown Verified 04/04/21 21:52 [From Bactrim] tetracycline Allergy Unknown Verified 04/04/21 21:52 trimethoprim [From Bactrim] Allergy Unknown Verified 04/04/21 21:52 vancomycin Allergy Unknown Verified 04/04/21 21:52 hydroxyzine [From Vistaril] AdvReac Chest Pain Verified 04/04/21 21:52 Review of Systems ROS Statement: Those systems with pertinent positive or pertinent negative responses have been documented in the HPI. ROS Other: All systems not noted in ROS Statement are negative. Past Medical History Past Medical History: Liver Disease Additional Past Medical History / Comment(s): Pt stated that he has Hepatitis C. History of Any Multi-Drug Resistant Organisms: None Reported Past Surgical History: Appendectomy Additional Past Surgical History / Comment(s): pt denies. Pt is denying any medical issues at time of admission. Past Anesthesia/Blood Transfusion Reactions: No Reported Reaction Past Psychological History: Anxiety, Depression, Panic Disorder, Schizophrenia Smoking Status: Current every day smoker Past Alcohol Use History: None Reported Past Drug Use History: None Reported - Past Family History Father History Unknown: Yes Additional Family Medical History / Comment(s): pt stated unk Mother History Unknown: Yes Additional Family Medical History / Comment(s): Pancreatic cancer in his mother General Exam - General Exam Comments Initial Comments: GENERAL: Patient is well-developed and well-nourished. Patient is uncooperative And does not look like he has cleaned himself in quite a while. ENT: Neck is soft and supple. No significant lymphadenopathy is noted. Oropharynx is clear. Moist mucous membranes. Neck has full range of motion without eliciting any pain. EYES: The sclera were anicteric and conjunctiva were pink and moist. Extraocular movements were intact and pupils were equal round and reactive to light. Eyelids were unremarkable. PULMONARY: Unlabored respirations. Good breath sounds bilaterally. No audible rales rhonchi or wheezing was noted. CARDIOVASCULAR: There is a regular rate and rhythm without any murmurs gallops or rubs. ABDOMEN: Soft and nontender with normal bowel sounds. SKIN: Skin is clear with no lesions or rashes and otherwise unremarkable. NEUROLOGIC: Patient is alert and oriented x3. Cranial nerves II through XII are grossly intact. Motor and sensory are also intact. Normal speech, volume and content. Symmetrical smile. MUSCULOSKELETAL: Normal extremities with adequate strength and full range of motion. LYMPHATICS: No significant lymphadenopathy is noted PSYCHIATRIC: Patient denies any has not taken his medications yet he doesn't know when he takes or what he takes. Patient states he doesn't know why he doesn't shower. Limitations: no limitations Course Vital Signs 04/04/21 19:33 Temperature 98.0 F Pulse Rate 69 Respiratory 18 Rate Blood Pressure 124/81 O2 Sat by Pulse 97 Oximetry Disposition Clinical Impression: Schizophrenia Disposition: ADMITTED IP TO THIS HOSP Referrals: None,Stated [Primary Care Provider] - 1-2 days Time of Disposition: 22:47
[2021-04-05] MEDS ORDERED: MAG HYDROX/AL HYDROX/SIMETH 30 ML CUP PO PRN (03:54)
[2021-04-05] MEDS ORDERED: HALOPERIDOL LACTATE 5 MG/ML 1 ML VIAL IM PRN (03:54)
[2021-04-05] MEDS ORDERED: ACETAMINOPHEN TAB 325 MG TAB PO PRN (03:54)
[2021-04-05] MEDS ORDERED: MAGNESIUM HYDROXIDE 2,400 MG/10 ML CUP PO PRN (03:54)
[2021-04-05] MEDS ORDERED: QUEtiapine 100 MG TAB PO PRN (03:59)
[2021-04-05] MEDS: NICOTINE 14MG/24HR PATCH TRANSDERM SCH (08:47)
[2021-04-05 12:28] LABS: Basophils % (A) 0 %; Eosinophils # (A) 0.2 k/uL (0-0.7); Eosinophils % (A) 3 %; HCT 47.8 % (39.0-53.0); HGB 15.4 gm/dL (13.0-17.5); Lymphocytes # (A) 1.4 k/uL (1.0-4.8); Lymphocytes % (A) 16 %; MCH 30.9 pg (25.0-35.0); MCHC 32.2 g/dL (31.0-37.0); MCV 95.9 fL (80.0-100.0); Mean Platelet Volume 7.9; Monocytes # (A) 0.4 k/uL (0-1.0); Monocytes % (A) 4 %; Neutrophils # (A) 6.3 k/uL (1.3-7.7); Neutrophils % (A) 75 %; Platelet Count 208 k/uL (150-450); RBC 4.98 m/uL (4.30-5.90); RDW 13.2 % (11.5-15.5); WBC 8.5 k/uL (3.8-10.6)
[2021-04-05 12:49] LABS: ALT 22 U/L (4-49); AST 26 U/L (17-59); African American GFR (CKD) >90 (>60 ml/min/1.73 sqM); Albumin 4.1 g/dL (3.5-5.0); Alkaline Phosphatase 56 U/L (38-126); Anion Gap 7 mmol/L; Blood Urea Nitrogen 15 mg/dL (9-20); Calcium 9.1 mg/dL (8.4-10.2); Carbon Dioxide 27 mmol/L (22-30); Chloride 104 mmol/L (98-107); Glucose 105 mg/dL (74-99); Non-African American GFR(CKD) >90 (>60 ml/min/1.73 sqM); Potassium 4.7 mmol/L (3.5-5.1); Sodium 138 mmol/L (137-145); Total Bilirubin 0.6 mg/dL (0.2-1.3); Total Protein 6.8 g/dL (6.3-8.2)
--- NOTE | 2021-04-05 14:04 | P.HP ---
Psychiatric H&P - . H&P Date: 04/05/21 History & Physical: Allergies Allergy/AdvReac Type Severity Reaction Status Date / Time levofloxacin [From Levaquin] Allergy Unknown Verified 04/04/21 21:52 linezolid [From Zyvox] Allergy Unknown Verified 04/04/21 21:52 nitrofurantoin Allergy Unknown Verified 04/04/21 21:52 [From Macrobid] nitrofurantoin Allergy Unknown Verified 04/04/21 21:52 macrocrystalline [From Macrobid] Penicillins Allergy Unknown Verified 04/04/21 21:52 sulfamethoxazole Allergy Unknown Verified 04/04/21 21:52 [From Bactrim] tetracycline Allergy Unknown Verified 04/04/21 21:52 trimethoprim [From Bactrim] Allergy Unknown Verified 04/04/21 21:52 vancomycin Allergy Unknown Verified 04/04/21 21:52 hydroxyzine [From Vistaril] AdvReac Chest Pain Verified 04/04/21 21:52 Vital Signs Temp 98.0 F 04/05/21 05:08 Pulse 84 04/05/21 05:08 Resp 18 04/05/21 05:08 BP 130/71 04/05/21 05:08 Pulse Ox 95 04/05/21 05:08 Intake & Output 04/04/21 04/05/21 04/05/21 18:59 06:59 18:59 Weight 94.2 kg Laboratory Last Values WBC 8.5 k/uL (3.8-10.6) 04/05/21 12:06 RBC 4.98 m/uL (4.30-5.90) 04/05/21 12:06 Hgb 15.4 gm/dL (13.0-17.5) 04/05/21 12:06 Hct 47.8 % (39.0-53.0) 04/05/21 12:06 MCV 95.9 fL (80.0-100.0) 04/05/21 12:06 MCH 30.9 pg (25.0-35.0) 04/05/21 12:06 MCHC 32.2 g/dL (31.0-37.0) 04/05/21 12:06 RDW 13.2 % (11.5-15.5) 04/05/21 12:06 Plt Count 208 k/uL (150-450) 04/05/21 12:06 MPV 7.9 04/05/21 12:06 Neutrophils % 75 % 04/05/21 12:06 Lymphocytes % 16 % 04/05/21 12:06 Monocytes % 4 % 04/05/21 12:06 Eosinophils % 3 % 04/05/21 12:06 Basophils % 0 % 04/05/21 12:06 Neutrophils # 6.3 k/uL (1.3-7.7) 04/05/21 12:06 Lymphocytes # 1.4 k/uL (1.0-4.8) 04/05/21 12:06 Monocytes # 0.4 k/uL (0-1.0) 04/05/21 12:06 Eosinophils # 0.2 k/uL (0-0.7) 04/05/21 12:06 Basophils # 0.0 k/uL (0-0.2) 04/05/21 12:06 Sodium 138 mmol/L (137-145) 04/05/21 12:06 Potassium 4.7 mmol/L (3.5-5.1) 04/05/21 12:06 Chloride 104 mmol/L (98-107) 04/05/21 12:06 Carbon Dioxide 27 mmol/L (22-30) 04/05/21 12:06 Anion Gap 7 mmol/L 04/05/21 12:06 BUN 15 mg/dL (9-20) 04/05/21 12:06 Creatinine 0.94 mg/dL (0.66-1.25) 04/05/21 12:06 Est GFR (CKD-EPI)AfAm >90 (>60 ml/min/1.73 sqM) 04/05/21 12:06 Est GFR (CKD-EPI)NonAf >90 (>60 ml/min/1.73 sqM) 04/05/21 12:06 Glucose 105 mg/dL (74-99) H 04/05/21 12:06 Calcium 9.1 mg/dL (8.4-10.2) 04/05/21 12:06 Total Bilirubin 0.6 mg/dL (0.2-1.3) 04/05/21 12:06 AST 26 U/L (17-59) 04/05/21 12:06 ALT 22 U/L (4-49) 04/05/21 12:06 Alkaline Phosphatase 56 U/L (38-126) 04/05/21 12:06 Total Protein 6.8 g/dL (6.3-8.2) 04/05/21 12:06 Albumin 4.1 g/dL (3.5-5.0) 04/05/21 12:06 TSH 1.350 mIU/L (0.465-4.680) 04/05/21 12:06 [place] 0.3 mmol/L 04/05/21 12:02 Coronavirus (PCR) Not Detected (Not Detectd) 04/05/21 02:12 04/05/21 14:04 IDENTIFYING DATA: Patient is a single, unemployed, 55 year old male with significant history of schizophrenia who presented to the emergency department under pickup order due to nonadherence. HPI: Patient presented to the hospital on 04/04/2021, brought in by police on a pickup order due to nonadherence to treatment. As per EPS report, the patient is unsure why he was brought to the emergency department and was denying any suicidal ideation, homicidal ideation, or acute psychotic symptoms. The patient has reportedly been refusing medications that are prescribed by his [facility] psychiatrist and has also had him marked deterioration and mental health as per his guardian as well as his [facility] home. The patient has been noted to not be showering or taking care of his hygiene for months. The patient has also been refusing any medical attention. Upon evaluation on the psychiatric unit, the patient maintains that he is uncertain as to why he was brought into the hospital. He is not reporting any significant issues at this time. He denies any suicidal or homicidal ideation, intention, and/or plan. He denies any auditory or visual hallucinations. He denies any paranoia or other delusions at this time. The patient was informed that he was brought to the hospital because he has been showing inability to care for himself made evident by his poor hygiene and grooming and the state of his room at the [facility] home. The patient maintains that none of this is a major concern for him. He currently believes that he does not need any medications and does not require any psychiatric treatment. The patient refuses to answer any further questioning. PAST PSYCHIATRIC HISTORY: The patient has had numerous psychiatric admissions with the last admission being in September 2019. He currently is open with [facility] and receives the Prolixin Decanoate 50 mg IM injection once a month. He is also on a regimen of lithium 900 mg daily, Prozac 40 mg daily, and trazodone 150 mg at bedtime. Patient is reportedly not taking any of these medications. The patient has also had previous trials of Tegretol, Depakote, Remeron, Zyprexa, and Risperdal. PMH: Past Medical History: Liver Disease Additional Past Medical History / Comment(s): Pt stated that he has Hepatitis C. History of Any Multi-Drug Resistant Organisms: None Reported Past Surgical History: Appendectomy Additional Past Surgical History / Comment(s): pt denies. Pt is denying any medical issues at time of admission. Past Anesthesia/Blood Transfusion Reactions: No Reported Reaction Past Psychological History: Anxiety, Depression, Panic Disorder, Schizophrenia Smoking Status: Current every day smoker Past Alcohol Use History: None Reported Past Drug Use History: None Reported ALLERGIES: Levofloxacin, penicillin, nitrofurantoin, Bactrim, tetracycline, vancomycin, Vistaril CHEMICAL DEPENDENCY HISTORY: Patient reports that he smokes approximately 1 pack per day. He denies any marijuana, alcohol, or illicit drug use. FAMILY PSYCHIATRIC/SUBSTANCE USE HISTORY: Unable to assess. SOCIAL HISTORY: Patient currently is a resident at [facility] in [place]. He is single and unemployed. MENTAL STATUS EXAM: General Appearance: Patient appears to be stated age is alert, directable, and is intermittently cooperative. Patient appears to have very poor hygiene and grooming. Behavior: Patient is seated without any agitated behavior. Eye contact is intermittent. Speech: Patient's speech is fluent and nonpressured. Nonspontaneous and monotone. Minimal. Mood/Affect: Patient reports their mood "fine I will want to leave." affect is irritable. Suicidality/Homicidality: Patient denies having any homicidal ideation intent or plan. Denies any suicidal ideations intent or plan Perceptions: Patient denies any visual hallucinations and denies any auditory hallucinations Though content/process: There is no evidence of any delusional thought content and thought process is linear and goal-directed. Memory and concentration: AOX3, grossly intact for the purposes of this session. Can spell "WORLD" backwards Judgment and insight: poor STRENGTHS/WEAKNESSES: Strength is that the patient appears to be in relatively decent health. Weaknesses the patient has severe mental illness and is monitored treatment. INTELLECT: average IMPRESSIONS: Schizophrenia Nicotine dependence PLAN: -Patient is admitted under involuntary status to MHU for stabilization of psychiatric symptoms and safety. A second certification was completed and along with petition will be filed for court. -Medications : Prolixin 5 mg by mouth at bedtime with plans to transition the patient back to Prolixin Decanoate due to his history of nonadherence to treatment. Trazodone 150 mg by mouth at bedtime for depression/insomnia [place] 450 mg by mouth at bedtime for mood stabilization. -Haldol PRN for agitation/aggression -Patient was counselled on substance abuse but reported no desire desired to cut back on use -Patient was informed of the risks, benefits and side effects of the medication and patient verbally consented to taking the medications. Patient signed med consent form and was placed in chart. -Internal Medicine consult to perform medical evaluation and physical. -NRT - nicotine patch -SW on board for discharge planning. Encourage patient to participate in groups to work on coping skills. 04/05/21 14:04
--- NOTE | 2021-04-05 14:30 | P.HPMEDMHU ---
<Santos Saul - Last Filed: 04/05/21 14:22> History of Present Illness H&P Date: 04/05/21 History of Presenting Illness: Patient is a 55-year-old male with a past medical history of hepatitis C, hyperl ipidemia, and nicotine dependence. He is currently admitted to inpatient mental health unit under psychiatric team secondary to court petitioned for medication noncompliance. Patient reportedly resides in [facility] and has long- standing history of schizophrenia and currently petitioned due to medication noncompliance. Patient was seen and fully evaluated at the bedside with RN. Patient with a disheveled and unkempt appearance. He was cooperative throughout assessment. He reports that he has been taking his medications as ordered, but declines knowing what medications he currently takes on a daily basis. Patient denies having any headache, lightheadedness, dizziness, chest pain, p alpitations, shortness of breath, dyspnea with exertion, nausea, vomiting, tremors, or experiencing any numbness/tingling/weakness in his extremities. Patient denies having any suicidal or homicidal ideations and denies having any visual/tactile/auditory hallucinations. Review of systems: Pertinent positives and negatives as discussed in HPI, a complete review of systems was performed and all other systems are negative. Physical exam: Vital signs reviewed and stable. General: Nontoxic, no distress and appears stated age. Patient with a disheveled and unkempt appearance Derm: Skin warm and dry, normal coloration for ethnicity. Head: Atraumatic, normocephalic and symmetric. Eyes: EOMs intact, no lid lag, and anicteric sclera Mouth: no lip lesions, mucus membranes moist Cardiovascular: regular rate and rhythm with normal S1S2, no murmur, positive posterior tibial pulses bilaterally, and cap refill < 2 seconds. Lungs: Respirations even, regular, and unlabored on room air. Lungs CTA bilaterally, no rhonchi, no rales, no wheezing, and no accessory muscle usage. Abdominal: soft, nontender to palpation, no guarding, no appreciable organomegaly Ext: ROM intact. No gross muscle atrophy, no edema, no contractures clubbed fingernails with nicotine stained. Neuro: Speech clear, face symmetrical and CN II-XII grossly intact with no noted focal neuro deficits Psych: Alert and oriented to person, place, time, and situation. Appropriate and pleasant affect. Assessment and Plan of Care: Schizophrenia with reports of psychosis and medication noncompliance Management per primary admitting psychiatric team. Provide safe and supportive treatment. Hyperlipidemia Continue daily medication regimen with atorvastatin. GERD Continue daily medication regimen with omeprazole 20 mg each morning. Nicotine dependence Encourage and educate patient on the importance of smoking cessation and the risks of continued use. Nicotine patch. Thank you for allowing us to participate in the care of this pleasant patient. Do not hesitate to contact us with questions. Someone can be reached from the [facility] hospitalist group all hours of the day at [phone] or via [employer] Past Medical History Past Medical History: Liver Disease Additional Past Medical History / Comment(s): Pt stated that he has Hepatitis C. History of Any Multi-Drug Resistant Organisms: None Reported Past Surgical History: Appendectomy Additional Past Surgical History / Comment(s): pt denies. Pt is denying any medical issues at time of admission. Past Anesthesia/Blood Transfusion Reactions: No Reported Reaction Past Psychological History: Anxiety, Depression, Panic Disorder, Schizophrenia Smoking Status: Current every day smoker Past Alcohol Use History: None Reported Additional Past Alcohol Use History / Comment(s): pt stated quit drinking 7 monhts ago approx oct or nov 2016 Past Drug Use History: None Reported - Past Family History Father History Unknown: Yes Additional Family Medical History / Comment(s): pt stated unk Mother History Unknown: Yes Additional Family Medical History / Comment(s): Pancreatic cancer in his mother Medications and Allergies Home Medications Medication Instructions Recorded Confirmed Type Acetaminophen Tab [Tylenol] 650 mg PO Q4HR PRN 30 Days tab 11/21/19 04/04/21 Rx Atorvastatin [Lipitor] 40 mg PO HS 30 Days tab 11/21/19 04/04/21 Rx traZODone HCL [Desyrel] 150 mg PO HS 30 Days tab 11/21/19 04/04/21 Rx Aspirin EC [Ecotrin Low Dose] 81 mg PO DAILY@79904/04/21 04/04/21 History FLUoxetine HCL [PROzac] 80 mg PO DAILY@79904/04/21 04/04/21 History Ibuprofen [Motrin] 600 mg PO BID PRN 04/04/21 04/04/21 History Col[place] Carbonate 900 mg PO DAILY@79904/04/21 04/04/21 History Multivitamins, Thera [Multivitamin 1 tab PO DAILY@0800 04/04/21 04/04/21 History (formulary)] Omeprazole 20 mg PO DAILY@0800 04/04/21 04/04/21 History fluPHENAZine decanoate [Prolixin 50 mg IM Q7D 04/04/21 04/04/21 History Decanoate] Allergies Allergy/AdvReac Type Severity Reaction Status Date / Time levofloxacin [From Levaquin] Allergy Unknown Verified 04/04/21 21:52 linezolid [From Zyvox] Allergy Unknown Verified 04/04/21 21:52 nitrofurantoin Allergy Unknown Verified 04/04/21 21:52 [From Macrobid] nitrofurantoin Allergy Unknown Verified 04/04/21 21:52 macrocrystalline [From Macrobid] Penicillins Allergy Unknown Verified 04/04/21 21:52 sulfamethoxazole Allergy Unknown Verified 04/04/21 21:52 [From Bactrim] tetracycline Allergy Unknown Verified 04/04/21 21:52 trimethoprim [From Bactrim] Allergy Unknown Verified 04/04/21 21:52 vancomycin Allergy Unknown Verified 04/04/21 21:52 hydroxyzine [From Vistaril] AdvReac Chest Pain Verified 04/04/21 21:52 Physical Exam Vitals: Vital Signs Temp Pulse Pulse Resp BP BP Pulse Ox 04/05/21 05:08 98.0 F 84 18 130/71 95 04/04/21 19:33 98.0 F 69 18 124/81 97 Intake and Output 04/04/21 04/05/21 04/05/21 22:59 06:59 14:59 Other: Weight 90.718 kg 94.2 kg Cranial Nerve Examination - Cranial Nerves Cranial Nerve II- Optic: Intact Cranial Nerve III- Oculomotor: Intact Cranial Nerve IV- Trochlear: Intact Cranial Nerve V- Trigeminal: Intact Cranial Nerve - Abducens: Intact Cranial Nerve VII- Facial: Intact Cranial Nerve VIII- Auditory: Intact Cranial Nerve IX- Glossopharyngeal: Intact Cranial Nerve X- Vagus: Intact Cranial Nerve XI- Accessory: Intact Cranial Nerve XII- Hypoglossal: Intact Results CBC & Chem 7: 04/05/21 12:06 04/05/21 12:06 Thrombosis Risk Factor Assmnt - Choose All That Apply Any of the Below Risk Factors Present?: No Other Risk Factors: No Other congenital or acquired thrombophilia - If yes, enter type in comment: No Thrombosis Risk Factor Assessment Level: Very Low Risk <Gurmeet Chance - Last Filed: 04/05/21 14:31> History of Present Illness I reviewed the documentation as provided by the HARRY above, who is the original author of this note. I agree with the documented assessment and plan, with the following changes: None Physical Exam Osteopathic Statement: *. No significant issues noted on an osteopathic structural exam other than those noted in the History and Physical/Consult. Vitals: Vital Signs Temp Pulse Pulse Resp BP BP Pulse Ox 04/05/21 05:08 98.0 F 84 18 130/71 95 04/04/21 19:33 98.0 F 69 18 124/81 97 Intake and Output 04/04/21 04/05/21 04/05/21 22:59 06:59 14:59 Other: Weight 90.718 kg 94.2 kg Results CBC & Chem 7: 04/05/21 12:06 04/05/21 12:06 Labs: Abnormal Lab Results - Last 24 Hours (Table) 04/05/21 Range/Units 12:06 Glucose 105 H (74-99) mg/dL
[2021-04-05] MEDS: traZODone HCL 50 MG TAB PO SCH (20:37)
[2021-04-05] MEDS: ATORVASTATIN 40 MG TAB PO SCH (20:37)
[2021-04-05] MEDS ORDERED: LITHIUM CARBONATE 150 MG CAP PO SCH (21:00)
[2021-04-06] MEDS: PANTOPRAZOLE 40 MG TABLET PO SCH (08:17)
[2021-04-06] MEDS: NICOTINE 14MG/24HR PATCH TRANSDERM SCH (08:17)
[2021-04-06] MEDS: ASPIRIN 81 MG PO SCH (08:17)
--- NOTE | 2021-04-06 12:23 | P.PN ---
Progress Note - Text Progress Note Date: 04/06/21 Interval History: Patient was seen resting in bed and refused to get out of bed for this provider. The patient continues to remain primarily isolative to himself in his room. He continues to not address any hygiene or grooming despite staff inform this patient that he needs to show that he is able to care for himself. The patient has not showered since last August. The patient has been adherent to his medications last night but not this morning. He had to take his psychotropic medications but not his medical medications. He is currently denying any suicidal or homicidal ideation, intention, and/or plan. He is not reporting any auditory or visual hallucinations. He reports no paranoia or other delusions. He states that he will attempt to shower today. Mental Status Exam: General Appearance: Patient appears to be stated age is alert, not directable or cooperative. Behavior: Patient is calmly lying down in bed without any agitated behavior. Eye contact is poor. Speech: Patient's speech is fluent and nonpressured. Mood/Affect: Mood is okay, affect is blunted. Suicidality/Homicidality: Patient denies having any suicidal or homicidal ideation intent or plan. Perceptions: Patient denies any visual hallucinations and denies any auditory hallucinations Though content/process: There is no evidence of any delusional thought content and thought process is linear and goal-directed. Memory and concentration: AOX3, grossly intact for the purposes of this session Judgment and insight: Very poor Vital Signs Temp 97.7 F 04/06/21 06:15 Pulse 77 04/06/21 06:15 Resp 18 04/05/21 05:08 BP 141/92 04/06/21 06:15 Pulse Ox 98 04/06/21 06:15 Laboratory Results - Last 24 Hours 04/05/21 04/05/21 04/05/21 12:02 12:06 12:06 WBC RBC Hgb Hct MCV MCH MCHC RDW Plt Count MPV Neutrophils % Lymphocytes % Monocytes % Eosinophils % Basophils % Neutrophils # Lymphocytes # Monocytes # Eosinophils # Basophils # Sodium 138 Potassium 4.7 Chloride 104 Carbon Dioxide 27 Anion Gap 7 BUN 15 Creatinine 0.94 Est GFR (CKD-EPI)AfAm >90 Est GFR (CKD-EPI)NonAf >[address] Glu mg/dL 114 Hemoglobin A1c 5.6 Calcium 9.1 Total Bilirubin 0.6 AST 26 ALT 22 Alkaline Phosphatase 56 Total Protein 6.8 Albumin 4.1 Triglycerides 211.00 H Cholesterol 159.00 LDL Cholesterol, Calc 85.0 VLDL Cholesterol, Calc 42.20 H HDL Cholesterol 31.80 L Cholesterol/HDL Ratio 5.00 TSH 1.350 [place] 0.3 04/05/21 12:06 WBC 8.5 RBC 4.98 Hgb 15.4 Hct 47.8 MCV 95.9 MCH 30.9 MCHC 32.2 RDW 13.2 Plt Count 208 MPV 7.9 Neutrophils % 75 Lymphocytes % 16 Monocytes % 4 Eosinophils % 3 Basophils % 0 Neutrophils # 6.3 Lymphocytes # 1.4 Monocytes # 0.4 Eosinophils # 0.2 Basophils # 0.0 Sodium Potassium Chloride Carbon Dioxide Anion Gap BUN Creatinine Est GFR (CKD-EPI)AfAm Est GFR (CKD-EPI)NonAf Glucose Estimated Ave Glu mg/dL Hemoglobin A1c Calcium Total Bilirubin AST ALT Alkaline Phosphatase Total Protein Albumin Triglycerides Cholesterol LDL Cholesterol, Calc VLDL Cholesterol, Calc HDL Cholesterol Cholesterol/HDL Ratio TSH Beaman Assessment Schizophrenia Nicotine dependence Plan: -Patient continues to meet criteria for inpatient psychiatric admission for symptom stabilization and safety. The patient has been petitioned and certified. -Medications: Increase Prolixin to 7.5 mg by mouth at bedtime for mood stabilization/psychosis Increase lithium to 600 mg by mouth at bedtime for mood stabilization Continue trazodone 150 mg daily at bedtime for insomnia -When necessary Ativan and Haldol for agitation/aggression. -NRT - nicotine patch -SW on board for discharge planning. Encouraged the patient to participate in milieu.
[2021-04-06] MEDS: ATORVASTATIN 40 MG TAB PO SCH (20:56)
[2021-04-06] MEDS: traZODone HCL 50 MG TAB PO SCH (20:56)
[2021-04-06] MEDS ORDERED: LITHIUM CARBONATE 150 MG CAP PO SCH (21:00)
[2021-04-07] MEDS: ASPIRIN 81 MG PO SCH ×2 (09:56→20:26)
[2021-04-07] MEDS: PANTOPRAZOLE 40 MG TABLET PO SCH (09:56)
[2021-04-07] MEDS: NICOTINE 14MG/24HR PATCH TRANSDERM SCH (09:58)
--- NOTE | 2021-04-07 11:39 | P.PN ---
Progress Note - Text Progress Note Date: 04/07/21 Interval History: Patient was seen resting in bed and refused to get out of bed for this provider. The patient continues to remain primarily isolative to himself in his room. The patient continues to refuse his morning medications however has been taking his bedtime medications. His bedtime medications include his psychotropic medications. The patient is currently denying any suicidal or homicidal ideation, intention, and/or plan. He is denying any auditory or visual hallucin ations. He denies any paranoia of the delusions. The patient continues to display poor hygiene and grooming. He is however, and cooperative during this interview. Mental Status Exam: General Appearance: Patient appears to be stated age is alert, directable and cooperative. Hygiene and grooming is very poor. Behavior: Patient is calmly lying down in bed without any agitated behavior. Eye contact is poor. Speech: Patient's speech is fluent and nonpressured. Mood/Affect: Mood is "okay," affect is blunted. Suicidality/Homicidality: Patient denies having any suicidal or homicidal ideation intent or plan. Perceptions: Patient denies any visual hallucinations and denies any auditory hallucinations Though content/process: There is no evidence of any delusional thought content and thought process is linear and goal-directed. Memory and concentration: AOX3, grossly intact for the purposes of this session Judgment and insight: Very poor Vital Signs Temp 97.6 F 04/07/21 06:25 Pulse 75 04/07/21 06:25 Resp 16 04/07/21 06:25 BP 155/95 04/07/21 06:25 Pulse Ox 98 04/06/21 06:15 Assessment Schizophrenia Nicotine dependence Plan: -Patient continues to meet criteria for inpatient psychiatric admission for symptom stabilization and safety. The patient has been petitioned and certified. -Medications: Increase Prolixin to 10 mg by mouth at bedtime for mood stabilization/psychosis Increase lithium to 900 mg by mouth at bedtime for mood stabilization Continue trazodone 150 mg daily at bedtime for insomnia We will move the patient's medical medications to bedtime to encourage medication adherence. -When necessary Ativan and Haldol for agitation/aggression. -NRT - nicotine patch -SW on board for discharge planning. Encouraged the patient to participate in milieu.
[2021-04-07] MEDS: traZODone HCL 50 MG TAB PO SCH (20:25)
[2021-04-07] MEDS: LITHIUM CARBONATE 300 MG CAP PO SCH (20:25)
[2021-04-07] MEDS: ATORVASTATIN 40 MG TAB PO SCH (20:26)
[2021-04-08] MEDS: NICOTINE 14MG/24HR PATCH TRANSDERM SCH (08:05)
--- NOTE | 2021-04-08 13:23 | P.PN ---
Progress Note - Text Progress Note Date: 04/08/21 Interval History: However, the patient is cooperative during the interview. He is currently denying any suicidal or homicidal ideation, intention, and/or plan. He is denying any auditory or visual hallucinations. He is reporting of paranoia or other delusions. The patient has been adherent with his medications and is agreeable to receiving long-acting injectable today. He did defer mental health court. He reports no issues regarding his sleep or his appetite. Mental Status Exam: General Appearance: Patient appears to be stated age is alert, directable and cooperative. Hygiene and grooming is poor. Behavior: Patient is calmly lying down in bed without any agitated behavior. Eye contact is poor. Speech: Patient's speech is fluent and nonpressured. Mood/Affect: Mood is "okay," affect is blunted. Suicidality/Homicidality: Patient denies having any suicidal or homicidal ideation intent or plan. Perceptions: Patient denies any visual hallucinations and denies any auditory hallucinations Though content/process: There is no evidence of any delusional thought content and thought process is linear and goal-directed. Memory and concentration: AOX3, grossly intact for the purposes of this session Judgment and insight: Mildly improving Vital Signs Temp 97.8 F 04/08/21 06:50 Pulse 65 04/08/21 06:50 Resp 16 04/08/21 06:50 BP 112/62 04/08/21 06:50 Pulse Ox 98 04/08/21 06:50 Assessment Schizophrenia Nicotine dependence Plan: -Patient continues to meet criteria for inpatient psychiatric admission for symptom stabilization and safety. The patient deferred mental health court today. Anticipate discharge early next week. -Medications: Discontinue oral Prolixin and start the patient back on Prolixin Decanoate 50 mg IM today Continue lithium 900 mg by mouth at bedtime for mood stabilization Continue trazodone 150 mg daily at bedtime for insomnia We will move the patient's medical medications to bedtime to encourage medication adherence. -When necessary Ativan and Haldol for agitation/aggression. -NRT - nicotine patch -SW on board for discharge planning. Encouraged the patient to participate in milieu.
[2021-04-08] MEDS ORDERED: fluPHENAZine DECANOATE 25 MG/ML 5ML MDV IM ONE (13:30)
[2021-04-08] MEDS: traZODone HCL 50 MG TAB PO SCH (20:59)
[2021-04-08] MEDS: ATORVASTATIN 40 MG TAB PO SCH (20:59)
[2021-04-08] MEDS: LITHIUM CARBONATE 300 MG CAP PO SCH (20:59)
[2021-04-08] MEDS: ASPIRIN 81 MG PO SCH (20:59)
[2021-04-09] MEDS: NICOTINE 14MG/24HR PATCH TRANSDERM SCH (09:47)
--- NOTE | 2021-04-09 14:06 | P.PN ---
Subjective Progress Note Date: 04/09/21 Principal diagnosis: Diagnostic impression: Schizophrenia chronic undifferentiated type Nicotine dependence Subjective/: Patient states that he is not sure as to why he is here and he has no idea why he was brought here He states that he is living in a boarding home and was minding his own business but the police brought him here He denies any problems with his medications or taking them regularly Patient denies that he is expressing any auditory or visual hallucinations He denies any suicidal or homicidal ideations Objective data: Patient was resting comfortably in bed and was cooperative during the interview He is alert and oriented to place and person Patient comes across as very concrete and simple Remains projective Insight into his problem is questionable However is not showing any agitation or aggression Patient does not exhibit any side effects from his current medications Plan: Patient continues to meet the criteria for inpatient psychiatric admission for symptom stabilization and safety Continue supportive care and current pharmacotherapy Patient will continue to be encouraged apartheid on the huizar activities Cruz Watts M.D. 04/09/2021 Objective - Vital Signs Vital signs: Vital Signs Temp 97.9 F 04/09/21 07:30 Pulse 82 04/09/21 07:30 Resp 16 04/08/21 06:50 BP 125/72 04/09/21 07:30 Pulse Ox 98 04/09/21 07:30 - Labs CBC & Chem 7: 04/05/21 12:06 04/05/21 12:06
[2021-04-09] MEDS: LITHIUM CARBONATE 300 MG CAP PO SCH (21:42)
[2021-04-09] MEDS: traZODone HCL 50 MG TAB PO SCH (21:42)
[2021-04-09] MEDS: ATORVASTATIN 40 MG TAB PO SCH (21:42)
[2021-04-09] MEDS: ASPIRIN 81 MG PO SCH (21:42)
[2021-04-10] MEDS: LORazepam 1 MG TAB PO PRN ×2 (02:58→13:41)
[2021-04-10] MEDS: NICOTINE 14MG/24HR PATCH TRANSDERM SCH (07:59)
--- NOTE | 2021-04-10 11:56 | P.PN ---
Subjective Progress Note Date: 04/10/21 Principal diagnosis: Diagnostic impression: Schizophrenia chronic undifferentiated type Nicotine dependence Subjective/: Patient continues to reinforce that he is not sure as to why he is here and he has no idea why he was brought here He denies any problems with his medications or taking them regularly Patient denies that he is experiencing any auditory or visual hallucinations He denies any suicidal or homicidal ideations Objective data: Patient was resting comfortably in bed and was cooperative during the interview He is alert and oriented to place and person Patient comes across as very concrete and simple Remains projective Insight into his problem is questionable However is not showing any agitation or aggression Patient does not exhibit any side effects from his current medications Plan: Patient continues to meet the criteria for inpatient psychiatric admission for symptom stabilization and safety Continue supportive care and current pharmacotherapy Patient will continue to be encouraged apartheid on the huizar activities Cruz Watts M.D. 04/10/2021 Objective - Vital Signs Vital signs: Vital Signs Temp 97.9 F 04/09/21 07:30 Pulse 82 04/09/21 07:30 Resp 16 04/08/21 06:50 BP 125/72 04/09/21 07:30 Pulse Ox 98 04/09/21 07:30 Intake & Output 04/09/21 04/10/21 04/10/21 18:59 06:59 18:59 Weight 91 kg - Labs CBC & Chem 7: 04/05/21 12:06 04/05/21 12:06
[2021-04-10] MEDS: LITHIUM CARBONATE 300 MG CAP PO SCH (20:41)
[2021-04-10] MEDS: ASPIRIN 81 MG PO SCH (20:41)
[2021-04-10] MEDS: traZODone HCL 50 MG TAB PO SCH (20:42)
[2021-04-10] MEDS: ATORVASTATIN 40 MG TAB PO SCH (20:42)
[2021-04-11 06:32] VITALS: RESP 18
[2021-04-11] MEDS: NICOTINE 14MG/24HR PATCH TRANSDERM SCH (08:12)
[2021-04-11] MEDS: LORazepam 1 MG TAB PO PRN ×2 (09:48→21:16)
--- NOTE | 2021-04-11 14:19 | P.PN ---
Progress Note - Text Progress Note Date: 04/11/21 Clinical Problems: Schizophrenia chronic with acute exacerbation, tobacco use disorder Interim history: I reviewed the medical record, interviewed the patient and discuss his treatment and treatment plan during team meeting. The patient was only concern about discharge. He denied other problems or concerns and specifically denied experiencing thoughts of harm or perceptual disturbances. The social science instructor this morning informed me that he may be [facility] but in the afternoon she reported that he could not return to the [facility]. The plan will be placement at [facility]. Mental status exam: He presented as a disheveled appearing 55-year-old [place] male with long unkempt palomares. He was sitting comfortably in his bed. He made eye contact and appeared to attend to the interview. He had no prominent physical abnormalities. He had a flat facial expression. He is alert and oriented to person, place and time. He showed psychomotor retardation but no abnormal involuntary movements. His speech was spontaneous with decreased rhythm and volume. His affect was flat. He denied suicidal ideation, wishes or homicidal ideation. He denied feeling hopeless, helpless or worthless. He did not express ideas reference, paranoid ideation or delusions. His thinking was concrete and associations were goal directed. He did not appear to be responding to internal stimuli. Assessment: Patient continues to meet the criteria for inpatient psychiatric admission for symptom stabilization and safety Plan: Continue inpatient treatment. Safety precautions. Continue current psychotropic medications including lithium carbonate 100 and her milligrams at bedtime, trazodone 150 mg at bedtime when necessary for sleep and Prolixin Decanoate 50 mg IM every 2 weeks. laboratory worker to coordinate discharge and aftercare with [facility]. Evaluate clinical status response to treatment daily basis.
[2021-04-11] MEDS: ASPIRIN 81 MG PO SCH (21:15)
[2021-04-11] MEDS: traZODone HCL 50 MG TAB PO SCH (21:15)
[2021-04-11] MEDS: LITHIUM CARBONATE 300 MG CAP PO SCH (21:15)
[2021-04-11] MEDS: ATORVASTATIN 40 MG TAB PO SCH (21:15)
[2021-04-12 07:22] VITALS: BP 105/70; PULSE 76; TEMP 97.5
[2021-04-12] MEDS: NICOTINE 14MG/24HR PATCH TRANSDERM SCH (08:33)
[2021-04-12] MEDS: LORazepam 1 MG TAB PO PRN (10:13)
--- NOTE | 2021-04-12 12:31 | P.PN ---
Progress Note - Text Progress Note Date: 04/12/21 Interval History: Patient was seen resting in bed and was agreeable to be interviewed in his room. Currently, the patient is not reporting any suicidal or homicidal ideation, intention, and/or plan. He is not reporting any auditory or visual hallucinations. He is denying any paranoia or other delusions. Patient expresses a strong desire for discharge. We were informed by the patient's outpatient team that currently he has no place to go to an due to his severity of mental illness the patient has required a supervised living situation such as mental foster [facility] or similar. The patient has been adherent with his medications and is not endorsing any significant side effects at this time. He continues to display poor hygiene and grooming. Mental Status Exam: General Appearance: Patient appears to be stated age is alert, directable and cooperative. Hygiene and grooming is poor. Behavior: Patient is calmly lying down in bed without any agitated behavior. Eye contact is poor. Speech: Patient's speech is fluent and nonpressured. Mood/Affect: Mood is "okay," affect is blunted. Suicidality/Homicidality: Patient denies having any suicidal or homicidal ideation intent or plan. Perceptions: Patient denies any visual hallucinations and denies any auditory hallucinations Though content/process: There is no evidence of any delusional thought content and thought process is linear and goal-directed. Memory and concentration: AOX3, grossly intact for the purposes of this session Judgment and insight: Mildly improving Vital Signs Temp 97.5 F L 04/12/21 07:22 Pulse 76 04/12/21 07:22 Resp 18 04/11/21 06:31 BP 105/70 04/12/21 07:22 Pulse Ox 94 L 04/12/21 07:22 Assessment Schizophrenia Nicotine dependence Plan: -Patient continues to meet criteria for inpatient psychiatric admission for symptom stabilization and safety. The patient deferred mental health court today. -We are currently awaiting placement for this patient. Due to the severity of his mental illness, the patient will require a supervised living situation. -Medications: Prolixin Decanoate 50 mg IM was administered on 04/08/2021. Continue lithium 900 mg by mouth at bedtime for mood stabilization Continue trazodone 150 mg daily at bedtime for insomnia We will move the patient's medical medications to bedtime to encourage medication adherence. -When necessary Ativan and Haldol for agitation/aggression. -NRT - nicotine patch -SW on board for discharge planning. Encouraged the patient to participate in milieu.
--- NOTE | 2021-04-13 12:06 | P.DS ---
Providers Date of admission: 04/05/21 03:51 Expected date of discharge: 04/13/21 Attending physician: Morteza Reyes MD Consults: 04/05/21 03:54 Consult Physician Routine Consulting Provider: Malina Melton Consult Reason/Comments: H&P for mental health admission Do you want consulting provider notified?: Yes Primary care physician: Stated None - Discharge Diagnosis(es) (1) Schizophrenia Status: Acute Priority: High (2) Nicotine dependence Status: Chronic Priority: Medium Hospital Course: Admission HPI: Patient is a single, unemployed, 55 year old male with significant history of schizophrenia who presented to the emergency department under pickup order due to nonadherence. Patient presented to the hospital on 04/04/2021, brought in by police on a pickup order due to nonadherence to treatment. As per EPS report, the patient is unsure why he was brought to the emergency department and was denying any suicidal ideation, homicidal ideation, or acute psychotic symptoms. The patient has reportedly been refusing medications that are prescribed by his [facility] psychiatrist and has also had him marked deterioration and mental health as per his guardian as well as his [facility] home. The patient has been noted to not be showering or taking care of his hygiene for months. The patient has also been refusing any medical attention. Upon evaluation on the psychiatric unit, the patient maintains that he is uncertain as to why he was brought into the hospital. He is not reporting any significant issues at this time. He denies any suicidal or homicidal ideation, intention, and/or plan. He denies any auditory or visual hallucinations. He denies any paranoia or other delusions at this time. The patient was informed that he was brought to the hospital because he has been showing inability to care for himself made evident by his poor hygiene and grooming and the state of his room at the [facility]. The patient maintains that none of this is a major concern for him. He currently believes that he does not need any medications and does not require any psychiatric treatment. The patient refuses to answer any further questioning. The patient has had numerous psychiatric admissions with the last admission being in September 2019. He currently is open with [facility] and receives the Prolixin Decanoate 50 mg IM injection once a month. He is also on a regimen of lithium 900 mg daily, Prozac 40 mg daily, and trazodone 150 mg at bedtime. Patient is reportedly not taking any of these medications. The patient has also had previous trials of Tegretol, Depakote, Remeron, Zyprexa, and Risperdal. Hospital course: Upon admission to the unit patient was initially not cooperative with the psychiatric interview. Patient was however directable and agreeable to commence treatment. Patient was compliant with the medications and denied any side effects throughout hospital course. Patient was started on Prolixin, lithium, and trazodone for psychosis and mood stabilization. The plan is to transition the patient back to Prolixin Decanoate.Patient was also seen by medical team for history and physical exam. He was initially isolative to himself in his room however as the medications were increased and the patient was again, he displayed significant improvement in regards to his cooperation with staff and peers. The patient displayed more spontaneity and increased range in affect. He continued to have difficulty with hygiene and grooming which appears to be his baseline at this time. The patient was transitioned to Prolixin Decanoate after he deferred mental health court. On the day of discharge, the patient is not reporting any suicidal or homicidal ideation, intention, and/or plan. He is not reporting any auditory or visual hallucinations. He is denying any paranoia or other delusions. Patient expresses no concerns regarding his general medical health. He reports no access to firearms or other weapons. The patient was counseled at length on his medications and the importance of regular medication adherence and appropriate outpatient follow-up. The patient does not have a significant history of substance abuse however was counseled at length on absta ining from all substances including alcohol and marijuana. There was concern about the patient's housing as he caused significant property damage to his previous home due to his inability to care for himself. The patient's initial discharge was delayed as we looked for alternative housing as the patient is severely mentally ill and is unable to live on his own at this time. The patient found housing with the [facility] and was subsequently discharged. Mental status exam: General Appearance: Patient appears to be stated age is alert, pleasant, and cooperative. Patient is in no acute distress and has poor hygiene and grooming Behavior: Patient is calmly seated without any agitated behavior. Eye contact is appropriate. Speech: Patient's speech is fluent and nonpressured. Mood/Affect: Patient reports their mood is "feeling good", affect is congruent and euthymic and friendly. Suicidality/Homicidality: Patient denies having any suicidal or homicidal ideation intent or plan. Perceptions: Patient denies any auditory or visual hallucinations. Though content/process: There is no evidence of any delusional thought content and thought process is linear and goal-directed. Memory and concentration: AOX3, grossly intact for the purposes of this session. Can spell "WORLD" backwards correctly. Judgment and insight: Improved with guarded prognosis Vital Signs Temp 97.5 F L 04/12/21 07:22 Pulse 76 04/12/21 07:22 Resp 18 04/11/21 06:31 BP 105/70 04/12/21 07:22 Pulse Ox 94 L 04/12/21 07:22 Impression: Schizophrenia Nicotine dependence Plan: -Continue with discharge today as patient has improved and stabilized psychiatrically and is not currently an imminent threat to himself and/or others. Patient will remain at chronically elevated risk for harm to self and/or others due to his severity of mental illness. -Continue medications: Trazodone 150 mg at bedtime for insomnia [place] 900 mg daily at bedtime for mood stabilization Prolixin decanoate 50 mg IM every 7 days. Medication last administered on 04/08/2021. Next dose due 04/15/2021. -Patient was counseled on the need for medication compliance and appropriate follow-up at mental health and also primary care for medical issues. Patient verbalized understanding and agreed. -Social work to arrange for and conduct family meeting to ensure safety upon discharge and answer any questions/concerns. Social work also to arrange for patients follow up appointments with [facility] for psychiatric care along with follow up with primary care provider. -Patient counseled on abstaining from recreational drugs and marijuana and alcohol. Was informed/educated on the adverse effects on their physical and mental health. Patient verbally agreed and understood. -Patient was instructed to return to the hospital or seek immediate medical care if their psychiatric or medical symptoms do worsen or reoccur. -Psychoeducation and supportive therapy provided to patient. Risks and benefits of pharmacological treatment versus the risks and benefits of nontreatment weight and discussed. Informed consent discussion held. Common side effects of psychotropics discussed such as, but not limited to headache, GI disturbance, sexual dysfunction, movement disorders, sedation, and orthostatic hypotension. Life threatening and blackbox warnings of prescribed medications also discussed. Potential risks of operating a vehicle or heavy machinery discussed with patient at length. Advised on importance of compliance and a reliable and responsible manner. Patient advised to review FDA consumer labeling of all medications prior to taking. Patient verbalized understanding of potential risks, and agrees with current treatment plan. Patient advised to medically contact physician/emergency personnel if any acute changes in condition occur. Laboratory Results WBC 8.5 k/uL (3.8-10.6) 04/05/21 12:06 RBC 4.98 m/uL (4.30-5.90) 04/05/21 12:06 Hgb 15.4 gm/dL (13.0-17.5) 04/05/21 12:06 Hct 47.8 % (39.0-53.0) 04/05/21 12:06 MCV 95.9 fL (80.0-100.0) 04/05/21 12:06 MCH 30.9 pg (25.0-35.0) 04/05/21 12:06 MCHC 32.2 g/dL (31.0-37.0) 04/05/21 12:06 RDW 13.2 % (11.5-15.5) 04/05/21 12:06 Plt Count 208 k/uL (150-450) 04/05/21 12:06 MPV 7.9 04/05/21 12:06 Neutrophils % 75 % 04/05/21 12:06 Lymphocytes % 16 % 04/05/21 12:06 Monocytes % 4 % 04/05/21 12:06 Eosinophils % 3 % 04/05/21 12:06 Basophils % 0 % 04/05/21 12:06 Neutrophils # 6.3 k/uL (1.3-7.7) 04/05/21 12:06 Lymphocytes # 1.4 k/uL (1.0-4.8) 04/05/21 12:06 Monocytes # 0.4 k/uL (0-1.0) 04/05/21 12:06 Eosinophils # 0.2 k/uL (0-0.7) 04/05/21 12:06 Basophils # 0.0 k/uL (0-0.2) 04/05/21 12:06 Sodium 138 mmol/L (137-145) 04/05/21 12:06 Potassium 4.7 mmol/L (3.5-5.1) 04/05/21 12:06 Chloride 104 mmol/L (98-107) 04/05/21 12:06 Carbon Dioxide 27 mmol/L (22-30) 04/05/21 12:06 Anion Gap 7 mmol/L 04/05/21 12:06 BUN 15 mg/dL (9-20) 04/05/21 12:06 Creatinine 0.94 mg/dL (0.66-1.25) 04/05/21 12:06 Est GFR (CKD-EPI)AfAm >90 (>60 ml/min/1.73 sqM) 04/05/21 12:06 Est GFR (CKD-EPI)NonAf >90 (>60 ml/min/1.73 sqM) 04/05/21 12:06 Glucose 105 mg/dL (74-99) H 04/05/21 12:[address] Glu mg/dL 114 04/05/21 12:06 Hemoglobin A1c 5.6 % (0.0-6.0) 04/05/21 12:06 Calcium 9.1 mg/dL (8.4-10.2) 04/05/21 12:06 Total Bilirubin 0.6 mg/dL (0.2-1.3) 04/05/21 12:06 AST 26 U/L (17-59) 04/05/21 12:06 ALT 22 U/L (4-49) 04/05/21 12:06 Alkaline Phosphatase 56 U/L (38-126) 04/05/21 12:06 Total Protein 6.8 g/dL (6.3-8.2) 04/05/21 12:06 Albumin 4.1 g/dL (3.5-5.0) 04/05/21 12:06 Triglycerides 211.00 mg/dL (0.00-149.00) H 04/05/21 12:06 Cholesterol 159.00 mg/dL (0.00-200.00) 04/05/21 12:06 LDL Cholesterol, Calc 85.0 mg/dL (0.0-131.0) 04/05/21 12:06 VLDL Cholesterol, Calc 42.20 mg/dL (5.00-40.00) H 04/05/21 12:06 HDL Cholesterol 31.80 mg/dL (40.00-60.00) L 04/05/21 12:06 Cholesterol/HDL Ratio 5.00 Ratio 04/05/21 12:06 TSH 1.350 mIU/L (0.465-4.680) 04/05/21 12:06 [place] 0.3 mmol/L 04/05/21 12:02 Coronavirus (PCR) Not Detected (Not Detectd) 04/05/21 02:12 Allergies Allergy/AdvReac Type Severity Reaction Status Date / Time levofloxacin [From Levaquin] Allergy Unknown Verified 04/04/21 21:52 linezolid [From Zyvox] Allergy Unknown Verified 04/04/21 21:52 nitrofurantoin Allergy Unknown Verified 04/04/21 21:52 [From Macrobid] nitrofurantoin Allergy Unknown Verified 04/04/21 21:52 macrocrystalline [From Macrobid] Penicillins Allergy Unknown Verified 04/04/21 21:52 sulfamethoxazole Allergy Unknown Verified 04/04/21 21:52 [From Bactrim] tetracycline Allergy Unknown Verified 04/04/21 21:52 trimethoprim [From Bactrim] Allergy Unknown Verified 04/04/21 21:52 vancomycin Allergy Unknown Verified 04/04/21 21:52 hydroxyzine [From Vistaril] AdvReac Chest Pain Verified 04/04/21 21:52 Patient Condition at Discharge: Stable Plan - Discharge Summary Discharge Rx Participant: No New Discharge Prescriptions: New Aspirin 81 mg PO HS 30 Days traZODone HCL [Desyrel] 150 mg PO HS 30 Days tab Atorvastatin [Lipitor] 40 mg PO HS 30 Days tab [place] Carbonate 900 mg PO HS 30 Days cap Changed fluPHENAZine decanoate [Prolixin Decanoate] 50 mg IM Q7D #1 ml Discontinued traZODone HCL [Desyrel] 150 mg PO HS 30 Days tab Acetaminophen Tab [Tylenol] 650 mg PO Q4HR PRN 30 Days tab PRN Reason: Pain/Discomfort Atorvastatin [Lipitor] 40 mg PO HS 30 Days tab Aspirin EC [Ecotrin Low Dose] 81 mg PO DAILY@0800 FLUoxetine HCL [PROzac] 80 mg PO DAILY@0800 [place] Carbonate 900 mg PO DAILY@0800 Multivitamins, Thera [Multivitamin (formulary)] 1 tab PO DAILY@0800 Omeprazole 20 mg PO DAILY@0800 Ibuprofen [Motrin] 600 mg PO BID PRN PRN Reason: Pain Discharge Medication List Aspirin 81 mg PO HS 30 Days 04/12/21 [Rx] Atorvastatin [Lipitor] 40 mg PO HS 30 Days tab 04/12/21 [Rx] [place] Carbonate 900 mg PO HS 30 Days cap 04/12/21 [Rx] fluPHENAZine decanoate [Prolixin Decanoate] 50 mg IM Q7D #1 ml 04/12/21 [Rx] traZODone HCL [Desyrel] 150 mg PO HS 30 Days tab 04/12/21 [Rx] Follow up Appointment(s)/Referral(s): [facility] [Outside] - 04/12/21 2:30 pm (ACT team at [facility] today ) [facility] - [facility] Week Patient Instructions/Handouts: Schizophrenia (DC) Activity/Diet/Wound Care/Special Instructions: Activity and diet as tolerated. Avoid the use of street drugs and alcohol. Take all medications as prescribed. When you are in need of refills on your medications please contact your medical provider and/or outpatient psychiatrist to have this done. Please go to scheduled outpatient appointment for aftercare treatment. If symptoms return or become worse, call the crisis line at and/or go to the nearest emergency room for evaluation Discharge Disposition: HOME SELF-CARE
== END 2021-04-12 14:40 | disposition home or self-care (01) | DRG 885 ==
LOC: EC 19:28 → 3MHU 04-05 03:51
PROVIDERS: ADMIT Psychiatry & Neurology Psychiatry; ATTEND Psychiatry & Neurology Psychiatry
DX: F20.9 Schizophrenia, unspecified (principal); F17.210 Nicotine dependence, cigarettes, uncomplicated; F32.A Depression, unspecified; F41.0 Panic disorder [episodic paroxysmal anxiety]; G47.00 Insomnia, unspecified; Z79.899 Other long term (current) drug therapy; Z80.0 Family history of malignant neoplasm of digestive organs; E78.5 Hyperlipidemia, unspecified; K21.9 Gastro-esophageal reflux disease without esophagitis; Z79.82 Long term (current) use of aspirin; B19.20 Unspecified viral hepatitis C without hepatic coma; Z91.19 Patient's noncompliance with other medical treatment and regimen; T43.96XA Underdosing of unspecified psychotropic drug, initial encounter; Z91.128 Patient's intentional underdosing of medication regimen for other reason; Z53.29 Procedure and treatment not carried out because of patient's decision for other reasons; Z56.0 Unemployment, unspecified; Z20.822 Contact with and (suspected) exposure to COVID-19; Z88.1 Allergy status to other antibiotic agents; Z88.0 Allergy status to penicillin; Z88.2 Allergy status to sulfonamides; Z88.8 Allergy status to other drugs, medicaments and biological substances
CPT/HCPCS: 80053; 80061; 80178; 82075; 83036; 84443; 85025; 87635; 99285

== ENCOUNTER → 2021-05-04 | Outpatient (CLI) | payer MEDICARE ==
[2021-05-04 15:31] LABS: African American GFR (CKD) 97.1 (60.0-200.0); Blood Urea Nitrogen 16.5 mg/dL (9.0-27.0); Chol/HDL Ratio 3.85 Ratio; Glucose 110 mg/dL (70-110); LDL Cholesterol,Calculated 59.8 mg/dL (0.0-131.0); Non-African American GFR(CKD) 83.8 (60.0-200.0)
== END | disposition home or self-care (01) ==
LOC: LABWHC1 07:33
PROVIDERS: ATTEND Psychiatry & Neurology Psychiatry
DX: F20.9 Schizophrenia, unspecified (principal); Z79.899 Other long term (current) drug therapy
CPT/HCPCS: 36415; 80061; 80178; 82565; 82947; 83036; 84439; 84443; 84520

== ENCOUNTER → 2021-06-22 | Outpatient (CLI) | payer MEDICARE ==
[2021-06-22 13:10] VITALS: BP 113/69; PULSE 64; RESP 18
--- NOTE | 2021-06-22 15:00 | P.CON ---
Consult Note - . Consult date: 06/22/21 Assessment/Plan:: HISTORY OF PRESENT ILLNESS: 55 yr old male as a referral from Dr Pierson presents today with chronic and severe LBP secondary to DDD for evaluation. No imaging on file. Patient states he has been expressing lower back pain for several years and used to take Percocet for it. Lower back pain as 9 out of 10 in intensity, constant, sharp pain localized within the lower aspect of the lumbar spine with radiation of pain to his hips and lower extremities. Lower extremity are also accompanied with occasional numbness. Pain is provoked with bending, lifting or twisting. Pain is relieved with medications (naproxen by Dr. Harrison, tramadol by Dr. Pierson), lidocaine patches, injections 15 years ago which provided no relief, physical therapy years ago and he is currently disinterested in, home-based stretching regimen and rest. He does not want surgery. PMH: HTN, Hyperlipidemia, Hepatitis C, Chronic Liver Disease, GERD, Behavioral Health Disorders PSH: Denies SH: Hx of ETOH abuse. Hx of tobacco use. Denies illicit drug use. Lives in [facility] home with guardian available. FH: Non contributory All: See list Meds: See list REVIEW OF ORGAN SYSTEMS: CONSTITUTIONAL: No fevers or chills. No recent weight loss. HEENT: No visual acuity loss, eye pain, difficulties with hearing. No nosebleeds. No difficulty swallowing. RESPIRATORY: Denies any troubles with breathing or dyspnea on exertion. CARDIOVASCULAR: Denies any chest pain, palpitations, or recent heart attacks. GASTROINTESTINAL: Denies fatty food intolerance. Has change in bowel habits and gas bloat. GENITOURINARY: Denies any blood in urine. Has increased urinary frequency. NEUROLOGICAL: + numbness and tingling along the distal extremities. No seizure disorders or headaches. MUSCULOSKELETAL: + back pain SKIN: No skin cancer. No rash. PSYCHIATRIC: Denies current depression or suicidal thoughts. ENDOCRINE: Denies current thyroid disorders. Denies any blood sugar glucose intolerance. HEME/LYMPHATIC: Denies any lumps and bumps around the neck. History of deep venous thrombosis. ALLERGY/IMMUNOLOGY: No immunoglobulin therapy. No immune deficiencies. BREAST: Denies current breast lumps, pain or nipple discharge. Physical Examinations : Constitutional : Cooperative , not in acute distress . HEENT: Neck supple. No Lymphadenopathy. Normal thyroid size . Eyes no ptosis , no icterus, no photophobia . Hearing intact. Normal oropharynx. No Thrush. Respiratory : Chest clear to auscultations bilaterally. No wheezing. No rhonchi. Cardiovascular : Regular rate and rhythm , S1 / S2. No S3 . No S4. Gastrointestinal : Abdomen soft. No tenderness. Bowel sounds x 4. No organomegaly . Genitourinary : Deferred. Neurologic : Cranial nerve II to XII intact. No focal ne urological deficits. Psychiatric : alert & oriented x 3. Matching mood & appropriate affect. Judgment & insight intact. Lymphatic No Lymphadenopathy. Musculoskeletal : Cervical Spine Motor strength in the deltoid and biceps: Normal right side. Normal Left side Motor strength biceps and the wrist extensors: Normal right side . Normal left side Motor strength in the triceps muscle: N ormal right side. Normal left side Deep tendon reflexes: Normal at the biceps. Normal at Brachioradialis. Normal at triceps Cervical facet loading test: positive bilaterally Spurling test: positive bilaterally Neck distraction test: positive bilaterally Adela sign: positive bilaterally Lumbar spine Motor strength lower extremities ,thigh and legs 5/5 Right side , 5/5 Left side Deep tendon reflexes : Normal Knee Jerk. Normal Ankle Jerk Vertebral body tenderness over Lumbar facet Loading Test: positive Right / positive Left Range of motion of the lumbar spine Flexion 30 degrees, extension 10 degrees Straight Leg Raise test: Left/ Right positive at degree Jer test: positive right / positive left. Severe tenderness over the Sacroiliac joint on the Right / Left sides Gaenslen test: positive bilaterally Seated flexion test: positive bilaterally. No imaging available. Assessment/ Plan : Lumbar Spondylosis M47.816 Lumbar x-ray ordered re: M47.816. May need additional imaging such as an MRI if indicated. Medication requested is Tylenol #4. Risks, benefits of procedure discussed and patient/guardian verbalized understanding. Opiate agreement faxed to guardian 06/22/21 and awaiting return of signed document to fill prescription. Urine for UDS will be collected at next visit. All questions answered. I have spent greater than 50 minutes on patient care today. Dr Maldonado was available by phone for the evaluation of this patient. The time was used to review the medical records including relevant urine studies and Prescription history (MAPs), review of the available imaging, evaluation and examination of the patient, coordination of care with the medical staff and if applicable referring physicians, as well as creation of the medical record PQRS Measure Charge Sheet Mode of Arrival: Ambulatory - Pain Location Lower Back Pharmacological Interventions: PRN Medication PQRS Narrative: Smoking Status Current every day smoker Blood Pressure 113/69 Pain Intensity [Lower Back] 9 Scale Used Numeric (1 - 10) Hx Alcohol Use (MH) No Home Medications: Ambulatory Orders Aspirin 81 mg PO HS 30 Days 04/12/21 Atorvastatin [Lipitor] 40 mg PO HS 30 Days tab 04/12/21 [place] Carbonate 900 mg PO HS 30 Days cap 04/12/21 fluPHENAZine decanoate [Prolixin Decanoate] 50 mg IM Q7D #1 ml 04/12/21 traZODone HCL [Desyrel] 150 mg PO HS 30 Days tab 04/12/21
== END | disposition home or self-care (01) ==
LOC: PNWHC3 12:40
PROVIDERS: ATTEND Specialist
DX: G89.29 Other chronic pain (principal); M54.41 Lumbago with sciatica, right side
CPT/HCPCS: 99211

== ENCOUNTER → 2021-07-13 | Outpatient (CLI) | payer MEDICARE ==
--- NOTE | 2021-07-13 15:22 | XR ---
EXAMINATION TYPE: XR lumbar spine 2 or 3V DATE OF EXAM: 07/13/2021 COMPARISON: None HISTORY: Radiculopathy, low back pain TECHNIQUE: 3 view lumbar spine FINDINGS: There are 5 lumbar-type vertebral bodies. The pedicles are intact. Vertebral body heights a re preserved. There is loss of disc height at L5-S1. Disc space narrowing is present L4-5. Alignment appears preserved. IMPRESSION: 1. Degenerative disc changes L4-5 and L5-S1
== END | disposition home or self-care (01) ==
LOC: RADXRMAIN 13:30
PROVIDERS: ATTEND Physician Assistant Medical
DX: M47.816 Spondylosis without myelopathy or radiculopathy, lumbar region (principal)
CPT/HCPCS: 72100

== ENCOUNTER → 2021-07-20 | Outpatient (CLI) | payer MEDICARE ==
[2021-07-20 13:07] VITALS: BP 109/75; PULSE 72; RESP 18; TEMP 98.3
--- NOTE | 2021-07-20 13:07 | P.PN ---
Subjective Progress Note Date: 07/20/21 Principal diagnosis: A 55 yr old male with female caregiver at side with a history of severe and chronic low back pain secondary to lumbar degenerative disc diseases and lumbar spondylosis with facet arthropathy presents today for imaging results and medications. Pain level is currently at 4 out of 10 in intensity, constant, sharp pain in the lower aspects of his lumbar spine with radiation of pain occasionally down the lower extremities. Pain is provoked by bending or lif ting. Pain is alleviated with medications (naproxen), repositioning, stretching and rest. Patient has not tried physical therapy, massage therapy or any chiropractic treatments.. Interventional pain procedures completed include DENIES Patient is currently on Naproxen from his PCP Patient denies any side effects of the medication(s), denies excessive drowsiness or sleepiness, denies suicidal ideation and reports that the current pain medication is helping to control the pain and improve activities of daily living. Patient denies any motor or sensory deficits. Patient denies any fever or night sweats, denies any change in the bowel movements or urination. Physical Examination: -Constitutional: Cooperative. Not in acute distress . -HEENT: Neck is supple. No lymphadenopathy. No thyromegaly. Normal thyroid size. Eyes: No ptosis , no icterus, no photophobia. ENT: No auditory deficits. Normal oropharynx. No Thrush. - Respiratory: Chest clear to auscultations bilaterally. No wheezing. No rhonchi. - Cardiovascular: Regular rate and rhythm. S1 / S2 , no S3 , no S4. - Gastrointestinal: Abdomen soft no tenderness. Bowel sounds positive in all four quadrants. No organomegaly. - Genitourinary: Deferred. - Neurologic: Cranial nerve II to XII intact. No focal neurological deficits. - Psychatric: Alert & oriented x 3. Matching mood & appropriate affect. Judgment and insight intact. - Lymphatic: No Lymphadenopathy. - Musculoskeletal: Cervical spine: Muscle bulk/ tone/ strength in the bilateral upper extremities normal Vertebral body tenderness to palpation over Facet loading test positive Thoracic spine Muscle bulk / tone/ strength in the bilateral paraspinal muscles normal Vertebral body tender to palpation over Facet loading test positive Lumbar spine: Motor bulk/ tone/ strength lower extremities , thigh and legs : 5/5 Deep tendon reflexes : Normal Knee Jerk. Normal Ankle Jerk . Vertebral body tenderness to palpation over L4, L5 Lumbar Facet Loading Test positive Straight Leg Raise: positive at 30 degrees right side/ left side Gaenslen's Test positive Sacral spine : Severe tenderness over the Sacroiliac joint: right side / left side Range of motion: Flexion of the lumbar spine <60 degrees Range of motion: Extension of the lumbar spine <20 degrees Gaenslen's Test positive Braden's Test positive Jer test: positive right side / left side Thigh Thrust Test Sacral Thrust Test Assessment and plan: Chronic low back pain secondary to lumbar degenerative disc disease , lumbar spondylosis with facet arthropathy without myelopathy Recommendation of PT 3 times per week x 6 weeks Chronic and current use of high-risk medication (Opioids). The patient was counseled about risk of opioid use, psychological risk associated with opioids and was orally counseled to not overuse , divert or sell medications. Pt is to store medication in a safe location. The patient is counseled against driving while using narcotic medications and also not to use alcohol or any illicit recreational drugs. Patient verbalized understanding that the lack of compliance will result in failure to renew narcotic prescription(s) as well as possible discharge from the clinic Diagnoses, prognosis and treatment options including but not limited to physical therapy, surgical interventions, interventional therapies and medication management including narcotics and adjuvant medication were discussed. All patient questions answered MAPS reviewed and it was appropriate. Narcotic agreement signed by pt's guardians and on file. Prescription for Tylenol #4 BID prn #60 w 1 refill. I have spent 31 minutes on patient care today. Dr Maldonado was available by one for the evaluation of this patient. The time was used to review the medical records including relevant urine studies and Prescription history (MAPs), review of the available imaging, evaluation and examination of the patient, coordination of care with the medical staff and if applicable referring physicians, as well as creation of the medical record PQRS Measure Charge Sheet PQRS Narrative: Smoking Status Current every day smoker Hx Alcohol Use (MH) No Home Medications: Ambulatory Orders Aspirin 81 mg PO HS 30 Days 04/12/21 Atorvastatin [Lipitor] 40 mg PO HS 30 Days tab 04/12/21 [place] Carbonate 900 mg PO HS 30 Days cap 04/12/21 fluPHENAZine decanoate [Prolixin Decanoate] 50 mg IM Q7D #1 ml 04/12/21 traZODone HCL [Desyrel] 150 mg PO HS 30 Days tab 04/12/21
== END | disposition home or self-care (01) ==
LOC: PNWHC3 12:40
PROVIDERS: ATTEND Specialist
DX: M47.896 Other spondylosis, lumbar region (principal); M51.36 Other intervertebral disc degeneration, lumbar region
CPT/HCPCS: 99211

== ENCOUNTER 2021-07-25 11:37 | Emergency (ER) | payer MEDICARE ==
[2021-07-25 12:24] VITALS: BP 117/76; PULSE 72; RESP 18; TEMP 98.1
[2021-07-25] MEDS ORDERED: traZODone HCL 50 MG TAB PO ONE (14:09)
--- NOTE | 2021-07-25 14:12 | ED ---
Extremity Problem HPI - General Chief complaint: Extremity Problem,Nontraumatic Stated complaint: Numbness in legs Time Seen by Provider: 07/25/21 13:21 Source: patient, EMS, RN notes reviewed Mode of arrival: EMS Limitations: no limitations - History of Present Illness Initial comments: This a 55 show male presents emergency Department with chief complaint of tremors. This is an ongoing issue patient has history of tremors, states it slightly worse patient misses trazodone last night. Patient denies any focal weakness no headache no blurred vision denies being homicidal or suicidal patient denies nausea and diarrhea constipation other complaints. - Related Data Previous Rx's Medication Instructions Recorded Aspirin 81 mg PO HS 30 Days 04/12/21 Atorvastatin [Lipitor] 40 mg PO HS 30 Days tab 04/12/21 [place] Carbonate 900 mg PO HS 30 Days cap 04/12/21 fluPHENAZine decanoate [Prolixin 50 mg IM Q7D #1 ml 04/12/21 Decanoate] traZODone HCL [Desyrel] 150 mg PO HS 30 Days tab 04/12/21 Acetaminophen with Codeine 1 tab PO Q12H PRN 30 Days #60 tab 07/20/21 [Tylenol w/Codeine #4 Tablet] Allergies Allergy/AdvReac Type Severity Reaction Status Date / Time levofloxacin [From Levaquin] Allergy Unknown Verified 07/25/21 12:24 linezolid [From Zyvox] Allergy Unknown Verified 07/25/21 12:24 nitrofurantoin Allergy Unknown Verified 07/25/21 12:24 [From Macrobid] nitrofurantoin Allergy Unknown Verified 07/25/21 12:24 macrocrystalline [From Macrobid] Penicillins Allergy Unknown Verified 07/25/21 12:24 sulfamethoxazole Allergy Unknown Verified 07/25/21 12:24 [From Bactrim] tetracycline Allergy Unknown Verified 07/25/21 12:24 trimethoprim [From Bactrim] Allergy Unknown Verified 07/25/21 12:24 vancomycin Allergy Unknown Verified 07/25/21 12:24 hydroxyzine [From Vistaril] AdvReac Chest Pain Verified 07/25/21 12:24 Review of Systems ROS Statement: Those systems with pertinent positive or pertinent negative responses have been documented in the HPI. ROS Other: All systems not noted in ROS Statement are negative. Past Medical History Past Medical History: Liver Disease Additional Past Medical History / Comment(s): Pt stated that he has Hepatitis C. History of Any Multi-Drug Resistant Organisms: None Reported Past Surgical History: Appendectomy Additional Past Surgical History / Comment(s): pt denies. Pt is denying any medical issues at time of admission. Past Anesthesia/Blood Transfusion Reactions: No Reported Reaction Past Psychological History: Anxiety, Depression, Panic Disorder, Schizophrenia Smoking Status: Current every day smoker Past Alcohol Use History: None Reported Past Drug Use History: None Reported - Past Family History Father History Unknown: Yes Additional Family Medical History / Comment(s): pt stated unk Mother History Unknown: Yes Additional Family Medical History / Comment(s): Pancreatic cancer in his mother General Exam Limitations: no limitations General appearance: alert, in no apparent distress Head exam: Present: atraumatic, normocephalic, normal inspection Eye exam: Present: normal appearance, PERRL, EOMI. Absent: scleral icterus, conjunctival injection, periorbital swelling ENT exam: Present: normal exam, normal oropharynx, mucous membranes moist Neck exam: Present: normal inspection, full ROM. Absent: tenderness, meningismus, lymphadenopathy Respiratory exam: Present: normal lung sounds bilaterally. Absent: respiratory distress, wheezes, rales, rhonchi, stridor Cardiovascular Exam: Present: regular rate, normal rhythm, normal heart sounds. Absent: systolic murmur, diastolic murmur, rubs, gallop, clicks Neurological exam: Present: alert, oriented X3, CN II-XII intact, reflexes normal. Absent: motor sensory deficit Course Vital Signs 07/25/21 12:20 Temperature 98.1 F Pulse Rate 72 Respiratory 18 Rate Blood Pressure 117/76 O2 Sat by Pulse 96 Oximetry Medical Decision Making - Medical Decision Making Patient's has a history of tremors patient has no history of neuropathy complaining of both. Patient has induced worsening tremors when distracted patient tremors did resolve. Patient we discharged in stable condition return parameters discussed. Disposition Clinical Impression: Occasional tremors Disposition: HOME SELF-CARE Condition: Stable Instructions (If sedation given, give patient instructions): Tremors (ED) Additional Instructions: Please return to the Emergency Department if symptoms worsen or any other concerns. Is patient prescribed a controlled substance at d/c from ED?: No Referrals: Tony Pierson MD [Primary Care Provider] - 1-2 days Time of Disposition: 14:12
== END 2021-07-25 15:37 | disposition home or self-care (01) ==
LOC: EC 11:37
DX: R25.1 Tremor, unspecified (principal); F32.A Depression, unspecified; F41.9 Anxiety disorder, unspecified; F20.9 Schizophrenia, unspecified; F17.200 Nicotine dependence, unspecified, uncomplicated; Z79.82 Long term (current) use of aspirin; Z79.899 Other long term (current) drug therapy
CPT/HCPCS: 99284

== ENCOUNTER 2021-08-13 10:16 | Inpatient (IN) | payer MEDICARE, MEDICAID ==
[2021-08-13] MEDS ORDERED: NICOTINE 21MG/24HR PATCH TRANSDERM STA (10:35)
--- NOTE | 2021-08-13 10:37 | ED ---
General Adult HPI - General Chief complaint: Psychiatric Symptoms Stated complaint: Mental Health Time Seen by Provider: 08/13/21 10:29 Source: patient, RN notes reviewed Mode of arrival: EMS Limitations: no limitations - History of Present Illness Initial comments: Patient is a pleasant 55-year-old male presenting to the emergency department for mental health evaluation. Patient has been experiencing auditory hallucinations and suicidal thoughts over the past week. Patient has been taking his medicine normal. Patient states he hears voices that are aggravating him. Patient has plan to stab himself. No homicidal thoughts. No new physical complaints. Patient denies alcohol use. Patient has not been sleeping well. Patient has not been eating or drinking well. - Related Data Previous Rx's Medication Instructions Recorded Aspirin 81 mg PO HS 30 Days 04/12/21 Atorvastatin [Lipitor] 40 mg PO HS 30 Days tab 04/12/21 [place] Carbonate 900 mg PO HS 30 Days cap 04/12/21 fluPHENAZine decanoate [Prolixin 50 mg IM Q7D #1 ml 04/12/21 Decanoate] traZODone HCL [Desyrel] 150 mg PO HS 30 Days tab 04/12/21 Acetaminophen with Codeine 1 tab PO Q12H PRN 30 Days #60 tab 07/20/21 [Tylenol w/Codeine #4 Tablet] Allergies Allergy/AdvReac Type Severity Reaction Status Date / Time levofloxacin [From Levaquin] Allergy Unknown Verified 07/25/21 12:24 linezolid [From Zyvox] Allergy Unknown Verified 07/25/21 12:24 nitrofurantoin Allergy Unknown Verified 07/25/21 12:24 [From Macrobid] nitrofurantoin Allergy Unknown Verified 07/25/21 12:24 macrocrystalline [From Macrobid] Penicillins Allergy Unknown Verified 07/25/21 12:24 sulfamethoxazole Allergy Unknown Verified 07/25/21 12:24 [From Bactrim] tetracycline Allergy Unknown Verified 07/25/21 12:24 trimethoprim [From Bactrim] Allergy Unknown Verified 07/25/21 12:24 vancomycin Allergy Unknown Verified 07/25/21 12:24 hydroxyzine [From Vistaril] AdvReac Chest Pain Verified 07/25/21 12:24 Review of Systems ROS Statement: Those systems with pertinent positive or pertinent negative responses have been documented in the HPI. ROS Other: All systems not noted in ROS Statement are negative. Constitutional: Denies: fever Eyes: Denies: eye pain ENT: Denies: ear pain Respiratory: Denies: cough Cardiovascular: Denies: chest pain Endocrine: Denies: fatigue Gastrointestinal: Denies: abdominal pain Genitourinary: Denies: dysuria Psychiatric: Reports: auditory hallucinations, suicidal thoughts. Denies: visual hallucinations, homicidal thoughts Past Medical History Past Medical History: Liver Disease Additional Past Medical History / Comment(s): Pt stated that he has Hepatitis C. History of Any Multi-Drug Resistant Organisms: None Reported Past Surgical History: Appendectomy Additional Past Surgical History / Comment(s): pt denies. Pt is denying any medical issues at time of admission. Past Anesthesia/Blood Transfusion Reactions: No Reported Reaction Past Psychological History: Anxiety, Depression, Panic Disorder, Schizophrenia Smoking Status: Current every day smoker Past Alcohol Use History: None Reported Past Drug Use History: None Reported - Past Family History Father History Unknown: Yes Additional Family Medical History / Comment(s): pt stated unk Mother History Unknown: Yes Additional Family Medical History / Comment(s): Pancreatic cancer in his mother General Exam Limitations: no limitations General appearance: alert, in no apparent distress, other (Disheveled appe arance) Head exam: Present: atraumatic Eye exam: Present: normal appearance Neck exam: Present: normal inspection Respiratory exam: Present: normal lung sounds bilaterally Cardiovascular Exam: Present: regular rate, normal rhythm GI/Abdominal exam: Present: soft. Absent: tenderness Extremities exam: Present: normal inspection Neurological exam: Present: alert Psychiatric exam: Present: flat affect Skin exam: Present: other (Tobacco stained fingers). Absent: abrasion Course Vital Signs 08/13/21 10:21 Temperature 97.6 F Pulse Rate 86 Respiratory 18 Rate Blood Pressure 121/73 O2 Sat by Pulse 97 Oximetry Medical Decision Making - Medical Decision Making Patient was seen by mental health services with plans for admission. Disposition Clinical Impression: Suicidal ideation, Schizophrenia Disposition: TRANSFER TO PSYCH HOSP/UNIT Is patient prescribed a controlled substance at d/c from ED?: No Referrals: Tony Pierson MD [Primary Care Provider] - 1-2 days Time of Disposition: 11:42
[2021-08-13 12:14] LABS: Amphetamine Screen,Urine Not Detected (NotDetected); Barbiturate Screen,Urine Not Detected (NotDetected); Benzodiazepines Screen,Urine Not Detected (NotDetected); Cocaine Screen,Urine Not Detected (NotDetected); Methadone Screen, Urine Not Detected (NotDetected); Opiate Screen,Urine Detected (NotDetected); Oxycodone Screen, Urine Not Detected (NotDetected); Phencyclidine Screen,Urine Not Detected (NotDetected); Tricyclic Antidepressant,Urine Not Detected (NotDetected); Urn Cannabinoid Scrn Not Detected (NotDetected)
[2021-08-13] MEDS ORDERED: MAGNESIUM HYDROXIDE 2,400 MG/10 ML CUP PO PRN (13:24)
[2021-08-13] MEDS ORDERED: ACETAMINOPHEN TAB 325 MG TAB PO PRN (13:24)
[2021-08-13] MEDS ORDERED: HALOPERIDOL LACTATE 5 MG/ML 1 ML VIAL IM PRN (13:24)
[2021-08-13] MEDS ORDERED: MAG HYDROX/AL HYDROX/SIMETH 30 ML CUP PO PRN (13:24)
[2021-08-13] MEDS ORDERED: LORazepam 2 MG/ML INJ IM PRN (13:31)
[2021-08-13] MEDS: GABAPENTIN 300 MG CAP PO SCH ×2 (16:32→20:20)
[2021-08-13] MEDS: LORazepam 1 MG TAB PO PRN (16:32)
[2021-08-13 16:56] LABS: Basophils # (A) 0.1 k/uL (0-0.2); Basophils % (A) 1 %; Eosinophils # (A) 0.4 k/uL (0-0.7); Eosinophils % (A) 3 %; HCT 50.7 % (39.0-53.0); HGB 16.2 gm/dL (13.0-17.5); Lymphocytes # (A) 2.1 k/uL (1.0-4.8); Lymphocytes % (A) 19 %; MCH 30.4 pg (25.0-35.0); MCV 95.1 fL (80.0-100.0); Mean Platelet Volume 7.8; Monocytes # (A) 0.6 k/uL (0-1.0); Monocytes % (A) 5 %; Neutrophils # (A) 8.1 k/uL (1.3-7.7); Neutrophils % (A) 71 %; Platelet Count 272 k/uL (150-450); RBC 5.33 m/uL (4.30-5.90); RDW 13.3 % (11.5-15.5); WBC 11.3 k/uL (3.8-10.6)
--- NOTE | 2021-08-13 17:09 | P.MDCNMH ---
History of Present Illness H&P Date: 08/13/21 Chief Complaint: suicidal thoughts 55-year-old male presenting to the emergency department for mental health evaluation. Patient has been experiencing auditory hallucinations and suicidal thoughts over the past week. Patient has been taking his medicines as usual. normal. Patient states he hears voices that talks about killing himself. No suicide plan. No homicidal thoughts. She states that he cannot control himself. He has chronic back pain but denied any new physical complaints. No chest pain, shortness of breath, fevers or chills. Patient denies alcohol use. He is a chronic smoker. Review of Systems Complete review of system performed, pertinent positives per HPI, otherwise negative Past Medical History Past Medical History: Liver Disease Additional Past Medical History / Comment(s): Pt stated that he has Hepatitis C. History of Any Multi-Drug Resistant Organisms: None Reported Past Surgical History: Appendectomy Additional Past Surgical History / Comment(s): pt denies. Pt is denying any medical issues at time of admission. Past Anesthesia/Blood Transfusion Reactions: No Reported Reaction Past Psychological History: Anxiety, Depression, Panic Disorder, Schizophrenia Smoking Status: Current every day smoker Past Alcohol Use History: None Reported Additional Past Alcohol Use History / Comment(s): pt stated quit drinking 7 monhts ago approx oct or nov 2016 Past Drug Use History: None Reported - Past Family History Father History Unknown: Yes Additional Family Medical History / Comment(s): pt stated unk Mother History Unknown: Yes Additional Family Medical History / Comment(s): Pancreatic cancer in his mother Medications and Allergies Home Medications Medication Instructions Recorded Confirmed Type Aspirin 81 mg PO HS 30 Days 04/12/21 08/13/21 Rx Atorvastatin [Lipitor] 40 mg PO HS 30 Days tab 04/12/21 08/13/21 Rx [place] Carbonate 900 mg PO HS 30 Days cap 04/12/21 08/13/21 Rx Acetaminophen with Codeine 1 tab PO Q12H PRN 30 Days #60 tab 07/20/21 08/13/21 Rx [Tylenol w/Codeine #4 Tablet] diphenhydrAMINE [Benadryl] 50 mg PO HS 08/13/21 08/13/21 History fluPHENAZine HCl 10 mg PO HS 08/13/21 08/13/21 History fluPHENAZine decanoate [Prolixin 50 mg IM Q28D 08/13/21 08/13/21 History Decanoate] traZODone HCL [Desyrel] 200 mg PO HS 08/13/21 08/13/21 History Allergies Allergy/AdvReac Type Severity Reaction Status Date / Time levofloxacin [From Levaquin] Allergy Unknown Verified 08/13/21 14:16 linezolid [From Zyvox] Allergy Unknown Verified 08/13/21 14:16 nitrofurantoin Allergy Unknown Verified 08/13/21 14:16 [From Macrobid] nitrofurantoin Allergy Unknown Verified 08/13/21 14:16 macrocrystalline [From Macrobid] Penicillins Allergy Unknown Verified 08/13/21 14:16 sulfamethoxazole Allergy Unknown Verified 08/13/21 14:16 [From Bactrim] tetracycline Allergy Unknown Verified 08/13/21 14:16 trimethoprim [From Bactrim] Allergy Unknown Verified 08/13/21 14:16 vancomycin Allergy Unknown Verified 08/13/21 14:16 hydroxyzine [From Vistaril] AdvReac Chest Pain Verified 08/13/21 14:16 Physical Exam Vitals: Vital Signs Temp Pulse Resp BP BP Pulse Ox 08/13/21 13:46 98.3 F 14 124/69 08/13/21 10:21 97.6 F 86 18 121/73 97 Intake and Output 08/13/21 08/13/21 08/13/21 06:59 14:59 22:59 Other: Weight 81.647 kg Constitutional: No acute distress, conversant, pleasant Eyes:Anicteric sclerae, moist conjunctiva, no lid-lag, PERRLA, ENMT: Oropharynx clear, no erythema, exudates Neck: Supple, FROM, no masses, or JVD, No carotid bruits, No thyromegaly Lungs: Clear to auscultation, Clear to percussion, Normal respiratory effort, no accessory muscle use Cardiovascular: Heart regular in rate and rhythm, No murmurs, gallops, or rubs, No peripheral edema Abdominal: Soft, Nontender, no guarding, rebound or rigidity, Normoactive bowel sounds, No hepatomegaly, No splenomegaly, No palpable mass Skin: Normal temperature, tone, texture, turgor, no induration, No subcutaneous nodules, No rash, lesions, No ulcers Extremities: No digital cyanosis, No clubbing, Pedal pulses intact and symmetrical, Radial pulses intact and symmetrical, No calf tenderness Neuro: Bilateral tremors. Muscles Strength 5/5 in all 4 extremities, Sensation to light touch grossly present throughout, Cranial nerves II-XII grossly intact, no focal sensory deficits Cranial Nerve Examination - Cranial Nerves Cranial Nerve II- Optic: Intact Cranial Nerve III- Oculomotor: Intact Cranial Nerve IV- Trochlear: Intact Cranial Nerve V- Trigeminal: Intact Cranial Nerve - Abducens: Intact Cranial Nerve VII- Facial: Intact Cranial Nerve VIII- Auditory: Intact Cranial Nerve IX- Glossopharyngeal: Intact Cranial Nerve X- Vagus: Intact Cranial Nerve XI- Accessory: Intact Cranial Nerve XII- Hypoglossal: Intact Results CBC & Chem 7: 08/13/21 16:29 Labs: Abnormal Lab Results - Last 24 Hours (Table) 08/13/21 Range/Units 10:35 Urine Opiates Screen Detected H (NotDetected) Assessment and Plan Plan: Suicidal ideation Psychiatry evaluation Chronic depression and anxiety with acute flareup Management per psychiatry Health maintenance Check CBC, CMP, TSH, lipid profile, A1c Smoking Advised to quit
[2021-08-13] MEDS: haloperidoL 5 MG TAB PO PRN (18:00)
[2021-08-13] MEDS: diphenhydrAMINE 50 MG CAP PO SCH (20:19)
[2021-08-13] MEDS: traZODone HCL 100 MG TAB PO SCH (20:19)
[2021-08-13] MEDS: ASPIRIN 81 MG PO SCH (20:19)
[2021-08-13] MEDS: LITHIUM CARBONATE 300 MG CAP PO SCH (20:19)
[2021-08-13] MEDS: ATORVASTATIN 40 MG TAB PO SCH (20:19)
[2021-08-13] MEDS ORDERED: cloZAPine 25 MG TAB PO SCH (21:00)
[2021-08-14] MEDS: haloperidoL 5 MG TAB PO PRN ×3 (02:32→18:40)
[2021-08-14] MEDS: LORazepam 1 MG TAB PO PRN ×3 (02:33→18:40)
[2021-08-14] MEDS: GABAPENTIN 300 MG CAP PO SCH ×3 (08:10→20:28)
[2021-08-14] MEDS: NICOTINE 21MG/24HR PATCH TRANSDERM SCH (08:10)
--- NOTE | 2021-08-14 08:18 | P.HP ---
Psychiatric H&P - . H&P Date: 08/13/21 History & Physical: Allergies Allergy/AdvReac Type Severity Reaction Status Date / Time levofloxacin [From Levaquin] Allergy Unknown Verified 08/13/21 14:16 linezolid [From Zyvox] Allergy Unknown Verified 08/13/21 14:16 nitrofurantoin Allergy Unknown Verified 08/13/21 14:16 [From Macrobid] nitrofurantoin Allergy Unknown Verified 08/13/21 14:16 macrocrystalline [From Macrobid] Penicillins Allergy Unknown Verified 08/13/21 14:16 sulfamethoxazole Allergy Unknown Verified 08/13/21 14:16 [From Bactrim] tetracycline Allergy Unknown Verified 08/13/21 14:16 trimethoprim [From Bactrim] Allergy Unknown Verified 08/13/21 14:16 vancomycin Allergy Unknown Verified 08/13/21 14:16 hydroxyzine [From Vistaril] AdvReac Chest Pain Verified 08/13/21 14:16 Vital Signs Temp 97.1 F L 08/14/21 02:35 Pulse 85 08/14/21 02:35 Resp 16 08/14/21 02:35 BP 109/71 08/14/21 02:35 Pulse Ox 97 08/13/21 10:21 FiO2 Intake & Output 08/13/21 08/14/21 08/14/21 18:59 06:59 18:59 Weight 81.647 kg Laboratory Last Values WBC 11.3 k/uL (3.8-10.6) H 08/13/21 16:29 RBC 5.33 m/uL (4.30-5.90) 08/13/21 16:29 Hgb 16.2 gm/dL (13.0-17.5) 08/13/21 16:29 Hct 50.7 % (39.0-53.0) 08/13/21 16:29 MCV 95.1 fL (80.0-100.0) 08/13/21 16:29 MCH 30.4 pg (25.0-35.0) 08/13/21 16:29 MCHC 32.0 g/dL (31.0-37.0) 08/13/21 16:29 RDW 13.3 % (11.5-15.5) 08/13/21 16:29 Plt Count 272 k/uL (150-450) 08/13/21 16: MPV 7.8 08/13/21 16: Neutrophils % 71 % 08/13/21 16: Lymphocytes % 19 % 08/13/21 16: Monocytes % 5 % 08/13/21 16: Eosinophils % 3 % 08/13/21 16: Basophils % 1 % 08/13/21 16: Neutrophils # 8.1 k/uL (1.3-7.7) H 08/13/21 16: Lymphocytes # 2.1 k/uL (1.0-4.8) 08/13/21 16: Monocytes # 0.6 k/uL (0-1.0) 08/13/21: Eosinophils # 0.4 k/uL (0-0.7) 08/13/21 16: Basophils # 0.1 k/uL (0-0.2) 08/13/21 16:29 Urine Opiates Screen Detected (NotDetected) H 08/13/21 10:35 Ur Oxycodone Screen Not Detected (NotDetected) 08/13/21 10:35 Urine Methadone Screen Not Detected (NotDetected) 08/13/21 10:35 Ur Propoxyphene Screen Not Detected (NotDetected) 08/13/21 10:35 Ur Barbiturates Screen Not Detected (NotDetected) 08/13/21 10:35 U Tricyclic Antidepress Not Detected (NotDetected) 08/13/21 10:35 Ur Phencyclidine Scrn Not Detected (NotDetected) 08/13/21 10:35 Ur Amphetamines Screen Not Detected (NotDetected) 08/13/21 10:35 U Methamphetamines Scrn Not Detected (NotDetected) 08/13/21 10:35 U Benzodiazepines Scrn Not Detected (NotDetected) 08/13/21 10:35 [place] 0.4 mmol/L 08/13/21 14:34 Urine Cocaine Screen Not Detected (NotDetected) 08/13/21 10:35 U Marijuana (THC) Screen Not Detected (NotDetected) 08/13/21 10:35 Coronavirus (PCR) Not Detected (Not Detectd) 08/13/21 11:24 08/14/21 07:57 This is the case of a 55-year-old male with a long-term history of paranoid schizophrenia. He cannot explain why but the voices have been getting louder and louder to worry can't stand it anymore. His memory has not really gone but he knows he has tried many different antipsychotics and even lithium. The Haldol works better than other things that he has tried but still does not work well. He has been on lithium but does not have any history of manic episodes. Symptoms: The voices both inside and outside of his head they have names and he has become familiar with them they tell him he is worthless and he should kill himself. He also experiences fear that his food might be poisoned, and the sensation that people are in the room and has occasionally seen things that others can't see. Feels that he has watched and followed and in danger. He feels that people on the TV and radio talk to them and that people use computers to talk into his head and control him. He sees people gesturing around him and feels like they are signaling each other. 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 Social history: The patient is the fourth of 4 children born to his parents his father of alcoholism when the patient was 11 father was just 39 and the patient believes that he probably had voices and did not want to admit the mother then raised the patient getting remarried when he was 24 she when she was 69 of cancer. He dropped out of school in the 10th grade has no history no legal history. He is currently living in an adult boarding house and says in a few months he hopes to get his own place. Mental status exam: Patient was alert and oriented. It is rather unkempt with a long bushy palomares. Had good eye contact, short-term memory is poor he could remember 3 of 3 on immediate recall but none after 3 minutes. When I asked him to name the mgMEDIA he said [employer] and [employer] [place]. He could not remember the current president or any recent presidents. When asked to spell world backward he said DOILOW. He couldn't subtract 7 from 100 and then trying to subtract 7 from 93 he got 87. He could not think of any similarities between cats and snakes when I asked him how are they alike and different from the stone he had no idea , last him which of them was not alive he said the stone, he then said that the snakes and cats are alive and unique and have their own personality traits. He does seem motivated to do whatever it takes to get his illness under control Plan the only medication that is more par full than Haldol at eliminating voices is clozapine he says that he would be willing to get his blood drawn every week. So I called the clozapine registry and whereabouts start him on 25 tonight 50 tomorrow 75 and increased toward 300 then get a level and see how his voices are doing. We'll waiting for the Clozaril to get high enough to do some good I'm going to continue with Abilify but increase to 15 and maybe bump that up further tomorrow just to cover for the week it takes to get the Clozaril up. Diagnosis paranoid schizophrenia
[2021-08-14 08:43] LABS: Basophils % (A) 0 %; Eosinophils # (A) 0.4 k/uL (0-0.7); Eosinophils % (A) 4 %; HCT 48.8 % (39.0-53.0); HGB 15.9 gm/dL (13.0-17.5); Lymphocytes # (A) 1.9 k/uL (1.0-4.8); Lymphocytes % (A) 17 %; MCH 31.1 pg (25.0-35.0); MCHC 32.7 g/dL (31.0-37.0); MCV 95.2 fL (80.0-100.0); Mean Platelet Volume 7.9; Monocytes # (A) 0.6 k/uL (0-1.0); Monocytes % (A) 5 %; Neutrophils % (A) 73 %; Platelet Count 254 k/uL (150-450); RBC 5.12 m/uL (4.30-5.90); RDW 13.7 % (11.5-15.5)
[2021-08-14 08:53] LABS: ALT 12 U/L (4-49); AST 18 U/L (17-59); African American GFR (CKD) >90 (>60 ml/min/1.73 sqM); Albumin 4.4 g/dL (3.5-5.0); Alkaline Phosphatase 61 U/L (38-126); Anion Gap 9 mmol/L; Blood Urea Nitrogen 14 mg/dL (9-20); Carbon Dioxide 26 mmol/L (22-30); Chloride 104 mmol/L (98-107); Glucose 97 mg/dL (74-99); Non-African American GFR(CKD) >90 (>60 ml/min/1.73 sqM); Potassium 4.2 mmol/L (3.5-5.1); Sodium 139 mmol/L (137-145); Total Bilirubin 0.4 mg/dL (0.2-1.3)
[2021-08-14] MEDS ORDERED: ARIPiprazole 10 MG TAB PO SCH (09:00)
--- NOTE | 2021-08-14 10:45 | P.PN ---
Subjective Progress Note Date: 08/14/21 Principal diagnosis: Paranoid Schizophrenia Subjective: He has changed his story and now recalls taking Clozaril and having tohave his blood drawn weekly and having a large dose that, "just did not work" He says that Haldol is the only thing that works. He does feel better that he is not shaking as much on the gabapentin. Mental status exam: Patient was alert and oriented. It is rather unkempt with a long bushy palomares. Had good eye contact, short-term memory is poor he could remember 3 of 3 on immediate recall but none after 3 minutes. When I asked him to name the [employer] he said [place] and [facility]. He could not remember the current president or any recent presidents. When asked to spell world backward he said DOILOW. He couldn't subtract 7 from 100 and then trying to subtract 7 from 93 he got 87. He could not think of any similarities between cats and snakes when I asked him how are they alike and different from the stone he had no idea , last him which of them was not alive he said the stone, he then said that the snakes and cats are alive and unique and have their own personality traits. He does seem motivated to do whatever it takes to get his illness under control Plan discontinue Clozapine and Abilify and just go with Haldol and cogentin. He was given a referral to a free commuity group that helps people with strong residual symptoms to function as well as possible. Objective - Vital Signs Vital signs: Vital Signs Temp 97.1 F L 08/14/21 02:35 Pulse 85 08/14/21 02:35 Resp 16 08/14/21 02:35 BP 109/71 08/14/21 02:35 Pulse Ox 97 08/13/21 10:21 FiO2 Intake & Output 08/13/21 08/14/21 08/14/21 18:59 06:59 18:59 Weight 81.647 kg 84 kg - Labs CBC & Chem 7: 08/14/21 08:00 08/14/21 08:00 Labs: Abnormal Lab Results - Last 24 Hours (Table) 08/13/21 08/13/21 08/14/21 Range/Units 10:35 16:29 08:00 WBC 11.3 H 11.0 H (3.8-10.6) k/uL Neutrophils # 8.1 H 8.0 H (1.3-7.7) k/uL Urine Opiates Screen Detected H (NotDetected)
[2021-08-14 12:01] LABS: Chol/HDL Ratio 4.18 Ratio; LDL Cholesterol,Calculated 56.3 mg/dL (0.0-131.0)
[2021-08-14] MEDS: traZODone HCL 100 MG TAB PO SCH (20:28)
[2021-08-14] MEDS: ATORVASTATIN 40 MG TAB PO SCH (20:28)
[2021-08-14] MEDS: ASPIRIN 81 MG PO SCH (20:28)
[2021-08-14] MEDS: LITHIUM CARBONATE 300 MG CAP PO SCH (20:28)
[2021-08-14] MEDS: diphenhydrAMINE 50 MG CAP PO SCH (20:28)
[2021-08-14] MEDS ORDERED: cloZAPine 25 MG TAB PO SCH (21:00)
[2021-08-15] MEDS: GABAPENTIN 300 MG CAP PO SCH ×3 (08:38→20:37)
[2021-08-15] MEDS: NICOTINE 21MG/24HR PATCH TRANSDERM SCH (08:39)
[2021-08-15] MEDS: LORazepam 1 MG TAB PO PRN ×2 (08:42→16:27)
[2021-08-15] MEDS ORDERED: haloperidoL 5 MG TAB PO SCH (09:00)
--- NOTE | 2021-08-15 11:07 | P.PN ---
Progress Note - Text Progress Note Date: 08/15/21 Interval History: Patient was seen resting in bed and was directable and agreeable to speak with the typewriter tester in his room., The patient continues to endorse auditory hallucinations that are commanding him to hurt himself and say mean and derogatory things to him. He reports that this is causing him to feel increasingly suicidal and to come to the hospital. He reports that he has been adherent with his medications and is not reporting any significant side effects at this time. He denies any issues regarding his appetite or his sleep. He reports no homicidal ideation at this time. The patient does report that he has been unable to take care of his hygiene and he continues to smoke cigarettes heavily. The patient does report concerns that people are inserting thoughts in his head as well as surveilling his mind and actions and reporting to the government. Mental Status Exam: General Appearance: Patient appears to be older than stated age is alert, directable, and cooperative. Behavior: Patient is calmly lying down in bed without any agitated behavior. Speech: Patient's speech is fluent and nonpressured. Mood/Affect: Mood is not good, affect is congruent and blunted. Suicidality/Homicidality: Patient reports suicidal ideation but no homicidal ideation. Perceptions: Patient denies any visual hallucinations endorses auditory hallucinations. Though content/process: The patient does endorse some delusional thought content with concerns of surveillance and thought insertion. Memory and concentration: AOX3, grossly intact for the purposes of this session Judgment and insight: Poor Vital Signs Temp 97.3 F L 08/15/21 08:42 Pulse 88 08/15/21 08:42 Resp 20 08/15/21 08:42 BP 119/66 08/15/21 08:42 Pulse Ox 97 08/13/21 10:21 FiO2 Intake & Output 08/14/21 08/15/21 08/15/21 18:59 06:59 18:59 Weight 84 kg Laboratory Results - Last 24 Hours 08/14/21 08/14/21 08:00 08:[address] Glu mg/dL 98 Hemoglobin A1c 5.1 Triglycerides 171.00 H Cholesterol 119.00 LDL Cholesterol, Calc 56.3 VLDL Cholesterol, Calc 34.20 HDL Cholesterol 28.50 L Cholesterol/HDL Ratio 4.18 Assessment Schizophrenia Tobacco use disorder Plan: -Patient continues to meet criteria for inpatient psychiatric admission for symptom stabilization and safety. Patient has signed adult voluntary form and medication consent and was placed in patient's chart. -Medications: Continue Prolixin 10 mg by mouth at bedtime for acute psychosis Continue gabapentin 3 inch milligrams by mouth 3 times a day from label use for anxiety and for neuropathic pain Continue lithium 900 mg by mouth at bedtime augmentation Continue trazodone 200 mg daily at bedtime for insomnia/depression Patient received Prolixin Decanoate 50 mg IM on 08/11/2021. Discontinue Haldol as patient receive the Prolixin Decanoate. -When necessary Ativan and Haldol for agitation/aggression. -SW on board for discharge planning. Encouraged the patient to participate in jerome cortez.
[2021-08-15] MEDS: LITHIUM CARBONATE 300 MG CAP PO SCH (20:37)
[2021-08-15] MEDS: ASPIRIN 81 MG PO SCH (20:37)
[2021-08-15] MEDS: diphenhydrAMINE 50 MG CAP PO SCH (20:37)
[2021-08-15] MEDS: ATORVASTATIN 40 MG TAB PO SCH (20:37)
[2021-08-15] MEDS: traZODone HCL 100 MG TAB PO SCH (20:37)
[2021-08-16] MEDS: haloperidoL 5 MG TAB PO PRN ×2 (02:14→08:39)
[2021-08-16] MEDS: NICOTINE 21MG/24HR PATCH TRANSDERM SCH (08:28)
[2021-08-16] MEDS: GABAPENTIN 300 MG CAP PO SCH ×3 (08:29→20:11)
[2021-08-16] MEDS: LORazepam 1 MG TAB PO PRN ×2 (08:40→23:17)
[2021-08-16] MEDS ORDERED: chlorproMAZINE 25 MG/ML 2 ML AMP IM PRN (13:49)
--- NOTE | 2021-08-16 13:52 | P.PN ---
Progress Note - Text Progress Note Date: 08/16/21 Interval History: Patient was seen resting in bed and was directable and agreeable to speak with the advertising copywriter in his room. The patient reports that he had difficulty with sleep last night. He states that he is constantly shaking and is continuing to experience significant auditory hallucinations that are commanding, commanding, and derogatory in nature. He reports suicidal ideation however is unable to verbalize any plan. He reports no visual hallucinations at this time. He is not overtly stating any delusional thought content today. The patient expresses that he felt that he was doing better with Thorazine and would like Thorazine instead of Haldol. He reports that the Thorazine made him feel more calm and help him fall asleep. He is otherwise adherent with his medications and is not endorsing any significant side effects. Mental Status Exam: General Appearance: Patient appears to be older than stated age is alert, directable, and cooperative. Behavior: Patient is calmly lying down in bed without any agitated behavior. Speech: Patient's speech is fluent and nonpressured. Mood/Affect: Mood is "not good," affect is slightly dysphoric and blunted. Suicidality/Homicidality: Patient reports suicidal ideation but no homicidal ideation. Perceptions: Patient denies any visual hallucinations endorses auditory hallucinations. Though content/process: The patient does endorse some delusional thought content with concerns of surveillance and thought insertion. Memory and concentration: AOX3, grossly intact for the purposes of this session Judgment and insight: Poor Vital Signs Temp 97.3 F L 08/15/21 08:42 Pulse 88 08/16/21 08:56 Resp 20 08/15/21 08:42 BP 127/73 08/16/21 08:56 Pulse Ox 97 08/13/21 10:21 FiO2 Assessment Schizophrenia Tobacco use disorder Plan: -Patient continues to meet criteria for inpatient psychiatric admission for symptom stabilization and safety. Patient has signed adult voluntary form and medication consent and was placed in patient's chart. -Medications: Continue Prolixin 10 mg by mouth at bedtime for acute psychosis Continue gabapentin 300 milligrams by mouth 3 times a day from label use for anxiety and for neuropathic pain Continue lithium 900 mg by mouth at bedtime augmentation Continue trazodone 200 mg daily at bedtime for insomnia/depression Patient received Prolixin Decanoate 50 mg IM on 08/11/2021. -When necessary Ativan and Thorazine for agitation/aggression. -SW on board for discharge planning. Encouraged the patient to participate in milieu.
[2021-08-16] MEDS: chlorproMAZINE 25 MG TAB PO PRN ×2 (16:03→23:17)
[2021-08-16] MEDS: ATORVASTATIN 40 MG TAB PO SCH (20:10)
[2021-08-16] MEDS: ASPIRIN 81 MG PO SCH (20:10)
[2021-08-16] MEDS: traZODone HCL 100 MG TAB PO SCH (20:11)
[2021-08-16] MEDS: diphenhydrAMINE 50 MG CAP PO SCH (20:11)
[2021-08-16] MEDS: LITHIUM CARBONATE 300 MG CAP PO SCH (20:11)
[2021-08-17] MEDS: GABAPENTIN 300 MG CAP PO SCH ×3 (08:34→21:11)
[2021-08-17] MEDS: NICOTINE 21MG/24HR PATCH TRANSDERM SCH (08:34)
[2021-08-17] MEDS: chlorproMAZINE 25 MG TAB PO PRN ×2 (08:36→15:14)
--- NOTE | 2021-08-17 13:42 | P.PN ---
Progress Note - Text Progress Note Date: 08/17/21 Interval History: Patient was seen resting in bed and was directable and agreeable to speak with the radio script writer in his room. The patient continues to report that he has difficulty with sleep. He continues to endorse auditory hallucinations however remains vague and guarded on the subject. He denies any visual hallucinations. He reports no paranoia or other delusions at this time. The patient remains primarily as that of to himself in his room. He does get up for meals. He denies any issues or concerns. He reports no chest pain, palpitations, shortness of breath, but does report generalized tremors. The patient has been noted to be medication seeking. He is often asking for his PRN Thorazine despite not displaying any significant agitation. Mental Status Exam: General Appearance: Patient appears to be older than stated age is alert, directable, and cooperative. Behavior: Patient is calmly lying down in bed without any agitated behavior. Speech: Patient's speech is fluent and nonpressured. Mood/Affect: Mood is "I'm still not good," affect is slightly dysphoric and blunted. Suicidality/Homicidality: Patient reports suicidal ideation but no homicidal ideation. Perceptions: Patient denies any visual hallucinations endorses auditory hallucinations. Though content/process: No delusional thought content and is endorsing Memory and concentration: AOX3, grossly intact for the purposes of this session Judgment and insight: Poor Vital Signs Temp 97.4 F L 08/17/21 06:50 Pulse 48 L 08/17/21 06:50 Resp 20 08/15/21 08:42 BP 98/50 08/17/21 06:50 Pulse Ox 97 08/13/21 10:21 FiO2 Assessment Schizophrenia Tobacco use disorder Plan: -Patient continues to meet criteria for inpatient psychiatric admission for symptom stabilization and safety. Patient has signed adult voluntary form and medication consent and was placed in patient's chart. -Medications: Continue Prolixin 10 mg by mouth at bedtime for acute psychosis Continue gabapentin 300 milligrams by mouth 3 times a day from label use for anxiety and for neuropathic pain Continue lithium 900 mg by mouth at bedtime augmentation Continue trazodone 200 mg daily at bedtime for insomnia/depression Patient received Prolixin Decanoate 50 mg IM on 08/11/2021. -When necessary Ativan and Thorazine for agitation/aggression. -SW on board for discharge planning. Encouraged the patient to participate in milieu.
[2021-08-17] MEDS: LORazepam 1 MG TAB PO PRN (13:51)
[2021-08-17] MEDS: traZODone HCL 100 MG TAB PO SCH (20:20)
[2021-08-17] MEDS: ASPIRIN 81 MG PO SCH (20:20)
[2021-08-17] MEDS: LITHIUM CARBONATE 300 MG CAP PO SCH (20:20)
[2021-08-17] MEDS: ATORVASTATIN 40 MG TAB PO SCH (20:20)
[2021-08-17] MEDS: diphenhydrAMINE 50 MG CAP PO SCH (20:20)
[2021-08-18 06:44] VITALS: RESP 16; TEMP 97.9
[2021-08-18] MEDS: NICOTINE 21MG/24HR PATCH TRANSDERM SCH (09:08)
[2021-08-18] MEDS: GABAPENTIN 300 MG CAP PO SCH ×3 (09:08→21:59)
[2021-08-18] MEDS: LORazepam 1 MG TAB PO PRN ×2 (09:09→16:23)
[2021-08-18] MEDS: chlorproMAZINE 25 MG TAB PO PRN (10:06)
--- NOTE | 2021-08-18 11:55 | P.PN ---
Progress Note - Text Progress Note Date: 08/18/21 Interval History: Patient was seen resting in bed and was directable and agreeable to speak with the publications writer in his room. The patient reports that he is feeling better today. He denies any issues with his sleep or appetite. He continues to endorse auditory hallucinations but states that they have been less intense than before. He reports that they're more manageable and easier to ignore. The patient has been adherent with his medications and is not reporting any significant side effects. He obviously states a desire to be on Haldol decanoate however was informed that he is on Prolixin Decanoate already. The patient however denies that he is on Prolixin Decanoate despite the medication being administered approximately one week ago. He reports no suicidal or homicidal ideation, intention, and/or plan. Mental Status Exam: General Appearance: Patient appears to be older than stated age is alert, directable, and cooperative. Behavior: Patient is standing in his room without any agitated behavior. Speech: Patient's speech is fluent and nonpressured. Mood/Affect: Mood is "I'm feeling better," affect is constricted. More range today. Suicidality/Homicidality: Patient reports suicidal ideation but no homicidal ideation. Perceptions: Patient denies any visual hallucinations endorses auditory hallucinations. Though content/process: No delusional thought content and is endorsing Memory and concentration: AOX3, grossly intact for the purposes of this session Judgment and insight: Poor Vital Signs Temp 97.9 F 08/18/21 06:43 Pulse 62 08/18/21 06:43 Resp 16 08/18/21 06:43 BP 101/55 08/18/21 06:43 Pulse Ox 99 08/18/21 06:43 FiO2 Assessment Schizophrenia Tobacco use disorder Plan: -Patient continues to meet criteria for inpatient psychiatric admission for symptom stabilization and safety. Patient has signed adult voluntary form and medication consent and was placed in patient's chart. Anticipate discharge tomorrow. -Medications: Continue Prolixin 10 mg by mouth at bedtime for acute psychosis Continue gabapentin 300 milligrams by mouth 3 times a day from label use for anxiety and for neuropathic pain Continue lithium 900 mg by mouth at bedtime augmentation Continue trazodone 200 mg daily at bedtime for insomnia/depression Patient received Prolixin Decanoate 50 mg IM on 08/11/2021. -When necessary Ativan and Thorazine for agitation/aggression. -SW on board for discharge planning. Encouraged the patient to participate in milieu.
[2021-08-18] MEDS: traZODone HCL 100 MG TAB PO SCH (20:17)
[2021-08-18] MEDS: diphenhydrAMINE 50 MG CAP PO SCH (20:17)
[2021-08-18] MEDS: ATORVASTATIN 40 MG TAB PO SCH (20:17)
[2021-08-18] MEDS: LITHIUM CARBONATE 300 MG CAP PO SCH (20:17)
[2021-08-18] MEDS: ASPIRIN 81 MG PO SCH (20:18)
[2021-08-19 06:48] VITALS: BP 102/57; PULSE 56
[2021-08-19] MEDS: GABAPENTIN 300 MG CAP PO SCH (08:26)
[2021-08-19] MEDS: NICOTINE 21MG/24HR PATCH TRANSDERM SCH (08:26)
[2021-08-19] MEDS: chlorproMAZINE 25 MG TAB PO PRN (09:34)
[2021-08-19] MEDS: LORazepam 1 MG TAB PO PRN (09:34)
[2021-08-19] MEDS ORDERED: fluPHENAZine DECANOATE 25 MG/ML 5ML MDV IM STA (10:48)
--- NOTE | 2021-08-19 15:22 | P.DS ---
Providers Date of admission: 08/13/21 13:21 Expected date of discharge: 08/19/21 Attending physician: Jabier Sheriff MD Consults: 08/13/21 13:24 Consult Physician Routine Consulting Provider: Malina Melton Consult Reason/Comments: medical managment Do you want consulting provider notified?: Yes Primary care physician: Tony Pierson MD - Discharge Diagnosis(es) (1) Schizophrenia Status: Acute Priority: High (2) Tobacco use disorder Status: Chronic Priority: Medium Hospital Course: Admission HPI: Initial psychiatric evaluation was completed by Dr. Sandra on 08/14/2021 who wrote: "This is the case of a 55-year-old male with a long-term history of paranoid schizophrenia. He cannot explain why but the voices have been getting louder and louder to worry can't stand it anymore. His memory has not really gone but he knows he has tried many different antipsychotics and even lithium. The Haldol works better than other things that he has tried but still does not work well. He has been on lithium but does not have any history of manic episodes. Symptoms: The voices both inside and outside of his head they have names and he has become familiar with them they tell him he is worthless and he should kill himself. He also experiences fear that his food might be poisoned, and the sensation that people are in the room and has occasionally seen things that o thers can't see. Feels that he has watched and followed and in danger. He feels that people on the TV and radio talk to them and that people use computers to talk into his head and control him. He sees people gesturing around him and feels like they are signaling each other. 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 Social history: The patient is the fourth of 4 children born to his parents his father of alcoholism when the patient was 11 father was just 39 and the patient believes that he probably had voices and did not want to admit the mother then raised the patient getting remarried when he was 24 she when she was 69 of cancer. He dropped out of school in the 10th grade has no ivone tary history no legal history. He is currently living in an adult boarding house and says in a few months he hopes to get his own place." Hospital course: Upon admission to the unit patient was initially noted to be flat in affect and endorsing auditory hallucinations, visual hallucinations, as well as bizarre delusions.. Patient was however directable and agreeable to commence treatment. Patient got along well with other patients on the unit and followed unit protocol. Patient was compliant with the medications and denied any side effects throughout hospital course. Patient was started on his home medications of Prolixin, gabapentin, lithium, trazodone, and was last administered his books and decanoate 50 mg IM on 08/11/2021. Patient was initially primarily isolative to himself in his room and continued to endorse worsening psychotic behavior as well as sometimes demanding medications, especially in the IM form. However, as his medications were continued, the patient despite significant improvement regards his target symptoms of psychomotor slowing, psychotic symptoms, and spontaneity. The patient displayed gradual improvement and became more social with staff and peers and began to participate in milieu and individual activities. Furthermore, the patient also displayed improvement in hygiene. On the day of discharge, the patient is not reporting any suicidal or homicidal ideation, intention, and/or plan. He continues to endorse auditory hallucinations however he states that they are much more controlled. Reports no visual hallucinations. He denies any paranoia or other delusions at this time. He is agreeable to receiving his next dose of Prolixin decanoate today prior to discharge. The patient was counseled at length on the importance of medication adherence and appropriate outpatient follow-up. Furthermore, the patient was counseled on abstaining small substances including alcohol and marijuana. Mental status exam: General Appearance: Patient appears to be stated age is alert, pleasant, and cooperative. Patient is in no acute distress and has slightly disheveled however improved hygiene and grooming Behavior: Patient is calmly seated without any agitated behavior. Eye contact is appropriate. Speech: Patient's speech is fluent and nonpressured. Mood/Affect: Patient reports their mood is "okay", affect is congruent and constricted in range however increased compared to his flat affect before Suicidality/Homicidality: Patient denies having any suicidal or homicidal ideation intent or plan. Perceptions: Patient denies any auditory or visual hallucinations. Though content/process: There is no evidence of any delusional thought content and thought process is linear and goal-directed. Memory and concentration: AOX3, grossly intact for the purposes of this session. Can spell "WORLD" backwards correctly. Judgment and insight: Improved with guarded prognosis Vital Signs Temp 97.9 F 08/19/21 06:46 Pulse 56 L 08/19/21 06:46 Resp 16 08/19/21 06:46 BP 102/57 08/19/21 06:46 Pulse Ox 98 08/19/21 06:46 FiO2 Laboratory Results WBC 11.0 k/uL (3.8-10.6) H 08/14/21 08:00 RBC 5.12 m/uL (4.30-5.90) 08/14/21 08:00 Hgb 15.9 gm/dL (13.0-17.5) 08/14/21 08:00 Hct 48.8 % (39.0-53.0) 08/14/21 08:00 MCV 95.2 fL (80.0-100.0) 08/14/21 08:00 MCH 31.1 pg (25.0-35.0) 08/14/21 08:00 MCHC 32.7 g/dL (31.0-37.0) 08/14/21 08:00 RDW 13.7 % (11.5-15.5) 08/14/21 08:00 Plt Count 254 k/uL (150-450) 08/14/21 08:00 MPV 7.9 08/14/21 08:00 Neutrophils % 73 % 08/14/21 08:00 Lymphocytes % 17 % 08/14/21 08:00 Monocytes % 5 % 08/14/21 08:00 Eosinophils % 4 % 08/14/21 08:00 Basophils % 0 % 08/14/21 08:00 Neutrophils # 8.0 k/uL (1.3-7.7) H 08/14/21 08:00 Lymphocytes # 1.9 k/uL (1.0-4.8) 08/14/21 08:00 Monocytes # 0.6 k/uL (0-1.0) 08/14/21 08:00 Eosinophils # 0.4 k/uL (0-0.7) 08/14/21 08:00 Basophils # 0.0 k/uL (0-0.2) 08/14/21 08:00 Sodium 139 mmol/L (137-145) 08/14/21 08:00 Potassium 4.2 mmol/L (3.5-5.1) 08/14/21 08:00 Chloride 104 mmol/L (98-107) 08/14/21 08:00 Carbon Dioxide 26 mmol/L (22-30) 08/14/21 08:00 Anion Gap 9 mmol/L 08/14/21 08:00 BUN 14 mg/dL (9-20) 08/14/21 08:00 Creatinine 0.94 mg/dL (0.66-1.25) 08/14/21 08:00 Est GFR (CKD-EPI)AfAm >90 (>60 ml/min/1.73 sqM) 08/14/21 08:00 Est GFR (CKD-EPI)NonAf >90 (>60 ml/min/1.73 sqM) 08/14/21 08:00 Glucose 97 mg/dL (74-99) 08/14/21 08:[address] Glu mg/dL 98 08/14/21 08:00 Hemoglobin A1c 5.1 % (0.0-6.0) 08/14/21 08:00 Calcium 9.0 mg/dL (8.4-10.2) 08/14/21 08:00 Total Bilirubin 0.4 mg/dL (0.2-1.3) 08/14/21 08:00 AST 18 U/L (17-59) 08/14/21 08:00 ALT 12 U/L (4-49) 08/14/21 08:00 Alkaline Phosphatase 61 U/L (38-126) 08/14/21 08:00 Total Protein 7.0 g/dL (6.3-8.2) 08/14/21 08:00 Albumin 4.4 g/dL (3.5-5.0) 08/14/21 08:00 Triglycerides 171.00 mg/dL (0.00-149.00) H 08/14/21 08:00 Cholesterol 119.00 mg/dL (0.00-200.00) 08/14/21 08:00 LDL Cholesterol, Calc 56.3 mg/dL (0.0-131.0) 08/14/21 08:00 VLDL Cholesterol, Calc 34.20 mg/dL (5.00-40.00) 08/14/21 08:00 HDL Cholesterol 28.50 mg/dL (40.00-60.00) L 08/14/21 08:00 Cholesterol/HDL Ratio 4.18 Ratio 08/14/21 08:00 TSH 2.390 mIU/L (0.465-4.680) 08/14/21 08:00 Urine Opiates Screen Detected (NotDetected) H 08/13/21 10:35 Ur Oxycodone Screen Not Detected (NotDetected) 08/13/21 10:35 Urine Methadone Screen Not Detected (NotDetected) 08/13/21 10:35 Ur Propoxyphene Screen Not Detected (NotDetected) 08/13/21 10:35 Ur Barbiturates Screen Not Detected (NotDetected) 08/13/21 10:35 U Tricyclic Antidepress Not Detected (NotDetected) 08/13/21 10:35 Ur Phencyclidine Scrn Not Detected (NotDetected) 08/13/21 10:35 Ur Amphetamines Screen Not Detected (NotDetected) 08/13/21 10:35 U Methamphetamines Scrn Not Detected (NotDetected) 08/13/21 10:35 U Benzodiazepines Scrn Not Detected (NotDetected) 08/13/21 10:35 [place] 0.4 mmol/L 08/13/21 14:34 Urine Cocaine Screen Not Detected (NotDetected) 08/13/21 10:35 U Marijuana (THC) Screen Not Detected (NotDetected) 08/13/21 10:35 Coronavirus (PCR) Not Detected (Not Detectd) 08/13/21 11:24 Allergies Allergy/AdvReac Type Severity Reaction Status Date / Time levofloxacin [From Levaquin] Allergy Unknown Verified 08/13/21 14:16 linezolid [From Zyvox] Allergy Unknown Verified 08/13/21 14:16 nitrofurantoin Allergy Unknown Verified 08/13/21 14:16 [From Macrobid] nitrofurantoin Allergy Unknown Verified 08/13/21 14:16 macrocrystalline [From Macrobid] Penicillins Allergy Unknown Verified 08/13/21 14:16 sulfamethoxazole Allergy Unknown Verified 08/13/21 14:16 [From Bactrim] tetracycline Allergy Unknown Verified 08/13/21 14:16 trimethoprim [From Bactrim] Allergy Unknown Verified 08/13/21 14:16 vancomycin Allergy Unknown Verified 08/13/21 14:16 hydroxyzine [From Vistaril] AdvReac Chest Pain Verified 08/13/21 14:16 Impression: Schizophrenia Tobacco use disorder Plan: -Continue with discharge today as patient has improved and stabilized psychiatrically and is not currently an imminent threat to himself and/or others. Patient will remain at chronically elevated risk for harm to self and/or others due to his severity of mental illness. -Continue medications: Benadryl 50 mg by mouth at bedtime for insomnia Trazodone 200 mg daily at bedtime for insomnia Prolixin 10 mg by mouth at bedtime for psychosis [place] 900 mg daily at bedtime for mood stabilization Gabapentin 300 mg by mouth 3 times a day for a label use for anxiety Prolixin decanoate 50 mg IM was last administered on 08/19/2021. Next dose due on 08/26/2021. -Patient was counseled on the need for medication compliance and appropriate follow-up at mental health and also primary care for medical issues. Patient verbalized understanding and agreed. -Social work to arrange for and conduct family meeting to ensure safety upon discharge and answer any questions/concerns. Social work also to arrange for patients follow up appointments with [facility] for psychiatric care along with follow up with primary care provider. -Patient counseled on abstaining from recreational drugs and marijuana and alcohol. Was informed/educated on the adverse effects on their physical and mental health. Patient verbally agreed and understood. -Patient was instructed to return to the hospital or seek immediate medical care if their psychiatric or medical symptoms do worsen or reoccur. -Psychoeducation and supportive therapy provided to patient. Risks and benefits of pharmacological treatment versus the risks and benefits of nontreatment weight and discussed. Informed consent discussion held. Common side effects of psychotropics discussed such as, but not limited to headache, GI disturbance, sexual dysfunction, movement disorders, sedation, and orthostatic hypotension. Life threatening and blackbox warnings of prescribed medications also discussed. Potential risks of operating a vehicle or heavy machinery discussed with patient at length. Advised on importance of compliance and a reliable and responsible manner. Patient advised to review FDA consumer labeling of all medications prior to taking. Patient verbalized understanding of potential risks, and agrees with current treatment plan. Patient advised to medically contact physician/emergency personnel if any acute changes in condition occur. Patient Condition at Discharge: Stable Plan - Discharge Summary Discharge Rx Participant: No New Discharge Prescriptions: New diphenhydrAMINE [Benadryl] 50 mg PO HS 30 Days cap traZODone HCL [Desyrel] 200 mg PO HS 30 Days tab Nicotine 21Mg/24Hr Patch [Habitrol] 1 patch TRANSDERM DAILY 30 Days patch fluPHENAZine [Prolixin] 10 mg PO HS 30 Days tab [place] Carbonate 900 mg PO HS 30 Days cap Gabapentin [Neurontin] 300 mg PO TID 30 Days #90 cap Continue Aspirin 81 mg PO HS 30 Days Atorvastatin [Lipitor] 40 mg PO HS 30 Days tab Changed fluPHENAZine decanoate [Prolixin Decanoate] 50 mg IM Q7DAYS #1 ml Discontinued [place] Carbonate 900 mg PO HS 30 Days cap Acetaminophen with Codeine [Tylenol w/Codeine #4 Tablet] 1 tab PO Q12H PRN 30 Days #60 tab PRN Reason: Pain traZODone HCL [Desyrel] 200 mg PO HS fluPHENAZine HCl 10 mg PO HS diphenhydrAMINE [Benadryl] 50 mg PO HS Discharge Medication List Aspirin 81 mg PO HS 30 Days 04/12/21 [Rx] Atorvastatin [Lipitor] 40 mg PO HS 30 Days tab 04/12/21 [Rx] Gabapentin [Neurontin] 300 mg PO TID 30 Days #90 cap 08/19/21 [Rx] [place] Carbonate 900 mg PO HS 30 Days cap 08/19/21 [Rx] Nicotine 21Mg/24Hr Patch [Habitrol] 1 patch TRANSDERM DAILY 30 Days patch 08/19/21 [Rx] diphenhydrAMINE [Benadryl] 50 mg PO HS 30 Days cap 08/19/21 [Rx] fluPHENAZine [Prolixin] 10 mg PO HS 30 Days tab 08/19/21 [Rx] fluPHENAZine decanoate [Prolixin Decanoate] 50 mg IM Q7DAYS #1 ml 08/19/21 [Rx] traZODone HCL [Desyrel] 200 mg PO HS 30 Days tab 08/19/21 [Rx] Follow up Appointment(s)/Referral(s): [facility] [Outside] - 08/19/21 1:30 pm (08/19 @ 13:30 with Geovanni Wall 08/25 @ 16:"[address] Gomez ) Tony Pierson MD [Primary Care Provider] - 1-2 days Patient Instructions/Handouts: How to Stop Smoking (DC), Schizophrenia (DC) Activity/Diet/Wound Care/Special Instructions: Avoid the use of street drugs and alcohol. Take all prescriptions as prescribed. When you are in need of refills on your medications, please contact your medical provider and/or outpatient psychiatrist to have this done. Please go to scheduled outpatient appointment for aftercare treatment. If symptoms return or become worse, call the crisis line at and/or go to the nearest emergency room for evaluation. Discharge Disposition: HOME SELF-CARE
== END 2021-08-19 14:00 | disposition home or self-care (01) | DRG 885 ==
LOC: EC 10:16 → 3MHU 13:21
PROVIDERS: ADMIT Psychiatry & Neurology Psychiatry; ATTEND Psychiatry & Neurology Psychiatry
DX: F20.0 Paranoid schizophrenia (principal); F17.200 Nicotine dependence, unspecified, uncomplicated; F41.0 Panic disorder [episodic paroxysmal anxiety]; G47.00 Insomnia, unspecified; Z79.82 Long term (current) use of aspirin; Z79.899 Other long term (current) drug therapy; Z80.0 Family history of malignant neoplasm of digestive organs; Z20.822 Contact with and (suspected) exposure to COVID-19
CPT/HCPCS: 80053; 80061; 80178; 80306; 82075; 83036; 84443; 85025; 87635; 99285

== ENCOUNTER 2022-02-15 07:04 | Emergency (ER) | payer MEDICARE, OTHER ==
[2022-02-15] MEDS ORDERED: SODIUM CHLORIDE 0.9% 500 ML 500 ML IV STA (07:41)
[2022-02-15] MEDS ORDERED: MECLIZINE 12.5 MG TAB PO STA (07:41)
[2022-02-15] MEDS ORDERED: SODIUM CHLORIDE 0.9% 1,000 ML IV STA (07:41)
--- NOTE | 2022-02-15 07:56 | ED ---
Dizziness HPI - General Chief Complaint: Dizziness Stated Complaint: Dizziness Time Seen by Provider: 02/15/22 07:18 Source: patient, RN notes reviewed, old records reviewed, Caregiver Mode of arrival: ambulatory Limitations: no limitations - History of Present Illness Initial Comments: This a 56-year-old male presents emergency from for evaluation of dizziness. Patient's been having issues ever since he was started on Prozac. Patient denies any specific complaints but caregiver states that they've been noticing his unsteady numbness, sometimes confused or worried about possible infection patient was read by PCP which he had labs drawn on Sunday. Patient denies headache, blurred vision, focal weakness, chest pain, shortness breath, nausea vomiting. Patient is currently on lithium has been on lithium. - Related Data Previous Rx's Medication Instructions Recorded Aspirin 81 mg PO HS 30 Days 04/12/21 Atorvastatin [Lipitor] 40 mg PO HS 30 Days tab 04/12/21 Gabapentin [Neurontin] 300 mg PO TID 30 Days #90 cap 08/19/21 [place] Carbonate 900 mg PO HS 30 Days cap 08/19/21 Nicotine 21Mg/24Hr Patch [Habitrol] 1 patch TRANSDERM DAILY 30 Days 08/19/21 patch diphenhydrAMINE [Benadryl] 50 mg PO HS 30 Days cap 08/19/21 fluPHENAZine [Prolixin] 10 mg PO HS 30 Days tab 08/19/21 fluPHENAZine decanoate [Prolixin 50 mg IM Q7DAYS #1 ml 08/19/21 Decanoate] traZODone HCL [Desyrel] 200 mg PO HS 30 Days tab 08/19/21 Allergies Allergy/AdvReac Type Severity Reaction Status Date / Time levofloxacin [From Levaquin] Allergy Unknown Verified 02/15/22 07:16 linezolid [From Zyvox] Allergy Unknown Verified 02/15/22 07:16 nitrofurantoin Allergy Unknown Verified 02/15/22 07:16 [From Macrobid] nitrofurantoin Allergy Unknown Verified 02/15/22 07:16 macrocrystalline [From Macrobid] Penicillins Allergy Unknown Verified 02/15/22 07:16 sulfamethoxazole Allergy Unknown Verified 02/15/22 07:16 [From Bactrim] tetracycline Allergy Unknown Verified 02/15/22 07:16 trimethoprim [From Bactrim] Allergy Unknown Verified 02/15/22 07:16 vancomycin Allergy Unknown Verified 02/15/22 07:16 hydroxyzine [From Vistaril] AdvReac Chest Pain Verified 02/15/22 07:16 Review of Systems ROS Statement: Those systems with pertinent positive or pertinent negative responses have been documented in the HPI. ROS Other: All systems not noted in ROS Statement are negative. Past Medical History Past Medical History: Liver Disease Additional Past Medical History / Comment(s): Pt stated that he has Hepatitis C. History of Any Multi-Drug Resistant Organisms: None Reported Past Surgical History: Appendectomy Additional Past Surgical History / Comment(s): pt denies. Pt is denying any medical issues at time of admission. Past Anesthesia/Blood Transfusion Reactions: No Reported Reaction Past Psychological History: Anxiety, Depression, Panic Disorder, Schizophrenia Smoking Status: Current every day smoker Past Alcohol Use History: None Reported Past Drug Use History: None Reported - Past Family History Father History Unknown: Yes Additional Family Medical History / Comment(s): pt stated unk Mother History Unknown: Yes Additional Family Medical History / Comment(s): Pancreatic cancer in his mother General Exam Limitations: no limitations General appearance: alert, in no apparent distress Head exam: Present: atraumatic, normocephalic, normal inspection Eye exam: Present: normal appearance, PERRL, EOMI. Absent: scleral icterus, conjunctival injection, periorbital swelling ENT exam: Present: normal exam, normal oropharynx, mucous membranes moist Neck exam: Present: normal inspection, full ROM. Absent: tenderness, meningismus, lymphadenopathy Respiratory exam: Present: normal lung sounds bilaterally. Absent: respiratory distress, wheezes, rales, rhonchi, stridor Cardiovascular Exam: Present: regular rate, normal rhythm, normal heart sounds. Absent: systolic murmur, diastolic murmur, rubs, gallop, clicks GI/Abdominal exam: Present: soft, normal bowel sounds. Absent: distended, tenderness, guarding, rebound, rigid Neurological exam: Present: alert, oriented X3, CN II-XII intact, reflexes normal. Absent: motor sensory deficit Skin exam: Present: warm, dry, intact, normal color. Absent: rash Course Vital Signs 02/15/22 02/15/22 07:14 08:54 Temperature 97.8 F 97.3 F L Pulse Rate 61 63 Respiratory 20 16 Rate Blood Pressure 105/70 108/77 O2 Sat by Pulse 96 96 Oximetry EKG Findings - EKG Comments: EKG Findings:: EKG performed at 7:33 sinus bradycardia with first-degree block rate of 55 MS 214 QRS 111 QT/QTC 461/450 - EKG Results: EKG: interpreted by WINNIE Medical Decision Making - Medical Decision Making 56-year-old male presented from for possible medication reaction. Patient's been having some dizzy episodes. Patient had full workup including labs, EKG, urinalysis no acute findings. This may be related to his Prozac. Patient advised discussed with his PCP regarding medication discontinuation. - Lab Data Result diagrams: 02/15/22 07:48 02/15/22 07:48 Lab Results 02/15/22 02/15/22 02/15/22 Range/Units 07:48 07:48 07:48 WBC 9.4 (3.8-10.6) k/uL RBC 5.03 (4.30-5.90) m/uL Hgb 15.8 (13.0-17.5) gm/dL Hct 47.1 (39.0-53.0) % MCV 93.7 (80.0-100.0) fL MCH 31.4 (25.0-35.0) pg MCHC 33.6 (31.0-37.0) g/dL RDW 12.9 (11.5-15.5) % Plt Count 186 (150-450) k/uL MPV 8.2 Neutrophils % 70 % Lymphocytes % 18 % Monocytes % 6 % Eosinophils % 4 % Basophils % 1 % Neutrophils # 6.6 (1.3-7.7) k/uL Lymphocytes # 1.7 (1.0-4.8) k/uL Monocytes # 0.6 (0-1.0) k/uL Eosinophils # 0.4 (0-0.7) k/uL Basophils # 0.1 (0-0.2) k/uL Sodium 140 (137-145) mmol/L Potassium 4.2 (3.5-5.1) mmol/L Chloride 106 (98-107) mmol/L Carbon Dioxide 26 (22-30) mmol/L Anion Gap 8 mmol/L BUN 18 (9-20) mg/dL Creatinine 0.95 (0.66-1.25) mg/dL Est GFR (CKD-EPI)AfAm >90 (>60 ml/min/1.73 sqM) Est GFR (CKD-EPI)NonAf 89 (>60 ml/min/1.73 sqM) Glucose 100 H (74-99) mg/dL Plasma Lactic Acid Jas (0.7-2.0) mmol/L Calcium 8.7 (8.4-10.2) mg/dL Magnesium 2.1 (1.6-2.3) mg/dL Total Bilirubin 0.8 (0.2-1.3) mg/dL AST 24 (17-59) U/L ALT 16 (4-49) U/L Alkaline Phosphatase 83 (38-126) U/L Troponin I <0.012 (0.000-0.034) ng/mL Total Protein 7.0 (6.3-8.2) g/dL Albumin 4.4 (3.5-5.0) g/dL Urine Color Urine Appearance (Clear) Urine pH (5.0-8.0) Ur Specific [place] (1.001-1.035) Urine Protein (Negative) Urine Glucose (UA) (Negative) Urine Ketones (Negative) Urine Blood (Negative) Urine Nitrite (Negative) Urine Bilirubin (Negative) Urine Urobilinogen (<2.0) mg/dL Ur Leukocyte Esterase (Negative) [place] 0.8 mmol/L 02/15/22 02/15/22 Range/Units 07:48 07:48 WBC (3.8-10.6) k/uL RBC (4.30-5.90) m/uL Hgb (13.0-17.5) gm/dL Hct (39.0-53.0) % MCV (80.0-100.0) fL MCH (25.0-35.0) pg MCHC (31.0-37.0) g/dL RDW (11.5-15.5) % Plt Count (150-450) k/uL MPV Neutrophils % % Lymphocytes % % Monocytes % % Eosinophils % % Basophils % % Neutrophils # (1.3-7.7) k/uL Lymphocytes # (1.0-4.8) k/uL Monocytes # (0-1.0) k/uL Eosinophils # (0-0.7) k/uL Basophils # (0-0.2) k/uL Sodium (137-145) mmol/L Potassium (3.5-5.1) mmol/L Chloride (98-107) mmol/L Carbon Dioxide (22-30) mmol/L Anion Gap mmol/L BUN (9-20) mg/dL Creatinine (0.66-1.25) mg/dL Est GFR (CKD-EPI)AfAm (>60 ml/min/1.73 sqM) Est GFR (CKD-EPI)NonAf (>60 ml/min/1.73 sqM) Glucose (74-99) mg/dL Plasma Lactic Acid Jas 0.7 (0.7-2.0) mmol/L Calcium (8.4-10.2) mg/dL Magnesium (1.6-2.3) mg/dL Total Bilirubin (0.2-1.3) mg/dL AST (17-59) U/L ALT (4-49) U/L Alkaline Phosphatase (38-126) U/L Troponin I (0.000-0.034) ng/mL Total Protein (6.3-8.2) g/dL Albumin (3.5-5.0) g/dL Urine Color Yellow Urine Appearance Clear (Clear) Urine pH 6.0 (5.0-8.0) Ur Specific [place] 1.016 (1.001-1.035) Urine Protein Negative (Negative) Urine Glucose (UA) Negative (Negative) Urine Ketones Negative (Negative) Urine Blood Negative (Negative) Urine Nitrite Negative (Negative) Urine Bilirubin Negative (Negative) Urine Urobilinogen <2.0 (<2.0) mg/dL Ur Leukocyte Esterase Negative (Negative) [place] mmol/L Disposition Clinical Impression: Medication reaction, Dizziness Disposition: HOME SELF-CARE Condition: Stable Instructions (If sedation given, give patient instructions): Dizziness (ED) Additional Instructions: Please return to the Emergency Department if symptoms worsen or any other concerns. Is patient prescribed a controlled substance at d/c from ED?: No Referrals: Tony Pierson MD [Primary Care Provider] - 1-2 days Time of Disposition: 10:08
[2022-02-15 08:08] LABS: Basophils # (A) 0.1 k/uL (0-0.2); Basophils % (A) 1 %; Eosinophils # (A) 0.4 k/uL (0-0.7); Eosinophils % (A) 4 %; HCT 47.1 % (39.0-53.0); HGB 15.8 gm/dL (13.0-17.5); Lymphocytes # (A) 1.7 k/uL (1.0-4.8); Lymphocytes % (A) 18 %; MCH 31.4 pg (25.0-35.0); MCHC 33.6 g/dL (31.0-37.0); MCV 93.7 fL (80.0-100.0); Mean Platelet Volume 8.2; Monocytes # (A) 0.6 k/uL (0-1.0); Monocytes % (A) 6 %; Neutrophils # (A) 6.6 k/uL (1.3-7.7); Neutrophils % (A) 70 %; Platelet Count 186 k/uL (150-450); RBC 5.03 m/uL (4.30-5.90); RDW 12.9 % (11.5-15.5); WBC 9.4 k/uL (3.8-10.6)
--- NOTE | 2022-02-15 08:19 | CT ---
EXAMINATION TYPE: CT brain wo con DATE OF EXAM: 02/15/2022 COMPARISON: 06/18/2017 HISTORY: dizziness, altered mental status CT DLP: 1099.[address] of the brain was performed. The ventricles, basal cisterns and sulci overlying the cerebral convexities demonstrate mild enlargem ent. There is no evidence for intracranial hemorrhage or sulcal effacement. There is decreased attenuation about the periventricular white matter and deep white matter of both c erebral hemispheres, compatible with chronic small vessel ischemia. Differential diagnosis does inclu de demyelination. No mass effects are seen.No midline shift. Osseous calvarium is intact. If symptoms persist consider MRI. IMPRESSION: 1. Age related atrophic and chronic small vessel ischemic change without acute intracranial process s een at this time.
[2022-02-15 08:28] LABS: ALT 16 U/L (4-49); AST 24 U/L (17-59); African American GFR (CKD) >90 (>60 ml/min/1.73 sqM); Albumin 4.4 g/dL (3.5-5.0); Alkaline Phosphatase 83 U/L (38-126); Anion Gap 8 mmol/L; Blood Urea Nitrogen 18 mg/dL (9-20); Calcium 8.7 mg/dL (8.4-10.2); Carbon Dioxide 26 mmol/L (22-30); Chloride 106 mmol/L (98-107); Glucose 100 mg/dL (74-99); Magnesium 2.1 mg/dL (1.6-2.3); Non-African American GFR(CKD) 89 (>60 ml/min/1.73 sqM); Potassium 4.2 mmol/L (3.5-5.1); Sodium 140 mmol/L (137-145); Total Bilirubin 0.8 mg/dL (0.2-1.3)
[2022-02-15 08:59] VITALS: RESP 16; TEMP 97.3
[2022-02-15 09:31] LABS: Lithium 0.8 mmol/L
[2022-02-15 09:59] LABS: Appearance,Urine Clear (Clear); Bilirubin,Urine Negative (Negative); Blood,Urine Negative (Negative); Color,Urine Yellow; Glucose,Urine (UA) Negative (Negative); Ketones,Urine Negative (Negative); Leukocyte Esterase,Urine Negative (Negative); Nitrite,Urine Negative (Negative); Protein,Urine Negative (Negative); Specific Gravity,Urine 1.016 (1.001-1.035); Urobilinogen,Urine <2.0 mg/dL (<2.0)
[2022-02-15 10:50] VITALS: BP 131/80; PULSE 55
== END 2022-02-15 10:50 | disposition home or self-care (01) ==
LOC: EC 07:04
DX: T43.225A Adverse effect of selective serotonin reuptake inhibitors, initial encounter (principal); R42 Dizziness and giddiness; F41.9 Anxiety disorder, unspecified; F32.A Depression, unspecified; F17.200 Nicotine dependence, unspecified, uncomplicated; Z88.1 Allergy status to other antibiotic agents; Z88.0 Allergy status to penicillin; Z88.2 Allergy status to sulfonamides
CPT/HCPCS: 36415; 70450; 80053; 80178; 81003; 83605; 83735; 84484; 85025; 93005; 96360; 99284

== ENCOUNTER 2022-02-23 12:12 | Observation (INO) | payer MEDICARE, OTHER ==
--- NOTE | 2022-02-23 13:21 | ED ---
Altered Mental Status HPI - General Chief Complaint: Altered Mental Status Stated Complaint: low blood pressure, falls Time Seen by Provider: 02/23/22 12:25 Source: patient, family Mode of arrival: wheelchair Limitations: no limitations - History of Present Illness Initial Comments: 56-year-old male with past medical history of hepatitis C, schizophrenia presents to the emergency department accompanied by his director of group sales. She states the patient is normally independent. He can feed and base himself. They were here one week ago for evaluation. Patient complained of dizziness for which she had a CT performed. She states that at that time the patient was given a new prescription for Prozac. No medications were removed. He has been taking medication as directed. Since that time the patient has had a worsening ataxia. He has been unable to stand up straight on his own and therefore has sustained multiple falls including blunt head trauma. Patient can no longer carry a conversation. He has nonsensical speech. The patient was supposed to go today for a Prolixin injection at [facility]. When they showed up the patient was found to be hypotensive in the injection cannot be given. They recommended the patient come into the emergency room for reevaluation. Patient cannot provide any history or answer any questions appropriately. He does have bilateral ataxia in his upper and lower extremities. No reported fevers. No sick conta cts. No medications were withdrawn from his regimen. No other alleviating, precipitating or modifying factors - Related Data Home Medications Medication Instructions Recorded Confirmed Acetaminophen [Tylenol] 325 mg PO Q4H PRN 02/23/22 02/23/22 Benztropine Mesylate [Cogentin] 2 mg PO TID@0800,1400,2100 02/23/22 02/23/22 Naproxen [Naprosyn] 500 mg PO BID PRN 02/23/22 02/23/22 Omeprazole [PriLOSEC] 20 mg PO DAILY 02/23/22 02/23/22 Previous Rx's Medication Instructions Recorded Aspirin 81 mg PO HS 30 Days 04/12/21 Atorvastatin [Lipitor] 40 mg PO HS 30 Days tab 04/12/21 [place] Carbonate 900 mg PO HS 30 Days cap 08/19/21 fluPHENAZine decanoate [Prolixin 50 mg IM Q7DAYS #1 ml 08/19/21 [place]] Gabapentin [Neurontin] 400 mg PO RT-TID #0 02/25/22 LORazepam [Ativan] 1 mg PO BID #0 02/25/22 fluPHENAZine [Prolixin] 2.5 mg PO BID #7 tab 02/25/22 traZODone HCL [Desyrel] 100 mg PO HS 30 Days tab 02/25/22 Allergies Allergy/AdvReac Type Severity Reaction Status Date / Time levofloxacin [From Levaquin] Allergy Unknown Verified 02/23/22 15:18 linezolid [From Zyvox] Allergy Unknown Verified 02/23/22 15:18 nitrofurantoin Allergy Unknown Verified 02/23/22 15:18 [From Macrobid] nitrofurantoin Allergy Unknown Verified 02/23/22 15:18 macrocrystalline [From Macrobid] Penicillins Allergy Unknown Verified 02/23/22 15:18 sulfamethoxazole Allergy Unknown Verified 02/23/22 15:18 [From Bactrim] tetracycline Allergy Unknown Verified 02/23/22 15:18 trimethoprim [From Bactrim] Allergy Unknown Verified 02/23/22 15:18 vancomycin Allergy Unknown Verified 02/23/22 15:18 hydroxyzine [From Vistaril] AdvReac Chest Pain Verified 02/23/22 15:18 Review of Systems ROS Statement: Those systems with pertinent positive or pertinent negative responses have been documented in the HPI. ROS Other: All systems not noted in ROS Statement are negative. Past Medical History Past Medical History: Liver Disease Additional Past Medical History / Comment(s): Pt stated that he has Hepatitis C. History of Any Multi-Drug Resistant Organisms: None Reported Past Surgical History: Appendectomy Additional Past Surgical History / Comment(s): pt denies. Pt is denying any medical issues at time of admission. Past Anesthesia/Blood Transfusion Reactions: No Reported Reaction Past Psychological History: Anxiety, Depression, Panic Disorder, Schizophrenia Smoking Status: Current every day smoker Past Alcohol Use History: None Reported Past Drug Use History: None Reported - Past Family History Father History Unknown: Yes Additional Family Medical History / Comment(s): pt stated unk Mother History Unknown: Yes Additional Family Medical History / Comment(s): Pancreatic cancer in his mother General Exam Limitations: altered mental status General appearance: alert, lethargic Head exam: Present: atraumatic, normocephalic, normal inspection Eye exam: Present: normal appearance, PERRL, EOMI. Absent: scleral icterus, conjunctival injection, periorbital swelling ENT exam: Present: mucous membranes dry Respiratory exam: Present: normal lung sounds bilaterally. Absent: respiratory distress, wheezes, rales, rhonchi, stridor Cardiovascular Exam: Present: bradycardia GI/Abdominal exam: Present: soft, normal bowel sounds. Absent: distended, tenderness, guarding, rebound, rigid Neurological exam: Present: altered, other (nonsensical answers to questions. cannot follow commands. can not perform finger to nose. truncal ataxia) Psychiatric exam: Present: flat affect Course Vital Signs 02/23/22 02/23/22 02/23/22 12:15 13:52 17:10 Temperature 97 F L Pulse Rate 57 L 60 57 L Respiratory 20 18 Rate Blood Pressure 87/64 91/75 115/81 O2 Sat by Pulse 96 97 Oximetry Medical Decision Making - Medical Decision Making Upon arrival he was placed into room 20. A thorough history and physical exam was performed. I did attempt to evaluate the patient however he does not answer any questions appropriately. IV is established laboratory studies are conducted. Patient is sent for a CT of his head. Laboratory studies reviewed and within normal limits. CT demonstrates no acute process. I did call and speak with the EPS nurse. They state that the patient needs further medical clearance before he can be evaluated by psych. Recommended medicine admission with psych consult. Called and spoke with Dr. Hazel who was agreeable to admit the patient. He is currently awaiting a bed on the floor - Lab Data Result diagrams: 02/24/22 06:15 02/24/22 06:15 Lab Results 02/23/22 02/23/22 02/23/22 Range/Units 13:32 13:32 13:32 WBC (3.8-10.6) k/uL RBC (4.30-5.90) m/uL Hgb (13.0-17.5) gm/dL Hct (39.0-53.0) % MCV (80.0-100.0) fL MCH (25.0-35.0) pg MCHC (31.0-37.0) g/dL RDW (11.5-15.5) % Plt Count (150-450) k/uL MPV Neutrophils % % Lymphocytes % % Monocytes % % Eosinophils % % Basophils % % Neutrophils # (1.3-7.7) k/uL Lymphocytes # (1.0-4.8) k/uL Monocytes # (0-1.0) k/uL Eosinophils # (0-0.7) k/uL Basophils # (0-0.2) k/uL PT 10.5 (9.0-12.0) sec INR 1.0 (<1.2) APTT 25.1 (22.0-30.0) sec Sodium 139 (137-145) mmol/L Potassium 4.2 (3.5-5.1) mmol/L Chloride 105 (98-107) mmol/L Carbon Dioxide 27 (22-30) mmol/L Anion Gap 7 mmol/L BUN 15 (9-20) mg/dL Creatinine 0.89 (0.66-1.25) mg/dL Est GFR (CKD-EPI)AfAm >90 (>60 ml/min/1.73 sqM) Est GFR (CKD-EPI)NonAf >90 (>60 ml/min/1.73 sqM) Glucose 87 (74-99) mg/dL Plasma Lactic Acid Jas 0.7 (0.7-2.0) mmol/L Calcium 8.8 (8.4-10.2) mg/dL Total Bilirubin 0.5 (0.2-1.3) mg/dL AST 22 (17-59) U/L ALT 17 (4-49) U/L Alkaline Phosphatase 87 (38-126) U/L Ammonia <9 (<30) umol/L Troponin I (0.000-0.034) ng/mL Total Protein 7.0 (6.3-8.2) g/dL Albumin 4.4 (3.5-5.0) g/dL Salicylates <1.0 mg/dL Acetaminophen <10.0 ug/mL [place] 0.8 mmol/L Serum Alcohol <10 mg/dL 02/23/22 02/23/22 Range/Units 13:32 13:56 WBC 9.4 (3.8-10.6) k/uL RBC 4.73 (4.30-5.90) m/uL Hgb 15.2 (13.0-17.5) gm/dL Hct 43.7 (39.0-53.0) % MCV 92.4 (80.0-100.0) fL MCH 32.1 (25.0-35.0) pg MCHC 34.7 (31.0-37.0) g/dL RDW 13.4 (11.5-15.5) % Plt Count 183 (150-450) k/uL MPV 8.7 Neutrophils % 70 % Lymphocytes % 19 % Monocytes % 5 % Eosinophils % 4 % Basophils % 0 % Neutrophils # 6.6 (1.3-7.7) k/uL Lymphocytes # 1.8 (1.0-4.8) k/uL Monocytes # 0.5 (0-1.0) k/uL Eosinophils # 0.3 (0-0.7) k/uL Basophils # 0.0 (0-0.2) k/uL PT (9.0-12.0) sec INR (<1.2) APTT (22.0-30.0) sec Sodium (137-145) mmol/L Potassium (3.5-5.1) mmol/L Chloride (98-107) mmol/L Carbon Dioxide (22-30) mmol/L Anion Gap mmol/L BUN (9-20) mg/dL Creatinine (0.66-1.25) mg/dL Est GFR (CKD-EPI)AfAm (>60 ml/min/1.73 sqM) Est GFR (CKD-EPI)NonAf (>60 ml/min/1.73 sqM) Glucose (74-99) mg/dL Plasma Lactic Acid Jas (0.7-2.0) mmol/L Calcium (8.4-10.2) mg/dL Total Bilirubin (0.2-1.3) mg/dL AST (17-59) U/L ALT (4-49) U/L Alkaline Phosphatase (38-126) U/L Ammonia (<30) umol/L Troponin I <0.012 (0.000-0.034) ng/mL Total Protein (6.3-8.2) g/dL Albumin (3.5-5.0) g/dL Salicylates mg/dL Acetaminophen ug/mL [place] mmol/L Serum Alcohol mg/dL - EKG Data EKG Comments: EKG demonstrates sinus bradycardia with a rate of 55. MT interval 208. QRS 94. QTC of 436. No acute ST segment elevations. EKG interpreted by myself Disposition Clinical Impression: Acute encephalopathy, Ataxia, Catatonia schizophrenia Disposition: ADMITTED IP TO THIS HOSP Condition: Stable Is patient prescribed a controlled substance at d/c from ED?: No Time of Disposition: 15:39 Decision to Admit Reason: Admit from EC Decision Date: 02/23/22 Decision Time: 15:39
[2022-02-23] MEDS ORDERED: SODIUM CHLORIDE 0.9% 1,000 ML IV ONE (13:22)
[2022-02-23 13:59] LABS: Basophils % (A) 0 %; Eosinophils # (A) 0.3 k/uL (0-0.7); Eosinophils % (A) 4 %; HCT 43.7 % (39.0-53.0); HGB 15.2 gm/dL (13.0-17.5); Lymphocytes # (A) 1.8 k/uL (1.0-4.8); Lymphocytes % (A) 19 %; MCH 32.1 pg (25.0-35.0); MCHC 34.7 g/dL (31.0-37.0); MCV 92.4 fL (80.0-100.0); Mean Platelet Volume 8.7; Monocytes # (A) 0.5 k/uL (0-1.0); Monocytes % (A) 5 %; Neutrophils # (A) 6.6 k/uL (1.3-7.7); Neutrophils % (A) 70 %; Platelet Count 183 k/uL (150-450); RBC 4.73 m/uL (4.30-5.90); RDW 13.4 % (11.5-15.5); WBC 9.4 k/uL (3.8-10.6)
[2022-02-23 14:08] LABS: Partial Thromboplastin Time 25.1 sec (22.0-30.0); Prothrombin Time 10.5 sec (9.0-12.0)
[2022-02-23 14:18] LABS: ALT 17 U/L (4-49); AST 22 U/L (17-59); Acetaminophen <10.0 ug/mL; African American GFR (CKD) >90 (>60 ml/min/1.73 sqM); Albumin 4.4 g/dL (3.5-5.0); Alcohol <10 mg/dL; Alkaline Phosphatase 87 U/L (38-126); Anion Gap 7 mmol/L; Blood Urea Nitrogen 15 mg/dL (9-20); Calcium 8.8 mg/dL (8.4-10.2); Carbon Dioxide 27 mmol/L (22-30); Chloride 105 mmol/L (98-107); Glucose 87 mg/dL (74-99); Lactic Acid, Venous 0.7 mmol/L (0.7-2.0); Non-African American GFR(CKD) >90 (>60 ml/min/1.73 sqM); Potassium 4.2 mmol/L (3.5-5.1); Salicylate <1.0 mg/dL; Sodium 139 mmol/L (137-145); Total Bilirubin 0.5 mg/dL (0.2-1.3)
--- NOTE | 2022-02-23 14:22 | XR ---
EXAMINATION TYPE: XR chest 2V DATE OF EXAM: 02/23/2022 2:03 PM COMPARISON: Chest radiographs from 06/18/2017 TECHNIQUE: XR chest 2V Frontal and lateral views of the chest. CLINICAL INDICATION:Male, 56 years old with history of altered mental status; FINDINGS: Lungs/Pleura: There is no evidence of pleural effusion, focal consolidation, or pneumothorax. Pulmonary vascularity: Unremarkable. Heart/mediastinum: Cardiomediastinal silhouette is unremarkable. Musculoskeletal: No acute osseous pathology. IMPRESSION: No acute cardiopulmonary disease/process.
[2022-02-23 14:36] LABS: Lithium 0.8 mmol/L
--- NOTE | 2022-02-23 14:53 | CT ---
EXAMINATION TYPE: CT brain wo con CT DLP: 1142.4 mGycm, Automated exposure control for dose reduction was used. DATE OF EXAM: 02/23/2022 2:45 PM COMPARISON: 02/15/2022. CLINICAL INDICATION:Male, 56 years old with history of ams, AMS TECHNIQUE: Brain: Axial CT images of the brain were obtained with coronal and sagittal reformats created and rev iewed. Contrast used: None. Oral contrast used: None. FINDINGS: Brain: Extra-axial spaces: No abnormal extra-axial fluid collections. Ventricular system: Dilatation in proportion to cerebral atrophy. Cerebral parenchyma: Cerebral atrophy. No acute intraparenchymal hemorrhage or mass effect. The fowler -white junction is well differentiated. Cerebellum: Unremarkable. Mass effect: No evidence of midline shift. Intracranial vasculature: Atherosclerotic calcifications of the intracranial vessels. Soft tissues: Normal. Calvarium/osseous structures: No depressed skull fracture. Paranasal sinuses and mastoid air cells: Mild scattered paranasal sinus disease. Visualized orbits: Orbital contents are intact. IMPRESSION: No acute intracranial process.
[2022-02-23] MEDS ORDERED: NALOXONE 0.4 MG/ML 1 ML VIAL IV PRN (15:39)
[2022-02-23] MEDS: SODIUM CHLORIDE 0.9% 1,000 ML IV SCH (17:07)
[2022-02-23 17:44] LABS: Appearance,Urine Clear (Clear); Bilirubin,Urine Negative (Negative); Blood,Urine Negative (Negative); Color,Urine Yellow; Glucose,Urine (UA) Negative (Negative); Ketones,Urine Negative (Negative); Leukocyte Esterase,Urine Negative (Negative); Nitrite,Urine Negative (Negative); PH, Urine 6.5 (5.0-8.0); Protein,Urine Negative (Negative); Specific Gravity,Urine 1.013 (1.001-1.035); Urobilinogen,Urine <2.0 mg/dL (<2.0)
[2022-02-23 17:53] LABS: Amphetamine Screen,Urine Not Detected (NotDetected); Barbiturate Screen,Urine Not Detected (NotDetected); Benzodiazepines Screen,Urine Detected (NotDetected); Cocaine Screen,Urine Not Detected (NotDetected); Methadone Screen, Urine Not Detected (NotDetected); Opiate Screen,Urine Not Detected (NotDetected); Oxycodone Screen, Urine Not Detected (NotDetected); Phencyclidine Screen,Urine Not Detected (NotDetected); Tricyclic Antidepressant,Urine Not Detected (NotDetected); Urn Cannabinoid Scrn Not Detected (NotDetected)
[2022-02-23] MEDS ORDERED: MELATONIN 3 MG TABLET PO PRN (19:30)
[2022-02-23] MEDS ORDERED: ACETAMINOPHEN TAB 325 MG TAB PO PRN ×2 (19:30→19:39)
--- NOTE | 2022-02-23 19:39 | P.HPIM ---
History of Present Illness H&P Date: 02/23/22 Patient is a 56-year-old male for history of schizophrenia, GERD, dyslipidemia and hepatitis C who was sent here for evaluation from [facility]. Patient was started on Prozac approximately 3 weeks prior to admission and has been having increasing wide based gait with falling and worsening confusion. On arrival to the ER he is slightly hypotensive with a blood pressure of 87/64. Laboratory analysis was unremarkable with a negative salicylate level, acetaminophen level, lithium level, alcohol level, and urine drug screen was positive for benzos which he is prescribed. CT head showed no acute process. Chest x-ray showed no acute process. EKG is reviewed by my self revealed sinus bradycardia. Patient seen and examined at bedside. He is a poor historian. Much of his history is gathered from his nursing home lawn caretaker who is at bedside. She reports that since starting Prozac 3 weeks ago he has had a lot of acute changes. She reports that he has been falling multiple times daily, she believes he is falling out of bed at night as well. She reports that they have noted him leaning to the right hand side. He has been having increasing confusion and yesterday had hallucinations of dog being present. She reports feeling history of tremor but it seems worse than it was at baseline. He has not had any fevers. They have not noticed any nausea, vomiting, complaints of dysuria, or complaints of diarrhea. Patient has not been complaining of anything currently. Walks independently. Unable to perform a complete review of systems secondary to patient's altered mentation and confusion. A thorough record review was done including multiple psychiatric admissions and recent ER admission last week. Vital signs reviewed General: nontoxic, no distress, appears at stated age Derm: warm, dry Head: atraumatic, normocephalic, symmetric Eyes: EOMI, left eyelid lid lag, anicteric sclera, pupils equal round reactive to light ENT: Nose and ears atraumatic, no thrush, no pharyngeal erythema Neck: No thyromegaly, no cervical lymphadenopathy, trachea midline, supple Mouth: no lip lesion, mucus membranes moist Cardiovascular: S1S2 reg, no murmur, positive posterior tibial pulse bilateral, no edema, capillary refill less than 2 seconds Lungs: clear to auscultation bilateral, no rhonchi, no rales, no wheeze, no accessory muscle use Abdominal: soft, nontender to palpation, no guarding, no appreciable organomegaly, normal bowel sounds Ext: no gross muscle atrophy, muscle strength 5 out of 5 in all 4 extremities, no contractures Neuro: CN II-XII grossly intact, intention tremor noted, patient unable to perform finger to nose is he gets confused and takes his finger to his ear, he then repeat the word year multiple times. His labor operator strength is equal bilaterally, he is able to lift both feet off the bed, plantar and dorsi flexion are equal bilaterally, [id number] is intact bilaterally. Psych: Alert, oriented to self. Believes it is 2022. He is unable to answer the question as to where he is located. He then has episodes of echolalia repeating the ear over an over again. His speech is a poor pattern, and a he speaks in a low words. He does not answer questions appropriately. Assessment/Plan: Gait instability with frequent falls Acute encephalopathy Schizophrenia Hallucinations Hypotension on arrival -Neurology and psychiatric evaluations -Hold all psychiatric medications except Cogentin until seen by psychiatry -[place] level is normal -Hold naproxen encase lumbar puncture is needed -Neuro exam is nonfocal and I suspect poly-pharmacy leading to gait disturbance. - PT/OT evaluation - check orthostatics Dyslipidemia -Lipitor GERD -PPI Tobacco abuse - nicotine replacement - cessation The patient is admitted with an anticipated less than 2 midnight stay for evaluation of falls and confusion. Surrogate decision-maker: legal guardian CODE STATUS:full DVT prophylaxis: SCDs Discussed with: patient, nursing, ED physician, landcare facilitator Anticipated discharge date: pending clinical course Anticipated discharge place: pending clinical course A total of 75 minutes was spent on the care of this complex patient more than 50% of the time was spent in counseling and care coordination. Past Medical History Past Medical History: GERD/Reflux, Hyperlipidemia, Liver Disease Additional Past Medical History / Comment(s): Pt stated that he has Hepatitis C. History of Any Multi-Drug Resistant Organisms: None Reported Past Surgical History: Appendectomy Additional Past Surgical History / Comment(s): pt denies. Pt is denying any me dical issues at time of admission. Past Anesthesia/Blood Transfusion Reactions: No Reported Reaction Past Psychological History: Anxiety, Depression, Panic Disorder, Schizophrenia Smoking Status: Current every day smoker Past Alcohol Use History: None Reported Past Drug Use History: None Reported - Past Family History Father History Unknown: Yes Additional Family Medical History / Comment(s): pt stated unk Mother History Unknown: Yes Additional Family Medical History / Comment(s): Pancreatic cancer in his mother Medications and Allergies Home Medications Medication Instructions Recorded Confirmed Type Aspirin 81 mg PO HS 30 Days 04/12/21 02/23/22 Rx Atorvastatin [Lipitor] 40 mg PO HS 30 Days tab 04/12/21 02/23/22 Rx [place] Carbonate 900 mg PO HS 30 Days cap 08/19/21 02/23/22 Rx diphenhydrAMINE [Benadryl] 50 mg PO HS 30 Days cap 08/19/21 02/23/22 Rx fluPHENAZine decanoate [Prolixin 50 mg IM Q7DAYS #1 ml 08/19/21 02/23/22 Rx Decanoate] traZODone HCL [Desyrel] 200 mg PO HS 30 Days tab 08/19/21 02/23/22 Rx Acetaminophen [Tylenol] 325 mg PO Q4H PRN 02/23/22 02/23/22 History Benztropine Mesylate [Cogentin] 2 mg PO TID@0800,1400,2100 02/23/22 02/23/22 History FLUoxetine HCL [PROzac] 20 mg PO DAILY@0800 02/23/22 02/23/22 History Gabapentin [Neurontin] 400 mg PO QID@08,12,1700,2100 02/23/22 02/23/22 History LORazepam [Ativan] 1 mg PO QID@08,1200,17,2100 02/23/22 02/23/22 History Naproxen [Naprosyn] 500 mg PO BID PRN 02/23/22 02/23/22 History Omeprazole [PriLOSEC] 20 mg PO DAILY 02/23/22 02/23/22 History Allergies Allergy/AdvReac Type Severity Reaction Status Date / Time levofloxacin [From Levaquin] Allergy Unknown Verified 02/23/22 15:18 linezolid [From Zyvox] Allergy Unknown Verified 02/23/22 15:18 nitrofurantoin Allergy Unknown Verified 02/23/22 15:18 [From Macrobid] nitrofurantoin Allergy Unknown Verified 02/23/22 15:18 macrocrystalline [From Macrobid] Penicillins Allergy Unknown Verified 02/23/22 15:18 sulfamethoxazole Allergy Unknown Verified 02/23/22 15:18 [From Bactrim] tetracycline Allergy Unknown Verified 02/23/22 15:18 trimethoprim [From Bactrim] Allergy Unknown Verified 02/23/22 15:18 vancomycin Allergy Unknown Verified 02/23/22 15:18 hydroxyzine [From Vistaril] AdvReac Chest Pain Verified 02/23/22 15:18 Physical Exam Osteopathic Statement: *. No significant issues noted on an osteopathic structural exam other than those noted in the History and Physical/Consult. Vitals: Vital Signs Temp Pulse Resp BP Pulse Ox 02/23/22 17:10 57 L 115/81 97 02/23/22 13:52 60 18 91/75 02/23/22 12:15 97 F L 57 L 20 87/64 96 Intake and Output 02/23/22 02/23/22 02/23/22 06:59 14:59 22:59 Other: Weight 81.647 kg Results CBC & Chem 7: 02/23/22 13:56 02/23/22 13:32 Labs: Abnormal Lab Results - Last 24 Hours (Table) 02/23/22 Range/Units 16:50 U Benzodiazepines Scrn Detected H (NotDetected)
[2022-02-23] MEDS: NICOTINE 21MG/24HR PATCH TRANSDERM SCH (21:38)
[2022-02-23] MEDS: ASPIRIN 81 MG PO SCH (21:38)
[2022-02-23] MEDS: ATORVASTATIN 40 MG TAB PO SCH (21:38)
[2022-02-23] MEDS: BENZTROPINE MESYLATE 1 MG TAB PO SCH (21:38)
[2022-02-24] MEDS: SODIUM CHLORIDE 0.9% 1,000 ML IV SCH (04:05)
[2022-02-24] MEDS: PANTOPRAZOLE 40 MG TABLET PO SCH (06:37)
[2022-02-24] MEDS: BENZTROPINE MESYLATE 1 MG TAB PO SCH ×3 (09:08→20:52)
[2022-02-24] MEDS: ENOXAPARIN 40 MG/0.4 ML SYRINGE SQ SCH (09:08)
[2022-02-24] MEDS: NICOTINE 21MG/24HR PATCH TRANSDERM SCH (09:08)
[2022-02-24 10:51] LABS: Basophils # (A) 0.02 X 10*3/uL (0.00-0.10); Basophils % (A) 0.2 %; Eosinophils # (A) 0.38 X 10*3/uL (0.04-0.35); Eosinophils % (A) 3.8 %; HCT 39.7 % (39.6-50.0); HGB 13.3 g/dL (13.0-17.0); Immature Grans, Automated 0.3 %; Lymphocytes # (A) 1.89 X 10*3/uL (0.90-5.00); MCH 30.6 pg (27.0-32.0); MCHC 33.5 g/dL (32.0-37.0); MCV 91.3 fL (80.0-97.0); Mean Platelet Volume 10.8 fL (9.5-12.2); NRBC Per 100 WBC 0 /100 WBCS (0.0-0.0); Neutrophils # (A) 6.82 X 10*3/uL (1.80-7.70); Neutrophils % (A) 68.7 %; Platelet Count 203 X 10*3/uL (140-440); RBC 4.35 X 10*6/uL (4.40-5.60); RDW 13.6 % (11.5-14.5); WBC 9.94 X 10*3/uL (4.50-10.00)
[2022-02-24 11:03] LABS: African American GFR (CKD) 109.5 (60.0-200.0); Anion Gap 8.4 mmol/L (10.00-18.00); BUN/Creat Ratio 13.67 Ratio (12.00-20.00); Blood Urea Nitrogen 12.3 mg/dL (9.0-27.0); Calcium 8.4 mg/dL (8.7-10.3); Carbon Dioxide 23.6 mmol/L (20.0-27.5); Non-African American GFR(CKD) 94.5 (60.0-200.0); Potassium 4.1 mmol/L (3.5-5.5)
--- NOTE | 2022-02-24 13:35 | P.CNNES ---
History of Present Illness Consult date: 02/24/22 Requesting physician: Prabha Gonzalez Reason for Consult: acute encephalopathy, ataxia History of Present Illness: Patient is a 56-year-old male with significant psychiatric history, came to the hospital yesterday at 12:12 PM for frequent falls. Patient says that he has been falling for couple days when he walks, he falls down. This started after Prozac was initiated within the last few days. Patient states that he has psychiatric history, as "he is not quick". He states that he was shaking really bad last night. Still shaking lately. Patient not able to provide much informative history. Vital signs on arrival blood pressure 87/64, pulse rate 57, temperature 97.0. Blood pressure is now better, 138/79. Blood test shows normal CBC, PT/PTT, normal CMP, troponin negative, ammonia normal less than 9, UA negative, urine drug screen positive for benzodiazepine. Blood alcohol level negative. Sheldon level 0.8(0.6-1.2). Patient's last hemoglobin A1c 5.1 on 08/14/2021. TSH was normal 2.39 on 08/14/2021. EKG shows sinus bradycardia, chest x-ray revealed no acute cardiac disease. Home medications include aspirin 81 mg, Lipitor 40 mg, trazodone 200 mg, lithium 900 mg at bedtime, fluphenazine 50 mg IM every 7 days, Prozac 20 mg, Cogentin 2 mg 3 times a day omeprazole, lorazepam 1 mg by mouth 4 times a day, gabapentin 400 mg 4 times a day naproxen. Patient states he has smoked 1 pack per day for 20 years. He is to drink 12 beers a day or a pint of vodka for 10 years, but he has not drank alcohol for a few years. He denies any drug use. He denies diabetes or hypertension. He states he has no children, but then he said "I might have". Review of Systems Constitutional: Denies chills, Denies fever Eyes: denies blurred vision, denies pain Ears, nose, mouth and throat: Denies headache, Denies sore throat Cardiovascular: Denies chest pain, Denies shortness of breath Respiratory: Denies cough Gastrointestinal: Denies abdominal pain, Denies diarrhea, Denies nausea, Denies vomiting Musculoskeletal: Denies myalgias Integumentary: Denies pruritus, Denies rash Neurological: Reports as per HPI, Reports gait dysfunction, Reports tremors, Denies convulsions, Denies paralysis Endocrine: Denies fatigue, Denies weight change Past Medical History Past Medical History: GERD/Reflux, Hyperlipidemia, Liver Disease Additional Past Medical History / Comment(s): Pt stated that he has Hepatitis C. History of Any Multi-Drug Resistant Organisms: None Reported Past Surgical History: Appendectomy Additional Past Surgical History / Comment(s): pt denies. Pt is denying any medical issues at time of admission. Past Anesthesia/Blood Transfusion Reactions: No Reported Reaction Past Psychological History: Anxiety, Depression, Panic Disorder, Schizophrenia Smoking Status: Current every day smoker Past Alcohol Use History: None Reported Additional Past Alcohol Use History / Comment(s): pt stated quit drinking 7 monhts ago approx oct or nov 2016 Past Drug Use History: None Reported - Past Family History Father History Unknown: Yes Additional Family Medical History / Comment(s): pt stated unk Mother History Unknown: Yes Additional Family Medical History / Comment(s): Pancreatic cancer in his mother Medications and Allergies Home Medications Medication Instructions Recorded Confirmed Type Aspirin 81 mg PO HS 30 Days 04/12/21 02/23/22 Rx Atorvastatin [Lipitor] 40 mg PO HS 30 Days tab 04/12/21 02/23/22 Rx [place] Carbonate 900 mg PO HS 30 Days cap 08/19/21 02/23/22 Rx fluPHENAZine decanoate [Prolixin 50 mg IM Q7DAYS #1 ml 08/19/21 02/23/22 Rx Decanoate] Acetaminophen [Tylenol] 325 mg PO Q4H PRN 02/23/22 02/23/22 History Benztropine Mesylate [Cogentin] 2 mg PO TID@0800,1400,2100 02/23/22 02/23/22 History Naproxen [Naprosyn] 500 mg PO BID PRN 02/23/22 02/23/22 History Omeprazole [PriLOSEC] 20 mg PO DAILY 02/23/22 02/23/22 History Gabapentin [Neurontin] 400 mg PO RT-TID #0 02/25/22 02/23/22 Rx LORazepam [Ativan] 1 mg PO BID #0 02/25/22 02/23/22 Rx fluPHENAZine [Prolixin] 2.5 mg PO BID #7 tab 02/25/22 Rx traZODone HCL [Desyrel] 100 mg PO HS 30 Days tab 02/25/22 02/23/22 Rx Allergies Allergy/AdvReac Type Severity Reaction Status Date / Time levofloxacin [From Levaquin] Allergy Unknown Verified 02/23/22 15:18 linezolid [From Zyvox] Allergy Unknown Verified 02/23/22 15:18 nitrofurantoin Allergy Unknown Verified 02/23/22 15:18 [From Macrobid] nitrofurantoin Allergy Unknown Verified 02/23/22 15:18 macrocrystalline [From Macrobid] Penicillins Allergy Unknown Verified 02/23/22 15:18 sulfamethoxazole Allergy Unknown Verified 02/23/22 15:18 [From Bactrim] tetracycline Allergy Unknown Verified 02/23/22 15:18 trimethoprim [From Bactrim] Allergy Unknown Verified 02/23/22 15:18 vancomycin Allergy Unknown Verified 02/23/22 15:18 hydroxyzine [From Vistaril] AdvReac Chest Pain Verified 02/23/22 15:18 Physical Examination - Vital Signs Vital Signs: Vital Signs Temp Pulse Pulse Resp BP BP BP 02/24/22 09:21 98.1 F 60 16 02/24/22 08:16 02/24/22 08:00 98.1 F 60 16 02/24/22 02:00 97.5 F L 52 L 18 123/96 120/71 02/23/22 20:00 97.4 F L 54 L 18 02/23/22 17:10 57 L 115/81 02/23/22 13:52 60 18 91/75 02/23/22 12:15 97 F L 57 L 20 87/64 BP BP Pulse Ox 02/24/22 09:21 138/79 98 02/24/22 08:16 97 02/24/22 08:00 138/79 98 02/24/22 02:00 111/73 111/73 95 02/23/22 20:00 144/82 96 02/23/22 17:10 97 02/23/22 13:52 02/23/22 12:15 96 Intake and Output 02/23/22 02/24/22 02/24/22 22:59 06:59 14:59 Other: Voiding Method Toilet Urinal # Voids 1 1 Weight 81.647 kg Patient is a middle aged male, who appears older than his stated age. He is very disheveled, poorly kept. Patient is alert awake in no distress. He is alert and oriented 2. He knows that he is in the [facility] in [facility], his date of . He thinks it is September and the year is 2022. He knows his date of , but could not tell name of the current president. Speech and language functions are normal. Patient can name and repeat very well. No aphasia or dysarthria. Attention, concentration intact and fund of knowledge is limited. On cranial nerve examination, pupils are equal, round and reacting to light, visual freeman are full on confrontation, with no neglect on double simultaneous stimulation. Extraocular muscles are intact with no nystagmus. Face is symmetric, tongue protrudes to the midline. Palatal elevation and sensation normal, hearing and shoulder shrug normal, facial sensation normal. He has nicotine stains on his palomares and mustaches around his mouth. On muscle strength testing, there is no pronator drift and the strength is normal in arms and legs distally and proximally. Deep tendon reflexes are symmetric biceps 3, brachioradialis 2+, knees 1+, ankles trace and plantars downgoing bilaterally. Sensory to touch is equal with no neglect on double simultaneous stimulation. Cerebellar function showed no ataxia although patient has mild tremors for [id number] testing. Patient has mild to moderate tremors of outstretched hands, left more than right. Also noticed intermittent tremors at rest more so on the right. Tone is mildly increased in the arms with cogwheeling. No ataxia for [id number] testing on either side. Bulk of muscles normal. Gait was attempted. Patient appears impulsive, would walk not realizing that he is connected to the IV line. When trying to walk in taking the pool, he was trying to take the plug off of the bed rather than the IV pump. Patient at times became irritable, agitated. On general examination, there is no carotid bruit or murmur, S1-S2 audible. Chest is clear on consultation. Abdomen is soft nontender. No organomegaly, bowel sounds present. Peripheral pulses are present. No edema. Patient has clubbing of his fingers. Results - Laboratory Findings CBC and BMP: 02/24/22 06:15 02/24/22 06:15 Abnormal Lab Findings: Abnormal Labs 02/23/22 16:50 U Benzodiazepines Scrn Detected H Assessment and Plan Assessment: * Frequent falls, possible due to polypharmacy and possible medication side effects. Patient's fall started since Prozac was added to the other psychoactive medications. 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 * Psychiatric disorder, anxiety, depression, panic disorder and schizophrenia * Hepatitis C * Hyperlipidemia * Tobacco use * Previous history of alcoholism Plan: * Psychiatry consultation to assess for psychoactive medications. * Patient is already on Cogentin 2 mg 3 times a day. Still has mild to moderate parkinsonian side effects. Examination otherwise is nonfocal. * Check B12, folate. TSH is normal 2.39 on 08/14/2021. Ammonia is normal <9. Hemoglobin A1c 5.1. * No other neurological workup indicated. Neurologically clear. Addendum: B12 393, folate 10.10. We will start B12 1000 g orally daily. Neurologically, no other workup indicated.
--- NOTE | 2022-02-24 14:22 | P.CN ---
Psychiatric Consult - . Consult date: 02/24/22 Consult:: 02/24/22 14:22 IDENTIFYING DATA: This patient is a 56-year-old male with a significant history of schizophrenia who presents to our hospital from his fdc for altered mental status and weakness. HISTORY OF PRESENT ILLNESS: The patient presented to the hospital on 02/23/2022, brought into the hospital for evaluation from [facility]. Collateral information was obtained by the patient's fdc Progression ([phone]). The patient has been having a gradual worsening in his balance and energy. As per his fdc, the patient was noted to slide off the couch due to increased lethargy and weakness. He was subsequently brought to the hospital for worsening gait, falling, and confusion. Upon evaluation by this provider, the patient is currently not reporting any suicidal or homicidal ideation, intention, and/or plan. He is not reporting any suicidal ideation. Reports generalized homicidal ideation but denies any intentions or plans. He reports auditory hallucinations that are constantly present, reports that they're manageable and not bothersome. He is not reporting any visual hallucinations. He denies any paranoia or other delusions. The patient is unable to recall if he did receive Prolixin Decanoate yesterday. The patient's fdc was also unable to determine whether [facility] administered the medication yesterday or not. [facility] offices close so this provider was not able to reach out to them. As per discussion with the fdc, the patient reportedly had worsening of his balance and energy since the addition of Prozac onto his regimen. The p atient is able to acknowledge that he has been falling. He describes that he has some weakness in his legs. He otherwise does not report any lightheadedness, chest pain, palpitations, or other concerns. He does report tremors at baseline. PAST PSYCHIATRIC HISTORY: Patient has a history of schizophrenia. Prior to this admission, the patient was on a regimen of Prolixin Decanoate 50 mg IM every 7 days, trazodone 20 mg at bedtime, lithium 900 mg at bedtime, Neurontin 40 mg 4 times a day, Benadryl 50 mg at bedtime, and Prozac 20 mg daily. The patient's last inpatient psychiatric hospitalization was on in July of 2021. Currently open with [facility]. History of an overdose suicide attempt in the remote past. PAST MEDICAL HISTORY: Past Medical History: GERD/Reflux, Hyperlipidemia, Liver Disease Additional Past Medical History / Comment(s): Pt stated that he has Hepatitis C. History of Any Multi-Drug Resistant Organisms: None Reported Past Surgical History: Appendectomy Additional Past Surgical History / Comment(s): pt denies. Pt is denying any medical issues at time of admission. Past Anesthesia/Blood Transfusion Reactions: No Reported Reaction Past Psychological History: Anxiety, Depression, Panic Disorder, Schizophrenia Smoking Status: Current every day smoker Past Alcohol Use History: None Reported Past Drug Use History: None Reported ALLERGIES: Levaquin, Zyvox, Macrobid, Bactrim, Vistaril CHEMICAL DEPENDENCY HISTORY: Patient smokes approximately 1 pack per day. No reported alcohol, marijuana, or illicit drug use. FAMILY PSYCHIATRIC/SUBSTANCE USE HISTORY: Denies SOCIAL HISTORY: Patient currently resides at [facility]. MENTAL STATUS EXAM: General Appearance: Patient appears to be stated age is alert, pleasant, and cooperative. Patient appears to have disheveled hygiene and grooming at baseline wearing hospital gown with fair eye contact. Behavior: He is calmly lying down in bed without any agitated behavior. Tremulous. Speech: Patient's speech is fluent and nonpressured. Monotone. Mood/Affect: Patient reports their mood is "okay", affect is flat Suicidality/Homicidality: Patient denies suicidal ideation but reports homicidal ideation. Perceptions: Patient reports auditory hallucinations but denies any visual hallucinations. Though content/process: There is no evidence of any delusional thought content and thought process is linear and goal-directed. Memory and concentration: AOX3, grossly intact for the purposes of this session. Can spell "WORLD" backwards Judgment and insight: Poor at baseline IMPRESSIONS: Schizophrenia Nicotine dependence PLAN: -At this time patient DOES NOT meet criteria for inpatient psychiatric admission. Currently, although he endorses homicidal ideation, the patient does not present with imminent risk of harm to self or others. -Delirium precautions recommended with patient including - avoiding use of narcotics and [employer] sedatives, limit anticholinergic medications when possible, frequent re-orientation, minimize use of restraints, open window shades during the day and close them at night -B12 and folate ordered. -Would recommend the following medication changes/additions: We have been unable to confirm whether the patient received Prolixin decoante 50 mg IM that was due yesterday. [facility] is not aware if [facility] administered the medication and [facility] office is closed so cannot confirm. We will restart Prolixin 2.5 mg by mouth twice a day for psychosis. We will restart medications and a lower dose due to concerns for polypharmacy leading up to this admission. Gabapentin 200 mg by mouth 3 times a day Ryegate 900 mg by mouth at bedtime. Continue Cogentin 2 mg by mouth 3 times a day Hold Benadryl, trazodone, and Prozac -Will continue to follow along 02/24/22 14:22
[2022-02-24] MEDS: GABAPENTIN 100 MG CAP PO SCH ×2 (15:12→20:52)
[2022-02-24] MEDS: LORazepam 1 MG TAB PO PRN ×2 (15:41→22:06)
--- NOTE | 2022-02-24 19:20 | P.PN ---
Subjective Progress Note Date: 02/24/22 Patient is a 56-year-old male for history of schizophrenia, GERD, dyslipidemia and hepatitis C who was sent here for evaluation from [facility]. Patient was started on Prozac approximately 3 weeks prior to admission and has been having increasing wide based gait with falling and worsening confusion. On arrival to the ER he is slightly hypotensive with a blood pressure of 87/64. Laboratory analysis was unremarkable with a negative salicylate level, acetaminophen level, lithium level, alcohol level, and urine drug screen was positive for benzos which he is prescribed. CT head showed no acute process. Chest x-ray showed no acute process. EKG is reviewed by my self revealed sinus bradycardia. He was monitored overnight. Orthostatics were negative. With holding of his medication he seemed to have some clearing. He was evaluated by neurology who cleared him. Psychiatry felt he did not meet inpatient criteria but did recommend some medication adjustments. Patient seen and examined at bedside. He is asking for his medications to be restarted. He would like any medication he could possibly receive. General: Nontoxic, no distress, appears at stated age Derm: warm, dry Head: atraumatic, normocephalic, symmetric Eyes: EOMI, no lid lag, anicteric sclera Mouth: no lip lesion, mucus membranes moist Cardiovascular: S1S2 reg, no murmur, positive posterior tibial pulse bilateral, Lungs: CTA bilateral, no rhonchi, no rales , no accessory muscle use Abdominal: soft, nontender to palpation, no guarding, no appreciable organomegaly Ext: no gross muscle atrophy, no edema, no contractures Neuro: CN II-XI grossly intact, no focal neuro deficits,finger to nose normal, [id number] normal Psych: Alert, oriented to being in the hospital, thinks it has already changed to 2022, appropriate affect , patient does not have anymore Oralia, speech pattern is improved, no hypophonia Assessment/Plan: Gait instability with frequent falls- seen by PT/OT and stand by to supervision required only Acute encephalopathy, improved Schizophrenia Hallucinations, resolved Hypotension on arrival, resolved, orthostatic negative. -Neurology and psychiatric recs apprecaited, d/w Dr. Carrera plan will be for discharge in [place] on oral prolixin until can get IM injection with [facility], no prozac and -Hold all psychiatric medications except Cogentin until seen by psychiatry -[place] level is normal -Hold naproxen encase lumbar puncture is needed -Neuro exam is nonfocal and I suspect poly-pharmacy leading to gait disturbance. - PT/OT evaluation - check orthostatics Dyslipidemia -Lipitor GERD -PPI Tobacco abuse - nicotine replacement - cessation DVT prophylaxis: SCDs Discussed with: patient, nursing, Dr. Kovacs Anticipated discharge date: in AM Anticipated discharge place: home A total of 25 nutes was spent on the care of this complex patient more than 50% of the time was spent in counseling and care coordination. Objective - Vital Signs Vital signs: Vital Signs Temp 97.8 F 02/24/22 14:00 Pulse 62 02/24/22 14:00 Resp 16 02/24/22 14:00 BP 126/68 02/24/22 14:00 Pulse Ox 96 02/24/22 14:00 FiO2 Intake & Output 02/23/22 02/24/22 02/24/22 18:59 06:59 18:59 Weight 81.647 kg 81.647 kg Other: Voiding Method Toilet Urinal # Voids 1 1 - Labs CBC & Chem 7: 02/24/22 06:15 02/24/22 06:15 Labs: Abnormal Lab Results - Last 24 Hours (Table) 02/23/22 02/24/22 02/24/22 Range/Units 16:50 06:15 06:15 RBC 4.35 L (4.40-5.60) X 10*6/uL Eosinophils # 0.38 H (0.04-0.35) X 10*3/uL Anion Gap 8.40 L (10.00-18.00) mmol/L Calcium 8.4 L (8.7-10.3) mg/dL U Benzodiazepines Scrn Detected H (NotDetected)
[2022-02-24] MEDS: ATORVASTATIN 40 MG TAB PO SCH (20:52)
[2022-02-24] MEDS: ASPIRIN 81 MG PO SCH (20:53)
[2022-02-24] MEDS ORDERED: LITHIUM CARBONATE ER 450 MG TABLET.ER PO SCH (21:00)
[2022-02-25] MEDS: PANTOPRAZOLE 40 MG TABLET PO SCH (06:43)
[2022-02-25 07:20] VITALS: BP 110/63; PULSE 50; RESP 16; TEMP 98.2
[2022-02-25] MEDS: ENOXAPARIN 40 MG/0.4 ML SYRINGE SQ SCH (09:00)
[2022-02-25] MEDS: BENZTROPINE MESYLATE 1 MG TAB PO SCH (09:00)
[2022-02-25] MEDS: NICOTINE 21MG/24HR PATCH TRANSDERM SCH (09:00)
[2022-02-25] MEDS: GABAPENTIN 100 MG CAP PO SCH (09:00)
[2022-02-25] MEDS ORDERED: CYANOCOBALAMIN 500 MCG TAB PO SCH (12:00)
--- NOTE | 2022-02-25 18:53 | P.DS ---
Providers Date of admission: 02/23/22 15:39 Expected date of discharge: 02/25/22 Attending physician: Candi Hazel DO Consults: 02/23/22 15:39 Consult Physician Urgent Consulting Provider: Terry Rothman Consult Reason/Comments: acute encephalopathy, ataxia Do you want consulting provider notified?: Yes Consult Physician Urgent Consulting Provider: Jabier Sheriff Consult Reason/Comments: acute encephalopathy, hx schizophrenia, recent med changes Do you want consulting provider notified?: Yes Primary care physician: Tony Pierson MD Hospital Course: Discharge Diagnosis: Gait instability secondary to polypharmacy Acute encephalopathy, improved Schizophrenia Hallucinations, resolved Hypotension on arrival, resolved, orthostatic negative. Dyslipidemia GERD Tobacco abuse Hospital Course: Patient is a 56-year-old male for history of schizophrenia, GERD, dyslipidemia and hepatitis C who was sent here for evaluation from [facility]. Patient was started on Prozac approximately 3 weeks prior to admission and has been having increasing wide based gait with falling and worsening confusion. On arrival to the ER he is slightly hypotensive with a blood pressure of 87/64. Laboratory analysis was unremarkable with a negative salicylate level, acetaminophen level, lithium level, alcohol level, and urine drug screen was positive for benzos which he is prescribed. CT head showed no acute process. Chest x-ray showed no acute process. EKG is reviewed by my self revealed sinus bradycardia. He was monitored overnight. Orthostatics were negative. With holding of his medication he had good clearing of his mentation. He was evaluated by neurology who felt no neurologic cuase of his symptoms. Psychiatry felt he did not meet inpatient criteria but did recommend medication adjustments. He was seen by PT and OT and did well and was supervision only. He was up and ambulating in the hallways without difficulty. He was determined stable for discharge home. Follow-up: Patient had multiple medication changes as listed below. He will need to take Prolixin orally until he can have his next injection with [facility]. He'll follow-up with Dr. Pierson in 1-2 days and [facility] next week. Patient seen and examined at bedside. Doing well. Denies any hallucinations. Answers questions appropriately. The hospital. Vital signs reviewed and stable. General: nontoxic, no distress, appears at stated age Derm: warm, dry Head: atraumatic, normocephalic, symmetric Eyes: EOMI, no lid lag, anicteric sclera Mouth: no lip lesion, mucus membranes moist Cardiovascular: S1S2 reg, no murmur, positive posterior tibial pulse bilateral, Lungs: CTA bilateral, no rhonchi, no rales , no accessory muscle use Abdominal: soft, nontender to palpation, no guarding, no appreciable organomegaly Ext: no gross muscle atrophy, no edema, no contractures Neuro: CN II-XI grossly intact, no focal neuro deficits Psych: Alert, oriented to self, location, and situation. Does think it is 2022., appropriate affect A total of 25 minutes of time were spent preparing this complex discharge summary. Patient was discharged on 02/25/22. Patient Condition at Discharge: Stable Plan - Discharge Summary Discharge Rx Participant: No New Discharge Prescriptions: New fluPHENAZine [Prolixin] 2.5 mg PO BID #7 tab Continue Aspirin 81 mg PO HS 30 Days Atorvastatin [Lipitor] 40 mg PO HS 30 Days tab fluPHENAZine decanoate [Prolixin Decanoate] 50 mg IM Q7DAYS #1 ml Benztropine Mesylate [Cogentin] 2 mg PO TID@0800,1400,2100 [place] Carbonate 900 mg PO HS 30 Days cap Acetaminophen [Tylenol] 325 mg PO Q4H PRN PRN Reason: Pain Or Fever > 101 Omeprazole [PriLOSEC] 20 mg PO DAILY Naproxen [Naprosyn] 500 mg PO BID PRN PRN Reason: Mild Pain (Scale 1 To 3) Changed LORazepam [Ativan] 1 mg PO BID #0 traZODone HCL [Desyrel] 100 mg PO HS 30 Days tab Gabapentin [Neurontin] 400 mg PO RT-TID #0 Discontinued diphenhydrAMINE [Benadryl] 50 mg PO HS 30 Days cap FLUoxetine HCL [PROzac] 20 mg PO DAILY@0800 Discharge Medication List Aspirin 81 mg PO HS 30 Days 04/12/21 [Rx] Atorvastatin [Lipitor] 40 mg PO HS 30 Days tab 04/12/21 [Rx] [place] Carbonate 900 mg PO HS 30 Days cap 08/19/21 [Rx] fluPHENAZine decanoate [Prolixin Decanoate] 50 mg IM Q7DAYS #1 ml 08/19/21 [Rx] Acetaminophen [Tylenol] 325 mg PO Q4H PRN 02/23/22 [History] Benztropine Mesylate [Cogentin] 2 mg PO TID@0800,1400,2100 02/23/22 [History] Naproxen [Naprosyn] 500 mg PO BID PRN 02/23/22 [History] Omeprazole [PriLOSEC] 20 mg PO DAILY 02/23/22 [History] Gabapentin [Neurontin] 400 mg PO RT-TID #0 02/25/22 [Rx] LORazepam [Ativan] 1 mg PO BID #0 02/25/22 [Rx] fluPHENAZine [Prolixin] 2.5 mg PO BID #7 tab 02/25/22 [Rx] traZODone HCL [Desyrel] 100 mg PO HS 30 Days tab 02/25/22 [Rx] Follow up Appointment(s)/Referral(s): Tony Pierson MD [Primary Care Provider] - 1-[address] [facility] [NON-STAFF] - 1 Week Activity/Diet/Wound Care/Special Instructions: Activity: as tolerated Diet: Regular Special Instructions: You were falling due to having to many medications coming together You should take oral prolixin until you can get your next injection from [facility] Discharge Disposition: HOME SELF-CARE
== END 2022-02-25 12:06 | disposition home or self-care (01) ==
LOC: EC 12:12 → 5NMEDONC 15:39 → 4SSUR 16:34
PROVIDERS: ADMIT Internal Medicine; ATTEND Internal Medicine
DX: G93.40 Encephalopathy, unspecified (principal); F20.9 Schizophrenia, unspecified; I95.9 Hypotension, unspecified; R26.89 Other abnormalities of gait and mobility; T50.995A Adverse effect of other drugs, medicaments and biological substances, initial encounter; G21.19 Other drug induced secondary parkinsonism; B19.20 Unspecified viral hepatitis C without hepatic coma; F32.A Depression, unspecified; F06.1 Catatonic disorder due to known physiological condition; R00.1 Bradycardia, unspecified; F41.0 Panic disorder [episodic paroxysmal anxiety]; F41.9 Anxiety disorder, unspecified; K21.9 Gastro-esophageal reflux disease without esophagitis; E78.5 Hyperlipidemia, unspecified; F17.210 Nicotine dependence, cigarettes, uncomplicated; F10.21 Alcohol dependence, in remission; R29.6 Repeated falls; W19.XXXA Unspecified fall, initial encounter; Z79.899 Other long term (current) drug therapy; Z79.82 Long term (current) use of aspirin; Z88.1 Allergy status to other antibiotic agents; Z88.0 Allergy status to penicillin; Z88.2 Allergy status to sulfonamides; Z88.8 Allergy status to other drugs, medicaments and biological substances; Z90.49 Acquired absence of other specified parts of digestive tract; Z91.51 Personal history of suicidal behavior; Z80.0 Family history of malignant neoplasm of digestive organs
CPT/HCPCS: 96360 ×2; 96361 ×3; 96372 ×2; 99285; 36415; 94760; 93005; 97162; 97166; 80053; 80048; 82607; 82140; 82746; 83605; 80178; 84484; 85025 ×2; 85610; 85730; 81003; 80306; 80143; 80179; 71046; 70450; G0378 ×4; G0480; S4990 ×2; J1650 ×2; 80320

== ENCOUNTER 2022-06-26 12:57 | Emergency (ER) | payer MEDICARE, OTHER ==
[2022-06-26 13:19] VITALS: TEMP 98.1
[2022-06-26] MEDS ORDERED: SODIUM CHLORIDE 0.9% 1,000 ML IV STA (13:26)
[2022-06-26] MEDS ORDERED: NALOXONE 0.4 MG/ML 1 ML VIAL IVP STA (13:34)
[2022-06-26 14:18] LABS: ALT 18 U/L (4-49); AST 20 U/L (17-59); Acetaminophen <10.0 ug/mL; African American GFR (CKD) >90 (>60 ml/min/1.73 sqM); Albumin 3.8 g/dL (3.5-5.0); Alkaline Phosphatase 79 U/L (38-126); Anion Gap 5 mmol/L; Basophils % (A) 0 %; Blood Urea Nitrogen 14 mg/dL (9-20); Calcium 8.6 mg/dL (8.4-10.2); Carbon Dioxide 29 mmol/L (22-30); Chloride 107 mmol/L (98-107); Eosinophils # (A) 0.3 k/uL (0-0.7); Eosinophils % (A) 4 %; Glucose 90 mg/dL (74-99); HCT 44.2 % (39.0-53.0); HGB 14.3 gm/dL (13.0-17.5); Lymphocytes # (A) 1.8 k/uL (1.0-4.8); Lymphocytes % (A) 21 %; MCH 29.7 pg (25.0-35.0); MCHC 32.3 g/dL (31.0-37.0); Mean Platelet Volume 8.5; Monocytes # (A) 0.5 k/uL (0-1.0); Monocytes % (A) 6 %; Neutrophils # (A) 6.1 k/uL (1.3-7.7); Neutrophils % (A) 69 %; Non-African American GFR(CKD) >90 (>60 ml/min/1.73 sqM); Platelet Count 211 k/uL (150-450); Potassium 4.6 mmol/L (3.5-5.1); RDW 12.9 % (11.5-15.5); Salicylate <1.0 mg/dL; Sodium 141 mmol/L (137-145); Total Bilirubin 0.5 mg/dL (0.2-1.3); Total Protein 6.2 g/dL (6.3-8.2); WBC 8.8 k/uL (3.8-10.6)
[2022-06-26 14:21] LABS: Partial Thromboplastin Time 25.2 sec (22.0-30.0); Prothrombin Time 10.7 sec (9.0-12.0)
--- NOTE | 2022-06-26 14:49 | ED ---
Altered Mental Status HPI - General Chief Complaint: Altered Mental Status Stated Complaint: AMS Time Seen by Provider: 06/26/22 13:24 Source: patient, EMS, RN notes reviewed, old records reviewed Mode of arrival: EMS Limitations: no limitations - History of Present Illness Initial Comments: This is a 56-year-old male DF for evaluation presents today for evaluation regards to decreased responsiveness. Patient comes from long term for possible medication reaction history of similar. Patient himself here in the ER is no complaints and is responsive able answer questions. Patient states he is unsure why is in the ER MD Complaint: altered mental status, confusion, decreased responsiveness, weakness -: unknown Severity: moderate Consistency of Symptoms: waxing and waning, unknown (Improving here in the ER) Context: history of similar presentation Associated Symptoms: denies other symptoms - Related Data Home Medications Medication Instructions Recorded Confirmed Omeprazole [PriLOSEC] 20 mg PO HS@2100 02/23/22 06/26/22 Aspirin 81 mg PO HS@2100 06/26/22 06/26/22 Atorvastatin [Lipitor] 40 mg PO HS@209906/26/22 06/26/22 Benztropine Mesylate [Cogentin] 1 mg PO TID@0800,1400,209906/26/22 06/26/22 Gabapentin [Neurontin] 400 mg PO TID@0800,1400,209906/26/22 06/26/22 [place] Carbonate 900 mg PO HS@2100 06/26/22 06/26/22 Mirtazapine 30 mg PO HS@2100 06/26/22 06/26/22 clonazePAM [KlonoPIN] 1 mg PO TID@0800,1400,209906/26/22 06/26/22 fluPHENAZine decanoate [Prolixin 50 mg IM Q14D 06/26/22 06/26/22 Decanoate] Allergies Allergy/AdvReac Type Severity Reaction Status Date / Time levofloxacin [From Levaquin] Allergy Unknown Verified 06/26/22 17:10 linezolid [From Zyvox] Allergy Unknown Verified 06/26/22 17:10 nitrofurantoin Allergy Unknown Verified 06/26/22 17:10 [From Macrobid] nitrofurantoin Allergy Unknown Verified 06/26/22 17:10 macrocrystalline [From Macrobid] Penicillins Allergy Unknown Verified 06/26/22 17:10 sulfamethoxazole Allergy Unknown Verified 06/26/22 17:10 [From Bactrim] tetracycline Allergy Unknown Verified 06/26/22 17:10 trimethoprim [From Bactrim] Allergy Unknown Verified 06/26/22 17:10 vancomycin Allergy Unknown Verified 06/26/22 17:10 hydroxyzine [From Vistaril] AdvReac Chest Pain Verified 06/26/22 17:10 Review of Systems ROS Statement: Those systems with pertinent positive or pertinent negative responses have been documented in the HPI. ROS Other: All systems not noted in ROS Statement are negative. Past Medical History Past Medical History: Liver Disease Additional Past Medical History / Comment(s): Pt stated that he has Hepatitis C. History of Any Multi-Drug Resistant Organisms: None Reported Past Surgical History: Appendectomy Additional Past Surgical History / Comment(s): pt denies. Pt is denying any medical issues at time of admission. Past Anesthesia/Blood Transfusion Reactions: No Reported Reaction Past Psychological History: Anxiety, Depression, Panic Disorder, Schizophrenia Smoking Status: Current every day smoker Past Alcohol Use History: None Reported Past Drug Use History: None Reported - Past Family History Father History Unknown: Yes Additional Family Medical History / Comment(s): pt stated unk Mother History Unknown: Yes Additional Family Medical History / Comment(s): Pancreatic cancer in his mother General Exam Limitations: no limitations General appearance: alert, in no apparent distress Head exam: Present: atraumatic, normocephalic, normal inspection Eye exam: Present: normal appearance, PERRL, EOMI. Absent: scleral icterus, conjunctival injection, periorbital swelling ENT exam: Present: normal exam, mucous membranes moist Neck exam: Present: normal inspection. Absent: tenderness, meningismus, lymphadenopathy Respiratory exam: Present: normal lung sounds bilaterally. Absent: respiratory distress, wheezes, rales, rhonchi, stridor Cardiovascular Exam: Present: regular rate, normal rhythm, normal heart sounds. Absent: systolic murmur, diastolic murmur, rubs, gallop, clicks GI/Abdominal exam: Present: soft, normal bowel sounds. Absent: distended, te nderness, guarding, rebound, rigid Extremities exam: Present: normal inspection, full ROM, normal capillary refill. Absent: tenderness, pedal edema, joint swelling, calf tenderness Back exam: Present: normal inspection Neurological exam: Present: alert, oriented X3, CN II-XII intact Psychiatric exam: Present: normal affect, normal mood Skin exam: Present: warm, dry, intact, normal color. Absent: rash Course Vital Signs 06/26/22 06/26/22 06/26/22 13:10 13:13 13:20 Temperature 98.1 F Pulse Rate 46 L Respiratory 18 Rate Blood Pressure 110/70 O2 Sat by Pulse 97 97 Oximetry 06/26/22 06/26/22 06/26/22 13:30 13:40 13:50 Temperature Pulse Rate 61 46 L 47 L Respiratory 18 18 18 Rate Blood Pressure 88/62 88/64 104/76 O2 Sat by Pulse 99 100 99 Oximetry 06/26/22 06/26/22 06/26/22 13:56 14:00 14:10 Temperature Pulse Rate 45 L 59 L Respiratory 16 18 16 Rate Blood Pressure 98/69 102/62 O2 Sat by Pulse 98 Oximetry 06/26/22 06/26/22 06/26/22 14:21 15:00 16:00 Temperature Pulse Rate 42 L 41 L 43 L Respiratory 18 18 18 Rate Blood Pressure 103/65 93/63 112/78 O2 Sat by Pulse 98 Oximetry 06/26/22 06/26/22 16:30 17:49 Temperature Pulse Rate 53 L 62 Respiratory 18 20 Rate Blood Pressure 114/89 120/73 O2 Sat by Pulse 95 Oximetry - Reevaluation(s) Reevaluation #1: 06/26/22 21:04 Medical record is reviewed Reevaluation #2: 06/26/22 21:06 Patient has dramatic improvement in symptoms patient walking around the room actively be discharged home Reevaluation #3: 06/26/22 21:06 Patient informed of results and questions answered Reevaluation #4: 06/26/22 21:06 Was pt. sent in by a medical professional or institution? @ -no Did you speak to anyone other than the patient for history? @ -no Did you review nursing and triage notes? @ -agree Were old charts reviewed? @ -no Differential Diagnosis? @ -prior EKG interpreted by me (3pts min.)? @ -yes X-rays interpreted by me (1pt min.)? @ -yes CT interpreted by me (1pt min.)? @ -no U/S interpreted by me (1pt. min.)? @ -no What testing was considered but not performed? (CT, X-rays, U/S, labs)? Why? @ -no What meds were considered but not given? Why? @ -no Did you discuss the management of the patient with other professionals? @ -no Did you reconcile home meds? @ -no Was smoking cessation discussed for >3mins.? @ -no Was critical care preformed (if so, how long)? @ -no Were there social determinants of health that impacted care today? How? (Homelessness, low income, unemployed, alcoholism, drug addiction, transportation, low edu. Level, literacy, decrease access to med. care, usp, rehab)? @ -no Was there de-escalation of care discussed even if they declined? (Discuss DNR or withdrawal of care, Hospice)? @ -no What co-morbidities impacted this encounter? (DM, HTN, Smoking, COPD, CAD, Cancer, CVA, Hep., AIDS, mental health diagnosis, sleep apnea, morbid obesity)? @ -no Was patient admitted / discharged? @ -dc Undiagnosed new problem with uncertain prognosis? @ -no Drug Therapy requiring intensive monitoring for toxicity (Heparin, Nitro, Insulin, Cardizem)? @ no Were any procedures done? @ -no Diagnosis/symptom? @ - Acute, or Chronic, or Acute on Chronic? @ -acute Uncomplicated (without systemic symptoms) or Complicated (systemic symptoms)? @ -uncomplicated Side effects of treatment? @ -no Exacerbation, Progression, or Severe Exacerbation] @ -no Poses a threat to life or bodily function? @ -no Reevaluation #5: 06/26/22 21:06 Differential Altered Mental Status: Hypoglycemia, DKA, hypercapnia, ETOH, overdose, CO poisoning, trauma, myxedema coma, HTN encephalopathy, infection, encephalitis, psychosis, intercranial hemorrhage, hepatic encephalopathy, meningitis, CVA, this is not meant to be an all-inclusive list Medical Decision Making - Medical Decision Making 56 male to the emergency departmen5 for evaluation of altered mental status decreased responsiveness medication reaction symptoms resolved here in the ER awake alert walking normal vital signs and can be discharged home - Lab Data Result diagrams: 06/26/22 13:59 06/26/22 13:59 Lab Results 05/01/23 05/01/23 05/01/23 Range/Units 13:59 13:59 13:59 WBC 8.8 (3.8-10.6) k/uL RBC 4.80 (4.30-5.90) m/uL Hgb 14.3 (13.0-17.5) gm/dL Hct 44.2 (39.0-53.0) % MCV 92.0 (80.0-100.0) fL MCH 29.7 (25.0-35.0) pg MCHC 32.3 (31.0-37.0) g/dL RDW 12.9 (11.5-15.5) % Plt Count 211 (150-450) k/uL MPV 8.5 Neutrophils % 69 % Lymphocytes % 21 % Monocytes % 6 % Eosinophils % 4 % Basophils % 0 % Neutrophils # 6.1 (1.3-7.7) k/uL Lymphocytes # 1.8 (1.0-4.8) k/uL Monocytes # 0.5 (0-1.0) k/uL Eosinophils # 0.3 (0-0.7) k/uL Basophils # 0.0 (0-0.2) k/uL PT 10.7 (9.0-12.0) sec INR 1.0 (<1.2) APTT 25.2 (22.0-30.0) sec Sodium 141 (137-145) mmol/L Potassium 4.6 (3.5-5.1) mmol/L Chloride 107 (98-107) mmol/L Carbon Dioxide 29 (22-30) mmol/L Anion Gap 5 mmol/L BUN 14 (9-20) mg/dL Creatinine 0.86 (0.66-1.25) mg/dL Est GFR (CKD-EPI)AfAm >90 (>60 ml/min/1.73 sqM) Est GFR (CKD-EPI)NonAf >90 (>60 ml/min/1.73 sqM) Glucose 90 (74-99) mg/dL Calcium 8.6 (8.4-10.2) mg/dL Total Bilirubin 0.5 (0.2-1.3) mg/dL AST 20 (17-59) U/L ALT 18 (4-49) U/L Alkaline Phosphatase 79 (38-126) U/L Ammonia (<30) umol/L Troponin I (0.000-0.034) ng/mL Total Protein 6.2 L (6.3-8.2) g/dL Albumin 3.8 (3.5-5.0) g/dL Urine Color Urine Appearance (Clear) Urine pH (5.0-8.0) Ur Specific [place] (1.001-1.035) Urine Protein (Negative) Urine Glucose (UA) (Negative) Urine Ketones (Negative) Urine Blood (Negative) Urine Nitrite (Negative) Urine Bilirubin (Negative) Urine Urobilinogen (<2.0) mg/dL Ur Leukocyte Esterase (Negative) Urine RBC (0-5) /hpf Urine WBC (0-5) /hpf Ur Squamous Epith Cells (0-4) /hpf Urine Bacteria (None) /hpf Granular Casts (0) /lpf Urine Mucus (None) /hpf Salicylates <1.0 mg/dL Urine Opiates Screen (NotDetected) Ur Oxycodone Screen (NotDetected) Urine Methadone Screen (NotDetected) Ur Propoxyphene Screen (NotDetected) Acetaminophen <10.0 ug/mL Ur Barbiturates Screen (NotDetected) U Tricyclic Antidepress (NotDetected) Ur Phencyclidine Scrn (NotDetected) Ur Amphetamines Screen (NotDetected) U Methamphetamines Scrn (NotDetected) U Benzodiazepines Scrn (NotDetected) Urine Cocaine Screen (NotDetected) U Marijuana (THC) Screen (NotDetected) 06/26/22 06/26/22 06/26/22 Range/Units 13:59 13:59 14:38 WBC (3.8-10.6) k/uL RBC (4.30-5.90) m/uL Hgb (13.0-17.5) gm/dL Hct (39.0-53.0) % MCV (80.0-100.0) fL MCH (25.0-35.0) pg MCHC (31.0-37.0) g/dL RDW (11.5-15.5) % Plt Count (150-450) k/uL MPV Neutrophils % % Lymphocytes % % Monocytes % % Eosinophils % % Basophils % % Neutrophils # (1.3-7.7) k/uL Lymphocytes # (1.0-4.8) k/uL Monocytes # (0-1.0) k/uL Eosinophils # (0-0.7) k/uL Basophils # (0-0.2) k/uL PT (9.0-12.0) sec INR (<1.2) APTT (22.0-30.0) sec Sodium (137-145) mmol/L Potassium (3.5-5.1) mmol/L Chloride (98-107) mmol/L Carbon Dioxide (22-30) mmol/L Anion Gap mmol/L BUN (9-20) mg/dL Creatinine (0.66-1.25) mg/dL Est GFR (CKD-EPI)AfAm (>60 ml/min/1.73 sqM) Est GFR (CKD-EPI)NonAf (>60 ml/min/1.73 sqM) Glucose (74-99) mg/dL Calcium (8.4-10.2) mg/dL Total Bilirubin (0.2-1.3) mg/dL AST (17-59) U/L ALT (4-49) U/L Alkaline Phosphatase (38-126) U/L Ammonia 13 (<30) umol/L Troponin I <0.012 (0.000-0.034) ng/mL Total Protein (6.3-8.2) g/dL Albumin (3.5-5.0) g/dL Urine Color Urine Appearance (Clear) Urine pH (5.0-8.0) Ur Specific [place] (1.001-1.035) Urine Protein (Negative) Urine Glucose (UA) (Negative) Urine Ketones (Negative) Urine Blood (Negative) Urine Nitrite (Negative) Urine Bilirubin (Negative) Urine Urobilinogen (<2.0) mg/dL Ur Leukocyte Esterase (Negative) Urine RBC (0-5) /hpf Urine WBC (0-5) /hpf Ur Squamous Epith Cells (0-4) /hpf Urine Bacteria (None) /hpf Granular Casts (0) /lpf Urine Mucus (None) /hpf Salicylates mg/dL Urine Opiates Screen Not Detected (NotDetected) Ur Oxycodone Screen Not Detected (NotDetected) Urine Methadone Screen Not Detected (NotDetected) Ur Propoxyphene Screen Not Detected (NotDetected) Acetaminophen ug/mL Ur Barbiturates Screen Not Detected (NotDetected) U Tricyclic Antidepress Not Detected (NotDetected) Ur Phencyclidine Scrn Not Detected (NotDetected) Ur Amphetamines Screen Not Detected (NotDetected) U Methamphetamines Scrn Not Detected (NotDetected) U Benzodiazepines Scrn Not Detected (NotDetected) Urine Cocaine Screen Not Detected (NotDetected) U Marijuana (THC) Screen Not Detected (NotDetected) 06/26/22 Range/Units 14:38 WBC (3.8-10.6) k/uL RBC (4.30-5.90) m/uL Hgb (13.0-17.5) gm/dL Hct (39.0-53.0) % MCV (80.0-100.0) fL MCH (25.0-35.0) pg MCHC (31.0-37.0) g/dL RDW (11.5-15.5) % Plt Count (150-450) k/uL MPV Neutrophils % % Lymphocytes % % Monocytes % % Eosinophils % % Basophils % % Neutrophils # (1.3-7.7) k/uL Lymphocytes # (1.0-4.8) k/uL Monocytes # (0-1.0) k/uL Eosinophils # (0-0.7) k/uL Basophils # (0-0.2) k/uL PT (9.0-12.0) sec INR (<1.2) APTT (22.0-30.0) sec Sodium (137-145) mmol/L Potassium (3.5-5.1) mmol/L Chloride (98-107) mmol/L Carbon Dioxide (22-30) mmol/L Anion Gap mmol/L BUN (9-20) mg/dL Creatinine (0.66-1.25) mg/dL Est GFR (CKD-EPI)AfAm (>60 ml/min/1.73 sqM) Est GFR (CKD-EPI)NonAf (>60 ml/min/1.73 sqM) Glucose (74-99) mg/dL Calcium (8.4-10.2) mg/dL Total Bilirubin (0.2-1.3) mg/dL AST (17-59) U/L ALT (4-49) U/L Alkaline Phosphatase (38-126) U/L Ammonia (<30) umol/L Troponin I (0.000-0.034) ng/mL Total Protein (6.3-8.2) g/dL Albumin (3.5-5.0) g/dL Urine Color Yellow Urine Appearance Clear (Clear) Urine pH 7.5 (5.0-8.0) Ur Specific [place] 1.015 (1.001-1.035) Urine Protein Negative (Negative) Urine Glucose (UA) Negative (Negative) Urine Ketones Negative (Negative) Urine Blood Negative (Negative) Urine Nitrite Negative (Negative) Urine Bilirubin Negative (Negative) Urine Urobilinogen <2.0 (<2.0) mg/dL Ur Leukocyte Esterase Trace H (Negative) Urine RBC 2 (0-5) /hpf Urine WBC 5 (0-5) /hpf Ur Squamous Epith Cells 1 (0-4) /hpf Urine Bacteria Rare H (None) /hpf Granular Casts 1 (0) /lpf Urine Mucus Rare H (None) /hpf Salicylates mg/dL Urine Opiates Screen (NotDetected) Ur Oxycodone Screen (NotDetected) Urine Methadone Screen (NotDetected) Ur Propoxyphene Screen (NotDetected) Acetaminophen ug/mL Ur Barbiturates Screen (NotDetected) U Tricyclic Antidepress (NotDetected) Ur Phencyclidine Scrn (NotDetected) Ur Amphetamines Screen (NotDetected) U Methamphetamines Scrn (NotDetected) U Benzodiazepines Scrn (NotDetected) Urine Cocaine Screen (NotDetected) U Marijuana (THC) Screen (NotDetected) - EKG Data -: EKG Interpreted by Me (EKG is sinus bradycardia 44 IN QRS 96 QTc 413) Disposition Clinical Impression: Altered mental status Disposition: HOME SELF-CARE Condition: Good Additional Instructions: stop taking Gabapentin regarding mental status changes Is patient prescribed a controlled substance at d/c from ED?: No Referrals: Tony Pierson MD [Primary Care Provider] - 1-2 days Time of Disposition: 17:00
[2022-06-26 14:57] LABS: Appearance,Urine Clear (Clear); Bacteria,Urine Rare /hpf; Bilirubin,Urine Negative (Negative); Blood,Urine Negative (Negative); Color,Urine Yellow; Glucose,Urine (UA) Negative (Negative); Granular Casts,Urine 1 /lpf (0); Ketones,Urine Negative (Negative); Leukocyte Esterase,Urine Trace (Negative); Mucus,Urine Rare /hpf; Nitrite,Urine Negative (Negative); PH, Urine 7.5 (5.0-8.0); Protein,Urine Negative (Negative); RBC,Urine 2 /hpf (0-5); Specific Gravity,Urine 1.015 (1.001-1.035); Squamous Epithelial Cell,Urine 1 /hpf (0-4); Urobilinogen,Urine <2.0 mg/dL (<2.0); WBC,Urine 5 /hpf (0-5)
[2022-06-26 15:13] LABS: Amphetamine Screen,Urine Not Detected (NotDetected); Barbiturate Screen,Urine Not Detected (NotDetected); Benzodiazepines Screen,Urine Not Detected (NotDetected); Cocaine Screen,Urine Not Detected (NotDetected); Methadone Screen, Urine Not Detected (NotDetected); Opiate Screen,Urine Not Detected (NotDetected); Oxycodone Screen, Urine Not Detected (NotDetected); Phencyclidine Screen,Urine Not Detected (NotDetected); Tricyclic Antidepressant,Urine Not Detected (NotDetected); Urn Cannabinoid Scrn Not Detected (NotDetected)
[2022-06-26 18:03] VITALS: BP 120/73; PULSE 62; RESP 20
== END 2022-06-26 17:50 | disposition home or self-care (01) ==
LOC: EC 12:57
DX: R41.82 Altered mental status, unspecified (principal); F41.9 Anxiety disorder, unspecified; F32.A Depression, unspecified; F17.200 Nicotine dependence, unspecified, uncomplicated; Z79.82 Long term (current) use of aspirin; Z79.899 Other long term (current) drug therapy; Z88.0 Allergy status to penicillin; Z88.1 Allergy status to other antibiotic agents; Z88.2 Allergy status to sulfonamides; Z88.8 Allergy status to other drugs, medicaments and biological substances
CPT/HCPCS: 36415; 93005; 80053; 82140; 84484; 85025; 85610; 85730; 81001; 80306; 80143; 80179; 99285; 96374; 96361 ×3; J2310

== ENCOUNTER 2023-04-17 16:35 | Emergency (ER) | payer MEDICARE, OTHER ==
--- NOTE | 2023-04-17 18:07 | ED ---
Fall HPI - General Chief Complaint: Fall Stated Complaint: Fall-Right Side Pain Time Seen by Provider: 04/17/23 16:43 Source: patient, RN notes reviewed Mode of arrival: ambulatory Limitations: no limitations - History of Present Illness Initial Comments: This is a 57-year-old male who presents to the emergency department for a fall. Patient presents from a skilled nursing, where he fell out of bed. The fall was unwitnessed. Patient complaining of pain to the lower back, both hips, head, and neck. Denies any loss of consciousness and is not taking any blood thinners. Complaint: fall - Related Data Home Medications Medication Instructions Recorded Confirmed Omeprazole [PriLOSEC] 20 mg PO HS@209902/23/22 06/26/22 Aspirin 81 mg PO HS@209906/26/22 06/26/22 Atorvastatin [Lipitor] 40 mg PO HS@209906/26/22 06/26/22 Benztropine Mesylate [Cogentin] 1 mg PO TID@0800,1400,209906/26/22 06/26/22 Gabapentin [Neurontin] 400 mg PO TID@0800,1400,209906/26/22 06/26/22 [place] Carbonate 900 mg PO HS@209906/26/22 06/26/22 Mirtazapine 30 mg PO HS@209906/26/22 06/26/22 clonazePAM [KlonoPIN] 1 mg PO TID@0800,1400,209906/26/22 06/26/22 fluPHENAZine decanoate [Prolixin 50 mg IM Q14D 06/26/22 06/26/22 Decanoate] Allergies Allergy/AdvReac Type Severity Reaction Status Date / Time levofloxacin [From Levaquin] Allergy Unknown Verified 06/26/22 17:10 linezolid [From Zyvox] Allergy Unknown Verified 06/26/22 17:10 nitrofurantoin Allergy Unknown Verified 06/26/22 17:10 [From Macrobid] nitrofurantoin Allergy Unknown Verified 06/26/22 17:10 macrocrystalline [From Macrobid] Penicillins Allergy Unknown Verified 06/26/22 17:10 sulfamethoxazole Allergy Unknown Verified 06/26/22 17:10 [From Bactrim] tetracycline Allergy Unknown Verified 06/26/22 17:10 trimethoprim [From Bactrim] Allergy Unknown Verified 06/26/22 17:10 vancomycin Allergy Unknown Verified 06/26/22 17:10 hydroxyzine [From Vistaril] AdvReac Chest Pain Verified 06/26/22 17:10 Review of Systems ROS Statement: Those systems with pertinent positive or pertinent negative responses have been documented in the HPI. ROS Other: All systems not noted in ROS Statement are negative. Past Medical History Past Medical History: Liver Disease Additional Past Medical History / Comment(s): Pt stated that he has Hepatitis C. History of Any Multi-Drug Resistant Organisms: None Reported Past Surgical History: Appendectomy Additional Past Surgical History / Comment(s): pt denies. Pt is denying any medical issues at time of admission. Past Anesthesia/Blood Transfusion Reactions: No Reported Reaction Past Psychological History: Anxiety, Depression, Panic Disorder, Schizophrenia Smoking Status: Current every day smoker Past Alcohol Use History: None Reported Past Drug Use History: None Reported - Past Family History Father History Unknown: Yes Additional Family Medical History / Comment(s): pt stated unk Mother History Unknown: Yes Additional Family Medical History / Comment(s): Pancreatic cancer in his mother General Exam Limitations: altered mental status General appearance: alert, in no apparent distress Head exam: Present: atraumatic, normocephalic, normal inspection Eye exam: Present: normal appearance, PERRL, EOMI. Absent: scleral icterus, conjunctival injection, periorbital swelling Respiratory exam: Present: normal lung sounds bilaterally. Absent: respiratory distress, wheezes, rales, rhonchi, stridor Cardiovascular Exam: Present: regular rate, normal rhythm, normal heart sounds. Absent: systolic murmur, diastolic murmur, rubs, gallop, clicks Back exam: Present: other (Tenderness over the lower back) Neurological exam: Present: alert, oriented X3, CN II-XII intact Psychiatric exam: Present: normal affect, normal mood Skin exam: Present: warm, dry, intact, normal color. Absent: rash Course Vital Signs 04/17/23 04/17/23 16:37 19:27 Temperature 98.6 F 98.5 F Pulse Rate 67 66 Respiratory 20 12 Rate Blood Pressure 132/83 109/74 O2 Sat by Pulse 96 96 Oximetry Medical Decision Making - Medical Decision Making This is a 57-year-old male who presents to the emergency department for a fall. Was pt. sent in by a medical professional or institution? @ -No Did you speak to anyone other than the patient for history? @ -No Did you review nursing and triage notes? @ -Yes, and I agree, it is accurate with regards to the patient's symptoms. Were old charts reviewed? @ -No Differential Diagnosis? @ -Differential Musculoskeletal: Muscular strain, contusion, ligament sprain, fracture, arthritis, septic arthritis, bursitis, cellulitis, muscle spasm, nerve compression, DVT, arterial occlusion, herpes zoster, electrolyte abnormality, tumor.... This is not meant to be in all inclusive list EKG interpreted by me (3pts min.)? @ -Not obtained X-rays interpreted by me (1pt min.)? @ -X-ray of the lumbar spine, bilateral hips, and left shoulder obtained. My interpretation of all images identifies no acute fractures. CT interpreted by me (1pt min.)? @ -Computed tomography scan of the brain and c-spine obtained. My interpretation identifies no evidence of an acute intracranial hemorrhage, skull fracture, or cervical spine fracture. U/S interpreted by me (1pt. min.)? @ -Not obtained What testing was considered but not performed? (CT, X-rays, U/S, labs)? Why? @ -None What meds were considered but not given? Why? @ -None Did you discuss the management of the patient with other professionals? @ -No Did you reconcile home meds? @ -No Was smoking cessation discussed for >3mins.? @ -No Was critical care preformed (if so, how long)? @ -No Were there social determinants of health that impacted care today? How? (Homelessness, low income, unemployed, alcoholism, drug addiction, transportation, low edu. Level, literacy, decrease access to med. care, custodial, rehab)? @ -No Was there de-escalation of care discussed even if they declined? (Discuss DNR or withdrawal of care, Hospice)? @ -No What co-morbidities impacted this encounter? (DM, HTN, Smoking, COPD, CAD, Cancer, CVA, Hep., AIDS, mental health diagnosis, sleep apnea, morbid obesity)? @ -None Was patient admitted / discharged? @ -Discharged. Given that the fall was unwitnessed and the circumstances surrounding it are not very clear, and because the patient has some sort of intellectual delay making it difficult for him to communicate his complaints, we did proceed with a computed tomography scan of the brain and C-spine, which revealed no acute process. We also obtained x-rays of the lumbar spine, bilateral hips, left shoulder, also revealing no acute process. Patient discharged back to the skilled nursing in stable condition. Undiagnosed new problem with uncertain prognosis? @ -None Drug Therapy requiring intensive monitoring for toxicity (Heparin, Nitro, Insulin, Cardizem)? @ -None Were any procedures done? @ -None Diagnosis/symptom? @ -Fall, back pain, hip pain Acute, or Chronic, or Acute on Chronic? @ -Acute Uncomplicated (without systemic symptoms) or Complicated (systemic symptoms)? @ -Uncomplicated Side effects of treatment? @ -None Exacerbation, Progression, or Severe Exacerbation] @ -Not applicable Poses a threat to life or bodily function? @ -No Return precautions reviewed in depth, the patient is instructed to return to the emergency department with any new, worsening, or concerning symptoms. Patient verbalized understanding. This case was discussed in detail with the attending ED physician, Dr. Hinson. Presentation, findings, and treatment plan discussed in detail as well. - Radiology Data Radiology results: report reviewed, image reviewed Disposition Clinical Impression: Fall, Back pain, Hip pain Disposition: HOME SELF-CARE Additional Instructions: Return to the emergency department with any new, worsening, or concerning symptoms. Follow up with your primary care provider in 1-2 days. Is patient prescribed a controlled substance at d/c from ED?: No Referrals: None,Stated [REFERRING] - 1-2 days Time of Disposition: 18:54
--- NOTE | 2023-04-17 18:16 | XR ---
EXAMINATION TYPE: XR lumbar spine 3V, XR shoulder complete 3 views LT, XR Hip 2 views Bilateral Compl ete DATE OF EXAM: 04/17/2023 Comparison: Lumbar spine 07/13/2021 Clinical History: 57-year-old male with pain after Fall Findings: Lumbar spine: 5 lumbar type vertebral bodies. Hypertrophic facet arthropathy lower lumbar spine with moderate to se priyank degenerative disc disease and endplate spondylosis L4-L5 and L5-S1. Trace grade 1 retrolisthesis L3-L4. Remaining alignment is maintained and vertebral body heights are preserved. Left shoulder: Moderate degenerative change at the AC joint with joint space narrowing, capsular hypertrophy, and ma rginal spurring. Subacromial space is observed. No acute fracture, subluxation, or dislocation. Bilateral hips: The hips appear symmetric and intact. Pubic symphysis appears intact. No acute fracture, subluxation, dislocation. Impression: 1. Lumbar spine: Moderate spondylotic change especially L4-L5 and L5-S1. Trace grade 1 retrolisthesis L3-L4. No vertebral compression collapse. 2. Left shoulder: Moderate AC joint OA. No acute osseous abnormality seen. 3. Bilateral hips: No acute osseous abnormality seen.
[2023-04-17] MEDS: HYDROcodone/APAP 5-325MG 1 EACH TAB PO STA (18:24)
[2023-04-17] MEDS: KETOROLAC 15 MG/ML 1 ML VIAL IM STA (18:24)
--- NOTE | 2023-04-17 18:39 | CT ---
EXAMINATION TYPE: CT brain kadiine wo con DATE OF EXAM: 04/17/2023 COMPARISON: 02/23/2022 HISTORY: 57-year-old male with pain after fall, head injury CT DLP: 1539.3 mGycm Automated exposure control for dose reduction was used. Technique: Examination of the head was done in axial plane without intravenous contrast. Coronal and sagittal reconstructions performed. CT of the cervical spine was obtained in axial plane without intravenous injection of contrast mater ial. Coronal and sagittal reformatted images were obtained from the axial views for evaluation of f ractures, spinal alignment and canal. FINDINGS: Head: There is no evidence of acute intracranial hemorrhage, acute ischemic changes, mass, mass-effect, or extra-axial fluid collection. There is no effacement of cerebral sulci or basal subarachnoid cister ns. There is no hydrocephalus. There is no midline shift. Cummings-white matter distinction is preserv ed. Asymmetrically smaller right lateral ventricle likely a congenital basis, unchanged from prior. Athe rosclerotic calcifications in the carotid siphons. Hypoplastic left mastoid air cells. Cerumen in bilateral external auditory canals. Trace mucosal thic kening ethmoid air cells. Orbits and globes appear intact. Cervical spine: Moderate spondylitic changes especially C4-C7 levels. Disc osteophyte complexes appear congenitally v ariable mild to moderate spinal canal narrowing. The alignment of the cervical spine is normal on cor onal and reformatted images. There is no cranial vertebral abnormality. Fracture of the cervical spin e is not seen. Moderate left foraminal stenosis C5-C6 and C6/C7 very minimal mild neural foraminal na rrowing at additional levels. Sagittal and coronal reformatted images confirm above findings. COMBINED IMPRESSION: 1. No acute intracranial abnormality seen. 2. Moderate spondylotic changes especially C4-C7 levels. No acute fracture or malalignment of the cer vical spine.
[2023-04-17 19:30] VITALS: BP 109/74; PULSE 66; RESP 12; TEMP 98.5
== END 2023-04-17 19:35 | disposition home or self-care (01) ==
LOC: EC 16:35
DX: M54.50 Low back pain, unspecified (principal); M25.552 Pain in left hip; M25.551 Pain in right hip; F41.9 Anxiety disorder, unspecified; F32.A Depression, unspecified; F17.200 Nicotine dependence, unspecified, uncomplicated; Z79.82 Long term (current) use of aspirin; Z79.899 Other long term (current) drug therapy; Z88.1 Allergy status to other antibiotic agents; Z88.2 Allergy status to sulfonamides; Z88.0 Allergy status to penicillin; Z88.8 Allergy status to other drugs, medicaments and biological substances; Z88.5 Allergy status to narcotic agent; W06.XXXA Fall from bed, initial encounter
CPT/HCPCS: 72100; 73030; 73521; 72125; 70450; 99284; 96372; J1885

== ENCOUNTER → 2023-06-07 | Outpatient (CLI) | payer MEDICARE, OTHER ==
[2023-06-07 10:09] VITALS: BP 112/73; PULSE 58; RESP 16; TEMP 97.8
--- NOTE | 2023-06-07 14:45 | P.PAINPG ---
PQRS Measure Charge Sheet Comment: A 57 yr old male with female caregiver at side with a history of severe and chronic neck pain x 1 yrs secondary to DDD, spondylosis and facet arthropathy without myelopathy presents today for evaluation. Pain level is currently at 8 /10 in intensity, constant, predominantly axial, sharp in character, localized in the lower aspects of his cervical spine with radiation of pain occasionally down the LUE. Pain is provoked by lifting. Pain is alleviated with medications, repositioning, stretching and rest. Patient has not tried physical therapy, massage therapy or any chiropractic treatments in years. Cervical disability score of 26. Interventional pain procedures completed include DENIES Patient is currently on Tyl, Naproxen from his PCP Patient denies any side effects of the medication(s), denies excessive drowsiness or sleepiness, denies suicidal ideation and reports that the current pain medication is helping to control the pain and improve activities of daily living. Patient denies any motor or sensory deficits. Patient denies any fever or night sweats, denies any change in the bowel movements or urination. Physical Examination: -Constitutional: Cooperative. Not in acute distress . -HEENT: Neck is supple. No lymphadenopathy. No thyromegaly. Normal thyroid size. Eyes: No ptosis , no icterus, no photophobia. ENT: No auditory deficits. Normal oropharynx. No Thrush. - Respiratory: Chest clear to auscultations bilaterally. No wheezing. No rhonchi. - Cardiovascular: Regular rate and rhythm. S1 / S2 , no S3 , no S4. - Gastrointestinal: Abdomen soft no tenderness. Bowel sounds positive in all four quadrants. No organomegaly. - Genitourinary: Deferred. - Neurologic: Cranial nerve II to XII intact. No focal neurological deficits. - Psychatric: Alert & oriented x 3. Matching mood & appropriate affect. Judgment and insight intact. - Lymphatic: No Lymphadenopathy. - Musculoskeletal: Cervical spine: Muscle bulk/ tone/ strength in the bilateral upper extremities normal Vertebral body tenderness to palpation over C6 Facet loading test positive Thoracic spine Muscle bulk / tone/ strength in the bilateral paraspinal muscles normal Vertebral body tender to palpation over Facet loading test positive Lumbar spine: Motor bulk/ tone/ strength lower extremities , thigh and legs : 5/5 Deep tendon reflexes : Normal Knee Jerk. Normal Ankle Jerk . Vertebral body tenderness to palpation Lumbar Facet Loading Test positive Straight Leg Raise: positive at 30 degrees right side/ left side Gaenslen's Test positive Sacral spine : Severe tenderness over the Sacroiliac joint: right side / left side Range of motion: Flexion of the lumbar spine <60 degrees Range of motion: Extension of the lumbar spine <20 degrees Gaenslen's Test positive Braden's Test positive Jer test: positive right side / left side Thigh Thrust Test Sacral Thrust Test Imaging: CT non contrast f the cervical spine from 04/17/23 reviewed Assessment and plan: Chronic neck pain secondary to DDD, C4- C7 spondylosis and facet arthropathy without myelopathy Recommendation of medication management. Naproxen 500mg #60 w 1 RF. Use, side effects, adverse reactions, safe storage discussed. Physician guided home exercises and stretches daily x 6- 8 wks. Paperwork provided. Chronic and current use of high-risk medication (Opioids). The patient was counseled about risk of opioid use, psychological risk associated with opioids and was orally counseled to not overuse , divert or sell medications. Pt is to store medication in a safe location. The patient is counseled against driving while using narcotic medications and also not to use alcohol or any illicit recreational drugs. Patient verbalized understanding that the lack of compliance will result in failure to renew narcotic prescription(s) as well as possible discharge from the clinic Diagnoses, prognosis and treatment options including but not limited to physical therapy, surgical interventions, interventional therapies and medication management including narcotics and adjuvant medication were discussed. All patient questions answered MAPS reviewed and it was appropriate. I have spent 31 minutes on patient care today. Dr Maldonado was available by phone for the evaluation of this patient. The time was used to review the medical records including relevant urine studies and Prescription history (MAPs), review of the available imaging, evaluation and examination of the patient, coordination of care with the medical staff and if applicable referring physicians, as well as creation of the medical record - Pain Location Bilateral Lower Neck Non-Pharmacological Interventions: Inactivity, Position/Reposition Pharmacological Interventions: PRN Medication PQRS Narrative: Smoking Status Current every day smoker Hx Alcohol Use (MH) No Home Medications: Ambulatory Orders Omeprazole [PriLOSEC] 20 mg PO HS@2100 02/23/22 Aspirin 81 mg PO HS@209906/26/22 Atorvastatin [Lipitor] 40 mg PO HS@209906/26/22 Benztropine Mesylate [Cogentin] 1 mg PO TID@0800,1400,209906/26/22 Gabapentin [Neurontin] 400 mg PO TID@0800,1400,209906/26/22 [place] Carbonate 900 mg PO HS@209906/26/22 Mirtazapine 30 mg PO HS@209906/26/22 clonazePAM [KlonoPIN] 1 mg PO TID@0800,1400,209906/26/22 fluPHENAZine decanoate [Prolixin Decanoate] 50 mg IM Q14D 06/26/22 Naproxen [Naprosyn] 500 mg PO BID PRN 30 Days #60 tablet 06/07/23 Controlled Substance Measures - Controlled Substance Measures Is patient prescribed a controlled substance at discharge?: No
== END ==
LOC: PNWHC3 09:08
PROVIDERS: ATTEND Specialist
DX: M47.816 Spondylosis without myelopathy or radiculopathy, lumbar region (principal); M50.321 Other cervical disc degeneration at C4-C5 level; M50.322 Other cervical disc degeneration at C5-C6 level; M50.323 Other cervical disc degeneration at C6-C7 level; M47.812 Spondylosis without myelopathy or radiculopathy, cervical region; F17.200 Nicotine dependence, unspecified, uncomplicated; G89.29 Other chronic pain; M54.51 Vertebrogenic low back pain; Z79.891 Long term (current) use of opiate analgesic; Z88.0 Allergy status to penicillin; Z88.1 Allergy status to other antibiotic agents; Z88.8 Allergy status to other drugs, medicaments and biological substances; Z88.5 Allergy status to narcotic agent; Z88.6 Allergy status to analgesic agent; Z88.2 Allergy status to sulfonamides
CPT/HCPCS: 99211

== ENCOUNTER 2024-07-08 14:03 | Observation (INO) | payer MEDICARE, OTHER ==
--- NOTE | 2024-07-08 14:20 | ED ---
General Adult HPI - General Chief complaint: Chest Pain Stated complaint: chest pain Time Seen by Provider: 07/08/24 14:05 Source: patient, RN notes reviewed, old records reviewed Mode of arrival: EMS Limitations: no limitations - History of Present Illness Initial comments: This is a 58-year-old male who presents to the emergency department stating that he is here for chest pain. Started yesterday and continues today. Patient states he is short of breath and he was earlier mildly nauseous. Patient states he has no radiation of the pain. Patient also states couple days ago he fell and hit his head he has a mild headache. Patient denies being on any blood thinners. Patient denies any neck pain patient has numbness or weakness. Patient also states that he is suicidal he has not made any attempt to kill himself. Patient also states he is drinker on occasion he has been drinking quite heavily this week but he has not drank today - Related Data Home Medications Medication Instructions Recorded Confirmed Omeprazole [PriLOSEC] 20 mg PO HS@209902/23/22 06/07/23 Aspirin 81 mg PO HS@209906/26/22 06/07/23 Atorvastatin [Lipitor] 40 mg PO HS@209906/26/22 06/07/23 Benztropine Mesylate [Cogentin] 1 mg PO TID@0800,1400,209906/26/22 06/07/23 Gabapentin [Neurontin] 400 mg PO TID@0800,1400,209906/26/22 06/07/23 [place] Carbonate 900 mg PO HS@209906/26/22 06/07/23 Mirtazapine 30 mg PO HS@209906/26/22 06/07/23 clonazePAM [KlonoPIN] 1 mg PO TID@0800,1400,209906/26/22 06/07/23 fluPHENAZine decanoate [Prolixin 50 mg IM Q14D 06/26/22 06/07/23 Decanoate] Previous Rx's Medication Instructions Recorded Naproxen [Naprosyn] 500 mg PO BID PRN 30 Days #60 06/07/23 tablet Allergies Allergy/AdvReac Type Severity Reaction Status Date / Time levofloxacin [From Levaquin] Allergy Unknown Verified 06/07/23 09:25 linezolid [From Zyvox] Allergy Unknown Verified 06/07/23 09:25 nitrofurantoin Allergy Unknown Verified 06/07/23 09:25 [From Macrobid] nitrofurantoin Allergy Unknown Verified 06/07/23 09:25 macrocrystalline [From Macrobid] Penicillins Allergy Unknown Verified 06/07/23 09:25 sulfamethoxazole Allergy Unknown Verified 06/07/23 09:25 [From Bactrim] tetracycline Allergy Unknown Verified 06/07/23 09:25 trimethoprim [From Bactrim] Allergy Unknown Verified 06/07/23 09:25 vancomycin Allergy Unknown Verified 06/07/23 09:25 hydroxyzine [From Vistaril] AdvReac Chest Pain Verified 06/07/23 09:25 Review of Systems ROS Statement: Those systems with pertinent positive or pertinent negative responses have been documented in the HPI. ROS Other: All systems not noted in ROS Statement are negative. Past Medical History Past Medical History: Liver Disease Additional Past Medical History / Comment(s): Pt stated that he has Hepatitis C. History of Any Multi-Drug Resistant Organisms: None Reported Past Surgical History: Appendectomy Additional Past Surgical History / Comment(s): pt denies. Pt is denying any medical issues at time of admission. Past Anesthesia/Blood Transfusion Reactions: No Reported Reaction Smoking Status: Current every day smoker - Past Family History Father History Unknown: Yes Additional Family Medical History / Comment(s): pt stated unk Mother History Unknown: Yes Additional Family Medical History / Comment(s): Pancreatic cancer in his mother General Exam - General Exam Comments Initial Comments: GENERAL: Patient is well-developed and well-nourished. Patient is nontoxic and well- hydrated and is in mild distress. ENT: Neck is soft and supple. No significant lymphadenopathy is noted. Oropharynx is clear. Moist mucous membranes. Neck has full range of motion without eliciting any pain. EYES: The sclera were anicteric and conjunctiva were pink and moist. Extraocular movements were intact and pupils were equal round and reactive to light. Eyelids were unremarkable. PULMONARY: Unlabored respirations. Good breath sounds bilaterally. No audible rales rhonchi or wheezing was noted. CARDIOVASCULAR: There is a regular rate and rhythm without any murmurs gallops or rubs. ABDOMEN: Soft and nontender with normal bowel sounds. SKIN: Skin is clear with no lesions or rashes and otherwise unremarkable. NEUROLOGIC: Patient is alert and oriented x3. Cranial nerves II through XII are grossly intact. Motor and sensory are also intact. Normal speech, volume and content. Symmetrical smile. MUSCULOSKELETAL: Normal extremities with adequate strength and full range of motion. LYMPHATICS: No significant lymphadenopathy is noted PSYCHIATRIC: Patient states he is suicidal Limitations: no limitations Course Vital Signs 07/08/24 07/08/24 14:05 15:13 Temperature 99.1 F Pulse Rate 70 66 Respiratory 16 18 Rate Blood Pressure 136/92 O2 Sat by Pulse 95 97 Oximetry Medical Decision Making - Medical Decision Making EKG is interpreted by myself EKG shows sinus rhythm at 84 bpm ND 159 QRS is 87 QT interval is 369 QTc is 410. Patient's EKG shows no ST segment elevation or depression. Was pt. sent in by a medical professional or institution (, [facility], [facility], urgent care, hospital, or shelter...) When possible be specific @ -No Did you speak to anyone other than the patient for history (EMS, parent, family, police, friend...)? What history was obtained from this source @ -No Did you review nursing and triage notes (agree or disagree)? Why? @ -I reviewed and agree with nursing and triage notes Were old charts reviewed (outside hosp., previous admission, EMS record, old EKG, old radiological studies, urgent care reports/EKG's, shelter records)? Report findings @ -No old charts were reviewed Differential Diagnosis? @ -Differential Chest Pain: Stable Angina, Unstable Angina, STEMI, NSTEMI Aortic Dissection, Pneumothorax, Musculoskeletal, Esophageal Spasm GERD, Cholecystitis, Pancreatitis, Zoster, this is not meant to be an all-inclusive list. EKG interpreted by me (3pts min.). @ -As above X-rays interpreted by me (1pt min.). @ -Chest x-ray shows no acute CT interpreted by me (1pt min.). @ -CT of the brain and C-spine showed no acute abnormality U/S interpreted by me (1pt. min.). @ -None done What testing was considered but not performed or refused? (CT, X-rays, U/S, labs)? Why? @ -None What meds were considered but not given or refused? Why? @ -None Did you discuss the management of the patient with other professionals (professionals i.e. , PA, [facility], lab, RT, psych nurse, elementary school social worker, health unit clerk, teacher, branch lending officer, corrections caseworker)? Give summary @ -I spoke with Dr. Jerry he agreed to admit the patient. Was smoking cessation discussed for >3mins.? @ -No Was critical care preformed (if so, how long)? @ -No Were there social determinants of health that impacted care today? How? (Homelessness, low income, unemployed, alcoholism, drug addiction, ziegler sportation, low edu. Level, literacy, decrease access to med. care, [place] [facility], rehab)? @ -No Was there de-escalation of care discussed even if they declined (Discuss DNR or withdrawal of care, Hospice)? DNR status @ -No What co-morbidities impacted this encounter? (DM, HTN, Smoking, COPD, CAD, Cancer, CVA, ARF, Chemo, Hep., AIDS, mental health diagnosis, sleep apnea, morbid obesity)? @ -None Was patient admitted / discharged? Hospital course, mention meds given and route, prescriptions, significant lab abnormalities, going to OR and other pertinent info. @ -Patient came in for chest pain and will be admitted for chest pain and a cardiology consult we placed. Patient also have a psychiatric consult because the patient states he is suicidal Undiagnosed new problem with uncertain prognosis? @ -No Drug Therapy requiring intensive monitoring for toxicity (Heparin, Nitro, Insulin, Cardizem)? @ -No Were any procedures done? @ -No Diagnosis/symptom? @ -Chest pain Acute, or Chronic, or Acute on Chronic? @ -Acute Uncomplicated (without systemic symptoms) or Complicated (systemic symptoms)? @ -Complicated Side effects of treatment? @ -No Exacerbation, Progression, or Severe Exacerbation? @ -No Poses a threat to life or bodily function? How? (Chest pain, [place], VA, pneumonia, PE, COPD, DKA, ARF, appy, cholecystitis, CVA, Diverticulitis, Homicidal, Suicidal, threat to staff... and all critical care pts) @ -Yes this could lead to an VA and endorgan dysfunction Diagnosis/symptom? @ -Suicidal ideations Acute, or Chronic, or Acute on Chronic? @ -Acute Uncomplicated (without systemic symptoms) or Complicated (systemic symptoms)? @ -complicated Side effects of treatment? @ -None Exacerbation, Progression, or Severe Exacerbation] @ -No Poses a threat to life or bodily function? @ -Yes this could lead to the patient killing himself - Lab Data Result diagrams: 07/08/24 14:11 07/08/24 14:11 Lab Results 07/08/24 07/08/24 07/08/24 Range/Units 14:11 14:11 14:11 WBC 7.90 (4.50-10.00) 10*3/uL RBC 5.73 H (4.40-5.60) 10*6/uL Hgb 17.4 H (13.0-17.0) g/dL Hct 50.7 H (39.6-50.0) % MCV 88.5 (80.0-97.0) fL MCH 30.4 (27.0-32.0) pg MCHC 34.3 (32.0-37.0) g/dL Plt Count 253 (140-440) 10*3/uL MPV 10.0 (9.5-12.2) fL Immature Gran % (Auto) 0.3 % Neutrophils % 70.7 % Lymphocytes % 19.9 % Monocytes % 7.1 % Eosinophils % 1.6 % Basophils % 0.4 % Immature Gran # 0.02 (0.00-0.04) 10*3/uL Neutrophils # 5.59 (1.80-7.70) 10*3/uL Lymphocytes # 1.57 (0.90-5.00) 10*3/uL Monocytes # 0.56 (0.20-1.00) 10*3/uL Eosinophils # 0.13 (0.04-0.35) 10*3/uL Basophils # 0.03 (0.00-0.10) 10*3/uL PT 11.2 (10.0-12.5) sec INR 1.0 (<1.2) APTT 24.2 (22.0-30.0) sec Sodium 139 (137-145) mmol/L Potassium 4.6 (3.5-5.1) mmol/L Chloride 105 (98-107) mmol/L Carbon Dioxide 21 L (22-30) mmol/L Anion Gap 13 mmol/L BUN 12 (9-20) mg/dL Creatinine 0.74 (0.66-1.25) mg/dL Est GFR (CKD-EPI)AfAm >90 (>60 ml/min/1.73 sqM) Est GFR (CKD-EPI)NonAf >90 (>60 ml/min/1.73 sqM) Glucose 105 H (74-99) mg/dL Calcium 9.8 (8.4-10.2) mg/dL Magnesium 2.2 (1.6-2.3) mg/dL Total Bilirubin 0.7 (0.2-1.3) mg/dL AST 32 (17-59) U/L ALT 37 (4-49) U/L Alkaline Phosphatase 101 (38-126) U/L Troponin I (0.000-0.034) ng/mL Total Protein 7.4 (6.3-8.2) g/dL Albumin 4.4 (3.5-5.0) g/dL Serum Alcohol <10 mg/dL 07/08/24 Range/Units 14:11 WBC (4.50-10.00) 10*3/uL RBC (4.40-5.60) 10*6/uL Hgb (13.0-17.0) g/dL Hct (39.6-50.0) % MCV (80.0-97.0) fL MCH (27.0-32.0) pg MCHC (32.0-37.0) g/dL Plt Count (140-440) 10*3/uL MPV (9.5-12.2) fL Immature Gran % (Auto) % Neutrophils % % Lymphocytes % % Monocytes % % Eosinophils % % Basophils % % Immature Gran # (0.00-0.04) 10*3/uL Neutrophils # (1.80-7.70) 10*3/uL Lymphocytes # (0.90-5.00) 10*3/uL Monocytes # (0.20-1.00) 10*3/uL Eosinophils # (0.04-0.35) 10*3/uL Basophils # (0.00-0.10) 10*3/uL PT (10.0-12.5) sec INR (<1.2) APTT (22.0-30.0) sec Sodium (137-145) mmol/L Potassium (3.5-5.1) mmol/L Chloride (98-107) mmol/L Carbon Dioxide (22-30) mmol/L Anion Gap mmol/L BUN (9-20) mg/dL Creatinine (0.66-1.25) mg/dL Est GFR (CKD-EPI)AfAm (>60 ml/min/1.73 sqM) Est GFR (CKD-EPI)NonAf (>60 ml/min/1.73 sqM) Glucose (74-99) mg/dL Calcium (8.4-10.2) mg/dL Magnesium (1.6-2.3) mg/dL Total Bilirubin (0.2-1.3) mg/dL AST (17-59) U/L ALT (4-49) U/L Alkaline Phosphatase (38-126) U/L Troponin I <0.012 (0.000-0.034) ng/mL Total Protein (6.3-8.2) g/dL Albumin (3.5-5.0) g/dL Serum Alcohol mg/dL Disposition Clinical Impression: Chest pain, Suicidal ideations Disposition: ADMITTED IP TO THIS HOSP Referrals: Tony Pierson MD [Primary Care Provider] - 1-2 days Time of Disposition: 16:52
[2024-07-08 14:21] LABS: Basophils # (A) 0.03 10*3/uL (0.00-0.10); Basophils % (A) 0.4 %; Eosinophils # (A) 0.13 10*3/uL (0.04-0.35); Eosinophils % (A) 1.6 %; HCT 50.7 % (39.6-50.0); HGB 17.4 g/dL (13.0-17.0); Lymphocytes # (A) 1.57 10*3/uL (0.90-5.00); Lymphocytes % (A) 19.9 %; MCH 30.4 pg (27.0-32.0); MCHC 34.3 g/dL (32.0-37.0); MCV 88.5 fL (80.0-97.0); Monocytes # (A) 0.56 10*3/uL (0.20-1.00); Monocytes % (A) 7.1 %; Neutrophils # (A) 5.59 10*3/uL (1.80-7.70); Neutrophils % (A) 70.7 %; Platelet Count 253 10*3/uL (140-440); RBC 5.73 10*6/uL (4.40-5.60); RDW 14.6 % (11.5-14.5)
[2024-07-08] MEDS: ASPIRIN 81 MG PO STA (14:38)
[2024-07-08] MEDS: LORazepam 1 MG/0.5 ML VIAL IV STA (14:38)
[2024-07-08] MEDS: SODIUM CHLORIDE 0.9% 1,000 ML IV STA (14:38)
[2024-07-08] MEDS: NITROGLYCERIN OINT 1 INCH/GM PACKET TOPICAL STA (14:38)
[2024-07-08 14:39] LABS: ALT 37 U/L (4-49); AST 32 U/L (17-59); African American GFR (CKD) >90 (>60 ml/min/1.73 sqM); Albumin 4.4 g/dL (3.5-5.0); Alcohol <10 mg/dL; Alkaline Phosphatase 101 U/L (38-126); Anion Gap 13 mmol/L; Blood Urea Nitrogen 12 mg/dL (9-20); Calcium 9.8 mg/dL (8.4-10.2); Carbon Dioxide 21 mmol/L (22-30); Chloride 105 mmol/L (98-107); Glucose 105 mg/dL (74-99); Magnesium 2.2 mg/dL (1.6-2.3); Non-African American GFR(CKD) >90 (>60 ml/min/1.73 sqM); Potassium 4.6 mmol/L (3.5-5.1); Sodium 139 mmol/L (137-145); Total Bilirubin 0.7 mg/dL (0.2-1.3); Total Protein 7.4 g/dL (6.3-8.2)
[2024-07-08 14:44] LABS: Partial Thromboplastin Time 24.2 sec (22.0-30.0); Prothrombin Time 11.2 sec (10.0-12.5)
--- NOTE | 2024-07-08 15:00 | XR ---
EXAMINATION TYPE: XR chest 2V DATE OF EXAM: 07/08/2024 2:52 PM COMPARISON: 02/23/2022 CLINICAL INDICATION: Male, 58 years old with history of Chest Pain, , TECHNIQUE: AP and lateral views FINDINGS: Heart borderline enlarged. Mild perihilar interstitial prominence. No consolidation or pleural effusi on. IMPRESSION: Borderline heart size with some perihilar/interstitial prominence. Correlate to exclude mild pulmonar y vascular congestion. [facility], Workstation: [id number], 07/08/2024 2:57 PM
--- NOTE | 2024-07-08 15:16 | CT ---
EXAMINATION TYPE: CT brain cspine wo con DATE OF EXAM: 07/08/2024 COMPARISON: 04/17/2023 CLINICAL INDICATION: Male, 58 years old with history of Trauma; [facility], ams TECHNIQUE: CT scan of the head and cervical spine are performed without contrast. CT DLP: 1558.[address] CTDI: mGy Automated exposure control for dose reduction was used. Findings: Head CT: Ventricles, basal cisterns and sulci over convexities are mildly enlarged consistent with mild age-ap propriate atrophy. There is mild decreased density in the periventricular white matter consistent wit h mild chronic ischemic white matter demyelination. There is no mass effect or shift of midline struc tures. There is no acute intra or extra-axial hemorrhage. Posterior fossa including the brainstem, fourth ventricle and cerebellar pontine angles are grossly n ormal. The intraorbital contents appear normal and symmetric. There is a mucous retention cyst or polyp in t he left maxillary sinus otherwise the paranasal sinuses are well aerated. CT cervical spine: Craniovertebral junction relationships and prevertebral soft tissues are normal. The cervical vertebral segments are normal in height and alignment and there is no fracture subluxati on. There is moderate disc space narrowing and spondylosis C4-5, C5-6 and C6-7 levels indicating moderate degenerative disc disease. Facet joints are intact. There is mild to moderate osteoarthrosis of the uncovertebral joints at C4-5, C5-6 and C6-7. There is mild bony encroachment of the C5-6 neural madonna nathanael on the left. There is no bony encroachment of the cervical canal. The paraspinal soft tissues unremarkable. IMPRESSION: 1. Head CT: No acute bleed or mass effect. Mild age appropriate senescent changes. 2. CT cervical spine: No acute trauma. Moderate degenerative disc disease and arthritis in the lower cervical spine. [facility], , 07/08/2024 3:14 PM
[2024-07-08] MEDS ORDERED: NITROGLYCERIN SL TABS 0.4 MG TAB SUBLINGUAL PRN (16:58)
[2024-07-08] MEDS: NITROGLYCERIN OINT 1 INCH/GM PACKET TOPICAL SCH (17:07)
[2024-07-08] MEDS: LORazepam 1 MG TAB PO PRN (23:53)
[2024-07-08] MEDS: ACETAMINOPHEN TAB 500 MG TAB PO PRN (23:53)
[2024-07-09 02:46] VITALS: RESP 16
[2024-07-09 07:23] VITALS: BP 105/70; PULSE 67; TEMP 98.1
[2024-07-09] MEDS: ASPIRIN 325 MG TAB PO SCH (08:18)
[2024-07-09 09:21] LABS: Chol/HDL Ratio 4.64 Ratio; LDL Cholesterol,Calculated 110.9 mg/dL (0.0-131.0)
[2024-07-09] MEDS: METOPROLOL SUCCINATE (ER) 25 MG TAB.ER.24H PO SCH (10:11)
[2024-07-09 11:05] VITALS: BMI 25.4
--- NOTE | 2024-07-09 11:45 | P.CRDCN ---
History of Present Illness History of present illness: HISTORY OF PRESENTING ILLNESS This is a pleasant 58-year-old male past medical history significant for dyslipidemia, schizophrenia, alcohol abuse, liver disease, seizure disorder, hepatitis C and chronic nicotine dependence. He had previously followed in the office with Dr. Espinal in 2018 but nothing since that time. We have been asked to see in consultation for chest pain. He is seen and examined resting comfortably laying flat in bed in no acute distress. He is somewhat of a poor historian. Information is obtained from nursing staff. Apparently he had been sober off of alcohol for the previous 2 years but admitted to starting drinking about a week ago. He has revealed sinus mechanism with no acute ST or T wave abnormalities noted heart rate of 84. Been on somewhat of a gay. He had an episode of falling and hit his head which brought him to the hospital. Upon arrival to the emergency department he indicated some chest discomfort. He denies all complaints at the time of our evaluation. EKG reveals sinus mechanism with no acute ST or T wave abnormalities noted heart rate of 84. Chest x-ray reveals mild pulmonary vascular congestion. Laboratory data reviewed, CBC unremarkable, sodium 139, potassium 4.6, creatinine 0.74, magnesium 2.2, cardiac enzymes negative x 3, LDL 110. He currently is taking no daily cardiac medications. In 2018 in the office he had a Lexiscan stress test that was normal. Most recent echocardiogram obtained in 2018 revealed preserved LV systolic function with ejection fraction 55 to 60%, trace mitral and tricusp id regurgitation with no significant pulmonary hypertension. REVIEW OF SYSTEMS At the time of my exam: poor historian but has no complaints. CONSTITUTIONAL: Denies fever or chills. CARDIOVASCULAR: Denies chest pain, shortness of breath, orthopnea, PND or palpitations. RESPIRATORY: Denies cough. GASTROINTESTINAL: Denies abdominal pain, diarrhea, constipation, nausea or vomiting. MUSCULOSKELETAL: Denies myalgias. NEUROLOGIC: Denies numbness, tingling, headache or weakness. ENDOCRINE: Denies fatigue, weight change, polydipsia or polyurina. GENITOURINARY: Denies burning, hematuria or urgency with micturation. HEMATOLOGIC: Denies history of anemia or bleeding. PHYSICAL EXAMINATION Blood pressure 105/70 heart rate 67 afebrile and maintaining oxygen saturation on room air. CONSTITUTIONAL: No apparent distress. HEENT: Head is normocephalic. Pupils are equal, round. Sclerae anicteric. Mucous membranes of the mouth are moist. No JVD. No carotid bruit. CHEST EXAMINATION: Lungs are clear to auscultation. No chest wall tenderness is noted on palpation or with deep breathing. HEART EXAMINATION: Regular rate and rhythm. S1, S2 heard. No murmurs, gallops or rub. ABDOMEN: Soft, nontender. EXTREMITIES: 2+ peripheral pulses, no lower extremity edema and no calf tenderness. NEUROLOGIC EXAMINATION: Patient is awake, alert and oriented x3. ASSESSMENT Chest pain, atypical Suicidal ideation Mental illness Chronic nicotine dependence Alcohol abuse PLAN An acute coronary event has been ruled out. Add small dose of metoprolol succinate 12.5 mg daily. Discontinue Nitropaste. Obtain 2D echocardiogram and Doppler study to assess cardiac structure and function. Stable from a cardiac perspective to be evaluated on the mental health unit. We will follow along as needed, please call with further questions or concerns. He can follow-up in the office upon discharge with Dr. Chapman. Thank you kindly for this consultation. Nurse Practitioner note has been reviewed, I agree with a documented findings and plan of care. Patient was seen and examined. Past Medical History Past Medical History: Hyperlipidemia, Liver Disease, Seizure Disorder Additional Past Medical History / Comment(s): Hepatitis C. Parkinsons. left eye blind History of Any Multi-Drug Resistant Organisms: None Reported Past Surgical History: Appendectomy Additional Past Surgical History / Comment(s): Pt is denying any medical issues at time of admission. Past Anesthesia/Blood Transfusion Reactions: No Reported Reaction Past Psychological History: Anxiety, Depression, Panic Disorder, PTSD, Schizophrenia Additional Psychological History / Comment(s): admitted to overdose on pills over 10 years ago. Smoking Status: Current every day smoker Additional Past Alcohol Use History / Comment(s): pt stated he was sober for 2 years and started drinking a 5th of vodka a day for the last week. last drink was 07/06/24. Past Drug Use History: None Reported - Past Family History Father History Unknown: Yes Additional Family Medical History / Comment(s): pt stated unk Mother History Unknown: Yes Additional Family Medical History / Comment(s): Pancreatic cancer in his mother Medications and Allergies Home Medications Medication Instructions Recorded Confirmed Type clonazePAM [KlonoPIN] 0.5 mg PO TID 07/09/24 07/09/24 History Allergies Allergy/AdvReac Type Severity Reaction Status Date / Time levofloxacin [From Levaquin] Allergy Unknown Verified 06/07/23 09:25 linezolid [From Zyvox] Allergy Unknown Verified 06/07/23 09:25 nitrofurantoin Allergy Unknown Verified 06/07/23 09:25 [From Macrobid] nitrofurantoin Allergy Unknown Verified 06/07/23 09:25 macrocrystalline [From Macrobid] Penicillins Allergy Unknown Verified 06/07/23 09:25 sulfamethoxazole Allergy Unknown Verified 06/07/23 09:25 [From Bactrim] tetracycline Allergy Unknown Verified 06/07/23 09:25 trimethoprim [From Bactrim] Allergy Unknown Verified 06/07/23 09:25 vancomycin Allergy Unknown Verified 06/07/23 09:25 hydroxyzine [From Vistaril] AdvReac Chest Pain Verified 06/07/23 09:25 Physical Exam Vitals: Vital Signs Temp Pulse Pulse Resp BP BP BP 07/09/24 06:40 98.1 F 67 16 105/70 07/09/24 02:00 98.4 F 77 16 91/62 07/08/24 21:55 97.4 F L 64 17 119/75 07/08/24 21:13 76 18 127/79 07/08/24 17:58 71 16 127/79 07/08/24 17:08 75 18 101/86 07/08/24 16:00 72 18 119/78 07/08/24 15:13 66 18 07/08/24 14:05 99.1 F 70 16 136/92 Pulse Ox 07/09/24 06:40 97 07/09/24 02:00 98 07/08/24 21:55 96 07/08/24 21:13 95 07/08/24 17:58 97 07/08/24 17:08 97 07/08/24 16:00 97 07/08/24 15:13 97 07/08/24 14:05 95 Intake and Output 07/08/24 07/09/24 07/09/24 22:59 06:59 14:59 Other: Voiding Method Toilet Toilet Urinal Urinal # Voids 2 Weight 87.543 kg 87.543 kg Results 07/08/24 14:11 07/08/24 14:11 Cardiac Enzymes 07/08/24 07/08/24 07/08/24 Range/Units 14:11 14:11 17:40 AST 32 (17-59) U/L Troponin I <0.012 <0.012 (0.000-0.034) ng/mL 07/08/24 Range/Units 21:28 AST (17-59) U/L Troponin I <0.012 (0.000-0.034) ng/mL Coagulation 07/08/24 Range/Units 14:11 PT 11.2 (10.0-12.5) sec APTT 24.2 (22.0-30.0) sec Lipids 07/08/24 Range/Units 14:11 Triglycerides 132.00 (0.00-149.00) mg/dL Cholesterol 175.00 (0.00-200.00) mg/dL HDL Cholesterol 37.70 L (40.00-60.00) mg/dL Cholesterol/HDL Ratio 4.64 Ratio CBC 07/08/24 Range/Units 14:11 WBC 7.90 (4.50-10.00) 10*3/uL RBC 5.73 H (4.40-5.60) 10*6/uL Hgb 17.4 H (13.0-17.0) g/dL Hct 50.7 H (39.6-50.0) % Plt Count 253 (140-440) 10*3/uL Comprehensive Metabolic Panel 07/08/24 Range/Units 14:11 Sodium 139 (137-145) mmol/L Potassium 4.6 (3.5-5.1) mmol/L Chloride 105 (98-107) mmol/L Carbon Dioxide 21 L (22-30) mmol/L BUN 12 (9-20) mg/dL Creatinine 0.74 (0.66-1.25) mg/dL Glucose 105 H (74-99) mg/dL Calcium 9.8 (8.4-10.2) mg/dL AST 32 (17-59) U/L ALT 37 (4-49) U/L Alkaline Phosphatase 101 (38-126) U/L Total Protein 7.4 (6.3-8.2) g/dL Albumin 4.4 (3.5-5.0) g/dL Current Medications Generic Name Dose Route Start Last Admin Trade Name Freq PRN Reason Stop Dose Admin Acetaminophen 500 mg 07/08/24 23:32 07/08/24 23:53 Acetaminophen Tab 500 Mg Tab PO 500 mg Q6HR PRN Administration Fever and/ or Pain Lorazepam 1 mg 07/08/24 23:32 07/09/24 10:11 Lorazepam 1 Mg Tab PO 1 mg Q6H PRN Administration Anxiety Metoprolol Succinate 12.5 mg 07/09/24 09:00 07/09/24 10:11 Metoprolol Succinate (Er) 25 Mg Tab.Er.24h PO 12.5 mg DAILY TYLER Administration Nitroglycerin 0.4 mg 07/08/24 16:58 Nitroglycerin Sl Tabs 0.4 Mg Tab SUBLINGUAL Q5M PRN Chest Pain Intake and Output 07/08/24 07/09/24 07/09/24 22:59 06:59 14:59 Other: Voiding Method Toilet Toilet Urinal Urinal # Voids 2 Weight 87.543 kg 87.543 kg Patient Weight 07/10/24 06:59 Weight 87.543 kg 07/08/24 14:11 07/08/24 14:11
--- NOTE | 2024-07-09 12:27 | P.HPIM ---
History of Present Illness H&P Date: 07/08/24 Chief Complaint: Pain all over This patient was seen in the ER. Patient not a very good historian. Has a legal guardian. Extensive medical history including hyperlipidemia liver disease seizure disorder hepatitis C Parkinson's left eye blind. Anxiety depression PTSD schizophrenia. Patient is a smoker. Patient presented to the ER stating he is having pain. When asked to specify is in the back reports my leg hurts I hurt all over. He also mentioned chest pain to the ER physician. Patient also been feeling suicidal for about 2 weeks. And felt like stabbing himself he says. Sitter was ordered. Says he is decreased appetite. No fever. It is does not walk much. He also mentioned to the ER physician that he had fallen on bumping his head. Never passed out. Review of systems: GEN.: Tired EYES: None HEENT: None NECK: None RESPIRATORY: None CARDIOVASCULAR: None GASTROINTESTINAL: None GENITOURINARY: None MUSCULOSKELETAL: Joint pains e LYMPHATICS: None HEMATOLOGICAL: None PSYCHIATRY: Depressed, suicidal NEUROLOGICAL: None Social history: Smokes a pack a day. He has been sober for 2 years started drinking 1/5 of vodka a day for last week. Last drink was on July 06, 2024. Physical examination: VITAL SIGNS: 99.1, 72, 18, 119 x 78, 97% room air GENERAL: BMI 25.5, lying in bed rather withdrawn flat affect. EYES: Pupils equal. Conjunctiva erin l. HEENT: External appearance of nose and ears normal, oral cavity grossly normal. NECK: JVD not raised; masses not palpable. HEART: First and second heart sounds are normal; no edema. LUNGS: Respiratory rate normal; decreased breath sounds. ABDOMEN: Soft, nontender, liver spleen not palpable, no masses palpable. PSYCH: Able to answer questions. In a monotone. Rather flat affect. l. MUSCULOSKELETAL:No Clubbing/cyanosis;muscles-grossly intact NEUROLOGICAL: Cranial nerves grossly intact; no facial asymmetry, power and sensation grossly intact. LYMPHATICS: No lymph nodes palpable in the axilla and neck INVESTIGATIONS, reviewed in the clinical context: July 08, 2024: White count 7.9 hemoglobin 7.4 platelets 253 potassium 4.6 BUN 12 creatinine 0.74 Troponin I less than 0.012 x 3 LDL 110 serum alcohol less than 10 EKG tracing personally reviewed by me-normal sinus rhythm Chest x-ray film personally reviewed by me-portable. Borderline cardiomegaly CT scan head and neck: No fracture DJD changes Assessment plan: - Atypical chest pain. Says he is hurting all over. Also back pain. Also ribs hurt. EKG unremarkable. Troponin negative. Telemetry. Cardiology consulted - Suicidal ideation with symptoms present for about a week. He states. Psychiatry consulted. Sitter. - Anxiety, depression, panic disorder, PTSD, schizophrenia Spoke to the nurse. Home medications are to be verified. Medications can be resumed pending psych evaluation. - Chronic nicotine dependence cigarette smoker Nicotine patch - Suicidal ideation persisting Sitter Sitter. Psych consulted. Cardiology consulted. Past Medical History Past Medical History: Liver Disease Additional Past Medical History / Comment(s): Pt stated that he has Hepatitis C. History of Any Multi-Drug Resistant Organisms: None Reported Past Surgical History: Appendectomy Additional Past Surgical History / Comment(s): pt denies. Pt is denying any medical issues at time of admission. Past Anesthesia/Blood Transfusion Reactions: No Reported Reaction Smoking Status: Current every day smoker - Past Family History Father History Unknown: Yes Additional Family Medical History / Comment(s): pt stated unk Mother History Unknown: Yes Additional Family Medical History / Comment(s): Pancreatic cancer in his mother Medications and Allergies Home Medications Medication Instructions Recorded Confirmed Type clonazePAM [KlonoPIN] 0.5 mg PO TID 07/09/24 07/09/24 History Allergies Allergy/AdvReac Type Severity Reaction Status Date / Time levofloxacin [From Levaquin] Allergy Unknown Verified 07/09/24 11:57 linezolid [From Zyvox] Allergy Unknown Verified 07/09/24 11:57 nitrofurantoin Allergy Unknown Verified 07/09/24 11:57 [From Macrobid] nitrofurantoin Allergy Unknown Verified 07/09/24 11:57 macrocrystalline [From Macrobid] Penicillins Allergy Unknown Verified 07/09/24 11:57 sulfamethoxazole Allergy Unknown Verified 07/09/24 11:57 [From Bactrim] tetracycline Allergy Unknown Verified 07/09/24 11:57 trimethoprim [From Bactrim] Allergy Unknown Verified 07/09/24 11:57 vancomycin Allergy Unknown Verified 07/09/24 11:57 hydroxyzine [From Vistaril] AdvReac Chest Pain Verified 07/09/24 11:57 Physical Exam Vitals: Vital Signs Temp Pulse Resp BP Pulse Ox 07/08/24 17:08 75 18 101/86 97 07/08/24 16:00 72 18 119/78 97 07/08/24 15:13 66 18 97 07/08/24 14:05 99.1 F 70 16 136/92 95 Intake and Output 07/08/24 07/08/24 07/08/24 06:59 14:59 22:59 Other: Weight 87.543 kg Results CBC & Chem 7: 07/08/24 14:11 07/08/24 14:11 Labs: Abnormal Lab Results - Last 24 Hours (Table) 07/08/24 07/08/24 Range/Units 14:11 14:11 RBC 5.73 H (4.40-5.60) 10*6/uL Hgb 17.4 H (13.0-17.0) g/dL Hct 50.7 H (39.6-50.0) % Carbon Dioxide 21 L (22-30) mmol/L Glucose 105 H (74-99) mg/dL
--- NOTE | 2024-07-09 13:33 | P.CN ---
Psychiatric Consult - . Consult date: 07/09/24 Consult:: 07/09/24 13:08 IDENTIFYING DATA: This patient is a 58-year-old male, he is single he has no kids he currently lives in a fci. REASON FOR REFERRAL: Psychiatry was consulted for suicidal ideations HISTORY OF PRESENT ILLNESS: The patient presented to the hospital initially for complaints of chest pain and shortness of breath. Patient reportedly told his nurse that he has a history of overdosing on medications. The suicide attempt and also has been suicidal while in the hospital he is currently on a sitter in the room. Patient was seen at the bedside today he was laying down, he is fairly concrete constricted during the interview. He claims that he started drinking last week that he relapsed. States he has been drinking about 1/5 a day of vodka. Claims that he has minor withdrawal symptoms now but no sign ificant ones. Claims that he is having depression and anxiety. Claims that he is having suicidal thoughts currently and that he has no specific plan. Denies any homicidal ideations. Claims that his sleep and appetite are poor. Claims that he has been going to [facility] however has not been taking any medications and claims that "they got me off all that". Patient denies any auditory, visual hallucinations and denies any paranoia or delusions. Patients admits to using cigarettes daily and also marijuana. He admits to relapsing recently back on alcohol as noted above. PAST PSYCHIATRIC HISTORY: Patient has a a history of schizophrenia. Patient claims that he is not taking any psychiatric medications at this time however his home meds include Prolixin DEC injection, Klonopin, Remeron, lithium and Cogentin. Patient has been psychiatrically hospitalized several times in the past, last hospitalization was in July 2021. He claims that he does follow-up at [facility]. Claims that he overdosed on Xanax and cholesterol medications about 10 years ago. Past Medical History: Liver Disease Additional Past Medical History / Comment(s): Pt stated that he has Hepatitis C. History of Any Multi-Drug Resistant Organisms: None Reported Past Surgical History: Appendectomy Additional Past Surgical History / Comment(s): pt denies. Pt is denying any medical issues at time of admission. Past Anesthesia/Blood Transfusion Reactions: No Reported Reaction Smoking Status: Current every day smoker ALLERGIES: as per EMR. CHEMICAL DEPENDENCY HISTORY: as per HPI. FAMILY PSYCHIATRIC/SUBSTANCE USE HISTORY: Denies SOCIAL HISTORY: Patient was born and raised in [facility]. Claims that he completed up to the 10th grade in school. He is single he has no kids. He lives in a fci. Claims that he was in care home about 10 years ago for disorderly conduct. MENTAL STATUS EXAM: General Appearance: Patient appears to be tall, disheveled hair, several tattoos on his chest, stated age is alert, attempts to be cooperative. Patient appears to have fair hygiene and grooming wearing hospital gown with intense eye contact. Behavior: Patient is calmly lying in bed without any agitated behavior. Attempts to cooperate Speech: Patient's speech is fluent and nonpressured. [place] Mood/Affect: Patient reports their mood is "depressed and anxious", affect is congruent and constricted Suicidality/Homicidality: Patient admits to having suicidal thoughts, no specific plan, denies any homicidal ideations. Perceptions: Patient denies any visual hallucinations and denies any auditory hallucinations Though content/process: Patient is a poverty of content, concrete and guarded Memory and concentration: AOX3, grossly intact for the purposes of this session. Cannot spell "WORLD" backwards Judgment and insight: Chronically poor IMPRESSIONS: Schizophrenia Suicidal ideations Alcohol abuse Cannabis use disorder mild Nicotine dependence PLAN: -At this time patient DOES meet criteria for inpatient psychiatric admission. -Would recommend the following medication changes/additions: Will hold off on psychiatric medications once patient is transferred to mental health unit. -CIWA protocol with PRN Ativan for alcohol withdrawal. Continue to monitor vital signs. -Continue 1:1 sitter for safety until patient is safely transferred to the mental health unit -Cannot leave AMA at this time. Patient will need a petition and certification if attempting to leave AMA. -Hide Shaker spoke with patient about substance abuse and the harmful effects on medical and mental health, patient verbally understood and agreed. -When medically stable, patient is eligible for transfer to a psych bed when available.] -Communicated plan to patient's nurse -Psychiatry will sign off at this time -Please contact with any questions. 07/09/24 13:27
[2024-07-09 14:20] LABS: Influenza A Not Detected (Not Detectd); Influenza B Not Detected (Not Detectd); RSV Not Detected (Not Detectd)
[2024-07-09] MEDS: NICOTINE 21MG/24HR PATCH TRANSDERM SCH (14:47)
--- NOTE | 2024-07-10 13:01 | P.DS ---
Providers Date of admission: 07/08/24 17:06 Expected date of discharge: 07/09/24 Attending physician: Vance Jerry Consults: 07/08/24 16:58 Consult Physician Urgent Consulting Provider: Psychiatry - [facility] Consult Reason/Comments: Suicidal ideations Do you want consulting provider notified?: Already Contacted Consult Physician Urgent Consulting Provider: [facility] Consult Reason/Comments: Chest pain Do you want consulting provider notified?: Yes Primary care physician: Tony Pierson MD Hospital Course: Chief Complaint: Pain all over This patient was seen in the ER. Patient not a very good historian. Has a legal guardian. Extensive medical history including hyperlipidemia liver disease seizure disorder hepatitis C Parkinson's left eye blind. Anxiety depression PTSD schizophrenia. Patient is a smoker. Patient presented to the ER stating he is having pain. When asked to specify is in the back reports my leg hurts I hurt all over. He also mentioned chest pain to the ER physician. Patient also been feeling suicidal for about 2 weeks. And felt like stabbing himself he says. Sitter was ordered. Says he is decreased appetite. No fever. It is does not walk much. He also mentioned to the ER physician that he had fallen on bumping his head. Never passed out. July 09: Patient seen in the morning. Laying in bed. Sitter at the bedside. Patient still suicidal. Was seen by cardiology. Metoprolol 12.5 mg daily was added. Cleared by them for discharge. Patient to follow-up with cardiology outpatient. I spoke to Dr. Arita. Patient been accepted to [facility]. psychiatry unit. Social history: Smokes a pack a day. He has been sober for 2 years started drinking 1/5 of vodka a day for last week. Last drink was on July 06, 2024. Physical examination: VITAL SIGNS: 98.1, 67, 16, 105 x 70, 97% room air GENERAL: BMI 25.5, lying in bed rather withdrawn flat affect. EYES: Pupils equal. Conjunctiva erin l. HEENT: External appearance of nose and ears normal, oral cavity grossly normal. NECK: JVD not raised; masses not palpable. HEART: First and second heart sounds are normal; no edema. LUNGS: Respiratory rate normal; decreased breath sounds. ABDOMEN: Soft, nontender, liver spleen not palpable, no masses palpable. PSYCH: Able to answer questions. In a monotone. Rather flat affect. l. MUSCULOSKELETAL:No Clubbing/cyanosis;muscles-grossly intact NEUROLOGICAL: Cranial nerves grossly intact; no facial asymmetry, power and sensation grossly intact. Some tremors INVESTIGATIONS, reviewed in the clinical context: Influenza type A, type B, RSV, SARS-CoV-2: Not detected July 08, 2024: White count 7.9 hemoglobin 7.4 platelets 253 potassium 4.6 BUN 12 creatinine 0.74 Troponin I less than 0.012 x 3 LDL 110 serum alcohol less than 10 EKG tracing personally reviewed by me-normal sinus rhythm Chest x-ray film personally reviewed by me-portable. Borderline cardiomegaly CT scan head and neck: No fracture DJD changes Assessment plan: - Atypical chest pain. Says he is hurting all over. Also back pain. Also ribs hurt. EKG unremarkable. Troponin negative. Telemetry. Seen by cardiology. To follow-up outpatient with Dr. Chapman - Suicidal ideation with symptoms present for about a week. He states. Psychiatry saw the patient. Accepted to 3 W. Sitter - Anxiety, depression, panic disorder, PTSD, schizophrenia Meds per psychiatry - Chronic nicotine dependence cigarette smoker Nicotine patch - Suicidal ideation persisting Sitter - Alcohol use disorder Dispo patient: 3 [facility]. psychiatry inpatient unit Past Medical History Past Medical History: Liver Disease Additional Past Medical History / Comment(s): Pt stated that he has Hepatitis C. History of Any Multi-Drug Resistant Organisms: None Reported Past Surgical History: Appendectomy Additional Past Surgical History / Comment(s): pt denies. Pt is denying any medical issues at time of admission. Past Anesthesia/Blood Transfusion Reactions: No Reported Reaction Smoking Status: Current every day smoker Plan - Discharge Summary New Discharge Prescriptions: New Metoprolol Succinate (ER) [Toprol XL] 12.5 mg PO DAILY tab LORazepam [Ativan] 1 mg PO Q6H PRN tab PRN Reason: Anxiety Nicotine 21Mg/24Hr Patch [Habitrol] 1 patch TRANSDERM DAILY patch Discontinued clonazePAM [KlonoPIN] 0.5 mg PO TID Discharge Medication List LORazepam [Ativan] 1 mg PO Q6H PRN tab 07/09/24 [Rx] Metoprolol Succinate (ER) [Toprol XL] 12.5 mg PO DAILY tab 07/09/24 [Rx] Nicotine 21Mg/24Hr Patch [Habitrol] 1 patch TRANSDERM DAILY patch 07/09/24 [Rx] Follow up Appointment(s)/Referral(s): Edouard Chapman MD [Medical Doctor] - 2 Weeks Tony Pierson MD [Primary Care Provider] - 1-2 days Activity/Diet/Wound Care/Special Instructions: transfer to [facility] Discharge Disposition: TRANSFER TO PSYCH HOSP/UNIT
== END 2024-07-09 23:55 ==
LOC: EC 14:03 → 6NMEDSUR 17:06
PROVIDERS: ADMIT Hospitalist; ATTEND Hospitalist
DX: R07.89 Other chest pain (principal); M54.9 Dorsalgia, unspecified; R07.81 Pleurodynia; R45.851 Suicidal ideations; F20.9 Schizophrenia, unspecified; F10.10 Alcohol abuse, uncomplicated; F12.10 Cannabis abuse, uncomplicated; E78.5 Hyperlipidemia, unspecified; F32.A Depression, unspecified; F41.0 Panic disorder [episodic paroxysmal anxiety]; B18.2 Chronic viral hepatitis C; F17.210 Nicotine dependence, cigarettes, uncomplicated; Y90.0 Blood alcohol level of less than 20 mg/100 ml; Z79.82 Long term (current) use of aspirin; Z79.899 Other long term (current) drug therapy; Z88.0 Allergy status to penicillin; Z88.1 Allergy status to other antibiotic agents; Z88.2 Allergy status to sulfonamides
CPT/HCPCS: 82075; 96361; 96374; 99285; 36415; 93005; 93306; 80061; 80053; 83735; 84484; 85025; 85610; 85730; 87636; 71046; 72125; 70450; G0378 ×2; G0480; S4990; J2060; 80320

== ENCOUNTER 2024-07-09 22:40 | Inpatient (IN) | payer MEDICARE, MEDICAID ==
[2024-07-09] MEDS ORDERED: NITROGLYCERIN SL TABS 0.4 MG TAB SUBLINGUAL PRN (23:22)
[2024-07-10] MEDS: METOPROLOL SUCCINATE (ER) 25 MG TAB.ER.24H PO SCH (10:25)
[2024-07-10] MEDS: NICOTINE 21MG/24HR PATCH TRANSDERM SCH (10:26)
[2024-07-10] MEDS: LORazepam 1 MG TAB PO PRN ×2 (10:27→20:50)
--- NOTE | 2024-07-10 12:15 | P.HP ---
Psychiatric H&P - . H&P Date: 07/10/24 History & Physical: Allergies Allergy/AdvReac Type Severity Reaction Status Date / Time levofloxacin from Levaquin Allergy Unknown Verified 07/09/24 11:57 linezolid from Zyvox Allergy Unknown Verified 07/09/24 11:57 nitrofurantoin Allergy Unknown Verified 07/09/24 11:57 From Macrobid nitrofurantoin Allergy Unknown Verified 07/09/24 11:57 macrocrystalline From Macrobid Penicillins Allergy Unknown Verified 07/09/24 11:57 sulfamethoxazole Allergy Unknown Verified 07/09/24 11:57 From Bactrim tetracycline Allergy Unknown Verified 07/09/24 11:57 trimethoprim from Bactrim Allergy Unknown Verified 07/09/24 11:57 vancomycin Allergy Unknown Verified 07/09/24 11:57 hydroxyzine from Vistaril AdvReac Chest Pain Verified 07/09/24 11:57 Vital Signs Temp 97.6 F 07/10/24 09:00 Pulse 107 H 07/10/24 09:00 Resp 18 07/10/24 09:00 BP 123/80 07/10/24 09:00 Pulse Ox 94 L 07/10/24 09:00 FiO2 Intake & Output 07/09/24 07/10/24 07/10/24 18:59 06:59 18:59 Weight 87.543 kg 07/10/24 12:10 IDENTIFYING DATA: This patient is a 58-year-old male, he is single he has no kids he currently lives in a prison. HISTORY OF PRESENT ILLNESS: Patient was seen yesterday for consultation on the medical floors and as per note by check writer "the patient presented to the hospital initially for complaints of chest pain and shortness of breath. Patient reportedly told his nurse that he has a history of overdosing on medications. The suicide attempt and also has been suicidal while in the hospital he is currently on a sitter in the room. Patient was seen at the bedside today he was laying down, he is fairly concrete constricted during the interview. He claims that he started drinking last week that he relapsed. States he has been drinking about 1/5 a day of vodka. Claims that he has minor withdrawal symptoms now but no significant ones. Claims that he is having depression and anxiety. Claims that he is having suicidal thoughts currently and that he has no specific plan. Denies any homicidal ideations. Claims that his sleep and appetite are poor. Claims that he has been going to [facility] however has not been taking any medications and claims that "they got me off all that". Patient denies any auditory, visual hallucinations and denies any paranoia or delusions. Patients admits to using cigarettes daily and also marijuana. He admits to relapsing recently back on alcohol as noted above." Patient was transferred to the unit last night, was seen laying in his bed today agreeable to speak to check writer. He continues to have a fine tremor claims that he has "Parkinson's". He is denying any significant alcohol withdrawal symptoms at this time. He was fairly focused on being restarted back on his Klonopin. He has very poor insight poor judgment does not believe he has schizophrenia and also does not believe that he needs medications for psychiatric symptoms. He minimizes need for being in the hospital. Claims that his anxiety and mood are "better". Claims that he has issues with sleep has been eating. Denies any auditory or visual hallucinations denies any suicidal homicidal ideations intent or plan. PAST PSYCHIATRIC HISTORY: Patient has a a history of schizophrenia. Patient claims that he is not taking any psychiatric medications at this time however his home meds include Prolixin DEC injection, Klonopin, Remeron, lithium and Cogentin. Patient has been psychiatrically hospitalized several times in the past, last hospitalization was in July 2021. He claims that he does follow-up at [facility]. Claims that he overdosed on Xanax and cholesterol medications about 10 years ago. Past Medical History: Liver Disease Additional Past Medical History / Comment(s): Pt stated that he has Hepatitis C. History of Any Multi-Drug Resistant Organisms: None Reported Past Surgical History: Appendectomy Additional Past Surgical History / Comment(s): pt denies. Pt is denying any medical issues at time of admission. Past Anesthesia/Blood Transfusion Reactions: No Reported Reaction Smoking Status: Current every day smoker ALLERGIES: as per EMR. CHEMICAL DEPENDENCY HISTORY: as per HPI. FAMILY PSYCHIATRIC/SUBSTANCE USE HISTORY: Denies SOCIAL HISTORY: Patient was born and raised in [facility]. Claims that he completed up to the 10th grade in school. He is single he has no kids. He lives in a prison. Claims that he was in retirement about 10 years ago for disorderly conduct. MENTAL STATUS EXAM: General Appearance: Patient appears to be tall, disheveled hair, several tattoos on his chest, stated age is alert, attempts to be cooperative. Patient appears to have fair hygiene and grooming wearing hospital gown with intense eye contact. Behavior: Patient is calmly lying in bed without any agitated behavior. Attempts to cooperate, fairly guarded and evasive Speech: Patient's speech is fluent and nonpressured. [place] Mood/Affect: Patient reports their mood is "depressed and anxious", affect is congruent and constricted Suicidality/Homicidality: Patient denies any suicidal thoughts, no specific plan, denies any homicidal ideations. Perceptions: Patient denies any visual hallucinations and denies any auditory hallucinations Though content/process: Patient is a poverty of content, concrete and guarded Memory and concentration: AOX3, grossly intact for the purposes of this session. Cannot spell "WORLD" backwards Judgment and insight: Chronically poor IMPRESSIONS: Schizophrenia Suicidal ideations Alcohol abuse Cannabis use disorder mild Nicotine dependence STRENGTHS/WEAKNESSES: strength is that patient is resilient. Weakness is that patient has poor judgment and is impulsive and chronically poor insight INTELLECT: Average PLAN: -Patient is admitted under voluntary status to [facility] for stabilization of psychiatric symptoms and safety. Patient has signed adult voluntary form and has not signed medication consent and is placed in patient's chart. -Medications : Will restart patient back on Prolixin p.o. 3 mg twice daily for psychosis/schizophrenia, lithium 300 mg twice daily for mood stabilization. Zoloft 50 mg daily for mood/anxiety. Cogentin 1 mg p.o. twice daily as needed for EPS symptoms. Remeron 15 mg nightly for insomnia/mood -Ativan and Prolixin PRN for agitation/aggression -Started thiamine, MVM for etoh use -CIWA protocol with Ativan PRN for ETOH withdrawal. -Patient was counselled on substance abuse and desired to cut back on use. Will offer patient subtance use rehab -Patient was informed of the risks, benefits and side effects of the medications. Patient did not signed med consent form and was placed in chart. Patient was offered medication information and declined it -Internal Medicine consult to perform medical evaluation and physical. -NRT -nicotine patch -SW on board for discharge planning. Encourage patient to participate in groups to work on coping skills. 07/10/24 12:14
[2024-07-10] MEDS ORDERED: BENZTROPINE MESYLATE 1 MG TAB PO PRN (12:16)
[2024-07-10] MEDS: SERTRALINE 50 MG TAB PO SCH (12:57)
[2024-07-10] MEDS: LITHIUM CARBONATE 300 MG CAP PO SCH (12:57)
[2024-07-10] MEDS: MIRTAZAPINE 15 MG TAB PO SCH (21:01)
--- NOTE | 2024-07-10 21:01 | P.CONS ---
History of Present Illness - Reason for Consult Consult date: 07/10/24 Medical management Requesting physician: Mike Arita - Chief Complaint Suicidal - History of Present Illness 58-year-old patient., Follows with visiting physician Dr. Pierson. Has a legal guardian Extensive medical history including hyperlipidemia liver disease seizure disorder hepatitis C Parkinson's left eye blind. Anxiety depression PTSD schizophrenia. Patient is a smoker. Patient is on my medical service admitted on July 08 through July 09. Had presented to the ER stating he is having pain. When asked to specify is in the back reports my leg hurts I hurt all over. He also mentioned chest pain to the ER physician. Patient also been feeling suicidal for about 2 weeks. And felt like stabbing himself he says. Sitter was ordered. Says he is decreased appetite. No fever. It is does not walk much. He also mentioned to the ER physician that he had fallen on bumping his head. Never passed out. July 09: Patient seen in the morning. Laying in bed. Sitter at the bedside. Patient still suicidal. Was seen by cardiology. Metoprolol 12.5 mg daily was added. Cleared by them for discharge. Patient to follow-up with cardiology outpatient. I spoke to Dr. Arita. Patient been accepted to [facility]. psychiatry unit. Today: Patient seen this afternoon. Laying in bed. Did tolerate some diet. Still complaining of generalized pain. Also complaining of being suicidal. Withdrawn depressed. Review of systems: GEN.: Tired, pain all over EYES: None HEENT: None NECK: None RESPIRATORY: None CARDIOVASCULAR: None GASTROINTESTINAL: None GENITOURINARY: None MUSCULOSKELETAL: None LYMPHATICS: None HEMATOLOGICAL: None PSYCHIATRY: [Depressed suicidal NEUROLOGICAL: None Social history: Smokes a pack a day. He has been sober for 2 years started drinking 1/5 of vodka a day for last week. Last drink was on July 06, 2024. Physical examination: VITAL SIGNS: 97.6, 107, 18, 123 x 80, 94% room GENERAL:, lying in bed-withdrawn flat affect. EYES: Pupils equal. Conjunctiva erin l. HEENT: External appearance of nose and ears normal, oral cavity grossly normal. NECK: JVD not raised; masses not palpable. HEART: First and second heart sounds are normal; no edema. LUNGS: Respiratory rate normal; decreased breath sounds. ABDOMEN: Soft, nontender, liver spleen not palpable, no masses palpable. PSYCH: Able to answer questions.-Monotone. Rather flat affect. MUSCULOSKELETAL:No Clubbing/cyanosis;muscles-grossly intact NEUROLOGICAL: Cranial nerves grossly intact; no facial asymmetry, power and sensation grossly intact. Some tremors INVESTIGATIONS, reviewed in the clinical context: [From admission to the medical floor] Influenza type A, type B, RSV, SARS-CoV-2: Not detected July 08, 2024: White count 7.9 hemoglobin 7.4 platelets 253 potassium 4.6 BUN 12 creatinine 0.74 Troponin I less than 0.012 x 3 LDL 110 serum alcohol less than 10 EKG tracing personally reviewed by me-normal sinus rhythm Chest x-ray film personally reviewed by me-portable. Borderline cardiomegaly CT scan head and neck: No fracture DJD changes Assessment plan: - Atypical chest pain. Says he is hurting all over. Also back pain. Also ribs hurt. EKG unremarkable. Troponin negative. Telemetry. Seen by cardiology. To follow-up outpatient with Dr. Chapman - Suicidal ideation with symptoms present for about a week. He states. Being followed by Dr. Arita from psychiatry. - Anxiety, depression, panic disorder, PTSD, schizophrenia Being followed by psychiatry - Chronic nicotine dependence cigarette smoker Nicotine patch - Alcohol use disorder Thiamine Thank you Dr. Mcdermott Past Medical History Past Medical History: Liver Disease Additional Past Medical History / Comment(s): Pt stated that he has Hepatitis C. History of Any Multi-Drug Resistant Organisms: None Reported Past Surgical History: Appendectomy Additional Past Surgical History / Comment(s): pt denies. Pt is denying any medical issues at time of admission. Past Anesthesia/Blood Transfusion Reactions: No Reported Reaction Smoking Status: Current every day smoker - Past Family History Father History Unknown: Yes Additional Family Medical History / Comment(s): pt stated unk Mother History Unknown: Yes Additional Family Medical History / Comment(s): Pancreatic cancer in his mother Medications and Allergies Home Medications Medication Instructions Recorded Confirmed Type LORazepam [Ativan] 1 mg PO Q6H PRN tab 07/09/24 Rx Metoprolol Succinate (ER) [Toprol 12.5 mg PO DAILY tab 07/09/24 Rx XL] Nicotine 21Mg/24Hr Patch [Habitrol] 1 patch TRANSDERM DAILY patch 07/09/24 Rx Allergies Allergy/AdvReac Type Severity Reaction Status Date / Time levofloxacin [From Levaquin] Allergy Unknown Verified 07/09/24 11:57 linezolid [From Zyvox] Allergy Unknown Verified 07/09/24 11:57 nitrofurantoin Allergy Unknown Verified 07/09/24 11:57 [From Macrobid] nitrofurantoin Allergy Unknown Verified 07/09/24 11:57 macrocrystalline [From Macrobid] Penicillins Allergy Unknown Verified 07/09/24 11:57 sulfamethoxazole Allergy Unknown Verified 07/09/24 11:57 [From Bactrim] tetracycline Allergy Unknown Verified 07/09/24 11:57 trimethoprim [From Bactrim] Allergy Unknown Verified 07/09/24 11:57 vancomycin Allergy Unknown Verified 07/09/24 11:57 hydroxyzine [From Vistaril] AdvReac Chest Pain Verified 07/09/24 11:57 Physical Exam Vitals: Vital Signs Temp Pulse Resp BP Pulse Ox 07/10/24 09:00 97.6 F 107 H 18 123/80 94 L 07/10/24 00:49 97.8 F 89 16 130/86 98 Intake and Output 07/10/24 07/10/24 07/10/24 06:59 14:59 22:59 Other: Weight 87.543 kg
[2024-07-10] MEDS: THIAMINE 100 MG TAB PO SCH (21:45)
[2024-07-11] MEDS: HALOPERIDOL LACTATE 5 MG/ML 1 ML VIAL IM PRN (01:55)
[2024-07-11] MEDS: MAGNESIUM HYDROXIDE 2,400 MG/30 ML CUP PO PRN (08:50)
--- NOTE | 2024-07-11 08:55 | P.PN ---
Progress Note - Text Progress Note Date: 07/11/24 Interval history: Patient was seen laying in bed today and was directable and agreeable to speak with bond writer. Patient claims today that he is feeling suicidal, no specific plan. Claims that he also was hearing voices earlier today. He has not been taking his medications continues to have very poor insight poor judgment. He appeared to be more agreeable to try the medications today. He is denying any withdrawal symptoms at this time. Claims that he slept fairly, has been eating well, he does appear to continue to be disheveled in appearance, poor hygiene and grooming foul body odor, was encouraged to shower today. At this time patient denies any homicidal ideations intent or plan. Denies any visual hallucinations. Mental status exam: General Appearance: Patient appears to be tall, disheveled hair, Up body odor stated age is alert, directable, and cooperative. Behavior: No agitated behavior. Patient is calm and directable. Attempts to cooperate, fairly concrete Speech: Patient's speech is fluent and nonpressured. [place] Mood/Affect: Mood is depressed, anxious, affect is congruent and constricted. Suicidality/Homicidality: Patient denies having homicidal ideation intent or plan. Admits to suicidal thoughts no specific plan Perceptions: Patient denies any visual hallucinations denies any auditory hallucinations admits to auditory hallucinations today. Though content/process: Patient is fairly concrete, poverty of content. Memory and concentration: AOX3, grossly intact for the purposes of this session Judgment and insight: Poor Assessment/Plan: Continue with current diagnosis. Patient continues to meet criteria for inpatient psychiatric admission for symptom stabilization and safety. Patient will be maintained on current psychotropic medication regimen, patient is currently refusing medications however was encouraged to take them today.. Monitor for medication compliance and for any psychotropic medication side effects. Will continue to monitor ongoing response to treatment. Encouraged participation in milieu. If patient continues to refuse medications then will consider transitioning to involuntary status.
[2024-07-11] MEDS: haloperidoL 5 MG TAB PO PRN (10:33)
[2024-07-11] MEDS: ACETAMINOPHEN TAB 500 MG TAB PO PRN (21:05)
--- NOTE | 2024-07-12 12:19 | P.PN ---
Progress Note - Text Progress Note Date: 07/12/24 Interval history: Patient was seen laying in bed today and was directable and agreeable to speak with technical writer and editor. Patient claims today that he is feeling suicidal, no specific plan. Claims that he is still feeling a bit depressed, endorsing some anxiety. Claims that he is still hearing voices at times, has been on and off taking medications. He appeared to have worsening tremor today compared to yesterday resting tremor in his arms. Insight and judgment appear to be improving mildly. Claims that he slept fairly last night and did not take Remeron. Has been eating well. Mainly isolating in his room. Hygiene and grooming improving mildly. At this time patient denies any homicidal ideations intent or plan. Denies any visual hallucinations. Mental status exam: General Appearance: Patient appears to be tall, disheveled hair, Up body odor stated age is alert, directable, and cooperative. Behavior: No agitated behavior. Patient is calm and directable. Attempts to cooperate, fairly concrete, improving mildly. He has a resting tremor. Speech: Patient's speech is fluent and nonpressured. [place] Mood/Affect: Mood is depressed, anxious, affect is congruent and constricted. Suicidality/Homicidality: Patient denies having homicidal ideation intent or plan. Admits to suicidal thoughts no specific plan Perceptions: Patient denies any visual hallucinations denies any auditory hallucinations admits to auditory hallucinations today. Though content/process: Patient is fairly concrete, poverty of content. Memory and concentration: AOX3, grossly intact for the purposes of this session Judgment and insight: Poor, improving mildly Assessment/Plan: Continue with current diagnosis. Patient continues to meet criteria for inpatient psychiatric admission for symptom stabilization and safety. Patient will be maintained on current psychotropic medication regimen, with the exception of increasing Prolixin p.o. to 5 mg twice daily for psychosis. Also changed Cogentin to scheduled 1 mg twice daily for EPS symptoms. Monitor for medication compliance and for any psychotropic medication side effects. Will continue to monitor ongoing response to treatment. Encouraged participation in milieu. If patient continues to refuse medications then will consider transitioning to involuntary status.
[2024-07-12] MEDS: BENZTROPINE MESYLATE 1 MG TAB PO SCH (12:51)
--- NOTE | 2024-07-13 12:06 | P.PN ---
Progress Note - Text Progress Note Date: 07/13/24 Interval history: Patient was seen laying in bed today and was directable and agreeable to speak with automobile service writer. Patient continues to state that he is feeling suicidal today, no specific plan. Is endorsing anxiety still. Claims that he does not want to take Zoloft any longer and would prefer to take Cymbalta instead claims that the Zoloft "makes my mind race". Continues to be fairly concrete isolative and in his room. Claims that he did not sleep well last night. Has been eating well. Mainly isolating in his room. Hygiene and grooming improving mildly. At this time patient denies any homicidal ideations intent or plan. Denies any visual hallucinations. Mental status exam: General Appearance: Patient appears to be tall, disheveled hair, Up body odor stated age is alert, directable, and cooperative. Behavior: No agitated behavior. Patient is calm and directable. Attempts to cooperate, fairly concrete, improving mildly. He has a resting tremor. Speech: Patient's speech is fluent and nonpressured. [place], improving mildly Mood/Affect: Mood is depressed, anxious, affect is congruent and constricted. Suicidality/Homicidality: Patient denies having homicidal ideation intent or plan. Admits to suicidal thoughts no specific plan Perceptions: Patient denies any visual hallucinations denies any auditory hallucinations admits to auditory hallucinations today. Though content/process: Patient is fairly concrete, poverty of content. Memory and concentration: AOX3, grossly intact for the purposes of this session Judgment and insight: Poor, improving mildly Assessment/Plan: Continue with current diagnosis. Patient continues to meet criteria for inpatient psychiatric admission for symptom stabilization and safety. Patient will be maintained on current psychotropic medication regimen, continue with Prolixin p.o. to 5 mg twice daily for psychosis. Cogentin 1 mg twice daily for EPS symptoms, discontinue Zoloft due to patient's intolerance, replace with Cymbalta 30 mg daily for mood/anxiety, added melatonin 5 mg nightly for sleep, increase Remeron to 30 mg nightly for insomnia/mood. Monitor for medication compliance and for any psychotropic medication side effects. Will continue to monitor ongoing response to treatment. Encouraged participation in milieu. If patient continues to refuse medications then will consider transitioning to involuntary status.
[2024-07-13] MEDS: SENNOSIDES-DOCUSATE SODIUM 1 EACH TAB PO SCH (14:04)
[2024-07-13] MEDS: MAGNESIUM CITRATE 296 ML BOTTLE PO ONE (14:05)
[2024-07-13] MEDS: MIRTAZAPINE 15 MG TAB PO SCH (19:43)
[2024-07-13] MEDS: MELATONIN 5 MG TABLET PO SCH (19:43)
[2024-07-14] MEDS: MAG HYDROX/AL HYDROX/SIMETH 355 ML BOTTLE PO PRN (01:01)
[2024-07-14] MEDS: DULoxetine HCL 30 MG CAPSULE.DR PO SCH (07:46)
--- NOTE | 2024-07-14 11:48 | P.PN ---
Progress Note - Text Progress Note Date: 07/14/24 Interval history: Patient was seen laying in bed today and was directable and agreeable to speak with short story writer. Patient appears to be mildly more pleasant today with short story writer. Anxiety still feeling suicidal at times, less focused on it today. Continues to be fairly concrete, claims that he has been showering daily. He has been mainly keeping himself in his room a lot going to many groups. Continues to state that he is hearing voices, was asking to be put back on the Prolixin injection. Co ntinues to have resting tremor, this appears to be his baseline. Claims that he slept on and off last night. Agreeable to have his medications adjusted once again. Has been eating well. At this time patient denies any homicidal ideations intent or plan. Denies any visual hallucinations. Mental status exam: General Appearance: Patient appears to be tall, disheveled hair, Up body odor stated age is alert, directable, and cooperative. Behavior: No agitated behavior. Patient is calm and directable. Attempts to cooperate, fairly concrete, improving mildly. He has a resting tremor. Speech: Patient's speech is fluent and nonpressured. [place], improving mildly Mood/Affect: Mood is mainly anxious, affect is congruent and constricted., Improving mildly Suicidality/Homicidality: Patient denies having homicidal ideation intent or plan. Admits to suicidal thoughts no specific plan Perceptions: Patient denies any visual hallucinations denies any auditory hallucinations admits to auditory hallucinations today. Though content/process: Patient is fairly concrete, poverty of content. Memory and concentration: AOX3, grossly intact for the purposes of this session Judgment and insight: Chronically poor, improving mildly Assessment/Plan: Continue with current diagnosis. Patient continues to meet criteria for inpatient psychiatric admission for symptom stabilization and safety. Patient will be maintained on current psychotropic medication regimen, increase Prolixin p.o. to 7 mg twice daily for psychosis. Increase Cogentin 2 mg twice daily for EPS symptoms, continue with Cymbalta 30 mg daily for mood/anxiety, melatonin 5 mg nightly for sleep, increase Remeron to 45 mg nightly for insomnia/mood. Monitor for medication compliance and for any psychotropic medication side effects. Will continue to monitor ongoing response to treatment. Encouraged participation in milieu. If patient continues to refuse medications then will consider transitioning to involuntary status. shannan [facility] progress notes and last injection information from [facility] today, will liekly be giving patient DICKENS prior to d/c
[2024-07-14] MEDS: BENZTROPINE MESYLATE 1 MG TAB PO SCH (21:01)
[2024-07-14] MEDS: LITHIUM CARBONATE 300 MG CAP PO SCH (21:03)
[2024-07-14] MEDS: MIRTAZAPINE 15 MG TAB PO SCH (21:18)
[2024-07-15] MEDS: LITHIUM CARBONATE 300 MG CAP PO SCH (09:28)
--- NOTE | 2024-07-15 12:15 | P.PN ---
Progress Note - Text Progress Note Date: 07/15/24 Interval history: Patient was seen laying in bed today and was directable and agreeable to speak with content writer. Patient appears to be mildly more pleasant today with content writer. Plans that he is feeling better today, claims that the suicidal thoughts have improved today. Claims that he likes the Cymbalta and notes helping him with depression. Continues to be mainly isolative. Continues to have a mild resting tremor. Continues to state that he is hearing voices however they are improving mildly since yesterday. Has been sleeping fairly at nighttime. Has been eating. Not currently in groups. Hygiene and grooming improving mildly. At this time patient denies any homicidal ideations intent or plan. Denies any visual hallucinations. Mental status exam: General Appearance: Patient appears to be tall, disheveled hair, Up body odor stated age is alert, directable, and cooperative. Behavior: No agitated behavior. Patient is calm and directable. Attempts to cooperate, fairly concrete, improving mildly. He has a resting tremor. Speech: Patient's speech is fluent and nonpressured. [place], improving mildly Mood/Affect: Mood is mainly anxious, affect is congruent and constricted, Improving mildly Suicidality/Homicidality: Patient denies having homicidal ideation intent or plan. Admits to suicidal thoughts no specific plan Perceptions: Patient denies any visual hallucinations denies any auditory hallucinations admits to auditory hallucinations today. Improving mildly Though content/process: Patient is fairly concrete, poverty of content. Improving mildly Memory and concentration: AOX3, grossly intact for the purposes of this session Judgment and insight: Chronically poor, improving mildly Assessment/Plan: Continue with current diagnosis. Patient continues to meet criteria for inpatient psychiatric admission for symptom stabilization and safety. Patient will be maintained on current psychotropic medication regimen, Prolixin p.o. 7 mg twice daily for psychosis. Cogentin 2 mg twice daily for EPS symptoms, increase Cymbalta 60 mg daily for mood/anxiety, increase melatonin 10 mg nightly for sleep, Remeron 45 mg nightly for insomnia/mood. Monitor for medication compliance and for any psychotropic medication side effects. Will continue to monitor ongoing response to treatment. Encouraged participation in milieu. If patient continues to refuse medications then will consider transitioning to involuntary status. [facility] progress notes and last injection information from [facility] today, will liekly be giving patient DICKENS prior to d/c
[2024-07-15] MEDS ORDERED: LORazepam 2 MG/ML INJ IM PRN (12:17)
[2024-07-15] MEDS: MELATONIN 5 MG TABLET PO SCH (21:49)
[2024-07-15] MEDS: LORazepam 1 MG TAB PO PRN (21:52)
[2024-07-16] MEDS: DULoxetine HCL 60 MG CAPSULE.DR PO SCH (09:07)
--- NOTE | 2024-07-16 10:39 | P.PN ---
Progress Note - Text Progress Note Date: 07/16/24 Interval history: Patient was seen laying in bed today and was directable and agreeable to speak with marketing writer. Patient states that he is feeling better today. Claims that he is still having some difficulty sleeping at night. He states that his anxiety mood is improving. Continues to mainly isolate in his room which appears to be more like his baseline. Continues to have mild resting tremor and this is improving. States that he has been eating. He asked once again about getting the long- acting injection we will order this for today. Hygiene and grooming improving mildly. At this time patient denies any homicidal ideations intent or plan. Denies any visual hallucinations. Mental status exam: General Appearance: Patient appears to be tall, disheveled hair, Up body odor stated age is alert, directable, and cooperative. Behavior: No agitated behavior. Patient is calm and directable. Attempts to cooperate, fairly concrete, improving mildly. He has a resting tremor improving mildly. Speech: Patient's speech is fluent and nonpressured. [place], improving mildly Mood/Affect: Mood is mainly anxious, affect is congruent and constricted, Improving mildly Suicidality/Homicidality: Patient denies having homicidal ideation intent or plan. Admits to suicidal thoughts no specific plan Perceptions: Patient denies any visual hallucinations denies any auditory hallucinations admits to auditory hallucinations today. Improving mildly Though content/process: Patient is fairly concrete, poverty of content. Improving mildly Memory and concentration: AOX3, grossly intact for the purposes of this session Judgment and insight: Chronically poor, improving mildly Assessment/Plan: Continue with current diagnosis. Patient continues to meet criteria for inpatient psychiatric admission for symptom stabilization and safety. Patient will be maintained on current psychotropic medication regimen, Prolixin p.o. 7 mg twice daily for psychosis. Cogentin 2 mg twice daily for EPS symptoms, Cymbalta 60 mg daily for mood/anxiety, melatonin 10 mg nightly for sleep, Remeron 45 mg nightly for insomnia/mood, added Vistaril 50 mg nightly for sleep/anxiety monitor for medication compliance and for any psychotropic medication side effects. Will continue to monitor ongoing response to treatment. Encouraged participation in milieu. If patient continues to refuse medications then will consider transitioning to involuntary status. Will give patient long- acting injection today, will plan for discharge tomorrow if patient is improving and can go back to his previous residence.
[2024-07-16] MEDS: fluPHENAZine DECANOATE 25 MG/ML 5ML MDV IM SCH (17:44)
[2024-07-16] MEDS: hydrOXYzine pamoate 25 MG CAP PO SCH (21:00)
[2024-07-16 21:51] VITALS: RESP 18
[2024-07-17 09:51] VITALS: BP 109/76; PULSE 85; TEMP 99
--- NOTE | 2024-07-17 10:07 | P.DS ---
Providers Date of admission: 07/09/24 23:56 Expected date of discharge: 07/17/24 Attending physician: Mike Arita MD Consults: 07/09/24 23:19 Consult Physician Routine Consulting Provider: Vance Jerry Consult Reason/Comments: Medical H&P Do you want consulting provider notified?: Yes Primary care physician: Tony Pierson MD - Discharge Diagnosis(es) (1) Schizophrenia Current Visit: Yes Status: Acute Priority: High (2) Suicidal ideations Current Visit: Yes Status: Acute Priority: High (3) Alcohol abuse Current Visit: Yes Status: Acute Priority: High (4) Cannabis use disorder Current Visit: Yes Status: Acute Priority: Medium (5) Nicotine dependence Current Visit: Yes Status: Acute Priority: Low Hospital Course: Admission HPI: Admission note was completed by comic book writer "this patient is a 58-year-old male, he is single he has no kids he currently lives in a alf. Patient was seen yesterday for consultation on the medical floors and as per note by comic book writer "the patient presented to the hospital initially for complaints of chest pain and shortness of breath. Patient reportedly told his nurse that he has a history of overdosing on medications. The suicide attempt and also has been suicidal while in the hospital he is currently on a sitter in the room. Patient was seen at the bedside today he was laying down, he is fairly concrete constricted during the interview. He claims that he started drinking last week that he relapsed. States he has been drinking about 1/5 a day of vodka. Claims that he has minor withdrawal symptoms now but no significant ones. Claims that he is having depression and anxiety. Claims that he is having suicidal thoughts currently and that he has no specific plan. Denies any homicidal ideations. Claims that his sleep and appetite are poor. Claims that he has been going to [facility] however has not been taking any medications and claims that "they got me off all that". Patient denies any auditory, visual hallucinations and denies any paranoia or delusions. Patients admits to using cigarettes daily and also marijuana. He admits to relapsing recently back on alcohol as noted above." Patient was transferred to the unit last night, was seen laying in his bed today agreeable to speak to comic book writer. He continues to have a fine tremor claims that he has "Parkinson's". He is denying any significant alcohol withdrawal symptoms at this time. He was fairly focused on being restarted back on his Klonopin. He has very poor insight poor judgment does not believe he has schizophrenia and also does not believe that he needs medications for psychiatric symptoms. He minimizes need for being in the hospital. Claims that his anxiety and mood are "better". Claims that he has issues with sleep has been eating. Denies any auditory or visual hallucinations denies any suicidal homicidal ideations intent or plan." Hospital course: Upon admission to the unit patient was directable and agreeable to commence treatment and signed adult voluntary form. Patient was initially bizarre, suicidal depressed however with time and treatment patient got along well with other patients on the unit and followed unit protocol. Patient mainly stays in his room/isolating during his hospital stay. Patient was compliant with the medications and denied any side effects throughout hospital course. Patient was started on Prolixin po, then due to patient's noncompliance with medications he was agreeable to receive Prolixin D 50 mg IM on 07/16 and next dose will be doing every 2 weeks on 07/30, Cymbalta 60 mg daily for mood/anxiety, lithium 300 mg daily +600 mg nightly for mood stabilization/suicidal thoughts, Cogentin 2 mg tw ice daily for EPS prophylaxis/muscle spasms, Vistaril as needed daily for anxiety. Doxepin nightly as needed for insomnia, melatonin 10 mg nightly for sleep, Remeron 45 mg nightly for mood/insomnia. Patient spoke of his stressors however did not participate much in group/activity therapy and mainly kept to themselves during hospitalization. Patient was also seen by medical team for history and physical exam. Throughout the course of the hospitalization patient gradually improved with regards to mood, anxiety, psychosis, sleep and returned back to their baseline level of functioning. On the day of discharge patient denied any suicidal or homicidal ideations intent or plan denied any auditory or visual hallucinations. Patient endorsed wanting to live for their health and his future. The patient denied any access to guns or weapons. Patient denied any paranoia and did not endorse any delusions. Patient does have a significant history of substance abuse and was counseled on abstaining from all substances including alcohol and marijuana. Patient declined anticraving medications for alcohol use at this time. Patient was offered however declined inpatient substance-abuse rehab. Patient was also counseled on the medications and need for regular compliance and was encouraged to follow-up with their outpatient appointment for mental health and also for primary care. Patient will be discharged back to his previous alf and follow-up at [facility]. Mental status exam: General Appearance: Patient appears to be tall, has a palomares, several tattoos, stated age is alert, pleasant, and cooperative. Patient is in no acute distress and has improved hygiene and grooming Behavior: Patient is calmly seated without any agitated behavior. Speech: Patient's speech is fluent and nonpressured. Mood/Affect: Patient reports their mood is "good", affect is congruent Suicidality/Homicidality: Patient denies having any suicidal or homicidal ideation intent or plan. Perceptions: Patient denies any auditory or visual hallucinations. Though content/process: There is no evidence of any delusional thought content and thought process is linear and goal-directed. Memory and concentration: AOX3, grossly intact for the purposes of this session. Can spell "WORLD" backwards correctly. Judgment and insight: Chronically poor, however has improved with guarded prognosis Impression: Schizophrenia Suicidal ideations Alcohol abuse Cannabis use disorder Nicotine dependence Plan: -Continue with discharge today as patient has improved and stabilized psychiatrically and is not currently an imminent threat to themself and/or others. Patient will remain at chronically elevated risk for harm to self and/or others due to their impulsivity and chronically poor insight/judgment -Continue medications: Patient was given Prolixin D 50 mg IM on 07/16 and next dose will be due every 2 weeks or 07/30. Cymbalta 60 mg daily for mood/anxiety, lithium 300 mg daily +600 mg nightly for mood stabilization/suicidal thoughts. Cogentin 2 mg twice daily for EPS prophylaxis/muscle spasms. Vistaril daily as needed for anxiety. Doxepin 10 mg nightly as needed for insomnia. Melatonin 10 mg nightly for sleep. Remeron 45 mg nightly for mood/insomnia -Patient was counseled on the need for medication compliance and appropriate follow-up at mental health and also primary care for medical issues. Patient verbalized understanding and agreed. -Social work to help coordinate patients discharge today back to his previous alf. also to ensure safe home environment that guns/weapons are either removed from the home or locked away. Social work also to arrange for patients follow up appointments with [facility] for psychiatric care along with follow up with primary care provider. -Patient counseled on abstaining from recreational drugs and marijuana and alcohol. Was informed/educated on the adverse effects on their physical and mental health. Patient verbally agreed and understood. Patient was offered substance abuse treatment however declined at this time. -Patient was instructed to return to the hospital or seek immediate medical care if their psychiatric or medical symptoms do worsen or reoccur. Allergies Allergy/AdvReac Type Severity Reaction Status Date / Time levofloxacin [From Levaquin] Allergy Unknown Verified 07/09/24 11:57 linezolid [From Zyvox] Allergy Unknown Verified 07/09/24 11:57 nitrofurantoin Allergy Unknown Verified 07/09/24 11:57 [From Macrobid] nitrofurantoin Allergy Unknown Verified 07/09/24 11:57 macrocrystalline [From Macrobid] Penicillins Allergy Unknown Verified 07/09/24 11:57 sulfamethoxazole Allergy Unknown Verified 07/09/24 11:57 [From Bactrim] tetracycline Allergy Unknown Verified 07/09/24 11:57 trimethoprim [From Bactrim] Allergy Unknown Verified 07/09/24 11:57 vancomycin Allergy Unknown Verified 07/09/24 11:57 hydroxyzine [From Vistaril] AdvReac Chest Pain Verified 07/09/24 11:57 Vital Signs Temp 99 F 07/17/24 09:50 Pulse 85 07/17/24 09:50 Resp 18 07/17/24 09:50 BP 109/76 07/17/24 09:50 Pulse Ox 97 07/16/24 21:50 FiO2 Intake & Output 07/16/24 07/17/24 07/17/24 18:59 06:59 18:59 Weight 90.6 kg Patient Condition at Discharge: Stable Plan - Discharge Summary Discharge Rx Participant: Yes New Discharge Prescriptions: New Benztropine Mesylate [Cogentin] 2 mg PO BID 30 Days #60 tab DULoxetine HCL [Cymbalta] 60 mg PO DAILY 30 Days #30 cap Aspers Carbonate 300 mg PO DAILY 30 Days #30 cap fluPHENAZine decanoate [Prolixin Decanoate] 50 mg IM Q14D #1 ml Doxepin [SINEquan] 10 mg PO HS PRN 30 Days #30 capsule PRN Reason: Insomnia Nicotine 21Mg/24Hr Patch [Habitrol] 1 patch TRANSDERM DAILY 14 Days #14 patch Aspers Carbonate 600 mg PO HS 30 Days #60 cap Melatonin 10 mg PO HS 30 Days #60 tab Mirtazapine [Remeron] 45 mg PO HS 30 Days #90 tab Sennosides-Docusate Sodium [Senokot-S] 1 each PO BID 30 Days #60 tab hydrOXYzine pamoate [Vistaril] 50 mg PO DAILY PRN 30 Days #60 cap PRN Reason: Anxiety Thiamine [Vitamin B-1] 100 mg PO DAILY tab Continue Metoprolol Succinate (ER) [Toprol XL] 12.5 mg PO DAILY 30 Days #30 tab Discontinued LORazepam [Ativan] 1 mg PO Q6H PRN tab PRN Reason: Anxiety Nicotine 21Mg/24Hr Patch [Habitrol] 1 patch TRANSDERM DAILY patch Discharge Medication List Benztropine Mesylate [Cogentin] 2 mg PO BID 30 Days #60 tab 07/17/24 [Rx] DULoxetine HCL [Cymbalta] 60 mg PO DAILY 30 Days #30 cap 07/17/24 [Rx] Doxepin [SINEquan] 10 mg PO HS PRN 30 Days #30 capsule 07/17/24 [Rx] Aspers Carbonate 300 mg PO DAILY 30 Days #30 cap 07/17/24 [Rx] Aspers Carbonate 600 mg PO HS 30 Days #60 cap 07/17/24 [Rx] Melatonin 10 mg PO HS 30 Days #60 tab 07/17/24 [Rx] Metoprolol Succinate (ER) [Toprol XL] 12.5 mg PO DAILY 30 Days #30 tab 07/17/24 [Rx] Mirtazapine [Remeron] 45 mg PO HS 30 Days #90 tab 07/17/24 [Rx] Nicotine 21Mg/24Hr Patch [Habitrol] 1 patch TRANSDERM DAILY 14 Days #14 patch 07/17/24 [Rx] Sennosides-Docusate Sodium [Senokot-S] 1 each PO BID 30 Days #60 tab 07/17/24 [Rx] Thiamine [Vitamin B-1] 100 mg PO DAILY tab 07/17/24 [Rx] fluPHENAZine decanoate [Prolixin Decanoate] 50 mg IM Q14D #1 ml 07/17/24 [Rx] hydrOXYzine pamoate [Vistaril] 50 mg PO DAILY PRN 30 Days #60 cap 07/17/24 [Rx] Follow up Appointment(s)/Referral(s): [facility] [Outside] - 07/22/24 9:30 am (07/22 at 9:30am with Jermaine Wall 07/23 at 2pm with Lena Her NP) Tony Pierson MD [Primary Care Provider] - 1 Week Patient Instructions/Handouts: Schizophrenia (DC), Anxiety (GEN) Activity/Diet/Wound Care/Special Instructions: Avoid the use of street drugs and alcohol. Take all medications as prescribed. When you are in need of refills on your medications, please contact your medical provider and/or outpatient psychiatrist/provider to have this done. Please go to your scheduled outpatient appointment for aftercare treatment. If symptoms return or become worse, call the crisis line at and/or go to the nearest emergency room for evaluation. National Suicide Hotline [facility] [facility] confidentiality statement: "The information contained in this communication, including attachments, is confidential, may be privileged, and is intended only for the use of the named recipient(s). Unauthorized use, disclosure, forwarding or copying is strictly prohibited and may be unlawful. If you have received this communication in error, please notify me IMMEDIATELY at the phone number or pager listed above. Discharge Disposition: OTHER INSTITUTION NOT DEFINED
== END 2024-07-17 13:21 | disposition home or self-care (01) | DRG 885 ==
LOC: 3MHU 23:56
PROVIDERS: ADMIT Psychiatry & Neurology Psychiatry; ATTEND Psychiatry & Neurology Psychiatry
DX: F20.9 Schizophrenia, unspecified (principal); G20.A1 Parkinson's disease without dyskinesia, without mention of fluctuations; Z91.148 Patient's other noncompliance with medication regimen for other reason; G40.909 Epilepsy, unspecified, not intractable, without status epilepticus; F10.10 Alcohol abuse, uncomplicated; F12.10 Cannabis abuse, uncomplicated; F32.A Depression, unspecified; B19.20 Unspecified viral hepatitis C without hepatic coma; R45.851 Suicidal ideations; E78.5 Hyperlipidemia, unspecified; F17.210 Nicotine dependence, cigarettes, uncomplicated; F41.9 Anxiety disorder, unspecified; F43.10 Post-traumatic stress disorder, unspecified; R07.89 Other chest pain; G47.00 Insomnia, unspecified; H54.62 Unqualified visual loss, left eye, normal vision right eye; Z79.899 Other long term (current) drug therapy; Z80.0 Family history of malignant neoplasm of digestive organs; Z88.1 Allergy status to other antibiotic agents; Z88.8 Allergy status to other drugs, medicaments and biological substances; Z71.6 Tobacco abuse counseling; Z71.41 Alcohol abuse counseling and surveillance of alcoholic

== ENCOUNTER 2024-08-24 12:30 | Emergency (ER) | payer OTHER, MEDICARE ==
--- NOTE | 2024-08-24 12:57 | ED ---
General Adult HPI - General Chief complaint: Neuro Symptoms/Deficit Stated complaint: Depression Time Seen by Provider: 08/24/24 12:48 Source: patient, RN notes reviewed Mode of arrival: EMS Limitations: no limitations - History of Present Illness Initial comments: 58-year-old male presents to the emergency department for evaluation of increased tremors. He takes Zyprexa, doxepin, Benadryl but he has been out of his medications for the past 7 days. He notes that over the past 3 days he has become more tremulous. Reports generalized pain. Denies any SI or HI. - Related Data Previous Rx's Medication Instructions Recorded Doxepin [SINEquan] 25 mg PO HS #7 capsule 08/24/24 OLANZapine [ZyPREXA] 7.5 mg PO DAILY #21 tablet 08/24/24 diphenhydrAMINE [Benadryl] 25 mg PO HS PRN #7 capsule 08/24/24 Allergies Allergy/AdvReac Type Severity Reaction Status Date / Time Unable to Assess Allergy Verified 08/24/24 14:06 Review of Systems ROS Statement: Those systems with pertinent positive or pertinent negative responses have been documented in the HPI. ROS Other: All systems not noted in ROS Statement are negative. Past Medical History Additional Past Medical History / Comment(s): Parkinsons History of Any Multi-Drug Resistant Organisms: None Reported Past Psychological History: Anxiety, Schizophrenia Smoking Status: Current every day smoker Past Alcohol Use History: None Reported Past Drug Use History: None Reported General Exam Limitations: no limitations General appearance: alert, in no apparent distress Head exam: Present: atraumatic, normocephalic, normal inspection Eye exam: Present: normal appearance, PERRL, EOMI. Absent: scleral icterus, conjunctival injection, periorbital swelling ENT exam: Present: normal exam, mucous membranes moist Respiratory exam: Present: normal lung sounds bilaterally. Absent: respiratory distress, wheezes, rales, rhonchi, stridor Cardiovascular Exam: Present: regular rate, normal rhythm, normal heart sounds. Absent: systolic murmur, diastolic murmur, rubs, gallop, clicks Extremities exam: Present: normal inspection, full ROM, normal capillary refill. Absent: tenderness, pedal edema, joint swelling, calf tenderness Back exam: Present: normal inspection Neurological exam: Present: alert, oriented X3 Psychiatric exam: Present: normal affect, normal mood Skin exam: Present: warm, dry, intact, normal color. Absent: rash Course Vital Signs 08/24/24 08/24/24 12:44 15:38 Temperature 97.7 F Pulse Rate 83 98 Respiratory 18 18 Rate Blood Pressure 133/99 127/89 O2 Sat by Pulse 96 98 Oximetry Medical Decision Making - Medical Decision Making Was pt. sent in by a medical professional or institution (CHEPE Vazquez, INSURANCE ADJUSTOR, urgent care, hospital, or [facility]...) When possible be specific @ -No Did you speak to anyone other than the patient for history (EMS, parent, family, police, friend...)? What history was obtained from this source @ -No Did you review nursing and triage notes (agree or disagree)? Why? @ -I reviewed and agree with nursing and triage notes Were old charts reviewed (outside hosp., previous admission, EMS record, old EKG, old radiological studies, urgent care reports/EKG's, [facility] records)? Report findings @ -No old charts were reviewed Differential Diagnosis (chest pain, altered mental status, abdominal pain women, abdominal pain men, vaginal bleeding, weakness, fever, dyspnea, syncope, headache, dizziness, GI bleed, back pain, seizure, CVA, palpatations, mental health, musculoskeletal)? @ -Medication management, medication noncompliance, this list is not inclusive EKG interpreted by me (3pts min.). @ -None X-rays interpreted by me (1pt min.). @ -None done CT interpreted by me (1pt min.). @ -None done U/S interpreted by me (1pt. min.). @ -None done What testing was considered but not performed or refused? (CT, X-rays, U/S, labs)? Why? @ -None What meds were considered but not given or refused? Why? @ -None Did you discuss the management of the patient with other professionals (conrado karimiferolando i.e. CHEPE Vazquez, INSURANCE ADJUSTOR, lab, RT, psych nurse, community mental health social worker, batching operator, teacher, weapons electrical engineering officer, case management director)? Give summary @ -Management discussed with case management who helped provide resources for the patient to get his medications Was smoking cessation discussed for >3mins.? @ -No Was critical care preformed (if so, how long)? @ -No Were there social determinants of health that impacted care today? How? (Homelessness, low income, unemployed, alcoholism, drug addiction, transportation, low edu. Level, literacy, decrease access to med. care, halfway, rehab)? @ -No Was there de-escalation of care discussed even if they declined (Discuss DNR or withdrawal of care, Hospice)? DNR status @ -No What co-morbidities impacted this encounter? (DM, HTN, Smoking, COPD, CAD, Cancer, CVA, ARF, Chemo, Hep., AIDS, mental health diagnosis, sleep apnea, morbid obesity)? @ -None Was patient admitted / discharged? Hospital course, mention meds given and route, prescriptions, significant lab abnormalities, going to OR and other pertinent info. @ -Discharge. Patient presents emergency department for medication management. Patient states that he has been out of his medication for the past 7 days. He notes that since then he has had increased tremulousness. Patient was provided his medications in the emergency department. I did send prescriptions over to the patient's pharmacy. He was provided resources to cloth picker his medications. Advise follow-up with [facility]. He is understanding agreeable discharge plan. Patient stable at time of discharge. Case discussed with Dr. Hinson. Undiagnosed new problem with uncertain prognosis? @ -No Drug Therapy requiring intensive monitoring for toxicity (Heparin, Nitro, Insulin, Cardizem)? @ -No Were any procedures done? @ -No Diagnosis/symptom? @ -Medication management Acute, or Chronic, or Acute on Chronic? @ -Acute Uncomplicated (without systemic symptoms) or Complicated (systemic symptoms)? @ -Uncomplicated Side effects of treatment? @ -No Exacerbation, Progression, or Severe Exacerbation? @ -No Poses a threat to life or bodily function? How? (Chest pain, [place], [place], pneumonia, PE, COPD, DKA, ARF, appy, cholecystitis, CVA, Diverticulitis, Homicidal, Suicidal, threat to staff... and all critical care pts) @ -No Disposition Clinical Impression: Medication management Disposition: HOME SELF-CARE Condition: Stable Additional Instructions: [facility] can be contacted at [phone]. They may be able to assist with affordable medications. Prescriptions: diphenhydrAMINE [Benadryl] 25 mg PO HS PRN #7 capsule PRN Reason: Agitation Doxepin [SINEquan] 25 mg PO HS #7 capsule OLANZapine [ZyPREXA] 7.5 mg PO DAILY #21 tablet Is patient prescribed a controlled substance at d/c from ED?: No Referrals: None,Stated [Primary Care Provider] - 1-2 days [facility] [NON-STAFF] - 1-2 days (Clinic for [facility] residents with no insurance or who are under insured. ) [facility] [NON-STAFF] - As Soon As Possible Forms: Area PCPs
[2024-08-24] MEDS: diphenhydrAMINE 50 MG CAP PO STA (13:10)
[2024-08-24 13:25] VITALS: RESP 18; TEMP 97.7
[2024-08-24] MEDS: OLANZapine 7.5 MG TAB PO ONE (13:37)
[2024-08-24 15:40] VITALS: BP 127/89; PULSE 98
== END 2024-08-24 15:40 | disposition home or self-care (01) ==
LOC: EC 12:30 → MERGE 12:30 → EC 15:40
DX: Z91.148 Patient's other noncompliance with medication regimen for other reason (principal); F17.200 Nicotine dependence, unspecified, uncomplicated
CPT/HCPCS: 99283; 96372; J3360